=== PATIENT | female | born 2000 | race Caucasian/White ===

== ENCOUNTER 2020-08-14 11:17 | Emergency (ER) | payer SELFPAY ==
--- NOTE | 2020-08-14 14:12 | ER ---
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 Coronavirus screen: Client denies travel out of the [place] in the last 14 days. Ebola Screen: Patient negative for fever greater than or equal to 101.5 degrees Fahrenheit, and additional compatible Ebola Virus Disease symptoms Patient denies exposure to infectious person. Patient denies travel to an Ebola-affected area in the 21 days before illness onset. No symptoms or risks identified at this time. Initial Sepsis Screen: Does the patient meet any 2 criteria? HR > 90 bpm. No. Patient's initial sepsis screen is negative. Does the patient have a suspected source of infection? Yes: Skin breakdown/wound. Risk Assessment: Do you want to hurt yourself or someone else? Patient reports no desire to harm self or others. Onset of symptoms was August 14, 2020. 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 - Social history:: Smoking status: Patient reports the use of cigarette tobacco products, smokes one-half pack cigarettes per day. Screenin:40 Abuse screen: Denies threats or abuse. Nutritional screening: No deficits noted. em Tuberculosis screening: No symptoms or risk factors identified. Fall Risk None identified. Assessment: 11:40 General: Appears in no apparent distress. comfortable, Behavior is calm, cooperative, em appropriate for age, Denies fever. Pain: Denies pain. Neuro: Level of Consciousness is awake, alert, obeys commands, Oriented to person, place, time, situation, Appropriate for age. Cardiovascular: Capillary refill < 3 seconds Patient's skin is warm and dry. Respiratory: Airway is patent Respiratory effort is even, unlabored, Respiratory pattern is regular, symmetrical. Derm: Skin is intact, is healthy with good turgor, Skin is pink, warm \T\ dry. Wound noted right lower back, dorsum of left foot and right arm. Musculoskeletal: 14:04 Reassessment: called pt, no answer at this time. em Vital Signs: 11:38 BP 141 / 94; Pulse 99; Resp 18; Temp 98.4(O); Pulse Ox 100% on R/A; Weight 90.72 kg; em Height 5 ft. 1 in. (154.94 cm); Pain 0/10; 11:38 Body Mass Index 37.79 (90.72 kg, 154.94 cm) em ED Course: 11:22 Patient arrived in ED. ds1 11:40 Triage completed. em 11:40 Patient has correct armband on for positive identification. Placed in gown. Bed in low em position. Call light in reach. Side rails up X2. 11:40 No provider procedures requiring assistance completed. Patient did not have IV access em during this emergency room visit. 11:41 Arm band placed on. em 13:30 Lurdes Cerna FNP-C [facility]. kb 13:30 Ifeanyi Larsen MD is Attending Physician. kb 14:15 Shun Mayberry, RN is Primary Nurse. em Administered Medications: No medications were administered Outcome: 14:10 Discharged to home ambulatory. em 14:10 Condition: good em 14:10 Discharge instructions given to patient, Instructed on discharge instructions, follow up and referral plans. medication usage, wound care, Demonstrated understanding of instructions, follow-up care, medications, wound care, Prescriptions given X 1. 14:12 Discharge ordered by . kb 14:15 Patient left the ED. em Signatures: Lurdes Cerna FNP-C FNP-Shun Zuluaga, RN RN em Mahnaz Faith ds1
--- NOTE | 2020-08-14 14:12 | EDPHYS ---
Physician Documentation [facility] Name: Rita Garcia Age: 20 yrs Sex: Female : 2000 Arrival Date: 08/14/2020 Time: 11:22 Bed Waiting Private MD: ED Physician Ifeanyi Larsen HPI: 08/14 23:50 This 20 yrs old Female presents to ER via Ambulatory with complaints of Rash. kb 23:50 The patient's rash thought to be caused by wounds. The rash is located on the right kb lower back and right arm and right calf and left calf. The rash can be described as draining, open wounds. Onset: The symptoms/episode began/occurred last week. Associated signs and symptoms: Pertinent positives: None. Severity of symptoms: At their worst the symptoms were mild in the emergency department the symptoms are unchanged. The patient has not experienced similar symptoms in the past. The patient has not recently seen a physician. Pt reports what started out as maybe insect bites has become sores. Pt has had MRSA before and is concerned that is what they are now. States some of them have been draining. 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 - Social history:: Smoking status: Patient reports the use of cigarette tobacco products, smokes one-half pack cigarettes per day. ROS: 23:47 Constitutional: Negative for fever, chills, and weight loss, Cardiovascular: Negative kb for chest pain, palpitations, and edema, Respiratory: Negative for shortness of breath, cough, wheezing, and pleuritic chest pain, Abdomen/GI: Negative for abdominal pain, nausea, vomiting, diarrhea, and constipation, MS/Extremity: Negative for injury and deformity, Neuro: Negative for headache, weakness, numbness, tingling, and seizure. 23:47 Skin: Positive for of the right calf and left calf and right lower back and right arm, open wounds. Exam: 23:48 Constitutional: This is a well developed, well nourished patient who is awake, alert, kb and in no acute distress. Head/Face: Normocephalic, atraumatic. Chest/axilla: Normal chest wall appearance and motion. Nontender with no deformity. No lesions are appreciated. Cardiovascular: Regular rate and rhythm with a normal S1 and S2. No gallops, murmurs, or rubs. Normal PMI, no JVD. No pulse deficits. Respiratory: Lungs have equal breath sounds bilaterally, clear to auscultation and percussion. No rales, rhonchi or wheezes noted. No increased work of breathing, no retractions or nasal flaring. Abdomen/GI: Soft, non-tender, with normal bowel sounds. No distension or tympany. No guarding or rebound. No evidence of tenderness throughout. MS/ Extremity: Pulses equal, no cyanosis. Neurovascular intact. Full, normal range of motion. Neuro: Awake and alert, GCS 15, oriented to person, place, time, and situation. Cranial nerves II-XII grossly intact. Motor strength 5/5 in all extremities. Sensory grossly intact. Cerebellar exam normal. Normal gait. 23:48 Skin: abscess, that is small, of the right lower back, with drainage, open wounds to bilateral calves and one to right forearm. Vital Signs: 11:38 BP 141 / 94; Pulse 99; Resp 18; Temp 98.4(O); Pulse Ox 100% on R/A; Weight 90.72 kg; em Height 5 ft. 1 in. (154.94 cm); Pain 0/10; 11:38 Body Mass Index 37.79 (90.72 kg, 154.94 cm) em MDM: 14:12 Patient medically screened. kb 23:47 Data reviewed: vital signs, nurses notes. Data interpreted: Pulse oximetry: on room air kb is 100 %. Interpretation: normal. Counseling: I had a detailed discussion with the patient and/or guardian regarding: the historical points, exam findings, and any diagnostic results supporting the discharge/admit diagnosis, the need for outpatient follow up, a family practitioner, to return to the emergency department if symptoms worsen or persist or if there are any questions or concerns that arise at home. Administered Medications: No medications were administered Disposition: 15:59 Co-signature as Attending Physician, Ifeanyi Larsen MD I agree with the assessment and kdr plan of care. Disposition: 08/14/20 14:12 Discharged to Home. Impression: Local infection of the skin and subcutaneous tissue, unspecified. - Condition is Stable. - Discharge Instructions: Skin Abscess, Pzyw-fa-Noan, Wound Infection, [id number]. - Prescriptions for Bactrim DS 800- 160 mg Oral Tablet - take 1 tablet by ORAL route every 12 hours for 10 days; 20 tablet. - Medication Reconciliation Form, Thank You Letter, Antibiotic Education, Prescription Opioid Use form. - Follow up: Emergency Department; When: As needed; Reason: Worsening of condition. Follow up: Private Physician; When: 2 - 3 days; Reason: Recheck today's complaints, Continuance of care, Re-evaluation by your physician. Signatures: Lurdes Cerna, BRIM STRETCHER-C BRIM STRETCHER-Ckb Ifeanyi Larsen MD MD kdr Munoz, Edgar RN RN em Corrections: (The following items were deleted from the chart) 14:15 14:12 08/14/2020 14:12 Discharged to Home. Impression: Local infection of the skin and em subcutaneous tissue, unspecified. Condition is Stable. Forms are Medication Reconciliation Form, Thank You Letter, Antibiotic Education, Prescription Opioid Use. Follow up: Emergency Department; When: As needed; Reason: Worsening of condition. Follow up: Private Physician; When: 2 - 3 days; Reason: Recheck today's complaints, Continuance of care, Re-evaluation by your physician. kb 23:50 23:48 Skin: abscess, that is small, of the right lower back, with drainage, open wounds kb to bilateral calves and one to left forearm. kb
[2020-08-14 14:23] VITALS: BP 141/94; TEMP 98.4; O2SAT 100
== END 2020-08-14 14:15 | disposition home or self-care (01) ==
LOC: ER 11:17
DX: L08.9 Local infection of the skin and subcutaneous tissue, unspecified (principal); F17.210 Nicotine dependence, cigarettes, uncomplicated; Z91.040 Latex allergy status; Z91.048 Other nonmedicinal substance allergy status
CPT/HCPCS: 99282

== ENCOUNTER 2020-11-01 02:55 | Inpatient (IN) | payer SELFPAY ==
--- OUTSIDE RECORDS SUMMARY | 2020-11-01 02:58 | XMS REPORT | Continuity of Care Document ---
:[address] [facility] t Address [address] [place] [address] Care Team Providers Name Role Phone Sai Jaramillo DO Attending Clinician Pk Aragon Attending Clinician Payers Payer Name Policy Type Policy Number Effective Date Expiration Date S ource Problems This patient has no known problems. Allergies, Adverse Reactions, Alerts Allergy Allergy Status Severity Reaction(s) Onset Inactive Treating Comm ents Source Name Type Date Date Clinician LATAX DA Active U 2019- [facility]30 [place] [facility] [address] [facility] [place] Active [place] [facility] ry 4- [place] [facility] [address] [facility] [address] [facility] - [place] Active [place] 2018-0 [facility] unspecif 4- [place] ied 00:00: [facility] 00 are [facility] Medications This patient has no known medications. Procedures This patient has no known procedures. Encounters Start End Encounter Admission Attending Care Care Encounter Source Date/Time Date/Time Type Type Clinicians Facility Department ID 2020-10-28 2020-10-28 Patient DESTINEE Jaramillo [id number] 00:00:00 00:00:00 Outreach Dixon [facility] [id number] Sai [facility] [id number] [place] [id number] 2020-10-24 2020-10-24 Telephone Sherly KYMAGDALENA [id number] 00:00:00 00:00:00 Suzie Whittington CARE ASSISTANT [id number] [facility] [id number] MATERNAL [id number] & CHILD [address] [place] [address] Results Test Description Test Time Test Comments Results Result Comments Source RAPID PLASMA REAGIN 2019-05-02 09:59:00 Test Item Value Reference Range Interpretation Comme nts RAPID PLASMA REAGIN (test code = RPR) NEGATIVE NEGATIVE CBC W/AUTO [id number] 04:35:00 Test Item Value Reference Range Interpretation Comments WHITE BLOOD CELL (test code = 14.9 x10 3/uL 3.2-11.5 H WBC) RED BLOOD CELL (test code = 3.97 x10(6)/m 3.70-5.10 N RBC) HEMOGLOBIN (test code = HGB) 9.6 g/dL 12.0-15.0 L HEMATOCRIT (test code = HCT) 29.8 % 35.7-44.8 L MEAN CELL VOLUME (test code = 75 fL 80-100 L MCV) MEAN CELL HGB (test code = MCH) 24.1 pg 26.2-33.8 L MEAN CELL HGB CONCENTRATION 32.1 g/dL 30.0-34.0 N (test code = MCHC) RED CELL DISTRIBUTION WIDTH 16.4 % 11.3-14.5 H (test code = RDW) PLATELET COUNT (test code = 325 x10 3/uL 130-408 N PLT) MEAN PLATELET VOLUME (test code 8.8 fl 6.4-10.5 N = MPV) NEUTROPHIL % (test code = NT%) 78.3 % 40.0-70.0 H LYMPHOCYTE % (test code = LY%) 14.2 % 20-40 L MONOCYTE % (test code = MO%) 6.4 % 1-10 N EOSINOPHIL % (test code = EO%) 0.9 % 1.0-5.0 L BASOPHIL % (test code = BA%) 0.2 % 0.0-1.0 N NEUTROPHIL # (test code = NT#) 11.7 x10 3/uL 1.6-7.2 H LYMPHOCYTE # (test code = LY#) 2.10 x10 3/uL 1.1-2.7 N MONOCYTE # (test code = MO#) 1.0 x10 3/uL 0.3-0.8 H EOSINOPHIL # (test code = EO#) 0.1 x10 3/uL 0.0-0.5 N BASOPHIL # (test code = BA#) 0.0 x10 3/uL 0.0-0.1 N AB RUBELLA [id number] 14:36:00 Test Item Value Reference Range Interpretation Comments AB RUBELLA IGG (test code = RUBGAB) EQUIVOCAL NEGATIVE AG HEPATITIS B [id number] 13:50:00 Test Item Value Reference Range Interpretation Comments AG HEPATITIS B SURFACE (test code = NEGATIVE NEGATIVE HBSAG) AB HIV 1 13:50:00 Test Item Value Reference Range Interpretation Comments AB HIV 1 2 (test code = [id number]) NEGATIVE NEGATIVE CBC W/AUTO [id number] 12:38:00 Test Item Value Reference Range Interpretation Comments WHITE BLOOD CELL (test code = 10.3 x10 3/uL 3.2-11.5 N WBC) RED BLOOD CELL (test code = 4.41 x10(6)/m 3.70-5.10 N RBC) HEMOGLOBIN (test code = HGB) 10.6 g/dL 12.0-15.0 L HEMATOCRIT (test code = HCT) 33.4 % 35.7-44.8 L MEAN CELL VOLUME (test code = 76 fL 80-100 L MCV) MEAN CELL HGB (test code = MCH) 24.1 pg 26.2-33.8 L MEAN CELL HGB CONCENTRATION 31.9 g/dL 30.0-34.0 N (test code = MCHC) RED CELL DISTRIBUTION WIDTH 17.1 % 11.3-14.5 H (test code = RDW) PLATELET COUNT (test code = 383 x10 3/uL 130-408 N PLT) MEAN PLATELET VOLUME (test code 8.6 fl 6.4-10.5 N = MPV) NEUTROPHIL % (test code = NT%) 71.9 % 40.0-70.0 H LYMPHOCYTE % (test code = LY%) 18.0 % 20-40 L MONOCYTE % (test code = MO%) 7.9 % 1-10 N EOSINOPHIL % (test code = EO%) 1.6 % 1.0-5.0 N BASOPHIL % (test code = BA%) 0.6 % 0.0-1.0 N NEUTROPHIL # (test code = NT#) 7.4 x10 3/uL 1.6-7.2 H LYMPHOCYTE # (test code = LY#) 1.90 x10 3/uL 1.1-2.7 N MONOCYTE # (test code = MO#) 0.8 x10 3/uL 0.3-0.8 N EOSINOPHIL # (test code = EO#) 0.2 x10 3/uL 0.0-0.5 N BASOPHIL # (test code = BA#) 0.1 x10 3/uL 0.0-0.1 N RAPID PLASMA [id number] 09:46:00 Test Item Value Reference Range Interpretation Comments RAPID PLASMA REAGIN (test code = NEGATIVE NEGATIVE RPR) AG HEPATITIS B [id number] 21:10:00 Test Item Value Reference Range Interpretation Comments AG HEPATITIS B SURFACE (test code = NEGATIVE NEGATIVE HBSAG) AB HIV 1 21:10:00 Test Item Value Reference Range Interpretation Comments AB HIV 1 2 (test code = [id number]) NEGATIVE NEGATIVE CBC W/AUTO [id number] 20:11:00 Test Item Value Reference Range Interpretation Comments WHITE BLOOD CELL (test code = 12.6 x10 3/uL 3.2-11.5 H WBC) RED BLOOD CELL (test code = 4.18 x10(6)/m 3.70-5.10 N RBC) HEMOGLOBIN (test code = HGB) 10.2 g/dL 12.0-15.0 L HEMATOCRIT (test code = HCT) 32.6 % 35.7-44.8 L MEAN CELL VOLUME (test code = 78 fL 80-100 L MCV) MEAN CELL HGB (test code = MCH) 24.4 pg 26.2-33.8 L MEAN CELL HGB CONCENTRATION 31.3 g/dL 30.0-34.0 N (test code = MCHC) RED CELL DISTRIBUTION WIDTH 15.7 % 11.3-14.5 H (test code = RDW) PLATELET COUNT (test code = 364 x10 3/uL 130-408 N PLT) MEAN PLATELET VOLUME (test code 8.7 fl 6.4-10.5 N = MPV) NEUTROPHIL % (test code = NT%) 75.0 % 40.0-70.0 H LYMPHOCYTE % (test code = LY%) 16.4 % 20-40 L MONOCYTE % (test code = MO%) 6.8 % 1-10 N EOSINOPHIL % (test code = EO%) 1.4 % 1.0-5.0 N BASOPHIL % (test code = BA%) 0.4 % 0.0-1.0 N NEUTROPHIL # (test code = NT#) 9.5 x10 3/uL 1.6-7.2 H LYMPHOCYTE # (test code = LY#) 2.10 x10 3/uL 1.1-2.7 N MONOCYTE # (test code = MO#) 0.9 x10 3/uL 0.3-0.8 H EOSINOPHIL # (test code = EO#) 0.2 x10 3/uL 0.0-0.5 N BASOPHIL # (test code = BA#) 0.1 x10 3/uL 0.0-0.1 N
[2020-11-01] MEDS ORDERED: MORPHINE 4 MG/ML SYR ONE (03:44)
[2020-11-01] MEDS ORDERED: NA CHLORIDE 0.9% 1,000 ML ONE (03:45)
[2020-11-01] MEDS ORDERED: ONDANSETRON 4 MG/2 ML VIAL ONE (03:45)
[2020-11-01 03:54] LABS: Absolute Lymphocytes (CBC) 2.6 K/uL (0.7-4.9); Basophils % 0.3 % (0-1.3); Hematocrit 46.5 % (36.0-45.0); Lymphocytes % 19.5 % (15.3-44.8); MPV 9.1 fL (7.6-11.3); RBC Red Blood Cell Count 5.23 M/uL (3.86-4.86)
[2020-11-01 04:15] LABS: ALT/SGPT 35 U/L (12-78); AST/SGOT 11 U/L (15-37); Albumin 3.4 g/dL (3.4-5.0); Alkaline Phosphatase 85 U/L (45-117); BUN Blood Urea Nitrogen 9 mg/dL (7-18); Bicarbonate 25 mmol/L (21-32); Bilirubin Direct < 0.1 mg/dL (0-0.2); Bilirubin Total 0.3 mg/dL (0.2-1.0); Glucose Level 113 mg/dL (74-106); Lipase 97 U/L (73-393); Potassium 3.7 mmol/L (3.5-5.1); Protein, Total 7.1 g/dL (6.4-8.2); Sodium Level 140 mmol/L (136-145)
[2020-11-01 04:59] LABS: Urine Blood TRACE (Negative); Urine Glucose NEGATIVE (Negative); Urine Protein NEGATIVE (NEG); Urine Specific Gravity 1.015 (1.005-1.030); Urine Specific Gravity/Preg 1.015 (1.005-1.030); Urine pH 5.5 (5.0-7.0)
[2020-11-01] MEDS ORDERED: PIPER/TAZO/NS 3.375gm 3.375 GM/100 ML BAG ONE (06:01)
[2020-11-01] MEDS ORDERED: D5 0.45 NS 1,000 ML IV ONE (06:02)
--- NOTE | 2020-11-01 06:15 | EDPHYS ---
Physician Documentation [facility] Name: Rita Garcia Age: 20 yrs Sex: Female : 2000 Arrival Date: 11/01/2020 Time: 02:56 Bed 13 Private MD: ED Physician Nelson Manuel HPI: 11/01 03:17 This 20 yrs old Female presents to ER via Ambulatory with complaints of ma2 Gallbladder Pain. 03:17 Onset: The symptoms/episode began/occurred gradually, 1 day(s) ago. Associated signs ma2 and symptoms: Pertinent negatives: anorexia, blood in stools, diarrhea, fever, vaginal discharge, vomiting blood. Severity of pain: At its worst the pain was moderate in the emergency department the pain is unchanged. The patient has experienced similar episodes in the past. diagnosed with cholelithiasis last week at another er given naproxen and had US. she is here because pain is recurrent. she had pain 2 hrs ago that has improved no fever. n ovomiting pain is moderate. 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 - Social history:: Smoking status: Patient denies any tobacco usage or history of. Patient/guardian denies using alcohol, street drugs, The patient lives with family. - Family history:: not pertinent. ROS: 03:17 Constitutional: Negative for fever, chills, and weight loss. ma2 03:17 All other systems are negative. Exam: 03:17 Constitutional: This is a well developed, well nourished patient who is awake, alert, ma2 and in no acute distress. Head/Face: Normocephalic, atraumatic. Eyes: Pupils equal round and reactive to light, extra-ocular motions intact. Lids and lashes normal. Conjunctiva and sclera are non-icteric and not injected. Cornea within normal limits. Periorbital areas with no swelling, redness, or edema. ENT: Nares patent. No nasal discharge, no septal abnormalities noted. Tympanic membranes are normal and external auditory canals are clear. Oropharynx with no redness, swelling, or masses, exudates, or evidence of obstruction, uvula midline. Mucous membranes moist. Neck: Trachea midline, no thyromegaly or masses palpated, and no cervical lymphadenopathy. Supple, full range of motion without nuchal rigidity, or vertebral point tenderness. No Meningismus. Chest/axilla: Normal chest wall appearance and motion. Nontender with no deformity. No lesions are appreciated. Cardiovascular: Regular rate and rhythm with a normal S1 and S2. No gallops, murmurs, or rubs. Normal PMI, no JVD. No pulse deficits. Respiratory: Lungs have equal breath sounds bilaterally, clear to auscultation and percussion. No rales, rhonchi or wheezes noted. No increased work of breathing, no retractions or nasal flaring. Abdomen/GI: right upper q painr, with normal bowel sounds. No distension or tympany. No guarding or rebound. No evidence of tenderness throughout. Back: No spinal tenderness. No costovertebral tenderness. Full range of motion. Skin: Warm, dry with normal turgor. Normal color with no rashes, no lesions, and no evidence of cellulitis. MS/ Extremity: Pulses equal, no cyanosis. Neurovascular intact. Full, normal range of motion. Neuro: Awake and alert, GCS 15, oriented to person, place, time, and situation. Cranial nerves II-XII grossly intact. Motor strength 5/5 in all extremities. Sensory grossly intact. Cerebellar exam normal. Normal gait. Vital Signs: 03:09 BP 146 / 98; Pulse 99; Resp 16; Temp 98.2; Pulse Ox 100% on R/A; Height 5 ft. 1 in. sg (154.94 cm); Pain 8/10; 04:00 BP 102 / 58; Pulse 51; Resp 16; Pulse Ox 100% ; Pain 0/10; cr4 05:20 BP 102 / 68; Pulse 81; Resp 16; Temp 98.8; Pulse Ox 98% ; Pain 0/10; cr4 06:00 BP 122 / 88; Pulse 89; Resp 18; Temp 98.1; Pulse Ox 100% ; Pain 0/10; cr4 08:15 BP 106 / 81; Pulse 90; Resp 18; Pulse Ox 100% on R/A; bw MDM: 03:07 Patient medically screened. [facility] 03:17 Differential diagnosis: cholecystitis, Cholelithiasis, gastritis. [facility] 05:44 Data reviewed: vital signs, nurses notes. Counseling: I had a detailed discussion with [facility] the patient and/or guardian regarding: the historical points, exam findings, and any diagnostic results supporting the discharge/admit diagnosis, the presence of at least one elevated blood pressure reading (>120/80) during this emergency department visit, the need for outpatient follow up. Response to treatment: the patient's symptoms have markedly improved after treatment. 06:14 ED course: discussed with dr. montaño . [facility] 11/01 03:06 Order name: Basic Metabolic Panel [facility] 11/01 03:06 Order name: CBC with Diff [facility] 11/01 03:06 Order name: Hepatic Function [facility] 11/01 03:06 Order name: Lipase [facility] 11/01 03:06 Order name: Basic Metabolic Panel; Complete Time: 04:17 [facility] 11/01 03:06 Order name: CBC with Automated Diff; Complete Time: 04:17 [facility] 11/01 03:06 Order name: Liver (Hepatic) Function; Complete Time: 04:17 [facility] 11/01 03:06 Order name: Lipase; Complete Time: 04:17 [facility] 11/01 04:52 Order name: Urine Dipstick--Ancillary (enter results) [facility] 11/01 04:52 Order name: Urine --Ancillary (enter results) [facility] 11/01 04:53 Order name: Urine Dipstick-Ancillary; Complete Time: 05:36 [facility] 11/01 04:53 Order name: Urine --Ancillary; Complete Time: 05:36 [facility] 11/01 06:19 Order name: Basic Metabolic Panel [facility] 11/01 06:19 Order name: Basic Metabolic Panel [facility] 11/01 03:06 Order name: IV Saline Lock; Complete Time: 03:49 [facility] 11/01 03:20 Order name: CT Abd/Pelvis - IV Contrast Only [facility] 11/01 06:19 Order name: NPO; Complete Time: 07:11 [facility] 11/01 06:19 Order name: Lipase [facility] 11/01 06:19 Order name: Lipase [facility] 11/01 06:19 Order name: CBC with Automated Diff [facility] 11/01 06:19 Order name: CBC with Automated Diff [facility] 11/01 07:54 Order name: COVID-19 : Document "Date of Symptom Onset" if Symptomatic. eb 11/01 08:12 Order name: CORONAVIRUS [facility] 11/01 08:52 Order name: SARS-COV-2 RT PCR [facility] 11/01 03:06 Order name: Labs collected and sent; Complete Time: 03:50 ma2 11/01 03:06 Order name: Urine Dipstick-Ancillary (obtain specimen); Complete Time: 04:54 ma2 11/01 05:38 Order name: NPO; Complete Time: 05:40 ma2 Administered Medications: 03:40 Drug: morphine 4 mg Route: IVP; Site: left forearm; cr4 06:01 Follow up: Response: No adverse reaction; Pain is decreased sf 03:40 Drug: Zofran (Ondansetron) 4 mg Route: IVP; Site: left forearm; cr4 04:42 Follow up: Response: No adverse reaction; Pain is decreased cr4 03:40 Drug: NS 0.9% 1000 ml Route: IV; Rate: 1 bolus; Site: left femoral; cr4 04:42 Follow up: IV Status: Completed infusion; IV Intake: 1000ml cr4 05:58 Drug: Zosyn 3.375 grams Route: IVPB; Infused Over: 60 mins; Site: left forearm; sf 06:28 Follow up: IV Status: Completed infusion; IV Intake: 100ml sf 05:58 Drug: D5-1/2 NS 1000 ml Route: IV; Rate: 125 ml/hr; Site: left forearm; sf Disposition: 11/01/20 06:14 Hospitalization ordered by Kwasi Thompson for Inpatient Admission. Preliminary diagnosis is Acute cholecystitis. - Bed requested for Telemetry/MedSurg (Inpatient). - Status is Inpatient Admission. eb - Condition is Stable. - Problem is new. - Symptoms are unchanged. Signatures: Dispatcher [employer] Antonio Ortega RN TURNER Nupur Lamb RN RN cr4 Nelson Manuel MD MD [facility] Tennille Carter Steven, RN RN sf Corrections: (The following items were deleted from the chart) 09:25 06:14 Hospitalization Ordered by Kwasi Thompson MD for Inpatient Admission. Preliminary eb diagnosis is Acute cholecystitis. Bed requested for Telemetry/MedSurg (Inpatient). Status is Inpatient Admission. Condition is Stable. Problem is new. Symptoms are unchanged. ma2 10:24 09:25 11/01/2020 06:14 Hospitalization Ordered by Kwasi Thompson MD for Inpatient eb Admission. Preliminary diagnosis is Acute cholecystitis. Bed requested for Telemetry/MedSurg (Inpatient). Status is Inpatient Admission. Condition is Stable. Problem is new. Symptoms are unchanged. eb
--- NOTE | 2020-11-01 06:15 | ER ---
Nurse's Notes [facility] Name: Rita Garcia Age: 20 yrs Sex: Female : 2000 Arrival Date: 11/01/2020 Time: 02:56 Bed 13 Private MD: Diagnosis: Acute cholecystitis Presentation: 11/01 03:09 Chief complaint: Patient states: RUQ pain that started last night after eating taco sg angulo, states having pain like this in the past and having been diagnosed with gall stones, was instructed on a diet and plan to follow up, has done everything instructed... except ate taco angulo. Coronavirus screen: Client denies travel out of the [place] in the last 14 days. At this time, the client does not indicate any symptoms associated with coronavirus-19. Ebola Screen: Patient negative for fever greater than or equal to 101.5 degrees Fahrenheit, and additional compatible Ebola Virus Disease symptoms Patient denies exposure to infectious person. Patient denies travel to an Ebola-affected area in the 21 days before illness onset. No symptoms or risks identified at this time. Initial Sepsis Screen: Does the patient meet any 2 criteria? No. Patient's initial sepsis screen is negative. Does the patient have a suspected source of infection? No. Patient's initial sepsis screen is negative. Risk Assessment: Do you want to hurt yourself or someone else? Patient reports no desire to harm self or others. Onset of symptoms was November 01, 2020. Care prior to arrival: None. Transition of care: patient was not received from another setting of care. 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 - Social history:: Smoking status: Patient denies any tobacco usage or history of. Patient/guardian denies using alcohol, street drugs, The patient lives with family. - Family history:: not pertinent. Screenin:58 Abuse screen: Denies threats or abuse. Nutritional screening: No deficits noted. cr4 Tuberculosis screening: No symptoms or risk factors identified. Fall Risk None identified. Assessment: 03:06 General: Appears uncomfortable, well groomed, Behavior is calm, cooperative, cr4 appropriate for age. Pain: Complains of pain in right abdomen Pain does not radiate. Pain currently is 5 out of 10 on a pain scale. Quality of pain is described as aching, sharp, Pain began 5 hours ago. Neuro: No deficits noted. Cardiovascular: No deficits noted. Respiratory: No deficits noted. GI: Reports lower abdominal pain, upper abdominal pain, nausea, Pain is 5 out of 10 on a pain scale. Patient currently denies vomiting. : Denies burning with urination, urinary frequency. EENT: No deficits noted. Derm: No deficits noted. Musculoskeletal: No deficits noted. 04:00 Reassessment: Patient and/or family updated on plan of care and expected duration. Pain cr4 level reassessed. Patient states feeling better. Patient states symptoms have improved. 04:58 Reassessment: Patient states feeling better. Patient states symptoms have improved. cr4 Pain: Denies pain. 05:51 Reassessment: Patient and/or family updated on plan of care and expected duration. Pain cr4 level reassessed. Patient denies pain at this time. Patient states feeling better. informed of need to admit.. 07:10 Reassessment: Patient appears in no apparent distress at this time. Patient and/or bw family updated on plan of care and expected duration. Pain level reassessed. Patient is alert, oriented x 3, equal unlabored respirations, skin warm/dry/pink. received report from Jossue TOMPKINS. Pt asleep at this time. 08:15 Reassessment: Patient appears in no apparent distress at this time. Patient and/or bw family updated on plan of care and expected duration. Pain level reassessed. Patient is alert, oriented x 3, equal unlabored respirations, skin warm/dry/pink. Warm blanket provided. No needs or concerns voiced at this time. Vital Signs: 03:09 BP 146 / 98; Pulse 99; Resp 16; Temp 98.2; Pulse Ox 100% on R/A; Height 5 ft. 1 in. sg (154.94 cm); Pain 8/10; 04:00 BP 102 / 58; Pulse 51; Resp 16; Pulse Ox 100% ; Pain 0/10; cr4 05:20 BP 102 / 68; Pulse 81; Resp 16; Temp 98.8; Pulse Ox 98% ; Pain 0/10; cr4 06:00 BP 122 / 88; Pulse 89; Resp 18; Temp 98.1; Pulse Ox 100% ; Pain 0/10; cr4 08:15 BP 106 / 81; Pulse 90; Resp 18; Pulse Ox 100% on R/A; bw ED Course: 02:56 Patient arrived in ED. cl3 03:05 Nelson Manuel MD is Attending Physician. ma2 03:09 Arm band placed on. sg 03:12 Triage completed. sg 03:16 Nupur Lamb, RN is Primary Nurse. cr4 03:25 Inserted saline lock: 20 gauge in left forearm, using aseptic technique. cr4 04:[address] cr4 04:58 Patient has correct armband on for positive identification. Bed in low position. Side cr4 rails up X2. 04:58 No provider procedures requiring assistance completed. cr4 05:15 CT Abd/Pelvis - IV Contrast Only In Process Unspecified. EDMS 05:39 Urine --Ancillary (enter results) Sent. sf 05:40 Urine Dipstick--Ancillary (enter results) Sent. sf 05:40 Lipase Sent. sf 05:40 Hepatic Function Sent. sf 05:40 CBC with Diff Sent. sf 05:40 Basic Metabolic Panel Sent. sf 05:45 ED physician to see patient. cr4 05:50 Diet: Patient is NPO. cr4 06:14 Kwasi Thompson MD is Hospitalizing Provider. ma2 06:42 Primary Nurse role handed off by Nupur Lamb, TURNER sf 06:42 Antonio Gaxiola, RN is Primary Nurse. sf 07:04 Report given to TURNER Aguayo. sf 07:08 Primary Nurse role handed off by Antonio Gaxiola, TURNER eb 07:09 Dede Duron, TURNER is Primary Nurse. bw 08:16 Warm blanket given. Pillow given. mt Administered Medications: 03:40 Drug: morphine 4 mg Route: IVP; Site: left forearm; cr4 06:01 Follow up: Response: No adverse reaction; Pain is decreased sf 03:40 Drug: Zofran (Ondansetron) 4 mg Route: IVP; Site: left forearm; cr4 04:42 Follow up: Response: No adverse reaction; Pain is decreased cr4 03:40 Drug: NS 0.9% 1000 ml Route: IV; Rate: 1 bolus; Site: left femoral; cr4 04:42 Follow up: IV Status: Completed infusion; IV Intake: 1000ml cr4 05:58 Drug: Zosyn 3.375 grams Route: IVPB; Infused Over: 60 mins; Site: left forearm; sf 06:28 Follow up: IV Status: Completed infusion; IV Intake: 100ml sf 05:58 Drug: D5-1/2 NS 1000 ml Route: IV; Rate: 125 ml/hr; Site: left forearm; sf Intake: 04:42 IV: 1000ml; Total: 1000ml. cr4 06:28 IV: 100ml; Total: 1100ml. sf Outcome: 06:14 Decision to Hospitalize by Provider. ma2 10:24 Patient left the ED. eb Signatures: Dispatcher [employer] EDAntonio De Jesus, RN Nupur Casey RN RN cr4 Thompson, Moriah mt Alzahri, Mohammad, MD MD ma2 Botello, Elizabeth eb Lewis, Charde 3 Antonio Gaxiola RN RN sf Webb, Bethany, RN RN
[2020-11-01] MEDS ORDERED: ONDANSETRON 4 MG/2 ML VIAL IV PRN (06:16)
[2020-11-01] MEDS ORDERED: MORPHINE 4 MG/ML SYR IV PRN (06:16)
[2020-11-01] MEDS ORDERED: ACETAMINOPHEN 500 MG TAB PO PRN (06:16)
[2020-11-01] MEDS ORDERED: D5 0.45 NS 1,000 ML IV SCH (07:00)
[2020-11-01] MEDS ORDERED: PIPER/TAZO/NS 3.375gm 3.375 GM/100 ML BAG IVPB SCH (09:00)
[2020-11-01 09:03] VITALS: BMI 34.9
[2020-11-01 10:34] VITALS: BP 131/79; TEMP 96.9
--- NOTE | 2020-11-01 12:23 | HP ---
Date of Admission: 11/01/2020 History Of Present Illness: The patient is a 20-year-old female with a past medical history of lupus and asthma, who presents to the hospital with abdominal pain beginning at approximately midnight las t night. She states that she was eating greasy meals and has had similar episodes before in the past . She went to [facility] and was diagnosed with gallstones at that point. Instructed to follow up with a physician for her gallbladder surgery, that was over a year ago. However, she states her symptoms re solved and as such, she did not follow up. She now presents with similar complaints of epigastric wi th right upper quadrant pain. No nausea. No vomiting. No change in bowel or bladder habits. No si ck contacts. No recent travel. No new food exposures. She states that since being admitted to the hospital in the ER about 2 hours after her receiving medication, she had become essentially pain free at this point and has remained so as such, she is now hungry and states that she would like to try d iet at this point. Past Medical History: Significant for lupus, asthma, bipolar, anxiety, depression. Allergies: NO KNOWN DRUG ALLERGIES. Medications: She takes BuSpar, lithium only. Past Surgical History: She has had dental surgery, ear surgery, and knee surgery. No abdominal surg cynthia. Social History: She smokes cigarettes and marijuana. She states she had a history of abusing hydroc odone and pills in the past, but denies using any in the past several years. Review of Systems: Ten-point review of systems other than HPI, denies. Physical Examination: Vital Signs: At the time of my examination her BMI is 35. Her blood pressure was 131/79, pulse 70, respiratory rate 20, temperature 96.9. General: She is awake, alert, oriented. Psychiatric: She is appropriate and conversive. HEENT: She is normocephalic. Sclerae icteric. Mucous members are moist. Oropharynx clear. Neck: Supple without JVD. Chest: Normal expansion and excursion. Cardiovascular: Regular rate and rhythm. Pulmonary: Clear to auscultation bilaterally. Abdomen: Soft, nontender, nondistended. No rebound. No guarding. No focal peritonitis. Negative Marquis sign. No scars. Extremities: No clubbing, cyanosis, or edema. Skin: Warm and dry. Laboratory Data: Reveals a white blood count 13.3, hemoglobin 15.0, hematocrit of 46.5, platelet cou nt is 320. Her neutrophils are normal at 69%. Her sodium 140, potassium 3.7, chloride 109, carbon d ioxide 25, BUN 9, creatinine 0.6, glucose was 113, AST is 11, ALT 35, total bilirubin 0.3, lipase is 97. Her UA had only trace blood, otherwise negative. test is negative. COVID test is neg ative. She had imaging performed, which included a CT of the abdomen and pelvis, which shows possibl e mild gallbladder wall thickening and possible pericholecystic fluid concerning for possible early a cute cholecystitis. The official dictation is pending. Assessment And Plan: This is a 20-year-old female, who came in with an episode of cholecystitis/bili demarco colic. 1.IV fluid hydration. 2.The patient is receiving Zosyn. 3.The patient is pain-free at this point, and as such I have described operative management versus n onoperative management, which includes dietary modification and lifestyle modification versus laparos copic, possible open cholecystectomy. I have explained the risks, benefits, and alternatives of lapa roscopic, possible open cholecystectomy including but not limited to bleeding, infection, damage to t he surrounding tissues, injury to bile ducts, intestines, need for further operation, procedures. Th e patient states she has a trip coming up and would like to have the surgery on elective basis as she is currently hungry and has no pain. She would prefer to start a diet and be discharged home and fo llow up as an outpatient for her cholecystectomy for logistical reasons. As such, I have explained t he risks, benefits, and alternatives of the above stated plan. The patient agrees to as indicated. I will start her on a diet at this point and if she tolerates, she will be discharged home with antibiotic and instructed to follow up to the ER should h er symptoms return. FERDINAND/LEODAN Voice ID: [id number]
--- NOTE | 2020-11-01 20:31 | RAD REPORT ---
EXAM DESCRIPTION: CT - Abdomen Pelvis W Contrast - 11/01/2020 6:30 am CLINICAL HISTORY: The patient is 20 years old and is Female; ruq abd pain;Abd pain TECHNIQUE: Axial computed tomography images of the abdomen and pelvis with intravenous contrast. S agittal and coronal reformatted images were created and reviewed. This CT exam was performed using one or more of the following dose reduction techniques: automated exposure control, adjustment of t he mA and/or kV according to patient size, and/or use of iterative reconstruction technique. COMPARISON: No relevant prior studies available. FINDINGS: LUNG BASES: Subtle peripheral groundglass opacities within the right lower lobe are pres ent. ABDOMEN: LIVER: Unremarkable. No mass. GALLBLADDER AND BILE DUCTS: The gallbladder is not well distended. Suggestion of mild gallbladder wall thickening and pericholecystic inflammation is noted. The gallstones versus sludge are noted within the fundus of the gallbladder. PANCREAS: No ductal dilation. No mass. SPLEEN: Unremarkable. ADRENALS: Unremarkable. No mass. KIDNEYS AND URETERS: Unremarkable. The kidneys enhance symmetrically. No obstructing renal or ure teral calculus is seen. No hydronephrosis or hydroureter. No perinephric fluid or stranding. STOMACH AND BOWEL: The stomach is well distended with food contents. The small bowel is normal in caliber. A moderate amount stool is present throughout colon. There is no mucosal thickening or evid ence of bowel obstruction. PELVIS: APPENDIX: The appendix is normal in caliber without surrounding inflammation. BLADDER: Unremarkable. No mass. REPRODUCTIVE: Unremarkable as visualized. ABDOMEN and PELVIS: INTRAPERITONEAL SPACE: Unremarkable. No free air. No significant fluid collection. BONES/JOINTS: No acute fracture. SOFT TISSUES: The soft tissues are normal. VASCULATURE: Unremarkable. No abdominal aortic aneurysm. LYMPH NODES: Unremarkable. No enlarged lymph nodes. IMPRESSION: Gallstone/sludge within the fundus of the gallbladder with mild gallbladder wall thicken ing and pericholecystic inflammation. Findings may be secondary to acute cholecystitis. Further evalu ation with ultrasound and/or HIDA scan could be performed. Electronically signed by: Ya Harris MD 11/01/2020 5:27 AM CDT Due to temporary technical issues with the PACS/Fluency reporting system, reports are being signed by the in house radiologists without review as a courtesy to insure prompt reporting. The interpreting radiologist is fully responsible for the content of the report.
[2020-11-01 21:50] VITALS: O2SAT 100
== END 2020-11-01 13:30 | disposition home or self-care (01) | DRG 446 ==
LOC: ER 02:55 → ERHOLD 06:22 → 2ND 10:05
PROVIDERS: ADMIT Surgery; ATTEND Surgery
DX: K80.42 Calculus of bile duct with acute cholecystitis without obstruction (principal); F17.210 Nicotine dependence, cigarettes, uncomplicated; Z91.040 Latex allergy status; Z79.899 Other long term (current) drug therapy; Z20.822 Contact with and (suspected) exposure to COVID-19
CPT/HCPCS: 36415; 74177; 80048; 80076; 81003; 81025; 83690; 85025; 96361; 96365; 96375; 99284; J2405; J2543; J7030; J7799; Q9967; U0003

== ENCOUNTER 2020-11-01 23:15 | Emergency (ER) | payer SELFPAY ==
--- OUTSIDE RECORDS SUMMARY | 2020-11-01 23:17 | XMS REPORT | Continuity of Care Document ---
:2000 Author Organization [facility] t Address [address] [place] [address] Care Team Providers Name Role Phone Sai Jaramillo DO Attending Clinician Pk Aragon Attending Clinician Payers Payer Name Policy Type Policy Number Effective Date Expiration Date S ource Problems This patient has no known problems. Allergies, Adverse Reactions, Alerts Allergy Allergy Status Severity Reaction(s) Onset Inactive Treating Comm ents Source Name Type Date Date Clinician LATMALISSA DA Active [facility] [place] [facility] [place] [facility] [place] [facility] - [place] [facility] nut - [place] Active [place] [facility] unspecif - [place] [facility] 00:[facility]: [facility] 00 are [facility] st Medications This patient has no known medications. Procedures This patient has no known procedures. Encounters Start End Encounter Admission Attending Care Care Encounter Source Date/Time Date/Time Type Type Clinicians Facility Department ID 2020-10-28 2020-10-28 Patient DESTINEE Jaramillo [id number] 00:00:00 00:00:00 Outreach [facility] [id number] Sai [facility] [id number] TREY [id number] 2020-10-242020-10-24 Telephone Sherly [facility] [id number] 00:00:00 00:00:00 Suzie Whittington TELEPHONE ANSWERING SERVICE OPERATOR [id number] [facility] [id number] MATERNAL [id number] & CHILD [address] [place] [address] Results Test Description Test Time Test Comments Results Result Comments Source RAPID PLASMA REAGIN 2019-05-02 09:59:00 Test Item Value Reference Range Interpretation Comme nts RAPID PLASMA REAGIN (test code = RPR) NEGATIVE NEGATIVE CBC W/AUTO [id number] 04:35:00 Test Item Value Reference Range Interpretation [...] 0.0 x10 3/uL 0.0-0.1 N AB RUBELLA [id number] 14:36:00 Test Item Value Reference Range Interpretation Comments AB RUBELLA IGG (test code = RUBGAB) EQUIVOCAL NEGATIVE AG HEPATITIS B [id number] 13:50:00 Test Item Value Reference Range Interpretation Comments AG HEPATITIS B SURFACE (test code = NEGATIVE NEGATIVE HBSAG) AB HIV 1 13:50:00 Test Item Value Reference Range Interpretation Comments AB HIV 1 2 (test code = [id number]) NEGATIVE NEGATIVE CBC W/AUTO [id number] 12:38:00 Test Item Value Reference Range Interpretation [...] 0.1 x10 3/uL 0.0-0.1 N RAPID PLASMA [id number] 09:46:00 Test Item Value Reference Range Interpretation Comments RAPID PLASMA REAGIN (test code = NEGATIVE NEGATIVE RPR) AG HEPATITIS B [id number] 21:10:00 Test Item Value Reference Range Interpretation Comments AG HEPATITIS B SURFACE (test code = NEGATIVE NEGATIVE HBSAG) AB HIV 1 21:10:00 Test Item Value Reference Range Interpretation Comments AB HIV 1 2 (test code = [id number]) NEGATIVE NEGATIVE CBC W/AUTO [id number] 20:11:00 Test Item Value Reference Range Interpretation [...]
[2020-11-02] MEDS ORDERED: ONDANSETRON 4 MG/2 ML VIAL ONE (00:29)
[2020-11-02] MEDS ORDERED: DIPHENHYDRAMINE 50 MG/ML VIAL ONE (00:29)
[2020-11-02] MEDS ORDERED: NA CHLORIDE 0.9% 1,000 ML ONE (00:29)
[2020-11-02] MEDS ORDERED: METHYLPREDNISOLONE 125 MG INJ ONE (00:29)
[2020-11-02] MEDS ORDERED: FAMOTIDINE 20 MG/2 ML VIAL IV ONE (00:30)
--- NOTE | 2020-11-02 01:54 | ER ---
Nurse's Notes [facility] Name: Rita Garcia Age: 20 yrs Sex: Female : 2000 Arrival Date: 11/01/2020 Time: 23:16 Bed 5 Private MD: Diagnosis: Pruritis, possible allergic reaction Presentation: 11/01 23:26 Chief complaint: Patient states: she was seen earlier today with an inflammed bb gallbladder and was told she was not ready to have surgery yet but now she feels like her throat is swollen possibly from an allergic reaction to the contrast dye and she is still having "gallbladder" pain. Coronavirus screen: At this time, the client does not indicate any symptoms associated with coronavirus-19. Ebola Screen: No symptoms or risks identified at this time. Onset: The symptoms/episode began/occurred today. Anaphylaxis evaluation, no signs or symptoms of anaphylaxis were noted. Initial Sepsis Screen: Does the patient meet any 2 criteria? No. Patient's initial sepsis screen is negative. Does the patient have a suspected source of infection? No. Patient's initial sepsis screen is negative. Risk Assessment: Do you want to hurt yourself or someone else? Patient reports no desire to harm self or others. Onset of symptoms was November 01, 2020. 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 - Social history:: Smoking status: Patient reports the use of cigarette tobacco products, smokes one-half pack cigarettes per day, Patient uses alcohol, occasionally. street drugs, marijuana. Screenin/28 01:18 Abuse screen: Denies threats or abuse. Denies injuries from another. Nutritional lp1 screening: No deficits noted. Tuberculosis screening: No symptoms or risk factors identified. Fall Risk None identified. Assessment: 00:00 General: Appears in no apparent distress. Behavior is appropriate for age. Pain: lp1 Complains of pain in abdomen. Neuro: Level of Consciousness is awake, alert, obeys commands, Oriented to person, place, time, situation. Cardiovascular: Patient's skin is warm and dry. Respiratory: Airway is patent Trachea midline Respiratory effort is even, unlabored, Respiratory pattern is regular, Breath sounds are clear bilaterally. GI: Reports nausea. : No signs and/or symptoms were reported regarding the genitourinary system. EENT: Reports itching in throat. Derm: Skin is pink, warm \\T\\ dry. Musculoskeletal: No deficits noted. 01:16 Reassessment: Patient declines IV placement, reports she is feeling better, nausea lp1 resolved, throat itching resolved. Vital Signs: 11/01 23:26 BP 116 / 86; Pulse 86; Resp 18 S; Temp 98.9(O); Pulse Ox 99% on R/A; Weight 81.65 kg bb (R); Height 5 ft. 0 in. (152.40 cm) (R); Pain 4/10; 11/02 01:15 BP 109 / 61; Pulse 88; Resp 16; Pulse Ox 99% on R/A; lp1 11/01 23:26 Body Mass Index 35.15 (81.65 kg, 152.40 cm) ED Course: 11/01 23:16 Patient arrived in ED. cl3 23:26 Sudeep Hardin, TURNER is Primary Nurse. rv 23:27 Ben Norton MD is Attending Physician. 7 23:29 Triage completed. bb 23:30 Arm band placed on Patient placed in an exam room, on a stretcher, on pulse oximetry. bb 11/02 00:35 Inserted saline lock: 20 gauge in right antecubital area, using aseptic technique. lp1 00:45 IV discontinued, Infiltration noted to R AC. lp1 01:09 Missed attempt(s): 22 gauge forearm. Bleeding controlled, band aid applied, catheter oe tip intact. 01:18 Patient has correct armband on for positive identification. lp1 01:20 Leila Coleman, TURNER is Primary Nurse. lp1 02:07 No provider procedures requiring assistance completed. lp1 Administered Medications: 00:35 Drug: NS 0.9% 1000 ml Route: IV; Rate: 1000 ml; Site: right antecubital; lp1 01:30 Follow up: IV Status: IV converted to saline lock; IV Intake: 200ml lp1 00:35 Drug: Zofran (Ondansetron) 4 mg Route: IVP; Site: right antecubital; lp1 01:30 Follow up: Response: No adverse reaction; Nausea is decreased lp1 00:35 Drug: Pepcid (famotidine) 20 mg Route: IVP; Site: right antecubital; lp1 01:30 Follow up: Response: No adverse reaction lp1 00:35 Drug: SOLU-Medrol 125 mg Route: IVP; Site: right antecubital; lp1 01:30 Follow up: Response: No adverse reaction lp1 01:17 Not Given (Patient Refused): Benadryl (diphenhydrAMINE) 50 mg IVP once lp1 Intake: 01:30 IV: 200ml; Total: 200ml. 1 Outcome: 01:54 Discharge ordered by . [facility] 02:07 Discharged to home ambulatory, with friend. lp1 02:07 Condition: good 02:07 Discharge instructions given to patient, Instructed on discharge instructions, follow up and referral plans. medication usage, Demonstrated understanding of instructions, follow-up care, medications, Prescriptions given X 5 02:10 Patient left the ED. 1 Signatures: Sabina Grijalva RN RN bb Pena, Laura, RN RN lp1 Clayton Vasquez Ronaldo, RN RN rv Lewis, Charde cl3 Ben Norton MD MD [facility]
--- NOTE | 2020-11-02 01:54 | EDPHYS ---
Physician Documentation [facility] Name: Rita Garcia Age: 20 yrs Sex: Female : 2000 Arrival Date: 11/01/2020 Time: 23:16 Bed 5 Private MD: ED Physician Ben Norton HPI: 11/02 00:18 This 20 yrs old Female presents to ER via Ambulatory with complaints of mh7 Allergic Reaction, Gall Bladder Pain. 00:18 The patient presents with itching. Onset: The symptoms/episode began/occurred mh7 yesterday. Associated signs and symptoms: Pertinent positives: nausea, throat itching, Pertinent negatives: Altered mental status chest pain, dysphagia, fever, headache, hives, Light headed rash, shortness of breath, swelling, Syncope vomiting. Possible causes: thinks may be due to IV contrast. At home the patient or guardian has treated the symptoms with Benadryl, yesterday \T\ 4 pm. Severity of symptoms: At their worst the symptoms were mild yesterday, in the emergency department the symptoms are unchanged. The patient has been recently been admitted at [facility], was discharged yesterday. 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 - Social history:: Smoking status: Patient reports the use of cigarette tobacco products, smokes one-half pack cigarettes per day, Patient uses alcohol, occasionally. street drugs, marijuana. ROS: 11/02 00:18 Constitutional: Negative for fever, chills, and weight loss, Eyes: Negative for injury, mh7 pain, redness, and discharge, Neck: Negative for injury, pain, and swelling, Cardiovascular: Negative for chest pain, palpitations, and edema, Respiratory: Negative for shortness of breath, cough, wheezing, and pleuritic chest pain, Back: Negative for injury and pain, : Negative for injury, bleeding, discharge, and swelling, MS/Extremity: Negative for injury and deformity, Skin: Negative for injury, rash, and discoloration, Neuro: Negative for headache, weakness, numbness, tingling, and seizure, Psych: Negative for depression, anxiety, suicide ideation, homicidal ideation, and hallucinations, Endocrine: Negative for neck swelling, polydipsia, polyuria, polyphagia, and marked weight changes, Hematologic/Lymphatic: Negative for swollen nodes, abnormal bleeding, and unusual bruising. Exam: 01:49 Constitutional: This is a well developed, well nourished patient who is awake, alert, mh7 and in no acute distress. Head/Face: Normocephalic, atraumatic. Eyes: Pupils equal round and reactive to light, extra-ocular motions intact. Lids and lashes normal. Conjunctiva and sclera are non-icteric and not injected. Cornea within normal limits. Periorbital areas with no swelling, redness, or edema. ENT: Nares patent. No nasal discharge, no septal abnormalities noted. Tympanic membranes are normal and external auditory canals are clear. Oropharynx with no redness, swelling, or masses, exudates, or evidence of obstruction, uvula midline. Mucous membranes moist. Neck: Trachea midline, no thyromegaly or masses palpated, and no cervical lymphadenopathy. Supple, full range of motion without nuchal rigidity, or vertebral point tenderness. No Meningismus. Chest/axilla: Normal chest wall appearance and motion. Nontender with no deformity. No lesions are appreciated. Cardiovascular: Regular rate and rhythm with a normal S1 and S2. No gallops, murmurs, or rubs. Normal PMI, no JVD. No pulse deficits. Respiratory: Lungs have equal breath sounds bilaterally, clear to auscultation and percussion. No rales, rhonchi or wheezes noted. No increased work of breathing, no retractions or nasal flaring. Abdomen/GI: Soft, non-tender, with normal bowel sounds. No distension or tympany. No guarding or rebound. No evidence of tenderness throughout. Back: No spinal tenderness. No costovertebral tenderness. Full range of motion. Skin: Warm, dry with normal turgor. Normal color with no rashes, no lesions, and no evidence of cellulitis. MS/ Extremity: Pulses equal, no cyanosis. Neurovascular intact. Full, normal range of motion. Neuro: Awake and alert, GCS 15, oriented to person, place, time, and situation. Cranial nerves II-XII grossly intact. Motor strength 5/5 in all extremities. Sensory grossly intact. Cerebellar exam normal. Normal gait. Psych: Awake, alert, with orientation to person, place and time. Behavior, mood, and affect are within normal limits. Vital Signs: 11/01 23:26 BP 116 / 86; Pulse 86; Resp 18 S; Temp 98.9(O); Pulse Ox 99% on R/A; Weight 81.65 kg bb (R); Height 5 ft. 0 in. (152.40 cm) (R); Pain 4/10; 11/02 01:15 BP 109 / 61; Pulse 88; Resp 16; Pulse Ox 99% on R/A; lp1 11/01 23:26 Body Mass Index 35.15 (81.65 kg, 152.40 cm) bb MDM: 01:49 Differential diagnosis: anaphylaxis, angioedema, bronchospasm, non IgE mediated drug mh7 reaction urticaria. Data reviewed: vital signs, nurses notes. Data interpreted: Pulse oximetry: on room air is 99 %. Interpretation: normal. Counseling: I had a detailed discussion with the patient and/or guardian regarding: the historical points, exam findings, and any diagnostic results supporting the discharge/admit diagnosis, the need for outpatient follow up, to return to the emergency department if symptoms worsen or persist or if there are any questions or concerns that arise at home. Response to treatment: the patient's symptoms have resolved after treatment, the patient's blood pressure is in an acceptable range, mental status has returned to baseline, the patient no longer shows bradycardia, the patient is not short of breath, the patient is not tachycardic, the patient's pain is gone, the patient's temperature has normalized. 01:54 Patient medically screened. [facility] Administered Medications: 00:35 Drug: NS 0.9% 1000 ml Route: IV; Rate: 1000 ml; Site: right antecubital; lp1 01:30 Follow up: IV Status: IV converted to saline lock; IV Intake: 200ml lp1 00:35 Drug: Zofran (Ondansetron) 4 mg Route: IVP; Site: right antecubital; lp1 01:30 Follow up: Response: No adverse reaction; Nausea is decreased lp1 00:35 Drug: Pepcid (famotidine) 20 mg Route: IVP; Site: right antecubital; lp1 01:30 Follow up: Response: No adverse reaction lp1 00:35 Drug: SOLU-Medrol 125 mg Route: IVP; Site: right antecubital; lp1 01:30 Follow up: Response: No adverse reaction lp1 01:17 Not Given (Patient Refused): Benadryl (diphenhydrAMINE) 50 mg IVP once lp1 Disposition: 11/02/20 01:54 Discharged to Home. Impression: Pruritis, possible allergic reaction. - Condition is Stable. - Discharge Instructions: Pruritus, Allergies, [id number]. - Prescriptions for Benadryl 25 mg Oral Capsule - take 1 capsule by ORAL route every 6 hours As needed; 30 tablet. Pepcid 20 mg Oral Tablet - take 1 tablet by ORAL route every 12 hours for 5 days; 10 tablet. Prednisone 20 mg Oral Tablet - take 2 tablet by ORAL route once daily for 5 days; 10 tablet. EpiPen 0.3 mg Injection auto- injector - inject 1 pen by INTRAMUSCULAR route as directed As needed Inject into the outer portion of the thigh, through clothing if necessary. Indicated in the emergency treatment of allergic reactions; 1 Kit. Zofran ODT 4 mg Oral tablet,disintegrating - place 1 tablet by TRANSLINGUAL route every 8 hours As needed; 6 tablet. - Medication Reconciliation Form, Thank You Letter, Antibiotic Education, Prescription Opioid Use form. - Follow up: Private Physician; When: 1 - 2 days; Reason: Worsening of condition, Recheck today's complaints, Continuance of care, Re-evaluation by your physician. - Problem is new. - Symptoms have improved. Signatures: Sabina Grijalva RN RN bb Leila Coleman RN RN lp1 Ben Norton MD MD mh7 Corrections: (The following items were deleted from the chart) 02:10 01:54 11/02/2020 01:54 Discharged to Home. Impression: Pruritis, possible allergic lp1 reaction. Condition is Stable. Forms are Medication Reconciliation Form, Thank You Letter, Antibiotic Education, Prescription Opioid Use. Follow up: Private Physician; When: 1 - 2 days; Reason: Worsening of condition, Recheck today's complaints, Continuance of care, Re-evaluation by your physician. Problem is new. Symptoms have improved. mh7
[2020-11-02 06:25] VITALS: TEMP 98.9; O2SAT 99
[2020-11-02 06:26] VITALS: BP 109/61
== END 2020-11-02 02:10 | disposition home or self-care (01) ==
LOC: ER 23:15
DX: L29.9 Pruritus, unspecified (principal); F31.9 Bipolar disorder, unspecified; F17.210 Nicotine dependence, cigarettes, uncomplicated; Z91.040 Latex allergy status; Z91.041 Radiographic dye allergy status; Z91.048 Other nonmedicinal substance allergy status
CPT/HCPCS: 96361; 96374; 96375; 99284; J1200; J2405; J2930; J7030

== ENCOUNTER 2020-12-24 15:40 | Emergency (ER) | payer OTHER, SELFPAY ==
--- OUTSIDE RECORDS SUMMARY | 2020-12-24 15:43 | XMS REPORT | Continuity of Care Document ---
:2000 Author Organization [facility] t Address [address] [place] [address] Care Team Providers Name Role Phone Sai Jaramillo DO Attending Clinician Pk Aragon Attending Clinician Payers Payer Name Policy Type Policy Number Effective Date Expiration Date S ource Problems This patient has no known problems. Allergies, Adverse Reactions, Alerts Allergy Allergy Status Severity Reaction(s) Onset Inactive Treating Comm ents Source Name Type Date Date Clinician LATMALISSA DA Active [facility] 4[facility]30 [place] [facility] are [facility] [place] [facility] ry - [place] [facility] 00 are [facility] nut - [place] Active [facility] unspecif 11-28 [place] ied 00:00: [facility] 00 are [facility] st Medications This patient has no known medications. Procedures This patient has no known procedures. 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 [id number] [facility] [id number] MATERNAL [id number] & CHILD [address] [place] [address] Results Test Description Test Time Test Comments Results Result Comments Source RAPID PLASMA REAGIN 2019-05-02 09:59:00 Test Item Value Reference Range Interpretation Comme nts RAPID PLASMA REAGIN (test code = RPR) NEGATIVE NEGATIVE CBC W/AUTO [id number] 04:35:00 Test Item Value Reference Range Interpretation [...] 0.0 x10 3/uL 0.0-0.1 N AB RUBELLA [id number] 14:36:00 Test Item Value Reference Range Interpretation Comments AB RUBELLA IGG (test code = RUBGAB) EQUIVOCAL NEGATIVE AG HEPATITIS B [id number] 13:50:00 Test Item Value Reference Range Interpretation Comments AG HEPATITIS B SURFACE (test code = NEGATIVE NEGATIVE HBSAG) AB HIV 1 13:50:00 Test Item Value Reference Range Interpretation Comments AB HIV 1 2 (test code = [id number]) NEGATIVE NEGATIVE CBC W/AUTO [id number] 12:38:00 Test Item Value Reference Range Interpretation [...] 0.1 x10 3/uL 0.0-0.1 N RAPID PLASMA [id number] 09:46:00 Test Item Value Reference Range Interpretation Comments RAPID PLASMA REAGIN (test code = NEGATIVE NEGATIVE RPR) AG HEPATITIS B [id number] 21:10:00 Test Item Value Reference Range Interpretation Comments AG HEPATITIS B SURFACE (test code = NEGATIVE NEGATIVE HBSAG) AB HIV 1 21:10:00 Test Item Value Reference Range Interpretation Comments AB HIV 1 2 (test code = [id number]) NEGATIVE NEGATIVE CBC W/AUTO [id number] 20:11:00 Test Item Value Reference Range Interpretation [...]
[2020-12-24 20:01] LABS: Urine Blood Trace-intact (Negative); Urine Glucose Negative (Negative); Urine Protein Negative (Negative); Urine Specific Gravity <=1.005 (1.005-1.030); Urine pH 5.5 (5.0-7.0)
--- NOTE | 2020-12-24 20:49 | ER ---
Nurse's Notes [facility] Name: Rita Garcia Age: 20 yrs Sex: Female : 2000 Arrival Date: 12/24/2020 Time: 15:45 Bed 23 Private MD: Diagnosis: Urinary tract infection, site not specified Presentation: 12/24 16:44 Chief complaint: Patient states: Found out she was 3 days ago. G6, P2. Pelvic ll1 pain and cramping since last night at 2030. Noticed urinary frequency, but no dysuria. No fever. No vag bleeding noticed. Coronavirus screen: Client denies travel out of the [place] in the last 14 days. At this time, the client does not indicate any symptoms associated with coronavirus-19. Ebola Screen: Patient denies travel to an Ebola-affected area in the 21 days before illness onset. Initial Sepsis Screen: Does the patient meet any 2 criteria? No. Patient's initial sepsis screen is negative. Does the patient have a suspected source of infection? Yes: Acute abdominal pain. Risk Assessment: Do you want to hurt yourself or someone else? Patient reports no desire to harm self or others. Onset of symptoms was December 23, 2020. 16:44 Method Of Arrival: Ambulatory ll1 16:44 Acuity: CLINT 3 ll1 Triage Assessment: 20:10 General: Appears in no apparent distress. Behavior is calm, cooperative. 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 - Social history:: Smoking status: Patient reports the use of cigarette tobacco products, smokes one-half pack cigarettes per day. Screenin:58 Abuse screen: Denies threats or abuse. Denies injuries from another. Nutritional iw screening: No deficits noted. Tuberculosis screening: No symptoms or risk factors identified. Fall Risk None identified. Assessment: 20:10 General: Appears in no apparent distress. Behavior is calm, cooperative. Pain: Denies iw pain. Neuro: Level of Consciousness is awake, alert, obeys commands, Oriented to person, place, time, situation, Moves all extremities. Full function. Cardiovascular: Patient's skin is warm and dry. Respiratory: Respiratory effort is even, unlabored, Respiratory pattern is regular, symmetrical. Derm: Skin is intact, is healthy with good turgor. Musculoskeletal: Range of motion: intact in all extremities. Vital Signs: 16:44 BP 142 / 95; Pulse 80; Resp 17; Temp 98.7; Pulse Ox 100% ; Weight 91.63 kg; Height 5 ll1 ft. 1 in. (154.94 cm); Pain 2/10; 16:44 Body Mass Index 38.17 (91.63 kg, 154.94 cm) ll1 ED Course: 15:45 Patient arrived in ED. as 16:46 Triage completed. ll1 16:47 Arm band placed on. 1 16:50 [facility] 16:50 Francisco Pierce MD is Attending Physician. [facility] 19:36 Attending Physician role handed off by Francisco Pierce MD [facility] 19:36 Luis Alberto Al MD is Attending Physician. [facility] 19:44 Elysia Fink, TURNER is Primary Nurse. iw 20:10 Patient has correct armband on for positive identification. iw 20:58 No provider procedures requiring assistance completed. Patient did not have IV access iw during this emergency room visit. Administered Medications: No medications were administered Outcome: 20:48 Discharge ordered by . [facility] 20:58 Condition: good iw 20:59 Discharge ordered by . [facility] 21:39 Discharged to home ambulatory, with family. iw 21:39 Discharge instructions given to patient, Instructed on discharge instructions, follow up and referral plans. Demonstrated understanding of instructions, follow-up care. 21:40 Patient left the ED. iw Signatures: Luis Alberto Al MD MD cha Mickail, Joel, PA PA jmm Martinez, Amelia as Elysia Fink, RN RN Monique Shukla RN RN 1
--- NOTE | 2020-12-24 20:49 | EDPHYS ---
Physician Documentation [facility] Name: Rita Garcia Age: 20 yrs Sex: Female : 2000 Arrival Date: 12/24/2020 Time: 15:45 Bed 23 Private MD: ED Physician Luis Alberto Al HPI: 12/24 20:45 This 20 yrs old Female presents to ER via Ambulatory with complaints of jmm Pelvic Pain - 4 wks preg. 20:45 The patient presents to the emergency department with pelvic pain. The estimated jmm gestational age is 4 weeks. Onset: The symptoms/episode began/occurred 2 day(s) ago. Associated signs and symptoms: Pertinent positives: vomiting, Pertinent negatives: fever. Modifying factors: The patient symptoms are alleviated by nothing, the patient symptoms are aggravated by nothing. 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 - Social history:: Smoking status: Patient reports the use of cigarette tobacco products, smokes one-half pack cigarettes per day. ROS: 20:45 Constitutional: Negative for fever, chills, and weight loss, Cardiovascular: Negative jmm for chest pain, palpitations, and edema, Respiratory: Negative for shortness of breath, cough, wheezing, and pleuritic chest pain. 20:45 : Positive for urinary symptoms. 20:45 All other systems are negative. Exam: 20:45 Constitutional: This is a well developed, well nourished patient who is awake, alert, jmm and in no acute distress. Head/Face: atraumatic. Eyes: EOMI, no conjunctival erythema appreciated ENT: Moist Mucus Membranes Neck: Trachea midline, Supple Chest/axilla: Normal chest wall appearance and motion. Cardiovascular: Regular rate and rhythm. No edema appreciated Respiratory: Normal respirations, no respiratory distress appreciated Abdomen/GI: Non distended, soft Back: Normal ROM Skin: General appearance color normal MS/ Extremity: Moves all extremities, no obvious deformities appreciated, no edema noted to the lower extremities Neuro: Awake and alert, normal gait Psych: Behavior is normal, Mood is normal, Patient is cooperative and pleasant Vital Signs: 16:44 BP 142 / 95; Pulse 80; Resp 17; Temp 98.7; Pulse Ox 100% ; Weight 91.63 kg; Height 5 ll1 ft. 1 in. (154.94 cm); Pain 2/10; 16:44 Body Mass Index 38.17 (91.63 kg, 154.94 cm) ll1 MDM: 19:38 Patient medically screened. [facility] 20:47 Data reviewed: vital signs, nurses notes. Counseling: I had a detailed discussion with [facility] the patient and/or guardian regarding: the historical points, exam findings, and any diagnostic results supporting the discharge/admit diagnosis, lab results, the need for outpatient follow up, to return to the emergency department if symptoms worsen or persist or if there are any questions or concerns that arise at home. ED course: US reveals no IUP. patient advised to follow up with obgyn for further evaluation. Patient understood and agrees with the plan of care. . 12/24 20:02 Order name: Urine Dipstick-Ancillary; Complete Time: 20:02 [facility] 12/24 20:50 Order name: HCG-Quantitative [facility] 12/24 19:47 Order name: US 1st Trimest Single 1st Fetus [facility] 12/24 19:47 Order name: Urine Dipstick-Ancillary (obtain specimen); Complete Time: 20:00 [facility] 12/24 19:47 Order name: Urine Test (obtain specimen); Complete Time: 20:00 [facility] Administered Medications: No medications were administered Disposition: 12/25 12:21 Co-signature as Attending Physician, Luis Alberto Al MD I agree with the assessment and [facility] plan of care. Disposition: 12/24/20 20:59 Discharged to Home. Impression: Urinary tract infection, site not specified. - Condition is Stable. - Discharge Instructions: Urinary Tract Infection, Adult. - Prescriptions for Cephalexin 500 mg Oral Capsule - take 1 capsule by ORAL route every 12 hours for 10 days; 20 capsule. - Medication Reconciliation Form, Thank You Letter, Antibiotic Education, Prescription Opioid Use form. - Follow up: Private Physician; When: 2 - 3 days; Reason: Recheck today's complaints, Continuance of care, Repeat Beta-HCG (48 Hours), Re-evaluation by your physician. Signatures: Dispatcher [employer] EDMS Luis Alberto Al MD MD cha Mickail, Joel, PA PA jmm Williams, Irene, TURNER RN Monique Younger RN RN ll1 Corrections: (The following items were deleted from the chart) 12/24 20:50 20:48 12/24/2020 20:48 Discharged to Home. Impression: Urinary tract infection, site jmm not specified. Condition is Stable. Forms are Medication Reconciliation Form, Thank You Letter, Antibiotic Education, Prescription Opioid Use. Follow up: Private Physician; When: 2 - 3 days; Reason: Recheck today's complaints, Continuance of care, Re-evaluation by your physician. [facility] 21:40 20:59 12/24/2020 20:59 Discharged to Home. Impression: Urinary tract infection, site iw not specified. Condition is Stable. Prescriptions for Cephalexin 500 mg Oral Capsule - take 1 capsule by ORAL route 3 times per day for 7 days; 21 capsule. and Forms are Medication Reconciliation Form, Thank You Letter, Antibiotic Education, Prescription Opioid Use. Follow up: Private Physician; When: 2 - 3 days; Reason: Recheck today's complaints, Continuance of care, Repeat Beta-HCG (48 Hours), Re-evaluation by your physician. leonardo
--- NOTE | 2020-12-24 21:40 | RAD REPORT ---
EXAM DESCRIPTION: US - Transvaginal OB - 12/24/2020 8:51 pm CLINICAL HISTORY: pelvic pain COMPARISON: No comparisons FINDINGS: The uterus is normal sized. Endometrium is mildly thickened measuring 8 mm without evidence of IUP. The maternal adnexa and ovaries are within normal limits. Normal Doppler blood flow was demonstrated to both ovaries. IMPRESSION: No IUP is identified. In the setting of a positive HCG level, this would indicate pregna ncy of unknown location. Follow-up serial HCG levels and pelvic ultrasound in 10-12 days would be rec ommended.
[2020-12-24 21:45] VITALS: BP 142/95; TEMP 98.7; O2SAT 100
== END 2020-12-24 21:40 | disposition home or self-care (01) ==
LOC: ER 15:40
DX: N39.0 Urinary tract infection, site not specified (principal); F17.210 Nicotine dependence, cigarettes, uncomplicated; Z91.040 Latex allergy status; Z91.041 Radiographic dye allergy status; Z91.048 Other nonmedicinal substance allergy status
CPT/HCPCS: 36415; 76817; 81003; 84702; 99281

== ENCOUNTER 2021-02-11 06:56 | Day surgery (SDC) | payer OTHER ==
[2021-02-06 16:22] LABS: Basophils % 0.4 % (0-1.3); Hematocrit 46.3 % (36.0-45.0); Lymphocytes % 17.7 % (15.3-44.8); MPV 9.1 fL (7.6-11.3); RBC Red Blood Cell Count 5.25 M/uL (3.86-4.86)
[2021-02-06 16:36] LABS: BUN Blood Urea Nitrogen 9 mg/dL (7-18); Bicarbonate 25 mmol/L (21-32); Glucose Level 87 mg/dL (74-106); Potassium 4.4 mmol/L (3.5-5.1); Sodium Level 139 mmol/L (136-145)
[2021-02-11] MEDS ORDERED: CEFOXITIN/SWI 2gm 2 GM/20 ML SYR IVP ONE (07:00)
[2021-02-11 07:15] LABS: Specific Gravity 1.025 (1.005-1.030)
[2021-02-11] MEDS ORDERED: Ringers Lactate 1,000 ML IV ONE ×2 (07:42→10:02)
[2021-02-11] MEDS ORDERED: MIDAZOLAM HCL 2 MG/2 ML INJ ONE (08:34)
[2021-02-11] MEDS ORDERED: propofoL 200 MG/20 ML VIAL IV ONE (08:35)
[2021-02-11] MEDS ORDERED: DIPHENHYDRAMINE 50 MG/ML VIAL IV ONE (08:35)
[2021-02-11] MEDS ORDERED: FENTANYL CITR 100 MCG/2 ML ONE ×2 (08:35→09:54)
[2021-02-11] MEDS ORDERED: LIDOCAINE 1% MPF 30 ML VIAL ONE (08:35)
[2021-02-11] MEDS ORDERED: ROCURONIUM 50 MG/5 ML VIAL IV ONE (08:54)
[2021-02-11] MEDS ORDERED: ONDANSETRON 4 MG/2 ML VIAL ONE (08:54)
[2021-02-11] MEDS ORDERED: BUPIVACAINE 0.25% PF 30 ML VIAL ONE (08:54)
[2021-02-11] MEDS ORDERED: dexAMETHasone 10 MG/ML VIAL ONE (08:54)
[2021-02-11] MEDS ORDERED: KETOROLAC 30 MG/ML INJ ONE (08:54)
[2021-02-11] MEDS ORDERED: DIPHENHYDRAMINE 50 MG/ML VIAL ONE (08:55)
[2021-02-11] MEDS ORDERED: SUCCINYLCHOLINE 20 MG/ML (10 ML) IV ONE (08:56)
[2021-02-11] MEDS ORDERED: NS 0.9% VIAL 10 ML ONE (09:54)
[2021-02-11] MEDS ORDERED: ESMOLOL HCL 10 ML IV ONE (09:54)
[2021-02-11] MEDS ORDERED: VECURONIUM 10 MG/VIAL IV ONE (09:55)
--- NOTE | 2021-02-11 10:38 | P.OP ---
Preoperative diagnosis: Chronic Cholecystitis Postoperative diagnosis: Chronic Cholecystitis Primary procedure: Laparoscopic cholecystectomy Secondary procedure: ICG Intraoperative Cholangiography Anesthesia: GETA + Local Estimated blood loss: <10cc Specimen: Gallbladder Findings: short cystic duct, node of calot overlying cystic duct Complications: None Transferred to: Recovery Room Condition: Good
[2021-02-11] MEDS ORDERED: GLYCOPYRROLATE 0.2 MG/ML SYR ONE (10:39)
[2021-02-11] MEDS ORDERED: NEOSTIGMINE 1 MG/ML -5 ML ONE (10:39)
[2021-02-11] MEDS: MEPERIDINE HCL 25 MG/ML SYR ONE ×2 (11:04→11:10)
[2021-02-11] MEDS: HYDROMORPHONE HCL 1 MG/ML INJ ONE ×3 (11:06→11:20)
[2021-02-11 11:19] VITALS: O2SAT 100
[2021-02-11] MEDS ORDERED: HYDROCODONE/APAP 10/325 TAB ONE (12:38)
[2021-02-11 12:53] VITALS: BP 109/58; TEMP 97.8
--- NOTE | 2021-02-11 14:16 | OP ---
Date of Procedure: 02/11/2021 Surgeon: Kwasi Thompson MD, Preoperative Diagnosis: Chronic cholecystitis. Postoperative Diagnosis: Chronic cholecystitis. Procedure Performed: Laparoscopic cholecystectomy. Secondary Procedure: ICG intraoperative cholangiography. Anesthesia: General endotracheal plus local with 0.25% Marcaine. Estimated Blood Loss: Less than 10 cc. Specimen: Gallbladder. Findings: 1.Short cystic duct. 2.Node of Calot overlying the cystic duct. 3.Significant firm, fixed scar tissue at the cystic duct-common duct junction with adhesions from co mmon duct to the medial aspect of the gallbladder. Complications: None. Disposition: The patient was transferred to recovery room in good condition. Procedure In Detail: After informed consent was obtained, the patient brought to the operating room, prepped and draped in usual sterile fashion. After adequate anesthesia was achieved, supraumbilical area was anesthetized with 0.25% Marcaine and sharply incised. A 5 mm trocar was introduced in the abdomen without evidence of complication. Insufflation was obtained to 15 mmHg. At this time, there was no injury to vital structures upon entering the abdomen. The patient was positioned in head up right-side up position. Three additional trocars were placed, 1 in the epigastrium, 2 in the right u pper quadrant. All of these were similarly anesthetized and sharply incised. A 5 mm trocar was plac ed under direct visualization without evidence of complication. After the patient was positioned hea d up right-side up position, Ratcheted grasper was used to grasp the patient's gallbladder towards th e patient's right shoulder. The gallbladder was found to be elongated with some distention. Dissect ion continued down to dissect the cystic duct and cystic artery and there were several findings at th is point. There was a short cystic duct noted. Intraoperative ICG cholangiography was performed as the patient was given the ICG injection 30 minutes prior to induction of anesthesia. I visualized th e ICG within the cystic duct and common duct junction and found the cystic duct to be quite short and obscured partially by the node of Calot. Dissection continued around circumferentially to expose th e cystic duct. This was encircled and the cystic artery was found to be in a normal anatomic positio n. This was encircled as well. The critical view of safety was obtained. At this point, ICG confir med position, the tract, running course of the common duct, which was found to be firmly fixed to the medial wall of the gallbladder as well. After the cystic duct and cystic artery were both doubly cl ipped on the proximal side and singly on the distal side with titanium clips, the Endo estephanie were br ought in and used to ligate these 2 structures. A careful combination of both blunt dissection predo minantly was performed until the gallbladder was removed off the course of the common duct. Then, el ectrocautery was used to dissect the gallbladder off the hepatic bed. There was minimal bleeding at this point. Electrocautery easily fulgurated the bed of the gallbladder for any bleeding sources. T he gallbladder was placed in EndoCatch bag and removed through the umbilical trocar, sent off for pat hologic examination. ICG test was performed once again and showed no evidence of leakage and the com mon duct had a good normal running course at this point. The clips were found in good anatomic posit ion. The area was copiously irrigated multiple times and suctioned out until completely clear. Ther e were no additional hemostatic maneuvers required and the clips were found to be in good anatomic po sition at the end of the procedure. The patient was positioned back in a neutral position. Remainin g effluent was suctioned out. The umbilical trocar was removed. The umbilical trocar site was close d using a Gilbert-Khadar suture passer with 0 Vicryl interrupted fashion. Good approximation of tis sues remained. Trocars were removed under direct visualization without evidence of complication. Al l skin incisions were copiously irrigated and closed with 4-0 Monocryl in a running fashion. Dermabo nd was placed over top. The patient tolerated the procedure well without evidence of complication and transferred to PACU in good condition. All counts were correct at the end of the ca se. TK/MODL Voice ID: [id number] Report ID: [id number]
== END 2021-02-11 13:35 | disposition home or self-care (01) ==
LOC: OR 06:56
PROVIDERS: ATTEND Surgery
PROC: BF03YZZ Plain Radiography of Gallbladder and Bile Ducts using Other Contrast (ICD-10-PCS; 2021-02-11)
PROC: 0FT44ZZ Resection of Gallbladder, Percutaneous Endoscopic Approach (ICD-10-PCS; principal; 2021-02-11 08:45)
DX: K80.10 Calculus of gallbladder with chronic cholecystitis without obstruction (principal); Z20.822 Contact with and (suspected) exposure to COVID-19
CPT/HCPCS: 47563; 85025; 80048; 36415; 81025; 88304; U0003; J2704; J0330; J1200 ×2; J2250; J3010 ×2; J1100; J2175; J1170; J2710; J0694; J7120 ×2; J2405

== ENCOUNTER 2021-05-05 20:21 | Emergency (ER) | payer OTHER ==
--- NOTE | 2021-05-05 21:39 | RAD REPORT ---
EXAM DESCRIPTION: RAD - Foot Left 3 View - 05/05/2021 9:28 pm CLINICAL HISTORY: Left Foot pain FINDINGS: No fracture or dislocation is seen. Hallux valgus deformity. Small plantar calcaneal spur
--- NOTE | 2021-05-05 21:49 | EDPHYS ---
Physician Documentation [facility] Name: Rita Garcia Age: 20 yrs Sex: Female : 2000 Arrival Date: 05/05/2021 Time: 20:23 Bed 11 Private MD: ED Physician Ben Norton HPI: 05/05 21:15 This 20 yrs old Female presents to ER via Wheelchair with complaints of Foot jr8 Swelling, -purple/joshi. 21:15 This is a 20-year-old male patient that was evaluated by [facility] this past for jr8 foot pain of unknown origin. Patient stated that she was told that she had a bone bruise and was put on a boot and crutches. Patient stated that she continues to have pain and swelling and noticed the discoloration of the foot which prompted her to come to the emergency room for reevaluation. Patient again denies trauma and does not recall why her foot would hurt.. 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 - Social history:: Smoking status: Patient reports the use of cigarette tobacco products, smokes one pack cigarettes per day. ROS: 21:15 Eyes: Negative for injury, pain, redness, and discharge, ENT: Negative for injury, jr8 pain, and discharge, Neck: Negative for injury, pain, and swelling, Cardiovascular: Negative for chest pain, palpitations, and edema, Respiratory: Negative for shortness of breath, cough, wheezing, and pleuritic chest pain, Abdomen/GI: Negative for abdominal pain, nausea, vomiting, diarrhea, and constipation, Back: Negative for injury and pain, Skin: Negative for injury, rash, and discoloration, Neuro: Negative for headache, weakness, numbness, tingling, and seizure. 21:15 MS/extremity: Positive for pain, swelling, tenderness, of the left foot. Exam: 21:15 Constitutional: This is a well developed, well nourished patient who is awake, alert, jr8 and in no acute distress. Cardiovascular: Regular rate and rhythm with a normal S1 and S2. No gallops, murmurs, or rubs. Normal PMI, no JVD. No pulse deficits. Respiratory: Lungs have equal breath sounds bilaterally, clear to auscultation and percussion. No rales, rhonchi or wheezes noted. No increased work of breathing, no retractions or nasal flaring. Skin: Warm, dry with normal turgor. Normal color with no rashes, no lesions, and no evidence of cellulitis. MS/ Extremity: Patient has moderate tenderness over the MTP region of her left foot extending to the left proximal foot near ankle region. No noticeable external swelling noted. No discoloration. 3+ pedal pulses noted. Normal sensation noted. Patient with full range of motion but painful with both active and passive range of motion. Remainder of extremities unremarkable. Neuro: Awake and alert, GCS 15, oriented to person, place, time, and situation. Cranial nerves II-XII grossly intact. Motor strength 5/5 in all extremities. Sensory grossly intact. Cerebellar exam normal. Normal gait. Vital Signs: 20:44 BP 125 / 88; Pulse 100; Resp 18; Temp 98.7; Pulse Ox 100% on R/A; Weight 77.11 kg; wg Height 5 ft. 1 in. (154.94 cm); Pain 2/10; 20:44 Body Mass Index 32.12 (77.11 kg, 154.94 cm) wg MDM: 21:04 Patient medically screened. jr8 21:49 Data reviewed: vital signs, nurses notes, radiologic studies, plain films. Data jr8 interpreted: Pulse oximetry: on room air is 100 %. Interpretation: normal. 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 05/05 21:04 Order name: XRAY Foot LEFT 3 View; Complete Time: 21:40 jr8 Administered Medications: No medications were administered Disposition: 05/06 05:33 Co-signature as Attending Physician, Ben Norton MD. [email or web address] Disposition Summary: 05/05/21 21:49 Discharge Ordered Location: Home jr8 Problem: new jr8 Symptoms: are unchanged jr8 Condition: Stable jr8 Diagnosis - Contusion of foot jr8 Followup: jr8 - With: Constantino Mirza DPM - When: 2 - 3 days - Reason: Recheck today's complaints, Continuance of care, Re-evaluation by your physician Discharge Instructions: - Discharge Summary Sheet jr8 - Foot Contusion jr8 Forms: - Medication Reconciliation Form jr8 - Thank You Letter jr8 - Antibiotic Education jr8 - Prescription Opioid Use jr8 Prescriptions: - Tylenol-Codeine #3 300 mg-30 mg Oral - take 2 tablet by ORAL route every 6 hours As needed; 16 tablet; Refills: 0, jr8 Product Selection Permitted Signatures: Dispatcher [employer] EDEvan Stein PA PA jr8 Ben Norton MD MD 7 Rashaad Deng RN wg
--- NOTE | 2021-05-05 21:49 | ER ---
Nurse's Notes [facility] Name: Rita Garcia Age: 20 yrs Sex: Female : 2000 Arrival Date: 05/05/2021 Time: 20:23 Bed 11 Private MD: Diagnosis: Contusion of foot Presentation: 05/05 20:44 Chief complaint: Patient states: Pt states she was seen last Tuesday at [facility] for left wg foot/ankle pain. Pt denies any injury or trauma. States she was put in a boot, given crutches and told it was a contusion. Pt states the pain hasn't improved, notes a discoloration in left foot. Pt has +CMSx4. Pt denies any other injury or complaint. Coronavirus screen: Vaccine status: Patient reports being unvaccinated. Client denies travel out of the [place] in the last 14 days. At this time, the client does not indicate any symptoms associated with coronavirus-19. Ebola Screen: Patient negative for fever greater than or equal to 101.5 degrees Fahrenheit, and additional compatible Ebola Virus Disease symptoms Patient denies exposure to infectious person. Patient denies travel to an Ebola-affected area in the 21 days before illness onset. Initial Sepsis Screen: Does the patient meet any 2 criteria? No. Patient's initial sepsis screen is negative. Does the patient have a suspected source of infection? No. Patient's initial sepsis screen is negative. Risk Assessment: Do you want to hurt yourself or someone else? Patient reports no desire to harm self or others. Onset of symptoms was April 29, 2021. 20:44 Method Of Arrival: Wheelchair 20:44 Acuity: CLINT 4 Triage Assessment: 20:47 General: Appears uncomfortable, Behavior is cooperative, appropriate for age, anxious. wg Pain: Complains of pain in Left foot and ankle Pain currently is 2 out of 10 on a pain scale. Musculoskeletal: Circulation, motion, and sensation intact. Capillary refill Range of motion: intact in all extremities, Swelling present in left ankle/foot. 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 - Social history:: Smoking status: Patient reports the use of cigarette tobacco products, smokes one pack cigarettes per day. Screenin:04 Abuse screen: Denies threats or abuse. Denies injuries from another. Nutritional ms4 screening: No deficits noted. Tuberculosis screening: No symptoms or risk factors identified. Fall Risk None identified. Assessment: 22:04 Reassessment: Patient appears in no apparent distress at this time. No changes from ms4 previously documented assessment. Patient and/or family updated on plan of care and expected duration. Pain level reassessed. Patient is alert, oriented x 3, equal unlabored respirations, skin warm/dry/pink. General: Appears in no apparent distress. Behavior is calm, cooperative. Pain: Complains of pain in left foot. Vital Signs: 20:44 BP 125 / 88; Pulse 100; Resp 18; Temp 98.7; Pulse Ox 100% on R/A; Weight 77.11 kg; wg Height 5 ft. 1 in. (154.94 cm); Pain 2/10; 20:44 Body Mass Index 32.12 (77.11 kg, 154.94 cm) ED Course: 20:23 Patient arrived in ED. bp1 20:47 Triage completed. 20:49 Arm band placed on right wrist. 21:03 Evan Marin PA is PHCP. jr8 21:03 Ben Norton MD is Attending Physician. jr8 21:28 XRAY Foot LEFT 3 View In Process Unspecified. EDMS 21:49 Constantino Mirza DPM is Referral Physician. jr8 22:05 Patient has correct armband on for positive identification. ms4 22:05 No provider procedures requiring assistance completed. Patient did not have IV access ms4 during this emergency room visit. Administered Medications: No medications were administered Outcome: 21:49 Discharge ordered by . jr8 22:10 Discharged to home ambulatory. ms4 22:10 Condition: stable 22:10 Discharge instructions given to patient, Instructed on discharge instructions, follow up and referral plans. Demonstrated understanding of instructions, follow-up care, medications, Prescriptions given X 1. 22:11 Patient left the ED. ms4 Signatures: Dispatcher [employer] EDMS Sara Marinsh, PA PA jr8 Patricia Christian Mikaela, RN RN ms4 Rashaad Deng RN wg
[2021-05-05 22:15] VITALS: BP 125/88; TEMP 98.7; O2SAT 100
== END 2021-05-05 22:11 | disposition home or self-care (01) ==
LOC: ER 20:21
DX: S90.32XA Contusion of left foot, initial encounter (principal); F17.210 Nicotine dependence, cigarettes, uncomplicated; Z91.040 Latex allergy status; Z91.041 Radiographic dye allergy status; Z91.048 Other nonmedicinal substance allergy status
CPT/HCPCS: 99283

== ENCOUNTER 2021-10-18 03:26 | Emergency (ER) | payer OTHER ==
--- OUTSIDE RECORDS SUMMARY | 2021-10-18 03:38 | XMS REPORT | Continuity of Care Document ---
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 nivers 40 mg 9-30 by mouth 2 ity of capsule 06:59: (two) [place] 52 times Medical daily. Branch lurasidone 2020-0 Yes 40mg Take 40 mg U nivers (LATUDA) 40 9-30 by mouth. ity of mg tablet 06:59: [place] [address] Medical Branch trazodone 2020-0 Yes Take by Univ ers HCl 9-30 mouth. ity of (TRAZODONE 06:59: [place] ORAL) Medical Branch FLUoxetine 2020-0 Yes 20mg Take 20 mg U nivers 40 mg 9-30 by mouth 2 ity of capsule 06:59: (two) [place] 52 times Medical daily. Branch lurasidone 2020-0 Yes 40mg Take 40 mg U nivers (LATUDA) 40 9-30 by mouth. ity of mg tablet 06:59: [place] [address] Medical Branch trazodone 2020-0 Yes Take by Univ ers HCl 9-30 mouth. ity of (TRAZODONE 06:59: [place] ORAL) Medical Branch FLUoxetine 2020-0 Yes 20mg Take 20 mg U nivers 40 mg 9-30 by mouth 2 ity of capsule 06:59: (two) [place] 52 times Medical daily. Branch lurasidone 2020-0 Yes 40mg Take 40 mg U nivers (LATUDA) 40 9-30 by mouth. ity of mg tablet 06:59: [place] 52 [facility] trazodone 0 Yes Take by [facility] ers HCl 9-30 mouth. ity of (TRAZODONE 06:59: [place] ORAL) 52 [facility] NUVARING 2019-0 Yes [id number] 1{each} Insert 1 Univers (NUVARING) 8-10 Each into ity of 0.12-0.015 00:00: vagina [place] mg/24 hr 00 once every Medic al vaginal month. Branch insert Insert vaginally and leave in place for 3 consecutiv e weeks, then remove for 1 week. NUVARING Yes [id number] 1{each} Insert 1 Univers (NUVARING) 8-10 Each into ity of 0.12-0.015 00:00: vagina [place] mg/24 hr 00 once every Medic al vaginal month. Branch insert Insert vaginally and leave in place for 3 consecutiv e weeks, then remove for 1 week. NUVARING Yes [id number] 1{each} Insert 1 Univers (NUVARING) 8-10 Each into ity of 0.12-0.015 00:00: vagina [place] mg/24 hr 00 once every Medic al vaginal month. Branch insert Insert vaginally and leave in place for 3 consecutiv e weeks, then remove for 1 week. NUVARING Yes [id number] 1{each} Insert 1 Univers (NUVARING) 8-10 Each into ity of 0.12-0.015 00:00: vagina [place] mg/24 hr 00 once every Medic al vaginal month. Branch insert Insert vaginally and leave in place for 3 consecutiv e weeks, then remove for 1 week. NUVARING 2020- No [id number] 1{each} Insert 1 Univers (NUVARING) 8-10 10-05 Each into ity of 0.12-0.015 00:00: 00:[place] mg/24 hr 00 :00 once every Medic al vaginal month. Branch insert Insert vaginally and leave in place for 3 consecutiv e weeks, then remove for 1 week. cephALEXin 2020- No [id number] 500mg Take 1 Univers 500 mg 02-18 capsule by ity of capsule 00:00: 04:59 mouth 3 [place] 00 :00 (three) Medical times [place] daily for 7 days. cephALEXin 2020-0 2020- No [id number] 500mg Take 1 Univers 500 mg 02-18 capsule by ity of capsule 00:00: 04:59 mouth 3 [place] 00 :00 (three) Medical times [place] daily for 7 days. FLUoxetine 2020-0 Yes 20mg Take 20 mg U nivers 40 mg 6-29 by mouth 2 ity of capsule 20:17: (two) [place] 25 times Medical daily. Branch buspirone 2020-0 Yes Take 10 mg Un [facility] HCl (BUSPAR 6-29 base by ity o f ORAL) 20:17: mouth. [address] FLUoxetine 2020-0 Yes 20mg Take 20 mg U nivers 40 mg 6-29 by mouth 2 ity of capsule 20:17: (two) [place] 25 times Medical daily. Branch buspirone 2020-0 Yes Take 10 mg Un [facility] HCl (BUSPAR 6-29 base by ity o f ORAL) 20:17: mouth. [address] FLUoxetine 2020-0 Yes 20mg Take 20 mg U nivers 40 mg 6-29 by mouth 2 ity of capsule 20:17: (two) [place] 25 times Medical daily. Branch buspirone 2020-0 Yes Take 10 mg Un [facility] HCl (BUSPAR 6-29 base by ity o f ORAL) 20:17: mouth. [address] FLUoxetine 2020-0 Yes 20mg Take 20 mg U nivers 40 mg 6-29 by mouth 2 ity of capsule 20:17: (two) [place] 25 times Medical daily. Branch buspirone 2020-0 Yes Take 10 mg Un [facility] HCl (BUSPAR 6-29 base by ity o f ORAL) 20:17: mouth. [address] FLUoxetine 2020-0 Yes 20mg Take 20 mg U nivers 40 mg 6-29 by mouth 2 ity of capsule 20:17: (two) [place] 25 times Medical daily. Branch buspirone 2020-0 Yes Take 10 mg Un [facility] HCl (BUSPAR 6-29 base by ity o f ORAL) 20:17: mouth. [address] FLUoxetine 2020-0 Yes 20mg Take 20 mg U nivers 40 mg 6-29 by mouth 2 ity of capsule 20:17: (two) [place] 25 times Medical daily. Branch buspirone 2020-0 Yes Take 10 mg Un davis HCl (BUSPAR 6-29 base by ity o f ORAL) 20:17: mouth. [place] [address] Medical Branch FLUoxetine 2020-0 Yes 20mg Take 20 mg U nivers 40 mg 6-29 by mouth 2 ity of capsule 20:17: (two) [place] 25 times Medical daily. Branch buspirone 2020-0 Yes Take 10 mg Un dav[facility] HCl (BUSPAR 6-29 base by ity o f ORAL) 20:17: mouth. [place] [address] Medical Branch FLUoxetine 2020-0 Yes 20mg Take 20 mg U nivers 40 mg 6-29 by mouth 2 ity of capsule 20:17: (two) [place] 25 times Medical daily. Branch buspirone 2020-0 Yes Take 10 mg Un [facility] HCl (BUSPAR 6-29 base by ity o f ORAL) 20:17: mouth. [place] [address] Medical Branch FLUoxetine 2020-0 Yes 20mg Take 20 mg U nivers 40 mg 6-29 by mouth 2 ity of capsule 20:17: (two) [place] 25 times Medical daily. Branch buspirone 2020-0 Yes Take 10 mg Un [facility] HCl (BUSPAR 6-29 base by ity o f ORAL) 20:17: mouth. [place] [address] Medical Branch FLUoxetine 2020-0 Yes 20mg Take 20 mg U nivers 40 mg 6-29 by mouth 2 ity of capsule 20:17: (two) [place] 25 times Medical daily. Branch buspirone 2020-0 Yes Take 10 mg Un [facility] HCl (BUSPAR 6-29 base by ity o f ORAL) 20:17: mouth. [place] [address] Medical Branch FLUoxetine 2020-0 Yes 20mg Take 20 mg U nivers 40 mg 6-29 by mouth 2 ity of capsule 20:17: (two) [place] 25 times Medical daily. Branch buspirone 2020-0 Yes Take 10 mg Un [facility] HCl (BUSPAR 6-29 base by ity o f ORAL) 20:17: mouth. [place] [address] Medical Branch FLUoxetine 2020-0 Yes 20mg Take 20 mg U nivers 40 mg 6-29 by mouth 2 ity of capsule 20:17: (two) [place] 25 times Medical daily. Branch buspirone 2020-0 Yes Take 10 mg Un dav[facility] HCl (BUSPAR 6-29 base by ity o f ORAL) 20:17: mouth. [place] 25 Medical Branch LITHIUM 2019-0 Yes Take by Univer s ASPARTATE 6-29 mouth. ity of ORAL 20:17: [address] Branch trazodone 2020-0 Yes Take by Univ ers HCl 6-29 mouth. ity of (TRAZODONE 20:17: [place] ORAL) 24 Medical Branch LITHIUM 2019-0 Yes Take by Univer s ASPARTATE 6-29 mouth. ity of ORAL 20:17: [address] Branch trazodone 2019-0 Yes Take by Univ ers HCl 6-29 mouth. ity of (TRAZODONE 20:17: [place] ORAL) Medical Branch LITHIUM 0 Yes Take by Univer s ASPARTATE 6-29 mouth. ity of ORAL 20:17: [address] Branch trazodone 0 Yes Take by Univ ers HCl 6-29 mouth. ity of (TRAZODONE 20:17: [place] ORAL) Medical Branch LITHIUM 2019-0 Yes Take by Univer s ASPARTATE 6-29 mouth. ity of ORAL 20:17: [address] Branch trazodone 0 Yes Take by Univ ers HCl 6-29 mouth. ity of (TRAZODONE 20:17: [place] ORAL) Medical Branch LITHIUM 0 Yes Take by Univer s ASPARTATE 6-29 mouth. ity of ORAL 20:17: [address] trazodone 0 Yes Take by Univ ers HCl 6-29 mouth. ity of (TRAZODONE 20:17: [place] ORAL) Medical Branch LITHIUM 2019-0 Yes Take by Univer s ASPARTATE 6-29 mouth. ity of ORAL 20:17: [address] Branch trazodone 2019-0 Yes Take by Univ ers HCl 6-29 mouth. ity of (TRAZODONE 20:17: [place] ORAL) Medical Branch LITHIUM 2019-0 Yes Take by Univer s ASPARTATE 6-29 mouth. ity of ORAL 20:17: [address] Branch trazodone 2019-0 Yes Take by Univ ers HCl 6-29 mouth. ity of (TRAZODONE 20:17: [place] ORAL) Medical Branch LITHIUM 2020-0 Yes Take by Univer s ASPARTATE 6-29 mouth. ity of ORAL 20:17: [address] trazodone 2020-0 Yes Take by Univ ers HCl 6-29 mouth. ity of (TRAZODONE 20:17: [place] ORAL) 24 [facility] LITHIUM 0 Yes Take by Univer s ASPARTATE 6-29 mouth. ity of ORAL 20:17: [address] trazodone 0 Yes Take by Univ ers HCl 6-29 mouth. ity of (TRAZODONE 20:17: [place] ORAL) 24 [facility] LITHIUM 0 Yes Take by Univer s ASPARTATE 6-29 mouth. ity of ORAL 20:17: [address] trazodone Yes Take by Univ ers HCl 6-29 mouth. ity of (TRAZODONE 20:17: [place] ORAL) [address] [place] [address] LITHIUM Yes Take by Univer s ASPARTATE 6-29 mouth. ity of ORAL 20:17: [address] trazodone Yes Take by Univ ers HCl 6-29 mouth. ity of (TRAZODONE 20:17: [place] ORAL) [address] [place] [address] LITHIUM Yes Take by Univer s ASPARTATE 6-29 mouth. ity of ORAL 20:17: [address] trazodone Yes Take by Univ ers HCl 6-29 mouth. ity of (TRAZODONE 20:17: [place] ORAL) 24 [facility] etonogestre 2020- No 68mg Unive rs l 09-12- ity of (NEXPLANON) 17:30: 17:53 [place] implant 68 00 :00 Medical mg Branch etonogestre 2020- No 68mg 68 mg, Uni vers l 09-12- Subdermal, ity of (NEXPLANON) 17:30: 17:53 ONCE NOW, [place] implant 68 00 :00 1 dose, Medica l mg 09/12/19 Branch at 1130, Routine
Use approved by: STRUCTURAL ANALYST etonogestre 2020- No 68mg Unive rs l 09-12- ity of (NEXPLANON) 17:30: 17:53 [place] implant 68 00 :00 Medical mg Branch etonogestre 2020- No 68mg 68 mg, Uni vers l 09-12- Subdermal, ity of (NEXPLANON) 17:30: 17:53 ONCE NOW, [place] implant 68 00 :00 1 dose, Medica l mg 09/12/19 Branch at 1130, Routine
Use approved by: STRUCTURAL ANALYST FLUoxetine 2020-0 Yes 20mg Take 20 mg U nivers 40 mg 1-06 by mouth 2 ity of capsule 23:52: (two) [place] 35 times Medical daily. Branch lurasidone 2020-0 Yes 40mg Take 40 mg U nivers (LATUDA) 40 1-06 by mouth. ity of mg tablet 23:52: [address] FLUoxetine 2020-0 Yes 20mg Take 20 mg U nivers 40 mg 1-06 by mouth 2 ity of capsule 23:52: (two) [place] 35 times Medical daily. Branch lurasidone 2020-0 Yes 40mg Take 40 mg U nivers (LATUDA) 40 1-06 by mouth. ity of mg tablet 23:52: [address] FLUoxetine 2020-0 Yes 20mg Take 20 mg U nivers 40 mg 1-06 by mouth 2 ity of capsule 23:52: (two) [place] 35 times Medical daily. Branch lurasidone 2020-0 Yes 40mg Take 40 mg U nivers (LATUDA) 40 1-06 by mouth. ity of mg tablet 23:52: [address] FLUoxetine 2020-0 Yes 20mg Take 20 mg U nivers 40 mg 1-06 by mouth 2 ity of capsule 23:52: (two) [place] 35 times Medical daily. Branch lurasidone 2020-0 Yes 40mg Take 40 mg U nivers (LATUDA) 40 1-06 by mouth. ity of mg tablet 23:52: [address] FLUoxetine 2020-0 Yes 20mg Take 20 mg U nivers 40 mg 1-06 by mouth 2 ity of capsule 23:52: (two) [place] 35 times Medical daily. Branch lurasidone 2020-0 Yes 40mg Take 40 mg U nivers (LATUDA) 40 1-06 by mouth. ity of mg tablet 23:52: [address] FLUoxetine 2020-0 Yes 20mg Take 20 mg U nivers 40 mg 1-06 by mouth 2 ity of capsule 23:52: (two) [place] 35 times Medical daily. Branch lurasidone 2020-0 Yes 40mg Take 40 mg U nivers (LATUDA) 40 1-06 by mouth. ity of mg tablet 23:52: [place] 35 Medical Branch FLUoxetine 2020-0 Yes 20mg Take 20 mg U nivers 40 mg 1-06 by mouth 2 ity of capsule 23:52: (two) [place] 35 times Medical daily. Branch lurasidone 2020-0 Yes 40mg Take 40 mg U nivers (LATUDA) 40 1-06 by mouth. ity of mg tablet 23:52: [address] FLUoxetine 2020-0 Yes 20mg Take 20 mg U nivers 40 mg 1-06 by mouth 2 ity of capsule 23:52: (two) [place] 35 times Medical daily. Branch lurasidone 2020-0 Yes 40mg Take 40 mg U nivers (LATUDA) 40 1-06 by mouth. ity of mg tablet 23:52: [address] FLUoxetine 2020-0 Yes 20mg Take 20 mg U nivers 40 mg 1-06 by mouth 2 ity of capsule 23:52: (two) [place] 35 times Medical daily. Branch lurasidone 2020-0 Yes 40mg Take 40 mg U nivers (LATUDA) 40 1-06 by mouth. ity of mg tablet 23:52: [address] FLUoxetine 2020-0 Yes 20mg Take 20 mg U nivers 40 mg 1-06 by mouth 2 ity of capsule 23:52: (two) [place] 35 times Medical daily. Branch lurasidone 2020-0 Yes 40mg Take 40 mg U nivers (LATUDA) 40 1-06 by mouth. ity of mg tablet 23:52: [address] FLUoxetine 2020-0 Yes 20mg Take 20 mg U nivers 40 mg 1-06 by mouth 2 ity of capsule 23:52: (two) [place] 35 times Medical daily. Branch lurasidone 2020-0 Yes 40mg Take 40 mg U nivers (LATUDA) 40 1-06 by mouth. ity of mg tablet 23:52: [address] FLUoxetine 2020-0 Yes 20mg Take 20 mg U nivers 40 mg 1-06 by mouth 2 ity of capsule 23:52: (two) [place] 35 times Medical daily. Branch lurasidone 2020-0 Yes 40mg Take 40 mg U nivers (LATUDA) 40 1-06 by mouth. ity of mg tablet 23:52: [address] FLUoxetine 2020-0 Yes 20mg Take 20 mg U nivers 40 mg 1-06 by mouth 2 ity of capsule 23:52: (two) [place] 35 times Medical daily. Branch lurasidone 2020-0 Yes 40mg Take 40 mg U nivers (LATUDA) 40 1-06 by mouth. ity of mg tablet 23:52: [address] FLUoxetine 2020-0 Yes 20mg Take 20 mg U nivers 40 mg 1-06 by mouth 2 ity of capsule 23:52: (two) [place] [address] times Medical daily. Branch lurasidone 2020-0 Yes 40mg Take 40 mg U nivers (LATUDA) 40 1-06 by mouth. ity of mg tablet 23:52: [address] lurasidone 2020-0 Yes 40mg Take 40 mg U nivers (LATUDA) 40 1-06 by mouth. ity of mg tablet 23:52: [address] lurasidone 2020-0 Yes 40mg Take 40 mg U nivers (LATUDA) 40 1-06 by mouth. ity of mg tablet 23:52: [address] lurasidone 2020-0 Yes 40mg Take 40 mg U nivers (LATUDA) 40 1-06 by mouth. ity of mg tablet 23:52: [address] lurasidone 2020-0 Yes 40mg Take 40 mg U nivers (LATUDA) 40 1-06 by mouth. ity of mg tablet 23:52: [address] lurasidone 2020-0 Yes 40mg Take 40 mg U nivers (LATUDA) 40 1-06 by mouth. ity of mg tablet 23:52: [address] lurasidone 2020-0 Yes 40mg Take 40 mg U nivers (LATUDA) 40 1-06 by mouth. ity of mg tablet 23:52: [address] lurasidone 2020-0 Yes 40mg Take 40 mg U nivers (LATUDA) 40 1-06 by mouth. ity of mg tablet 23:52: [address] lurasidone 2020-0 Yes 40mg Take 40 mg U nivers (LATUDA) 40 1-06 by mouth. ity of mg tablet 23:52: [address] lurasidone 2020-0 Yes 40mg Take 40 mg U nivers (LATUDA) 40 1-06 by mouth. ity of mg tablet 23:52: [address] lurasidone 2020-0 Yes 40mg Take 40 mg U nivers (LATUDA) 40 1-06 by mouth. ity of mg tablet 23:52: [address] lurasidone 2020-0 Yes 40mg Take 40 mg U nivers (LATUDA) 40 1-06 by mouth. ity of mg tablet 23:52: [address] lurasidone 2020-0 Yes 40mg Take 40 mg U nivers (LATUDA) 40 1-06 by mouth. ity of mg tablet 23:52: [address] levoFLOXaci 2018-08 Yes [id number] 500mg Take 1 Univers n 2-14 tablet by ity of (LEVAQUIN) 00:00: mouth [place] 500 mg 00 every 24 Medical tablet ([facility] ur) hours. codeine-gua 2018-08 Yes [id number] 5mL Take 5 mL Univers ifenesin 2-14 by mouth ity of (CHERATUSSI 00:00: every 6 [place] as N AC) 00 (six) Medical 10-100 mg/5 hours as Bran ch mL solution needed for Cough. levoFLOXaci 2018-08 Yes [id number] 500mg Take 1 Univers n 2-14 tablet by ity of (LEVAQUIN) 00:00: mouth [place] 500 mg 00 every 24 Medical tablet ([facility] ur) hours. codeine-gua 2018-08 Yes [id number] 5mL Take 5 mL Univers ifenesin 2-14 by mouth ity of (CHERATUSSI 00:00: every 6 [place] as N AC) 00 (six) Medical 10-100 mg/5 hours as Bran ch mL solution needed for Cough. levoFLOXaci 2018-08 Yes [id number] 500mg Take 1 Univers n 2-14 tablet by ity of (LEVAQUIN) 00:00: mouth [place] 500 mg 00 every 24 Medical tablet ([facility] ur) hours. codeine-gua 2018-08 Yes [id number] 5mL Take 5 mL Univers ifenesin 2-14 by mouth ity of (CHERATUSSI 00:00: every 6 [place] as N AC) 00 (six) Medical 10-100 mg/5 hours as Bran ch mL solution needed for Cough. levoFLOXaci 2018-08 Yes [id number] 500mg Take 1 Univers n 2-14 tablet by ity of (LEVAQUIN) 00:00: mouth [place] 500 mg 00 every 24 Medical tablet ([facility] ur) hours. codeine-gua 2018-08 Yes [id number] 5mL Take 5 mL Univers ifenesin 2-14 by mouth ity of (CHERATUSSI 00:00: every 6 [place] as N AC) 00 (six) Medical 10-100 mg/5 hours as Bran ch mL solution needed for Cough. levoFLOXaci 2018-08 Yes [id number] 500mg Take 1 Univers n 2-14 tablet by ity of (LEVAQUIN) 00:00: mouth [place] 500 mg 00 every 24 Medical tablet ([facility] ur) hours. codeine-gua 2018-08 Yes [id number] 5mL Take 5 mL Univers ifenesin 2-14 by mouth ity of (CHERATUSSI 00:00: every 6 [place] as N AC) 00 (six) Medical 10-100 mg/5 hours as Bran ch mL solution needed for Cough. levoFLOXaci 2018-08 Yes [id number] 500mg Take 1 Univers n 2-14 tablet by ity of (LEVAQUIN) 00:00: mouth [place] 500 mg 00 every 24 Medical tablet ([facility] ur) hours. codeine-gua 2018-08 Yes [id number] 5mL Take 5 mL Univers ifenesin 2-14 by mouth ity of (CHERATUSSI 00:00: every 6 [place] as N AC) 00 (six) Medical 10-100 mg/5 hours as Bran ch mL solution needed for Cough. levoFLOXaci 2018-08 Yes [id number] 500mg Take 1 Univers n 2-14 tablet by ity of (LEVAQUIN) 00:00: mouth [place] 500 mg 00 every 24 Medical tablet ([facility] ur) hours. codeine-gua 2018-08 Yes [id number] 5mL Take 5 mL Univers ifenesin 2-14 by mouth ity of (CHERATUSSI 00:00: every 6 [place] as N AC) 00 (six) Medical 10-100 mg/5 hours as Bran ch mL solution needed for Cough. levoFLOXaci 2018-08 Yes [id number] 500mg Take 1 Univers n 2-14 tablet by ity of (LEVAQUIN) 00:00: mouth [place] 500 mg 00 every 24 Medical tablet ([facility] ur) hours. codeine-gua 2018-08 Yes [id number] 5mL Take 5 mL Univers ifenesin 2-14 by mouth ity of (CHERATUSSI 00:00: every 6 [place] as N AC) 00 (six) Medical 10-100 mg/5 hours as Bran ch mL solution needed for Cough. levoFLOXaci 2018-08 Yes [id number] 500mg Take 1 Univers n 2-14 tablet by ity of (LEVAQUIN) 00:00: mouth [place] 500 mg 00 every 24 Medical tablet ([facility] ur) hours. codeine-gua 2018-08 Yes [id number] 5mL Take 5 mL Univers ifenesin 2-14 by mouth ity of (CHERATUSSI 00:00: every 6 [place] as N AC) 00 (six) Medical 10-100 mg/5 hours as Bran ch mL solution needed for Cough. levoFLOXaci 2018-08 Yes [id number] 500mg Take 1 Univers n 2-14 tablet by ity of (LEVAQUIN) 00:00: mouth [place] 500 mg 00 every 24 Medical tablet ([facility] ur) hours. codeine-gua 2018-08 Yes [id number] 5mL Take 5 mL Univers ifenesin 2-14 by mouth ity of (CHERATUSSI 00:00: every 6 [place] as N AC) 00 (six) Medical 10-100 mg/5 hours as Bran ch mL solution needed for Cough. levoFLOXaci 2018-08 Yes [id number] 500mg Take 1 Univers n 2-14 tablet by ity of (LEVAQUIN) 00:00: mouth [place] 500 mg 00 every 24 Medical tablet ([facility] ur) hours. codeine-gua 2018-08 Yes [id number] 5mL Take 5 mL Univers ifenesin 2-14 by mouth ity of (CHERATUSSI 00:00: every 6 [place] as N AC) 00 (six) Medical 10-100 mg/5 hours as Bran ch mL solution needed for Cough. levoFLOXaci 2018-08 Yes [id number] 500mg Take 1 Univers n 2-14 tablet by ity of (LEVAQUIN) 00:00: mouth [place] 500 mg 00 every 24 Medical tablet ([facility] Branch ur) hours. codeine-gua 2018-08 Yes [id number] 5mL Take 5 mL Univers ifenesin 2-14 by mouth ity of (CHERATUSSI 00:00: every 6 [place] as N AC) 00 (six) Medical 10-100 mg/5 hours as Bran ch mL solution needed for Cough. levoFLOXaci 2018-08 Yes [id number] 500mg Take 1 Univers n 2-14 tablet by ity of (LEVAQUIN) 00:00: mouth [place] 500 mg 00 every 24 Medical tablet ([facility] ur) hours. codeine-gua 2018-08 Yes [id number] 5mL Take 5 mL Univers ifenesin 2-14 by mouth ity of (CHERATUSSI 00:00: every 6 [place] as N AC) 00 (six) Medical 10-100 mg/5 hours as Bran ch mL solution needed for Cough. levoFLOXaci 2018-08 Yes [id number] 500mg Take 1 Univers n 2-14 tablet by ity of (LEVAQUIN) 00:00: mouth [place] 500 mg 00 every 24 Medical tablet ([facility] ur) hours. codeine-gua 2018-08 Yes [id number] 5mL Take 5 mL Univers ifenesin 2-14 by mouth ity of (CHERATUSSI 00:00: every 6 [place] as N AC) 00 (six) Medical 10-100 mg/5 hours as Bran ch mL solution needed for Cough. levoFLOXaci 2018-08 Yes [id number] 500mg Take 1 Univers n 2-14 tablet by ity of (LEVAQUIN) 00:00: mouth [place] 500 mg 00 every 24 Medical tablet ([facility] ur) hours. codeine-gua 2018-08 Yes [id number] 5mL Take 5 mL Univers ifenesin 2-14 by mouth ity of (CHERATUSSI 00:00: every 6 [place] as N AC) 00 (six) Medical 10-100 mg/5 hours as Bran ch mL solution needed for Cough. levoFLOXaci 2018-08 Yes [id number] 500mg Take 1 Univers n 2-14 tablet by ity of (LEVAQUIN) 00:00: mouth [place] 500 mg 00 every 24 Medical tablet ([facility] ur) hours. codeine-gua 2018-08 Yes [id number] 5mL Take 5 mL Univers ifenesin 2-14 by mouth ity of (CHERATUSSI 00:00: every 6 [place] as N AC) 00 (six) Medical 10-100 mg/5 hours as Bran ch mL solution needed for Cough. levoFLOXaci 2018-08 Yes [id number] 500mg Take 1 Univers n 2-14 tablet by ity of (LEVAQUIN) 00:00: mouth [place] 500 mg 00 every 24 Medical tablet ([facility] ur) hours. codeine-gua 2018-08 Yes [id number] 5mL Take 5 mL Univers ifenesin 2-14 by mouth ity of (CHERATUSSI 00:00: every 6 [place] as N AC) 00 (six) Medical 10-100 mg/5 hours as Bran ch mL solution needed for Cough. levoFLOXaci 2018-08 Yes [id number] 500mg Take 1 Univers n 2-14 tablet by ity of (LEVAQUIN) 00:00: mouth [place] 500 mg 00 every 24 Medical tablet ([facility] ur) hours. codeine-gua 2018-08 Yes [id number] 5mL Take 5 mL Univers ifenesin 2-14 by mouth ity of (CHERATUSSI 00:00: every 6 [place] as N AC) 00 (six) Medical 10-100 mg/5 hours as Bran ch mL solution needed for Cough. levoFLOXaci 2018-08 Yes [id number] 500mg Take 1 Univers n 2-14 tablet by ity of (LEVAQUIN) 00:00: mouth [place] 500 mg 00 every 24 Medical tablet ([facility] ur) hours. codeine-gua 2018-08 Yes [id number] 5mL Take 5 mL Univers ifenesin 2-14 by mouth ity of (CHERATUSSI 00:00: every 6 [place] as N AC) 00 (six) Medical 10-100 mg/5 hours as Bran ch mL solution needed for Cough. levoFLOXaci 2018-08 Yes [id number] 500mg Take 1 Univers n 2-14 tablet by ity of (LEVAQUIN) 00:00: mouth [place] 500 mg 00 every 24 Medical tablet ([facility] ur) hours. codeine-gua 2018-08 Yes [id number] 5mL Take 5 mL Univers ifenesin 2-14 by mouth ity of (CHERATUSSI 00:00: every 6 [place] as N AC) 00 (six) Medical 10-100 mg/5 hours as Bran ch mL solution needed for Cough. levoFLOXaci 2018-08 Yes [id number] 500mg Take 1 Univers n 2-14 tablet by ity of (LEVAQUIN) 00:00: mouth [place] 500 mg 00 every 24 Medical tablet ([facility] ur) hours. codeine-gua 2018-08 Yes [id number] 5mL Take 5 mL Univers ifenesin 2-14 by mouth ity of (CHERATUSSI 00:00: every 6 [place] as N AC) 00 (six) Medical 10-100 mg/5 hours as Bran ch mL solution needed for Cough. levoFLOXaci 2018-08 Yes [id number] 500mg Take 1 Univers n 2-14 tablet by ity of (LEVAQUIN) 00:00: mouth [place] 500 mg 00 every 24 Medical tablet ( [place] ur) hours. codeine-gua 2018-08 Yes [id number] 5mL Take 5 mL Univers ifenesin 2-14 by mouth ity of (CHERATUSSI 00:00: every 6 [place] N AC) 00 (six) Medical 10-100 mg/5 hours as Bran ch mL solution needed for Cough. levoFLOXaci 2018-08 Yes [id number] 500mg Take 1 [facility] n 2-14 tablet by ity of (LEVAQUIN) 00:00: mouth [place] 500 mg 00 every 24 Medical tablet ( [place] ur) hours. codeine-gua 2018-08 Yes [id number] 5mL Take 5 mL Univers ifenesin 2-14 by mouth ity of (CHERATUSSI 00:00: every 6 [place] N AC) 00 (six) Medical 10-100 mg/5 hours as Bran ch mL solution needed for Cough. levoFLOXaci 2018-08 Yes [id number] 500mg Take 1 Univers n 2-14 tablet by ity of (LEVAQUIN) 00:00: mouth [place] 500 mg 00 every 24 Medical tablet ( [place] ur) hours. codeine-gua 2018-08 Yes [id number] 5mL Take 5 mL Univers ifenesin 2-14 by mouth ity of (CHERATUSSI 00:00: every 6 [place] N AC) 00 (six) Medical 10-100 mg/5 hours as Bran ch mL solution needed for Cough. levoFLOXaci 2018-08 Yes [id number] 500mg Take 1 Univers n 2-14 tablet by ity of (LEVAQUIN) 00:00: mouth [place] 500 mg 00 every 24 Medical tablet ( Branch ur) hours. codeine-gua 2018-08 Yes [id number] 5mL Take 5 mL Univers ifenesin 2-14 by mouth ity of (CHERATUSSI 00:00: every 6 [place] N AC) 00 (six) Medical 10-100 mg/5 hours as Bran ch mL solution needed for Cough. levoFLOXaci 2018-08 Yes [id number] 500mg Take 1 [facility] n 2-14 tablet by ity of (LEVAQUIN) 00:00: mouth [place] 500 mg 00 every 24 Medical tablet ([facility]) hours. codeine-gua 2018-08 Yes [id number] 5mL Take 5 mL Univers ifenesin 2-14 by mouth ity of (CHERATUSSI 00:00: every 6 [place] N AC) 00 (six) Medical 10-100 mg/5 hours as Bran ch mL solution needed for Cough. levoFLOXaci 2018-08 Yes [id number] 500mg Take 1 [facility] n 2-14 tablet by ity of (LEVAQUIN) 00:00: mouth [place] 500 mg 00 every 24 Medical tablet ([facility]) hours. codeine-gua 2018-08 Yes [id number] 5mL Take 5 mL [facility] ifenesin 2-14 by mouth ity of (CHERATUSSI 00:00: every 6 [place] N AC) 00 (six) Medical 10-100 mg/5 hours as Bran ch mL solution needed for Cough. levoFLOXaci 2018-08 Yes [id number] 500mg Take 1 [facility] n 2-14 tablet by ity of (LEVAQUIN) 00:00: mouth [place] 500 mg 00 every 24 Medical tablet ([facility] ur) hours. codeine-gua 2018-08 Yes [id number] 5mL Take 5 mL Univers ifenesin 2-14 by mouth ity of (CHERATUSSI 00:00: every 6 [place] N AC) 00 (six) Medical 10-100 mg/5 hours as Bran ch mL solution needed for Cough. levoFLOXaci 2018-08 Yes [id number] 500mg Take 1 [facility] n 2-14 tablet by ity of (LEVAQUIN) 00:00: mouth [place] 500 mg 00 every 24 Medical tablet ([facility] ur) hours. codeine-gua 2018-08 Yes [id number] 5mL Take 5 mL [facility] ifenesin 2-14 by mouth ity of (CHERATUSSI 00:00: every 6 [place] N AC) 00 (six) Medical 10-100 mg/5 hours as Bran ch mL solution needed for Cough. levoFLOXaci 2018-08 Yes [id number] 500mg Take 1 [facility] n 2-14 tablet by ity of (LEVAQUIN) 00:00: mouth [place] 500 mg 00 every 24 Medical tablet ([facility] ur) hours. codeine-gua 2018-08 Yes [id number] 5mL Take 5 mL Univers ifenesin 2-14 by mouth ity of (CHERATUSSI 00:00: every 6 [place] N AC) 00 (six) Medical 10-100 mg/5 hours as Bran ch mL solution needed for Cough. levoFLOXaci 2018-08 Yes [id number] 500mg Take 1 [facility] n 2-14 tablet by ity of (LEVAQUIN) 00:00: mouth [place] 500 mg 00 every 24 Medical tablet ([facility]) hours. codeine-gua 2018-08 Yes [id number] 5mL Take 5 mL Univers ifenesin 2-14 by mouth ity of (CHERATUSSI 00:00: every 6 [place] N AC) 00 (six) Medical 10-100 mg/5 hours as Bran ch mL solution needed for Cough. levoFLOXaci 2018-08 Yes [id number] 500mg Take 1 Univers n 2-14 tablet by ity of (LEVAQUIN) 00:00: mouth [place] 500 mg 00 every 24 Medical tablet ([facility] ur) hours. codeine-gua 2018-08 Yes [id number] 5mL Take 5 mL Univers ifenesin 2-14 by mouth ity of (CHERATUSSI 00:00: every 6 [place] N AC) 00 (six) Medical 10-100 mg/5 hours as Bran ch mL solution needed for Cough. levoFLOXaci 2018-08 Yes [id number] 500mg Take 1 [facility] n 2-14 tablet by ity of (LEVAQUIN) 00:00: mouth [place] 500 mg 00 every 24 Medical tablet ([facility] ur) hours. codeine-gua 2018-08 Yes [id number] 5mL Take 5 mL Univers ifenesin 2-14 by mouth ity of (CHERATUSSI 00:00: every 6 [place] N AC) 00 (six) Medical 10-100 mg/5 hours as Bran ch mL solution needed for Cough. levoFLOXaci 2018-08 Yes [id number] 500mg Take 1 [facility] n 2-14 tablet by ity of (LEVAQUIN) 00:00: mouth [place] 500 mg 00 every 24 Medical tablet ([facility] ur) hours. codeine-gua 2018-08 Yes [id number] 5mL Take 5 mL Univers ifenesin 2-14 by mouth ity of (CHERATUSSI 00:00: every 6 [place] N AC) 00 (six) Medical 10-100 mg/5 hours as Bran ch mL solution needed for Cough. levoFLOXaci 2018-08 Yes [id number] 500mg Take 1 Univers n 2-14 tablet by ity of (LEVAQUIN) 00:00: mouth [place] 500 mg 00 every 24 Medical tablet (-fo Branch ur) hours. codeine-gua 2018-08 Yes [id number] 5mL Take 5 mL Univers ifenesin 2-14 by mouth ity of (CHERATUSSI 00:00: every 6 [place] as N AC) 00 (six) Medical 10-100 mg/5 hours as Bran ch mL solution needed for Cough. levoFLOXaci 2018-08 Yes [id number] 500mg Take 1 [facility] n 2-14 tablet by ity of (LEVAQUIN) 00:00: mouth [place] 500 mg 00 every 24 Medical tablet (fo Branch ur) hours. codeine-gua 2018-08 Yes [id number] 5mL Take 5 mL [facility] ifenesin 2-14 by mouth ity of (CHERATUSSI 00:00: every 6 [place] N AC) 00 (six) Medical 10-100 mg/5 hours as Bran ch mL solution needed for Cough. levoFLOXaci 2018-08 Yes [id number] 500mg Take 1 [facility] n 2-14 tablet by ity of (LEVAQUIN) 00:00: mouth [place] 500 mg 00 every 24 Medical tablet (-fo Branch ur) hours. codeine-gua 2018-08 Yes [id number] 5mL Take 5 mL Univers ifenesin 2-14 by mouth ity of (CHERATUSSI 00:00: every 6 [place] N AC) 00 (six) Medical 10-100 mg/5 hours as Bran ch mL solution needed for Cough. levoFLOXaci 2018-08 Yes [id number] 500mg Take 1 [facility] n 2-14 tablet by ity of (LEVAQUIN) 00:00: mouth [place] 500 mg 00 every 24 Medical tablet ([facility] Branch ur) hours. codeine-gua 2018-08 Yes [id number] 5mL Take 5 mL [facility] ifenesin 2-14 by mouth ity of (CHERATUSSI 00:00: every 6 [place] as N AC) 00 (six) Medical 10-100 mg/5 hours as Bran ch mL solution needed for Cough. levoFLOXaci 2018-08 Yes [id number] 500mg Take 1 Univers n 2-14 tablet by ity of (LEVAQUIN) 00:00: mouth [place] 500 mg 00 every 24 Medical tablet ([facility] ur) hours. codeine-gua 2018-08 Yes [id number] 5mL Take 5 mL Univers ifenesin 2-14 by mouth ity of (CHERATUSSI 00:00: every 6 [place] as N AC) 00 (six) Medical 10-100 mg/5 hours as Bran ch mL solution needed for Cough. levoFLOXaci 2018-08- No [id number] 500mg Take 1 Univers n 2-14 05-24 tablet by ity of (LEVAQUIN) 00:00: 00:00 mouth [place] 500 mg 00 :00 every 24 Medical tablet ([facility] ur) hours. codeine-gua 2018-08- No [id number] 5mL Take 5 mL Univers ifenesin 2-14 05-24 by mouth ity of (CHERATUSSI 00:00: 00:00 every 6 [place] N AC) 00 :00 (six) Medical 10-100 mg/5 hours as Bran ch mL solution needed for Cough. buPROPion 2018-08 Yes [id number] 150mg Take 1 U nivers SR 0-16 tablet by ity of (WELLBUTRIN 00:00: mouth [place] SR) 150 mg 00 daily. Medical SR tablet Branch buPROPion 2018-08 Yes [id number] 150mg Take 1 U nivers SR 0-16 tablet by ity of (WELLBUTRIN 00:00: mouth [place] SR) 150 mg 00 daily. Medical SR tablet Branch buPROPion 2018-08 Yes [id number] 150mg Take 1 U nivers SR 0-16 tablet by ity of (WELLBUTRIN 00:00: mouth [place] SR) 150 mg 00 daily. Medical SR tablet Branch buPROPion 2018-08 Yes [id number] 150mg Take 1 U nivers SR 0-16 tablet by ity of (WELLBUTRIN 00:00: mouth [place] SR) 150 mg 00 daily. Medical SR tablet Branch buPROPion 2018-08 Yes [id number] 150mg Take 1 U nivers SR 0-16 tablet by ity of (WELLBUTRIN 00:00: mouth [place] SR) 150 mg 00 daily. Medical SR tablet Branch buPROPion 2018-08 Yes [id number] 150mg Take 1 U nivers SR 0-16 tablet by ity of (WELLBUTRIN 00:00: mouth [place] SR) 150 mg 00 daily. Medical SR tablet Branch buPROPion 2018-08 Yes [id number] 150mg Take 1 U nivers SR 0-16 tablet by ity of (WELLBUTRIN 00:00: mouth [place] SR) 150 mg 00 daily. Medical SR tablet Branch buPROPion 2018-08 Yes [id number] 150mg Take 1 U nivers SR 0-16 tablet by ity of (WELLBUTRIN 00:00: mouth [place] SR) 150 mg 00 daily. Medical SR tablet Branch buPROPion 2018-08 Yes [id number] 150mg Take 1 U nivers SR 0-16 tablet by ity of (WELLBUTRIN 00:00: mouth [place] SR) 150 mg 00 daily. Medical SR tablet Branch buPROPion 2018-08 Yes [id number] 150mg Take 1 U nivers SR 0-16 tablet by ity of (WELLBUTRIN 00:00: mouth [place] SR) 150 mg 00 daily. Medical SR tablet Branch buPROPion 2018-08 Yes [id number] 150mg Take 1 U nivers SR 0-16 tablet by ity of (WELLBUTRIN 00:00: mouth [place] SR) 150 mg 00 daily. Medical SR tablet Branch buPROPion 2018-08 Yes [id number] 150mg Take 1 U nivers SR 0-16 tablet by ity of (WELLBUTRIN 00:00: mouth [place] SR) 150 mg 00 daily. Medical SR tablet Branch buPROPion 2018-08 Yes [id number] 150mg Take 1 U nivers SR 0-16 tablet by ity of (WELLBUTRIN 00:00: mouth [place] SR) 150 mg 00 daily. Medical SR tablet Branch buPROPion 2018-08 Yes [id number] 150mg Take 1 U nivers SR 0-16 tablet by ity of (WELLBUTRIN 00:00: mouth [place] SR) 150 mg 00 daily. Medical SR tablet Branch buPROPion 2018-08 Yes [id number] 150mg Take 1 U nivers SR 0-16 tablet by ity of (WELLBUTRIN 00:00: mouth [place] SR) 150 mg 00 daily. Medical SR tablet Branch buPROPion 2018-08 Yes [id number] 150mg Take 1 U nivers SR 0-16 tablet by ity of (WELLBUTRIN 00:00: mouth [place] SR) 150 mg 00 daily. Medical SR tablet Branch buPROPion 2018-08 Yes [id number] 150mg Take 1 U nivers SR 0-16 tablet by ity of (WELLBUTRIN 00:00: mouth [place] SR) 150 mg 00 daily. Medical SR tablet Branch buPROPion 2018-08 Yes [id number] 150mg Take 1 U nivers SR 0-16 tablet by ity of (WELLBUTRIN 00:00: mouth [place] SR) 150 mg 00 daily. Medical SR tablet Branch buPROPion 2018-08 Yes [id number] 150mg Take 1 U nivers SR 0-16 tablet by ity of (WELLBUTRIN 00:00: mouth [place] SR) 150 mg 00 daily. Medical SR tablet Branch buPROPion 2018-08 Yes [id number] 150mg Take 1 U nivers SR 0-16 tablet by ity of (WELLBUTRIN 00:00: mouth [place] SR) 150 mg 00 daily. Medical SR tablet Branch buPROPion 2018-08 Yes [id number] 150mg Take 1 U nivers SR 0-16 tablet by ity of (WELLBUTRIN 00:00: mouth [place] SR) 150 mg 00 daily. Medical SR tablet Branch buPROPion 2018-08 Yes [id number] 150mg Take 1 U nivers SR 0-16 tablet by ity of (WELLBUTRIN 00:00: mouth [place] SR) 150 mg 00 daily. Medical SR tablet Branch buPROPion 2018-08 Yes [id number] 150mg Take 1 U nivers SR 0-16 tablet by ity of (WELLBUTRIN 00:00: mouth [place] SR) 150 mg 00 daily. Medical SR tablet Branch buPROPion 2018-08 Yes [id number] 150mg Take 1 U nivers SR 0-16 tablet by ity of (WELLBUTRIN 00:00: mouth [place] SR) 150 mg 00 daily. Medical SR tablet Branch buPROPion 2018-08 Yes [id number] 150mg Take 1 U nivers SR 0-16 tablet by ity of (WELLBUTRIN 00:00: mouth [place] SR) 150 mg 00 daily. Medical SR tablet Branch buPROPion 2018-08 Yes [id number] 150mg Take 1 U nivers SR 0-16 tablet by ity of (WELLBUTRIN 00:00: mouth [place] SR) 150 mg 00 daily. Medical SR tablet Branch buPROPion 2018-08 Yes [id number] 150mg Take 1 U nivers SR 0-16 tablet by ity of (WELLBUTRIN 00:00: mouth [place] SR) 150 mg 00 daily. Medical SR tablet Branch buPROPion 2018-08 Yes [id number] 150mg Take 1 U nivers SR 0-16 tablet by ity of (WELLBUTRIN 00:00: mouth [place] SR) 150 mg 00 daily. Medical SR tablet Branch buPROPion 2018-08 Yes [id number] 150mg Take 1 U nivers SR 0-16 tablet by ity of (WELLBUTRIN 00:00: mouth [place] SR) 150 mg 00 daily. Medical SR tablet Branch buPROPion 2018-08 Yes [id number] 150mg Take 1 U nivers SR 0-16 tablet by ity of (WELLBUTRIN 00:00: mouth [place] SR) 150 mg 00 daily. Medical SR tablet Branch buPROPion 2018-08 Yes [id number] 150mg Take 1 U nivers SR 0-16 tablet by ity of (WELLBUTRIN 00:00: mouth [place] SR) 150 mg 00 daily. Medical SR tablet Branch buPROPion 2018-08 Yes [id number] 150mg Take 1 U nivers SR 0-16 tablet by ity of (WELLBUTRIN 00:00: mouth [place] SR) 150 mg 00 daily. Medical SR tablet Branch buPROPion 2018-08 Yes [id number] 150mg Take 1 U nivers SR 0-16 tablet by ity of (WELLBUTRIN 00:00: mouth [place] SR) 150 mg 00 daily. Medical SR tablet Branch buPROPion 2018-08 Yes [id number] 150mg Take 1 U nivers SR 0-16 tablet by ity of (WELLBUTRIN 00:00: mouth [place] SR) 150 mg 00 daily. Medical SR tablet Branch buPROPion 2018-08 Yes [id number] 150mg Take 1 U nivers SR 0-16 tablet by ity of (WELLBUTRIN 00:00: mouth [place] SR) 150 mg 00 daily. Medical SR tablet Branch buPROPion 2018-08 Yes [id number] 150mg Take 1 U nivers SR 0-16 tablet by ity of (WELLBUTRIN 00:00: mouth [place] SR) 150 mg 00 daily. Medical SR tablet Branch buPROPion 2018-08 Yes [id number] 150mg Take 1 U nivers SR 0-16 tablet by ity of (WELLBUTRIN 00:00: mouth [place] SR) 150 mg 00 daily. Medical SR tablet Branch buPROPion 2018-08 Yes [id number] 150mg Take 1 U nivers SR 0-16 tablet by ity of (WELLBUTRIN 00:00: mouth [place] SR) 150 mg 00 daily. Medical SR tablet Branch buPROPion 2018-08 Yes [id number] 150mg Take 1 U nivers SR 0-16 tablet by ity of (WELLBUTRIN 00:00: mouth [place] SR) 150 mg 00 daily. Medical SR tablet Branch buPROPion 2018-08- No [id number] 150mg Take 1 Univers SR 0-16 05-24 tablet by ity of (WELLBUTRIN 00:00: 00:00 [place] SR[place] 150 mg 00 :00 daily. Medical SR tablet Branch loratadine 2018-08 Yes [id number] 10mg Take 1 Univers (CLARITIN) 0-11 tablet by ity of 10 mg 00:00: mouth [place] tablet 00 daily. Medical Branch loratadine 2018-08 Yes [id number] 10mg Take 1 Univers (CLARITIN) 0-11 tablet by ity of 10 mg 00:00: mouth [place] tablet 00 daily. Medical Branch loratadine 2018-08 Yes [id number] 10mg Take 1 Univers (CLARITIN) 0-11 tablet by ity of 10 mg 00:00: mouth [place] tablet 00 daily. Medical Branch loratadine 2018-08 Yes [id number] 10mg Take 1 Univers (CLARITIN) 0-11 tablet by ity of 10 mg 00:00: mouth [place] tablet 00 daily. Medical Branch loratadine 2018-08 Yes [id number] 10mg Take 1 Univers (CLARITIN) 0-11 tablet by ity of 10 mg 00:00: mouth [place] tablet 00 daily. Medical Branch loratadine 2018-08 Yes [id number] 10mg Take 1 Univers (CLARITIN) 0-11 tablet by ity of 10 mg 00:00: mouth [place] tablet 00 daily. Medical Branch loratadine 2018-08 Yes [id number] 10mg Take 1 Univers (CLARITIN) 0-11 tablet by ity of 10 mg 00:00: mouth [place] tablet 00 daily. Medical Branch loratadine 2018-08 Yes [id number] 10mg Take 1 Univers (CLARITIN) 0-11 tablet by ity of 10 mg 00:00: mouth [place] tablet 00 daily. Medical Branch loratadine 2018-08 Yes [id number] 10mg Take 1 Univers (CLARITIN) 0-11 tablet by ity of 10 mg 00:00: mouth [place] tablet 00 daily. Medical Branch loratadine 2018-08 Yes [id number] 10mg Take 1 Univers (CLARITIN) 0-11 tablet by ity of 10 mg 00:00: mouth [place] tablet 00 daily. Medical Branch loratadine 2018-08 Yes [id number] 10mg Take 1 Univers (CLARITIN) 0-11 tablet by ity of 10 mg 00:00: mouth [place] tablet 00 daily. Medical Branch loratadine 2018-08 Yes [id number] 10mg Take 1 Univers (CLARITIN) 0-11 tablet by ity of 10 mg 00:00: mouth [place] tablet 00 daily. Medical Branch loratadine 2018-08 Yes [id number] 10mg Take 1 Univers (CLARITIN) 0-11 tablet by ity of 10 mg 00:00: mouth [place] tablet 00 daily. Medical Branch loratadine 2018-08 Yes [id number] 10mg Take 1 Univers (CLARITIN) 0-11 tablet by ity of 10 mg 00:00: mouth [place] tablet 00 daily. Medical Branch loratadine 2018-08 Yes [id number] 10mg Take 1 Univers (CLARITIN) 0-11 tablet by ity of 10 mg 00:00: mouth [place] tablet 00 daily. Medical Branch loratadine 2018-08 Yes [id number] 10mg Take 1 Univers (CLARITIN) 0-11 tablet by ity of 10 mg 00:00: mouth [place] tablet 00 daily. Medical Branch loratadine 2018-08 Yes [id number] 10mg Take 1 Univers (CLARITIN) 0-11 tablet by ity of 10 mg 00:00: mouth [place] tablet 00 daily. Medical Branch loratadine 2018-08 Yes [id number] 10mg Take 1 Univers (CLARITIN) 0-11 tablet by ity of 10 mg 00:00: mouth [place] tablet 00 daily. Medical Branch loratadine 2018-08 Yes [id number] 10mg Take 1 Univers (CLARITIN) 0-11 tablet by ity of 10 mg 00:00: mouth [place] tablet 00 daily. Medical Branch loratadine 2018-08 Yes [id number] 10mg Take 1 Univers (CLARITIN) 0-11 tablet by ity of 10 mg 00:00: mouth [place] tablet 00 daily. Medical Branch loratadine 2018-08 Yes [id number] 10mg Take 1 Univers (CLARITIN) 0-11 tablet by ity of 10 mg 00:00: mouth [place] tablet 00 daily. Medical Branch loratadine 2018-08 Yes [id number] 10mg Take 1 Univers (CLARITIN) 0-11 tablet by ity of 10 mg 00:00: mouth [place] tablet 00 daily. Medical Branch loratadine 2018-08 Yes [id number] 10mg Take 1 Univers (CLARITIN) 0-11 tablet by ity of 10 mg 00:00: mouth [place] tablet 00 daily. Medical Branch loratadine 2018-08 Yes [id number] 10mg Take 1 Univers (CLARITIN) 0-11 tablet by ity of 10 mg 00:00: mouth [place] tablet 00 daily. Medical Branch loratadine 2018-08 Yes [id number] 10mg Take 1 Univers (CLARITIN) 0-11 tablet by ity of 10 mg 00:00: mouth [place] tablet 00 daily. Medical Branch loratadine 2018-08 Yes [id number] 10mg Take 1 Univers (CLARITIN) 0-11 tablet by ity of 10 mg 00:00: mouth [place] tablet 00 daily. Medical Branch loratadine 2018-08 Yes [id number] 10mg Take 1 Univers (CLARITIN) 0-11 tablet by ity of 10 mg 00:00: mouth [place] tablet 00 daily. Medical Branch loratadine 2018-08 Yes [id number] 10mg Take 1 Univers (CLARITIN) 0-11 tablet by ity of 10 mg 00:00: mouth [place] tablet 00 daily. Medical Branch loratadine 2018-08 Yes [id number] 10mg Take 1 Univers (CLARITIN) 0-11 tablet by ity of 10 mg 00:00: mouth [place] tablet 00 daily. Medical Branch loratadine 2018-08 Yes [id number] 10mg Take 1 Univers (CLARITIN) 0-11 tablet by ity of 10 mg 00:00: mouth [place] tablet 00 daily. Medical Branch loratadine 2018-08 Yes [id number] 10mg Take 1 Univers (CLARITIN) 0-11 tablet by ity of 10 mg 00:00: mouth [place] tablet 00 daily. Medical Branch loratadine 2018-08 Yes [id number] 10mg Take 1 Univers (CLARITIN) 0-11 tablet by ity of 10 mg 00:00: mouth [place] tablet 00 daily. Medical Branch loratadine 2018-08 Yes [id number] 10mg Take 1 Univers (CLARITIN) 0-11 tablet by ity of 10 mg 00:00: mouth [place] tablet 00 daily. Medical Branch loratadine 2018-08 Yes [id number] 10mg Take 1 Univers (CLARITIN) 0-11 tablet by ity of 10 mg 00:00: mouth [place] tablet 00 daily. Medical Branch loratadine 2018-08 Yes [id number] 10mg Take 1 Univers (CLARITIN) 0-11 tablet by ity of 10 mg 00:00: mouth [place] tablet 00 daily. Medical Branch loratadine 2018-08 Yes [id number] 10mg Take 1 Univers (CLARITIN) 0-11 tablet by ity of 10 mg 00:00: mouth [place] tablet 00 daily. Medical Branch loratadine 2018-08 Yes [id number] 10mg Take 1 Univers (CLARITIN) 0-11 tablet by ity of 10 mg 00:00: mouth [place] tablet 00 daily. Medical Branch loratadine 2018-08 Yes [id number] 10mg Take 1 Univers (CLARITIN) 0-11 tablet by ity of 10 mg 00:00: mouth [place] tablet 00 daily. Medical Branch loratadine 2018-08 Yes [id number] 10mg Take 1 Univers (CLARITIN) 0-11 tablet by ity of 10 mg 00:00: mouth [place] tablet 00 daily. Medical Branch loratadine 2018-08- No [id number] 10mg Take 1 Univers (CLARITIN) 0-11 05-24 tablet by ity of 10 mg 00:00: 00:00 mouth [place] tablet 00 :00 daily. [facility] Branch Immunizations Ordered Filled Immunization Date Status Comments [facility] e Immunization Name Name TD 2018-04-07 Completed University of 00:00:00 [facility] TDAP 2018-04-07 Completed University of 00:00:00 [facility] TDAP 2018-04-07 Completed University of 00:00:00 [place] [facility] TDAP 2018-04-07 Completed University of 00:00:00 [place] [facility] TDAP 2018-04-07 Completed University of 00:00:00 [place] [facility] TDAP 2018-04-07 Completed University of 00:00:00 [place] [facility] TDAP 2018-04-07 Completed University of 00:00:00 [place] [facility] TDAP 2018-04-07 Completed University of 00:00:00 [place] [facility] Tdap 2018-04-07 Completed University of 00:00:00 [place] [facility] Tdap 2018-04-07 Completed University of 00:00:00 [place] [facility] Tdap 2018-04-07 Completed University of 00:00:00 [place] [facility] Tdap 2018-04-07 Completed University of 00:00:00 [place] [facility] Tdap 2018-04-07 Completed University of 00:00:00 [place] [facility] Tdap 2018-04-07 Completed University of 00:00:00 [place] [facility] Tdap 2018-04-07 Completed University of 00:00:00 [place] [facility] Tdap 2018-04-07 Completed University of 00:00:00 [place] [facility] Tdap 2018-04-07 Completed University of 00:00:00 [place] [facility] Tdap 2018-04-07 Completed University of 00:00:00 [place] [facility] Tdap 2018-04-07 Completed University of 00:00:00 [place] [facility] Tdap 2018-04-07 Completed University of 00:00:00 [facility] TDAP 2018-04-07 Completed University of 00:00:00 [place] [facility] TDAP 2018-04-07 Completed University of 00:00:00 [place] [facility] TDAP 2018-04-07 Completed University of 00:00:00 [place] [facility] TDAP 2018-04-07 Completed University of 00:00:00 [place] [facility] TDAP 2018-04-07 Completed University of 00:00:00 [place] [facility] TDAP 2018-04-07 Completed University of 00:00:00 [place] [facility] TDAP 2018-04-07 Completed University of 00:00:00 [place] [facility] TDAP 2018-04-07 Completed University of 00:00:00 [place] [facility] TDAP 2018-04-07 Completed University of 00:00:00 [place] [facility] TDAP 2018-04-07 Completed University of 00:00:00 [facility] TDAP 2018-04-07 Completed University of 00:00:00 [place] [facility] TDAP 2018-04-07 Completed University of 00:00:00 [place] [facility] TDAP 2018-04-07 Completed University of 00:00:00 [place] [facility] TDAP 2018-04-07 Completed University of 00:00:00 [facility] TDAP 2018-04-07 Completed University of 00:00:00 [facility] TDAP 2018-04-07 Completed University of 00:00:00 [place] [facility] TDAP 2018-04-07 Completed University of 00:00:00 [place] [facility] TDAP 2018-04-07 Completed University of 00:00:00 [facility] TDAP 2018-04-07 Completed University of 00:00:00 [place] [facility] TDAP 2018-04-07 Completed University of 00:00:00 [facility] TDAP 2018-04-07 Completed University of 00:00:00 [facility] TDAP 2018-04-07 Completed University of 00:00:00 [facility] TDAP 2018-04-07 Completed University of 00:00:00 [facility] TDAP 2018-04-07 Completed University of 00:00:00 [facility] TDAP 2018-04-07 Completed University of 00:00:00 [facility] TDAP 2018-04-07 Completed University of 00:00:00 [facility] TDAP 2018-04-07 Completed University of 00:00:00 [facility] TDAP 2018-04-07 Completed University of 00:00:00 [facility] TDAP 2018-04-07 Completed University of 00:00:00 [facility] TDAP 2018-04-07 Completed University of 00:00:00 [facility] TDAP 2018-04-07 Completed University of 00:00:00 [facility] Branch TDAP (ADACEL) 2012-02-09 Completed University of VACCINE 00:00:00 [facility] Branch TDAP (ADACEL) 2012-02-09 Completed University of VACCINE 00:00:00 [facility] Branch TDAP (ADACEL) 2012-02-09 Completed University of VACCINE 00:00:00 [facility] Branch TDAP (ADACEL) 2012-02-09 Completed University of VACCINE 00:00:00 [facility] Branch TDAP (ADACEL) 2012-02-09 Completed University of VACCINE 00:00:00 [place] [facility] TDAP (ADACEL) 2012-02-09 Completed University of VACCINE 00:00:00 [place] [facility] TDAP (ADACEL) 2012-02-09 Completed University of VACCINE 00:00:00 [place] [facility] TDAP (ADACEL) 2012-02-09 Completed University of VACCINE 00:00:00 [place] [facility] Branch TDAP (ADACEL) 2012-02-09 Completed [facility] VACCINE 00:00:00 [facility] TDAP (ADACEL) 2012-02-09 Completed [facility] VACCINE 00:00:00 [facility] TDAP (ADACEL) 2012-02-09 Completed [facility] VACCINE 00:00:00 [facility] TDAP (ADACEL) 2012-02-09 Completed [facility] of VACCINE 00:00:00 [facility] TDAP (ADACEL) 2012-02-09 Completed [facility] of VACCINE 00:00:00 [facility] TDAP (ADACEL) 2012-02-09 Completed [facility] VACCINE 00:00:00 [facility] TDAP (ADACEL) 2012-02-09 Completed [facility] VACCINE 00:00:00 [facility] TDAP (ADACEL) 2012-02-09 Completed [facility] VACCINE 00:00:00 [facility] TDAP (ADACEL) 2012-02-09 Completed [facility] VACCINE 00:00:00 [facility] TDAP (ADACEL) 2012-02-09 Completed [facility] VACCINE 00:00:00 [facility] TDAP (ADACEL) 2012-02-09 Completed [facility] VACCINE 00:00:00 [facility] TDAP (ADACEL) 2012-02-09 Completed [facility] VACCINE 00:00:00 [facility] TDAP (ADACEL) 2012-02-09 Completed [facility] VACCINE 00:00:00 [facility] TDAP (ADACEL) 2012-02-09 Completed [facility] VACCINE 00:00:00 [facility] TDAP (ADACEL) 2012-02-09 Completed [facility] VACCINE 00:00:00 [facility] TDAP (ADACEL) 2012-02-09 Completed [facility] VACCINE 00:00:00 [facility] TDAP (ADACEL) 2012-02-09 Completed [facility] of VACCINE 00:00:00 [facility] TDAP (ADACEL) 2012-02-09 Completed [facility] VACCINE 00:00:00 [facility] TDAP (ADACEL) 2012-02-09 Completed [facility] VACCINE 00:00:00 [facility] TDAP (ADACEL) 2012-02-09 Completed [facility] VACCINE 00:00:00 [facility] TDAP (ADACEL) 2012-02-09 Completed [facility] VACCINE 00:00:00 [facility] TDAP (ADACEL) 2012-02-09 Completed [facility] VACCINE 00:00:00 [facility] TDAP (ADACEL) 2012-02-09 Completed [facility] VACCINE 00:00:00 [facility] TDAP (ADACEL) 2012-02-09 Completed [facility] VACCINE 00:00:00 [facility] TDAP (ADACEL) 2012-02-09 Completed [facility] VACCINE 00:00:00 [facility] TDAP (ADACEL) 2012-02-09 Completed [facility] VACCINE 00:00:00 [facility] TDAP (ADACEL) 2012-02-09 Completed [facility] VACCINE 00:00:00 [facility] TDAP (ADACEL) 2012-02-09 Completed [facility] VACCINE 00:00:00 [facility] TDAP (ADACEL) 2012-02-09 Completed [facility] VACCINE 00:00:00 [facility] TDAP (ADACEL) 2012-02-09 Completed [facility] VACCINE 00:00:00 [facility] TDAP (ADACEL) 2012-02-09 Completed [facility] VACCINE 00:00:00 [facility] TDAP (ADACEL) 2012-02-09 Completed [facility] VACCINE 00:00:00 [facility] TDAP (ADACEL) 2012-02-09 Completed [facility] VACCINE 00:00:00 [facility] TDAP (ADACEL) 2012-02-09 Completed [facility] VACCINE 00:00:00 [facility] TDAP (ADACEL) 2012-02-09 Completed [facility] VACCINE 00:00:00 [facility] TDAP (ADACEL) 2012-02-09 Completed [facility] VACCINE 00:00:00 [facility] TDAP (ADACEL) 2012-02-09 Completed [facility] VACCINE 00:00:00 [facility] TDAP (ADACEL) 2012-02-09 Completed [facility] VACCINE 00:00:00 [facility] TDAP (ADACEL) 2012-02-09 Completed [facility] of VACCINE 00:00:00 [facility] TDAP (ADACEL) 2012-02-09 Completed [facility] VACCINE 00:00:00 [facility] TDAP (ADACEL) 2012-02-09 Completed [facility] of VACCINE 00:00:00 [facility] TDAP (ADACEL) 2012-02-09 Completed [facility] of VACCINE 00:00:00 [facility] TDAP (ADACEL) 2012-02-09 Completed [facility] of VACCINE 00:00:00 [facility] Vital Signs Vital Name Observation Time Observation Value Comments Source Systolic blood 2021-04-30 20:05:00 136 mm[Hg] Univer sity of pressure [facility] Diastolic blood 2021-04-30 20:05:00 88 mm[Hg] Unive rsity of pressure [facility] Heart rate 2021-04-30 20:05:00 102 /min Universi ty of [facility] Body temperature 2021-04-30 20:05:00 37.67 Vielka Univ ersity of [facility] Respiratory rate 2021-04-30 20:05:00 16 /min Univ ersity of [facility] Body height 2021-04-30 20:05:00 152.4 cm [facility] Body weight 2021-04-30 20:05:00 79.379 kg [facility] BMI 2021-04-30 20:05:00 34.18 kg/m2 [facility] Oxygen saturation in 2021-04-30 20:05:00 97 /min [facility] of Arterial blood by [place] [employer] [facility] Systolic blood 2021-01-07 02:00:00 140 mm[Hg] Univer sity of pressure [facility] Diastolic blood 2021-01-07 02:00:00 96 mm[Hg] Unive rsity of pressure [facility] Heart rate 2021-01-07 02:00:00 63 /min [facility]i [facility] Respiratory rate 2021-01-07 02:00:00 17 /min Univ ersity of [facility] Oxygen saturation in 2021-01-07 02:00:00 98 /min [facility] Arterial blood by [place] [employer] [facility] Body temperature 2021-01-06 23:55:00 37.22 Vielka [facility] Body weight 2021-01-06 23:55:00 92.08 kg [facility]i [facility] BMI 2021-01-06 23:55:00 38.36 kg/m2 Universi ty of [facility] Systolic blood 2021-01-06 15:01:00 139 mm[Hg] Univer sity of pressure [facility] Diastolic blood 2021-01-06 15:01:00 90 mm[Hg] Unive rsity of pressure [facility] Heart rate 2021-01-06 15:01:00 90 /min [facility] Body temperature 2021-01-06 15:01:00 36.78 Vielka Univ ersity of [facility] Respiratory rate 2021-01-06 15:01:00 16 /min Univ ersity of [facility] Body height 2021-01-06 15:01:00 154.9 cm [facility]i [facility] Body weight 2021-01-06 15:01:00 92.352 kg [facility] BMI 2021-01-06 15:01:00 38.47 kg/m2 [facility] Systolic blood 2021-01-02 03:15:50 129 mm[Hg] Univer sity of pressure [facility] Diastolic blood 2021-01-02 03:15:50 83 mm[Hg] Unive rsity of pressure [facility] Heart rate 2021-01-02 03:15:50 68 /min [facility]i [facility] Respiratory rate 2021-01-02 03:15:50 18 /min Univ ersity of [facility] Oxygen saturation in 2021-01-02 03:15:50 100 /min [facility] of Arterial blood by [facility] Pulse oximetry Branch Body temperature 2021-01-02 01:14:00 37.06 Vielka Univ ersity of [facility] Body height 2021-01-02 01:14:00 154.9 cm [facility] Body weight 2021-01-02 01:14:00 92.987 kg [facility] BMI 2021-01-02 01:14:00 38.73 kg/m2 [facility] Systolic blood 2020-12-29 18:23:00 127 mm[Hg] Univer sity of pressure [facility] Diastolic blood 2020-12-29 18:23:00 88 mm[Hg] Unive rsity of pressure [facility] Heart rate 2020-12-29 18:23:00 87 /min [facility]i [facility] Body temperature 2020-12-29 18:23:00 36.83 Vielka Univ ers[facility] of [facility] Respiratory rate 2020-12-29 18:23:00 16 /min Univ [facility] Body height 2020-12-29 18:23:00 154.9 cm [facility] Body weight 2020-12-29 18:23:00 93.243 kg [facility] BMI 2020-12-29 18:23:00 38.84 kg/m2 [facility] Systolic blood 2020-10-13 19:32:00 135 mm[Hg] Univer sity of pressure [facility] Diastolic blood 2020-10-13 19:32:00 90 mm[Hg] Unive rsity of pressure [facility] Heart rate 2020-10-13 19:26:00 101 /min [facility]i [facility] Body temperature 2020-10-13 19:26:00 36.67 Vielka Univ ers[facility] Respiratory rate 2020-10-13 19:26:00 16 /min Univ ersity [facility] Body height 2020-10-13 19:26:00 154.9 cm [facility] Body weight 2020-10-13 19:26:00 93.639 kg [facility] BMI 2020-10-13 19:26:00 39.01 kg/m2 [facility] Systolic blood 2020-10-01 19:51:00 127 mm[Hg] Univer sity of pressure [facility] Diastolic blood 2020-10-01 19:51:00 92 mm[Hg] Unive rsity of pressure [facility] Heart rate 2020-10-01 19:49:00 106 /min [facility] Body temperature 2020-10-01 19:49:00 36.94 Vielka [facility] Respiratory rate 2020-10-01 19:49:00 16 /min [facility] Body height 2020-10-01 19:49:00 154.9 cm [facility] Body weight 2020-10-01 19:49:00 94.575 kg [facility] BMI 2020-10-01 19:49:00 39.40 kg/m2 [facility] Systolic blood 2020-09-27 12:30:00 140 mm[Hg] Univer sity of pressure [facility] Diastolic blood 2020-09-27 12:30:00 102 mm[Hg] Unive rsity of pressure [facility] Heart rate 2020-09-27 12:30:00 84 /min [facility]i [facility] Respiratory rate 2020-09-27 12:30:00 16 /min Univ ersity of [facility] Oxygen saturation in 2020-09-27 12:30:00 100 /min [facility] of Arterial blood by [place] [employer] rosa elena Pulse oxim[facility] Branch Body temperature 2020-09-27 10:52:00 36.5 Vielka Univ ersity of [facility] Body height 2020-09-27 10:52:00 154.9 cm [facility]i [facility] Body weight 2020-09-27 10:52:00 83.915 kg [facility] BMI 2020-09-27 10:52:00 34.96 kg/m2 [facility] Systolic blood 2020-07-28 22:10:00 132 mm[Hg] Univer sity of pressure [facility] Diastolic blood 2020-07-28 22:10:00 92 mm[Hg] Unive rsity of pressure [facility] Heart rate 2020-07-28 22:10:00 96 /min [facility] Body temperature 2020-07-28 22:10:00 37.17 Vielka Univ ersity of [facility] Respiratory rate 2020-07-28 22:10:00 18 /min Univ ersity of [facility] Body height 2020-07-28 22:10:00 154.9 cm [facility] Body weight 2020-07-28 22:10:00 92.534 kg [facility] BMI 2020-07-28 22:10:00 38.55 kg/m2 [facility] Oxygen saturation in 2020-07-28 22:10:00 99 /min University of Arterial blood by [employer] rosa elena [facility] Branch Systolic blood 2020-06-09 18:36:00 140 mm[Hg] Univer sity of pressure [facility] Diastolic blood 2020-06-09 18:36:00 99 mm[Hg] Unive rsity of pressure [facility] Heart rate 2020-06-09 18:34:00 86 /min [facility] Body temperature 2020-06-09 18:34:00 37.17 Vielka Univ ersity of [facility] Respiratory rate 2020-06-09 18:34:00 18 /min Univ ersity of [facility] Body height 2020-06-09 18:34:00 154.9 cm [facility] Body weight 2020-06-09 18:34:00 92.534 kg [facility] BMI 2020-06-09 18:34:00 38.55 kg/m2 [facility] Oxygen saturation in 2020-06-09 18:34:00 98 /min [facility] of Arterial blood by [facility] Pulse oximetry Branch Systolic blood 2020-03-17 13:46:00 118 mm[Hg] Univer sity of pressure [facility] Diastolic blood 2020-03-17 13:46:00 78 mm[Hg] Unive rsity of pressure [facility] Heart rate 2020-03-17 13:46:00 104 /min [facility]i [facility] Body temperature 2020-03-17 13:46:00 37.33 Vielka Univ ersity of [facility] Respiratory rate 2020-03-17 13:46:00 16 /min Univ ersity of [facility] Body height 2020-03-17 13:46:00 154.9 cm [facility] Body weight 2020-03-17 13:46:00 92.987 kg [facility] BMI 2020-03-17 13:46:00 38.73 kg/m2 [facility] Systolic blood 2020-02-19 23:40:00 130 mm[Hg] Univer sity of pressure [facility] Diastolic blood 2020-02-19 23:40:00 88 mm[Hg] Unive rsity of pressure [facility] Heart rate 2020-02-19 23:40:00 74 /min [facility]i ty [facility] Respiratory rate 2020-02-19 23:40:00 19 /min Univ ersity of [facility] Oxygen saturation in 2020-02-19 23:40:00 99 /min [facility] of Arterial blood by [facility] Pulse oximetry Branch Body weight 2020-02-19 22:32:00 90.719 kg [facility]i [facility] BMI 2020-02-19 22:32:00 37.79 kg/m2 [facility] Body temperature 2020-02-19 22:31:00 37.44 Vielka Univ ersity of [facility] Systolic blood 2020-02-14 13:19:00 127 mm[Hg] Univer sity of pressure [facility] Diastolic blood 2020-02-14 13:19:00 85 mm[Hg] Unive rsity of pressure [facility] Heart rate 2020-02-14 13:19:00 109 /min Universi ty of [facility] Body temperature 2020-02-14 13:19:00 36.5 Vielka Univ ersity of [facility] Respiratory rate 2020-02-14 13:19:00 16 /min Univ ersity of [facility] Body height 2020-02-14 13:19:00 154.9 cm Universi ty of [facility] Body weight 2020-02-14 13:19:00 89.415 kg [facility]i ty of [facility] BMI 2020-02-14 13:19:00 37.25 kg/m2 [facility] Systolic blood 2020-02-04 20:17:00 118 mm[Hg] Univer sity of pressure [facility] Diastolic blood 2020-02-04 20:17:00 80 mm[Hg] Unive rsity of pressure [facility] Heart rate 2020-02-04 20:17:00 99 /min [facility]i ty [facility] Body temperature 2020-02-04 20:17:00 36.89 Vielka Univ ersity of [facility] Respiratory rate 2020-02-04 20:17:00 18 /min Univ ersity of [facility] Body height 2020-02-04 20:17:00 154.9 cm [facility]i ty [facility] Body weight 2020-02-04 20:17:00 89.903 kg [facility] BMI 2020-02-04 20:17:00 37.45 kg/m2 Universi ty of [facility] Oxygen saturation in 2020-02-04 20:17:00 99 /min [facility] Arterial blood by [facility] Pulse oximetry Branch Systolic blood 2020-01-28 21:51:00 128 mm[Hg] Univer sity of pressure [facility] Diastolic blood 2020-01-28 21:51:00 84 mm[Hg] Unive rsity of pressure [facility] Heart rate 2020-01-28 21:51:00 90 /min [facility]i ty [facility] Body temperature 2020-01-28 21:51:00 36.61 Vielka Univ [facility] Respiratory rate 2020-01-28 21:51:00 16 /min Univ ersity of [facility] Body height 2020-01-28 21:51:00 154.9 cm [facility] Body weight 2020-01-28 21:51:00 90.719 kg [facility] BMI 2020-01-28 21:51:00 37.79 kg/m2 [facility] Oxygen saturation in 2020-01-28 21:51:00 100 /min University of Arterial blood by [facility] Pulse oximetry Branch Systolic blood 2019-11-17 05:00:00 123 mm[Hg] Univer sity of pressure [facility] Diastolic blood 2019-11-17 05:00:00 95 mm[Hg] Unive rsity of pressure [facility] Heart rate 2019-11-17 05:00:00 77 /min [facility]i ty [facility] Respiratory rate 2019-11-17 05:00:00 16 /min Univ ersity of [facility] Oxygen saturation in 2019-11-17 05:00:00 99 /min [facility] of Arterial blood by [facility] Pulse oximetry Branch Body temperature 2019-11-17 03:38:00 36.44 Vielka Univ [facility] Body height 2019-11-17 03:38:00 154.9 cm [facility] Body weight 2019-11-17 03:38:00 81.647 kg [facility] BMI 2019-11-17 03:38:00 34.01 kg/m2 [facility] Systolic blood 2019-10-29 22:32:00 136 mm[Hg] Univer sity of pressure [facility] Diastolic blood 2019-10-29 22:32:00 84 mm[Hg] Unive rsity of pressure [facility] Heart rate 2019-10-29 22:32:00 92 /min [facility] Body temperature 2019-10-29 22:32:00 37.33 Vielka [facility] Respiratory rate 2019-10-29 22:32:00 18 /min Univ ersity of [facility] Body height 2019-10-29 22:32:00 154.9 cm [facility]i ty [facility] Body weight 2019-10-29 22:32:00 81.647 kg [facility] ty [facility] BMI 2019-10-29 22:32:00 34.01 kg/m2 Universi ty of [facility] Oxygen saturation in 2019-10-29 22:32:00 99 /min University of Arterial blood by [facility] Pulse oximetry Branch Systolic blood 2019-10-11 19:19:00 116 mm[Hg] Univer sity of pressure [facility] Diastolic blood 2019-10-11 19:19:00 80 mm[Hg] Unive rsity of pressure [facility] Heart rate 2019-10-11 19:19:00 79 /min Universi ty of [facility] Body temperature 2019-10-11 19:19:00 36.89 Vielka Univ ersity of [facility] Respiratory rate 2019-10-11 19:19:00 16 /min Univ ersity of [facility] Body height 2019-10-11 19:19:00 154.9 cm [facility]i ty [facility] Body weight 2019-10-11 19:19:00 83.462 kg Universi ty of [facility] BMI 2019-10-11 19:19:00 34.77 kg/m2 [facility] ty [facility] Systolic blood 2019-09-12 15:58:00 124 mm[Hg] Univer sity of pressure [facility] Diastolic blood 2019-09-12 15:58:00 82 mm[Hg] Unive rsity of pressure [facility] Heart rate 2019-09-12 15:58:00 75 /min Universi ty of [facility] Body temperature 2019-09-12 15:58:00 36.17 Vielka Univ ersity of [facility] Respiratory rate 2019-09-12 15:58:00 16 /min Univ ersity of [facility] Body height 2019-09-12 15:58:00 154.9 cm Universi ty of [facility] Body weight 2019-09-12 15:58:00 83.944 kg Universi ty of [facility] BMI 2019-09-12 15:58:00 34.97 kg/m2 Universi ty of [facility] Systolic blood 2019-08-28 19:13:00 134 mm[Hg] Univer sity of pressure [facility] Diastolic blood 2019-08-28 19:13:00 82 mm[Hg] Unive rsity of pressure [facility] Heart rate 2019-08-28 19:13:00 86 /min [facility] Body temperature 2019-08-28 19:13:00 36.28 Vielka [facility] Respiratory rate 2019-08-28 19:13:00 16 /min [facility] Body weight 2019-08-28 19:13:00 81.874 kg [facility] Procedures Procedure Date / Time Performing Clinician Source Performed XR ANKLE 3+ VW LEFT 2021-04-30 20:34:56 Zeynep Leonard [facility] XR FOOT 3+ VW LEFT 2021-04-30 20:22:52 Zeynep Leonard [facility] NOTICE OF PRIVACY 2021-04-30 19:49:46 Doctor Unassigned, No [facility] PRACTICES Name [facility] CONSENT/REFUSAL FOR 2021-04-30 19:49:35 Doctor Unassigned, No [facility] [place] DIAGNOSIS AND TREATMENT Name [facility] BASIC METABOLIC PANEL 2021-01-07 02:02:00 Maribel Fink [facility] (NA, K, CL, CO2, Medical [facility] GLUCOSE, BUN, CREATININE, CA) TOTAL BETA HCG ASSAY 2021-01-07 02:02:00 Marilee Balderas [facility] US PELVIS COMPLETE WITH 2021-01-07 01:47:45 Marilee Balderas [facility] TRANSVAGINAL [facility] CBC WITH DIFF 2021-01-07 00:30:[address] [facility] CONSENT/REFUSAL FOR 2021-01-06 23:48:32 [facility] POCT URINALYSIS 2021-01-06 15:05:[address] [facility] POCT TEST 2021-01-02 01:43:00 Virginia Lee [facility] BASIC METABOLIC PANEL 2021-01-02 01:39:00 Virginia Lee [facility] (NA, K, CL, CO2, Medical [facility] GLUCOSE, BUN, CREATININE, CA) TOTAL BETA HCG ASSAY 2021-01-02 01:39:00 Virginia Lee [facility] CBC WITH DIFF 2021-01-02 01:39:00 Jesus [facility] o f [facility] URINALYSIS 2021-01-02 01:39:00 Jesus [facility] ASSIGNMENT OF BENEFITS 2021-01-02 00:58:52 Doctor Unassigned, No [facility] CONSENT/REFUSAL FOR 2021-01-02 00:58:20 Doctor Unassigned, No [facility] DIAGNOSIS AND TREATMENT [facility] EXTERNAL PROVIDER 2020-12-31 05:01:00 Doctor Unassigned, No [facility] RECORDS [facility] POCT TEST 2020-12-29 18:17:00 Dewey Boyer [facility] POCT URINALYSIS W/O 2020-12-29 18:17:00 Dewey Boyer [facility] SPECIFIC GRAVITY [facility] ASSIGNMENT OF BENEFITS 2020-12-29 17:59:17 Doctor Unassigned, No [facility] PAP SMEAR-LIQUID 2020-10-13 20:28:00 Suzie Dubois [facility] BASED-[facility] POCT TEST 2020-10-13 20:24:00 Suzie Dubois [facility] POCT TEST 2020-10-01 20:24:00 Suzie Dubois Uni [facility] GC & CHLAMYDIA AMPLIFIED 2020-10-01 20:18:[address] [facility] ASSAY [facility] CT ABDOMEN PELVIS WO 2020-09-27 11:31:02 Mairbel Fink [facility] POCT TEST 2020-09-27 11:00:00 Maribel Fink [facility] BASIC METABOLIC PANEL 2020-09-27 10:59:00 Maribel Fink [facility] (NA, K, CL, CO2, [facility] GLUCOSE, BUN, CREATININE, CA) CBC WITH DIFF 2020-09-27 10:59:[address] [facility] URINALYSIS 2020-09-27 10:59:[address] [facility] CONSENT/REFUSAL FOR 2020-07-28 21:51:28 Doctor Unassigned, No [facility] [place] DI[facility] TREATMENT Name [facility] POCT TEST 2020-06-09 19:36:00 [facility]FF 2020-06-09 19:16:[address] [facility] BASIC METABOLIC PANEL 2020-06-09 19:04:00 Maribel Fink [facility] [place] (NA, K, CL, CO2, [facility] GLUCOSE, BUN, CREATININE, CA) NOTICE OF PRIVACY 2020-06-09 18:26:59 Doctor Unassigned, No Univ ersity [facility] PRACTICES [facility] Branch CONSENT/REFUSAL FOR 2020-06-09 18:24:01 Doctor Unassigned, No [facility] [place] DIAGNOSIS AND TREATMENT Name [facility] DISCLOSURE AND CONSENT, 2020-03-17 05:01:00 Doctor Unassigned, N o [facility] MEDICAL AND SURGICAL Name Medical Bra nc PROCEDURES US OVARY TORSION 2020-02-20 01:09:07 Angélica Pratt [facility] URINALYSIS 2020-02-19 23:35:00 Angélica Pratt [facility] POCT TEST 2020-02-19 23:33:00 Angélica Pratt [facility] NOTICE OF PRIVACY 2020-02-19 22:13:44 Doctor Unassigned, No [facility] [place] PRACTICES Name [facility] CONSENT/REFUSAL FOR 2020-02-19 22:13:34 Doctor Unassigned, No [facility] [place] DIAGNOSIS [facility] TREATMENT Name Medical Branch CONSENT/REFUSAL FOR 2020-01-28 21:24:41 Doctor Unassigned, No [facility] [place] DIAGNOSIS [facility] TREATMENT Name Medical Branch BASIC METABOLIC PANEL 2019-11-17 04:26:00 Micheal Frazier [facility] [place] (NA, K, CL, CO2, Medical Branch GLUCOSE, BUN, CREATININE, CA) TOTAL BETA HCG ASSAY 2019-11-17 04:26:00 [facility] WITH DIFFERENTIAL 2019-11-17 04:26:00 [facility] URINALYSIS 2019-11-17 04:26:[address] [facility] POCT TEST 2019-11-17 04:25:00 Micheal Frazier [facility] ASSIGNMENT OF BENEFITS 2019-11-17 03:27:42 Doctor Unassigned, No [facility] CONSENT/REFUSAL FOR 2019-11-17 03:27:27 Doctor Unassigned, No [facility] [place] [facility] TREATMENT [facility] RAPID STREP SCREEN FOR 2019-10-29 23:02:00 Marilee Balderas [facility] CONSENT/REFUSAL FOR 2019-10-29 22:17:24 Doctor Unassigned, No [facility] [place] DIAG[facility] TREATMENT [facility] NOTICE OF PRIVACY 2019-10-29 22:17:13 Doctor Unassigned, No [facility] POCT TEST 2019-09-12 15:59:00 Suzie Dubois [facility] CONSENT FOR 2019-09-12 06:01:00 Doctor Unassigned, No [facility] CONTRACEPT[facility] POCT TEST 2019-08-28 19:16:00 Suzie Dubois [facility] Encounters Start End Encounter Admission Attending Care Care Encounter Source Date/Time Date/Time Type Type Clinicians Facility Department ID 2021-06-09 Emergency [facility] [id number] Univers 00:57:31 ity of [facility] 2021-06-07 Emergency [facility] [id number] Univers 22:32:16 ity of [facility] 2021-06-07 Emergency [facility] [id number] Univers 21:51:33 ity of [facility] 2021-06-07 Emergency [facility] [id number] Univers 00:13:35 ity of [facility] 2021-06-06 Emergency [facility] [id number] Univers 12:33:58 ity of [facility] 2021-06-06 Emergency [facility] [id number] Univers 02:28:06 ity of [facility] 2021-06-05 Emergency [facility] [id number] Univers 06:45:59 ity of [facility] 2021-06-05 Emergency [facility] [id number] Univers 02:15:47 ity of [facility] 2021-06-04 Emergency [facility] [id number] Univers 17:43:49 ity of [facility] 2021-06-04 Emergency [facility] [id number] Univers 15:37:47 ity of [facility] 2021-04-30 2021-04-30 Emergency Zeynep Leonard [facility] 1.2.840.114 [id number] Univers 15:06:00 16:44:00 Gretel Stickney 350.1.13.10 i ty [facility] 4.2.7.2.686 [place] [facility] [phone] [facility] 084 [place] 2021-04-30 2021-04-30 Orders Doctor SHANELLE 1.2.840.114 [id number] Univers 00:00:00 00:00:00 Only Unassigned, ANTONIO 350.1.13.10 ity of [place] [facility] 4.2.7.2.686 Arnulfo as [id number] [facility] 009 [place] 2021-03-02 2021-03-02 Outpatient CHAVA [facility] [id number] Univers 10:40:00 10:40:00 DIXON [id number] ity [facility] 2021-03-02 2021-03-02 Outpatient R CHAVA [facility] [id number] Univers 10:40:00 10:40:00 DIXON ity [facility] 2021-02-17 2021-02-17 Telephone Merlin [facility] [id number] Univers 00:00:00 00:00:00 Dewey Arnold STRUCTURAL ANALYST 350.1.13.10 ity of [facility] 4.2.7.2.686 [place] as MATERNAL [id number] Med ical & CHILD [address] [place] [address] 2021-02-09 2021-02-09 Outpatient R MERLIN [facility] [id number] Univers 17:30:00 17:30:00 JUSNDJude [id number] ity o [facility] 2021-02-09 2021-02-09 Outpatient Clayton BOYER [facility] [id number] Univers 17:30:00 17:30:00 TODDJude alex o [facility] 2021-01-26 2021-01-26 Outpatient R MERLIN [facility] [id number] Univers 13:45:00 13:45:00 DEWEY [id number] ity o [facility] 2021-01-26 2021-01-26 Outpatient Clayton BOYER [facility] [id number] Univers 13:45:00 13:45:00 TODDA itomega o [facility] 2021-01-22 2021-01-22 Outpatient Clayton BOYER [facility] [id number] Univers 09:45:00 09:45:00 DEWEY [id number] ity o [facility] 2021-01-22 2021-01-22 Outpatient R MERLIN [facility] [id number] Univers 09:45:00 09:45:00 DEWEY omega o [facility] 2021-01-13 2021-01-13 Outpatient R [facility] [id number] Univers 15:00:00 15:00:00 [id number] [facility] 2021-01-13 2021-01-13 Outpatient R [facility] [id number] Univers 15:00:00 15:00:00 [facility] 2021-01-08 2021-01-08 Outpatient [facility] [id number] Univers 13:30:00 13:30:00 [id number] [facility] 2021-01-08 2021-01-08 Outpatient R [facility] [id number] Univers 13:30:00 13:30:00 [facility] 2021-01-06 2021-01-06 Emergency [facility] [id number] Univers 18:57:00 21:58:00 Marilee Montes 350.1.13.10 i ty of [place] 4.2.7.2.686 [facility] [phone] [place] 413994 [place] 2021-01-06 2021-01-06 Office Sherly [facility] [id number] Univers 09:46:53 10:01:53 Visit Suzie Whittington STRUCTURAL ANALYST 350.1.13.10 ity of [facility] 4.2.7.2.686 [place] as MATERNAL [id number] [facility] & CHILD [address] [place] [address] 2021-01-06 2021-01-06 Outpatient R SHERLY [facility] [id number] Univers 09:45:00 09:45:00 SUZIE [id number] alex higginbotham [facility] 2021-01-06 2021-01-06 Outpatient R SHERLY [facility] [id number] Univers 09:45:00 09:45:00 SUZIE alberto [facility] 2021-01-01 2021-01-01 Emergency Virginia Lee [facility] 1.2.840. 114 [id number] Univers 20:11:00 22:16:00 [facility] 350.1.13.10 ity of [facility] 4.2.7.2.686 [facility] [phone] [address] ([facility]) 2021-01-01 2021-01-01 Telephone DESTINEE Boyer 1.2.108.314 [id number] Univers 00:00:00 00:00:00 Dewey Arnold STRUCTURAL ANALYST 350.1.13.10 ity of [facility] 4.2.7.2.686 [place] as MATERNAL [id number] [facility] & CHILD [address] [place] [address] 2020-12-31 2020-12-31 Orders Doctor TIMMONS 1.2.840.114 [id number] Univers 00:00:00 00:00:00 Only Unassigned, ANTONIO 350.1.13.10 ity of [place] [facility] 4.2.7.2.686 [place] as [id number] [address] 2020-12-31 2020-12-31 Abstract Merlin [facility] 1.2.840.114 [id number] Univers 00:00:00 00:00:00 Roshunda R STRUCTURAL ANALYST 350.1.13.10 ity of REGIONAL 4.2.7.2.686 [place] as MATERNAL [phone] [facility] & [address] 2020-12-29 2020-12-29 Initial Merlin [facility] 1.2.840.114 [id number] Univers 13:13:26 14:21:50 Roshunda R STRUCTURAL ANALYST 350.1.13.10 ity of Visit [facility] 4.2.7.2.686 [place] as MATERNAL [phone] [facility] & [address] 2020-12-29 2020-12-29 Outpatient R [facility] [id number] Univers 13:15:00 13:15:00 [id number] ity [facility] 2020-12-29 2020-12-29 Outpatient R [facility] [id number] Univers 13:15:00 13:15:00 ity of [facility] 2020-12-29 2020-12-29 Orders Doctor SHANELLE 1.2.840.114 [id number] Univers 00:00:00 00:00:00 Only Unassigned, ANTONIO 350.1.13.10 ity of [place] [facility] 4.2.7.2.686 [place] as [phone] [address] 2020-12-24 2020-12-24 Outpatient R [facility] [id number] Univers 12:45:00 12:45:00 [id number] ity [facility] 2020-10-28 2020-10-28 Patient Chava [facility] 1.2.840.114 [id number] 00:00:00 00:00:00 Outreach Dixon PRIMARY 350.1.13.10 Sai CARE 4.2.7.2.686 PAVILLION [id number] 2020-10-28 2020-10-28 Patient Chava [facility] 1.2.840.114 [id number] Univers 00:00:00 00:00:00 Outreach Dixon PRIMARY 350.1.13.10 i ty of Sai CARE 4.2.7.2.686 Veronica YANG [id number] [address] 2020-10-24 2020-10-24 [facility]phone [facility] 1.2.840.114 [id number] 00:00:00 00:00:00 Suzie C STRUCTURAL ANALYST 350.1.13.10 REGIONAL 4.2.7.2.686 MATERNAL [phone] & [address] 2020-10-24 2020-10-24 Telephone [facility] 1.2.840.114 [id number] Univers 00:00:00 00:00:00 Suzie C STRUCTURAL ANALYST 350.1.13.10 ity [facility] 4.2.7.2.686 [place] as MATERNAL [phone] [address] 2020-10-22 2020-10-22 Outpatient R [facility] [id number] Univers 13:30:00 13:30:00 [id number] ity [facility] 2020-10-22 2020-10-22 Outpatient R [facility] [id number] Univers 13:30:00 13:30:00 ity [facility] 2020-10-13 2020-10-13 [facility] [id number] Univers 14:15:00 14:15:00 USZIE [id number] ity o [facility] 2020-10-13 2020-10-13 Out[facility] [id number] Univers 14:15:00 14:15:00 SUZIE ity o [facility] 2020-10-13 2020-10-13 Office [facility] [id number] Univers 13:15:53 14:08:32 Visit Suzie Whittington STRUCTURAL ANALYST 350.1.13.10 [facility] 4.2.7.2.686 [place] as MATERNAL [phone] [facility] & CHILD [address] [place] [address] 2020-10-13 2020-10-13 Letter MYRANDA Shukla [id number] Univers 00:00:00 00:00:00 (Out) [facility] 350.1.13.10 i ty [facility] 4.2.7.2.686 [place] [phone] [facility] [address] 2020-10-10 2020-10-10 Outpatient R [facility] [id number] Univers 15:00:00 15:00:00 [id number] ity [facility] 2020-10-10 2020-10-10 Outpatient R [facility] [id number] Univers 15:00:00 15:00:00 [facility] 2020-10-01 2020-10-01 Office [facility] [id number] Univers 13:17:23 14:22:51 Visit Suzie Whittington STRUCTURAL ANALYST 350.1.13.10 ity [facility] 4.2.7.2.686 [place] as MATERNAL [phone] [facility] ical & CHILD [address] [place] [address] 2020-10-01 2020-10-01 Outpatient [facility] [id number] Univers 13:30:00 13:30:00 SUZIE [id number] [facility] 2020-10-01 2020-10-01 Outpatient [facility] [id number] Univers 13:30:00 13:30:00 SUZIE menardy o [facility] 2020-09-27 2020-09-27 Emergency [facility] 1.2.840.114 [id number] Univers 04:41:00 06:40:00 Maribel Montes 350.1.13.10 ity [facility] 4.2.7.2.686 [place] [id number] [facility] 084 [address] 2020-08-18 2020-08-18 Outpatient R SHERLY, [facility] [id number] Univers 09:00:00 09:00:00 SUZIE [id number] ity o [facility] 2020-08-18 2020-08-18 Outpatient R AKINJOAN, [facility] [id number] Univers 09:00:00 09:00:00 SUZIE ity o [facility] 2020-08-182020-08-18 Outpatient R SHERLY, [facility] [id number] Univers 09:00:00 09:00:00 SUZIE alberto f [facility] 2020-07-28 2020-07-28 [facility] 1.2.143.999 [id number] Univers 16:18:00 17:19:00 Ilya Montes 350.1.13.10 i ty of [place] 4.2.7.2.686 [facility] [id number] [address] 2020-06-09 2020-06-09 Emergency [facility] 1.2.840.114 [id number] Univers 12:37:00 14:13:00 Maribel Montes 350.1.13.10 ity of [place] 4.2.7.2.686 [facility] [id number] [address] 2020-05-10 2020-05-10 Refill [facility] [id number] Univers 00:00:00 00:00:00 Suzie Whittington STRUCTURAL ANALYST 350.1.13.10 ity of [facility] 4.2.7.2.686 [place] as MATERNAL [id number] [facility] & CHILD [address] [place] [address] 2020-03-17 2020-03-17 Office [facility] 1.2.265.202 [id number] Univers 08:15:18 08:45:18 Visit Suzie Whittington STRUCTURAL ANALYST 350.1.13.10 ity [facility] 4.2.7.2.686 [place] as MATERNAL [phone] [facility] & [address] 2020-03-17 2020-03-17 Outpatient R AAYUSHSIPE, [facility] [id number] Univers 08:00:00 08:00:00 SUZIE [id number] alberto f [facility] 2020-03-17 2020-03-17 Outpatient R AKINSIPE, [facility] [id number] Univers 08:00:00 08:00:00 SUZIE alberto f [facility] 2020-03-17 2020-03-17 Telephone [facility] 1.2.840.114 [id number] Univers 00:00:00 00:00:00 Suzie C STRUCTURAL ANALYST 350.1.13.10 ity of REGIONAL 4.2.7.2.686 [place] as MATERNAL [id number] [facility] ical & CHILD [address] [place] [address] 2020-03-17 2020-03-17 Orders Doctor SHANELLE 1.2.840.114 [id number] Univers 00:00:00 00:00:00 Only Unassigned, ANTONIO 350.1.13.10 ity of [place] [facility] 4.2.7.2.686 [place] as [id number] [address] 2020-03-14 2020-03-14 Telephone [facility], [facility] 1.2.840.114 [id number] Univers 00:00:00 00:00:00 Suzie C STRUCTURAL ANALYST 350.1.13.10 ity of REGIONAL 4.2.7.2.686 [place] as MATERNAL [phone] [facility] & CHILD [address] [place] [address] 2020-02-21 2020-02-21 Telephone [facility], [facility] 1.2.840.[id number] [facility] 00:00:00 00:00:00 Suzie C STRUCTURAL ANALYST 350.1.13.10 ity of [facility] 4.2.7.2.686 [place] as MATERNAL [id number] [facility] & [address] 2020-02-19 2020-02-19 Emergency [facility] [id number] [facility] 17:34:18 21:02:00 Angélica Montes 350.1.13.10 ity of [place] 4.2.7.2.686 [id number] [address] 2020-02-19 2020-02-19 Orders Doctor SHANELLE 1.2.840.114 [id number] Univers 00:00:00 00:00:00 Only Unassigned, ANTONIO 350.1.13.10 ity of [place] [facility] 4.2.7.2.686 [place] as [id number] [address] 2020-02-14 2020-02-14 Office [facility], [facility] 1.2.112.118 [id number] Univers 07:57:47 08:46:34 Visit Suzie Whittington STRUCTURAL ANALYST 350.1.13.10 ity of [facility] 4.2.7.2.686 [place] as MATERNAL [phone] [facility] & [address] 2020-02-14 2020-02-14 Outpatient R AKINSIPE, [facility] [id number] Univers 08:00:00 08:00:00 SUZIE ity o [facility] 2020-02-14 2020-02-14 Outpatient R AKINSIPE, [facility] [id number] Univers 08:00:00 08:00:00 SUZIE ity o [facility] 2020-02-12 2020-02-12 Telephone [facility] 1.2.840.114 [id number] Univers 00:00:00 00:00:00 Suzie Whittington STRUCTURAL ANALYST 350.1.13.10 ity of [facility] 4.2.7.2.686 [place] as MATERNAL [id number] [facility] & [address] 2020-02-05 2020-02-05 Outpatient R AKINSIPE, [facility] [id number] Univers 13:15:00 13:15:00 SUZIE [id number] ity o [facility] 2020-02-05 2020-02-05 Outpatient R AKINSIPE, [facility] [id number] Univers 13:15:00 13:15:00 SUZIE ity o [facility] 2020-02-04 2020-02-04 Urgent Pob1, Acute Care Clinic [facility] 1. 2.840.114 [id number] Univers 15:02:47 15:22:47 [facility] 350.1.13.10 [facility] 4.2.7.2.686 [place] as Professio [phone] [address] Office Building [address] 2020-02-04 2020-02-04 Outpatient R [facility] [id number] Univers 15:00:00 15:00:00 [id number] ity [facility] 2020-02-04 2020-02-04 Outpatient R [facility] [id number] Univers 15:00:00 15:00:00 ity [facility] 2020-01-28 2020-01-28 Emergency [place], [facility] [id number] [id number] Univers 17:20:40 18:23:00 [place] Jyoti 350.1.13.10 i ty of [place] 4.2.7.2.686 [place] [id number] [address] 2020-01-24 2020-01-24 Telephone [facility] 1.2.840.114 [id number] Univers 00:00:00 00:00:00 Suzie C STRUCTURAL ANALYST 350.1.13.10 ity of [facility] 4.2.7.2.686 [place] MATERNAL [id number] [facility] ical & CHILD [address] [place] [address] 2020-01-01 2020-01-01 Telephone [facility] 1.2.840.114 [id number] Univers 00:00:00 00:00:00 Suzie C STRUCTURAL ANALYST 350.1.13.10 ity of [facility] 4.2.7.2.686 [place] as MATERNAL [id number] [facility] ical & CHILD [address] [place] [address] 2019-11-16 2019-11-17 Emergency [facility], [facility] 1.2.840.114 [id number] Univers 22:30:02 00:50:00 Micheal Montes 350.1.13.10 ity of [place] 4.2.7.2.686 [facility] s [place] [id number] [address] 2019-10-29 2019-10-29 Emergency [facility] [id number] [id number] Univers 17:33:55 18:57:00 Marilee Montes 350.1.13.10 i ty of [place] 4.2.7.2.686 [facility] [id number] [address] 2019-10-11 2019-10-11 Office [facility] [id number] [id number] Univers 13:10:45 15:47:42 Visit Suzie C STRUCTURAL ANALYST 350.1.13.10 ity of [facility] 4.2.7.2.686 Arnlufo as MATERNAL [id number] [facility] ical & CHILD [address] [place] [address] 2019-10-11 2019-10-11 Outpatient R KEYSHAWNCHITO [facility] [id number] Univers 13:15:00 13:15:00 SUZIE [id number] ity o f [facility] 2019-10-11 2019-10-11 Outpatient R SHERLY, [facility] [id number] Univers 13:15:00 13:15:00 SUZIE ity o f [facility] 2019-09-18 2019-09-18 Telephone [facility] 1.2.840.114 [id number] Univers 00:00:00 00:00:00 Suzie C STRUCTURAL ANALYST 350.1.13.10 ity of [facility] 4.2.7.2.686 [place] as MATERNAL [phone] Med ical & CHILD [address] [place] [address] 2019-09-12 2019-09-12 Office [facility] 1.2.198.073 [id number] Univers 09:48:40 10:40:56 Visit Suzie C STRUCTURAL ANALYST 350.1.13.10 ity of [facility] 4.2.7.2.686 [place] as MATERNAL [id number] Med ical & CHILD [address] [place] [address] 2019-09-12 2019-09-12 Orders Doctor SHANELLE 1.2.840.114 [id number] Univers 00:00:00 00:00:00 Only Unassigned, ANTONIO 350.1.13.10 ity of [place] [facility] 4.2.7.2.686 [place] as [id number] [address] 2019-08-28 2019-08-28 Office [facility] 1.2.004.075 [id number] Univers 12:52:04 13:33:28 Visit [facility] C STRUCTURAL ANALYST 350.1.13.10 ity of [facility] 4.2.7.2.686 [place] as MATERNAL [id number] [facility] ical & CHILD [address] [place] [address] 2019-07-21 2019-07-21 Emergency X MIAN SDMAGDALENA ERT [id number] Univers 11:57:10 14:58:00 PATRICK [facility] Results Test Description Test Time Test Comments Results Result Comments Source [facility] (QUANTITATIVE) 2021-01-07 02:46:53 Test Item Value Reference Range Interpretation Comme nts BETA HCG (test code = <2.39 See_Comment [Auto mated message] The [id number]) system which ge nerated this result transmit jorge reference range : Non- fe male and male patients: <5 mIU/mL. The reference r deneen was not used to interpr et this result as axel l/abnormal. EFE (test code = EFE) Gestational Age ?Range (mIU/mL) 1-10 ?Weeks ?77-08194371-21 Weeks ?06618-86394130-38 Weeks ?7972-02791567-14 Weeks ?4630-177752 Biotin has been reported to cause a negative bias, interpret results relative to patient's use of biotin. [facility] Metabolic Panel (NA, K, CL, CO2, GLUCOSE, BUN, CREATININE, CA)2021-01-07 02:26:05 Test Item Value Reference Range Interpretation Comments NA (test code = 138 mmol/L 135-145 4100368081) K (test code = 4.1 mmol/L 3.5-5.0 7860463580) CL (test code = 106 mmol/L 98-108 3211306560) CO2 TOTAL (test code = 26 mmol/L 23-31 4574243457) AGAP (test code = 2-16 0271203001) BUN (test code = 6 mg/dL 7-23 L 8351223268) GLUCOSE (test code = 88 mg/dL 70-110 8203114762) CREATININE (test code = 0.74 mg/dL 0.50-1.04 5471411829) CALCIUM (test code = 9.3 mg/dL 8.6-10.6 3011207122) eGFR (test code = mL/min/1.73m2 1844397184) EFE (test code = EFE) Association of Glomerular Filtration Rate (GFR) and Staging of Kidney Disease* + --+ --+ ------+| GFR (mL/min/1.73 m2) ?| With Kidney Damage ?| ?Without Kidney Damage+ --------+ --------+ +| ?>90 ?| ?Stage one ?| ? Normal ?+ ---+ ---+ -------+| ?60-89 ?| ?Stage two ?| ? Decreased GFR ? + --+ --+ ------+| ?30-59 ?| ?Stage three ?| ? Stage three ? + --+ --+ ------+| ?15-29 ?| ?Stage four ? | ? Stage four ?+ ---+ ---+ -------+| ?<15 (or dialysis) ? ?| ?Stage five ? | ? Stage five ?+ ---+ ---+ -------+ *Each stage assumes the associated GFR level has been in effect for at least three months. ?Stages 1 to 5, with or without kidney disease, indicate chronic kidney disease. Notes: Determination of stages one and two (with eGFR >59mL/min/1.73 m2) requires estimation of kidney damage for at least three months as defined by structural or functional abnormalities of the kidney, manifested by either:Pathological abnormalities or Markers of kidney damage (including abnormalities in the composition of the blood or urine or abnormalities in imaging tests). Lab Interpretation Abnormal (test code = 87351-4) [facility] with Hgulemxmzuzp5152-90-69 00:43:53 Test Item Value Reference Range Interpretation Comments WBC (test code = See_Comment [Automated 7046-2) message] The sy stem which generated this result transmitted reference range : 4.30 - 11.10 10*3/?L. The reference range was not used to interpret this result as normal/abnormal . RBC (test code = See_Comment H [Automated 335-8) message] The sy stem which generated this result transmitted reference range : 3.93 - 5.25 10*6/?L. The reference range was not used to interpret this result as normal/abnormal . HGB (test code = 15.6 g/dL 11.6-15.0 H 718-7) HCT (test code = 47.9 % 35.7-45.2 H 4544-3) MCV (test code = 89.4 fL 80.6-95.5 787-2) MCH (test code = 29.1 pg 25.9-32.8 785-6) MCHC (test code = 32.6 g/dL 31.6-35.1 786-4) RDW-SD (test code = 42.2 fL 39.0-49.9 33760-5) RDW-CV (test code = 13.0 % 12.0-15.5 788-0) PLT (test code = See_Comment [Automated 777-3) message] The sy stem which generated this result transmitted reference range : 166 - 358 10*3/ ?L. The reference r deneen was not used to interpret this result as normal/abnormal . MPV (test code = 10.5 fL 9.5-12.9 58747-2) NRBC/100 WBC (test See_Comment [Automat ed code = 8027451085) message] The system which generated this result transmitted reference range : 0.0 - 10.0 /100 WBCs. The refer ence range was not u sed to interpret th is result as normal/abnormal . NRBC x10^3 (test code <0.01 See_Comment [Auto mated = 5094552763) message] The s ystem which generated this result transmitted reference range : 10*3/?L. The reference range was not used to interpret this result as normal/abnormal . GRAN MAT (NEUT) % 55.8 % (test code = 770-8) IMM GRAN % (test code 0.40 % = 4644277282) LYMPH % (test code = 29.9 % 736-9) MONO % (test code = 8.6 % 5905-5) EOS % (test code = 4.6 % 713-8) BASO % (test code = 0.7 % 706-2) GRAN MAT x10^3(ANC) 4.48 10*3/uL 1.88-7.09 (test code = 9782683207) IMM GRAN x10^3 (test 0.03 10*3/uL 0.00-0.06 code = 8678986818) LYMPH x10^3 (test code 2.40 10*3/uL 1.32-3.29 = 731-0) MONO x10^3 (test code 0.69 10*3/uL 0.33-0.92 = 742-7) EOS x10^3 (test code = 0.37 10*3/uL 0.03-0.39 711-2) BASO x10^3 (test code 0.06 10*3/uL 0.01-0.07 = 704-7) Lab Interpretation Abnormal (test code = 81668-1) [facility] URINALYSIS W SPECIFIC [id number] 15:05:00 Test Item Value Reference Range Interpretation Comments POCT U SP GRAV (test code = * 1.005-1.025 3255) POCT PH U (test code = 3254) * 5-8 POCT U LEUK EST (test code = * Negative - Negative 3263) POCT U NIT (test code = 3262) * Negative - Negative POCT U PROT (test code = 3259) Negative Negative - Negative POCT U GLU (test code = 3256) Negative Negative - Negative POCT U KETONE (test code = 3258) * Negative - Negative POCT U UROBILI (test code = * 0.2-1 3260) POCT U BILI (test code = 3261) * Negative - Negative POCT U BLD (test code = 3257) * Negative - Negative POCT U COLOR (test code = 3266) POCT U APPEAR (test code = 3267) [facility] URINALYSIS W SPECIFIC [id number] 15:05:00 Test Item Value Reference Range Interpretation Comments POCT U SP GRAV (test code = * 1.005-1.025 3255) POCT PH U (test code = 3254) * 5-8 POCT U LEUK EST (test code = * Negative - Negative 3263) POCT U NIT (test code = 3262) * Negative - Negative POCT U PROT (test code = 3259) Negative Negative - Negative POCT U GLU (test code = 3256) Negative Negative - Negative POCT U KETONE (test code = 3258) * Negative - Negative POCT U UROBILI (test code = * 0.2-1 3260) POCT U BILI (test code = 3261) * Negative - Negative POCT U BLD (test code = 3257) * Negative - Negative POCT U COLOR (test code = 3266) POCT U APPEAR (test code = 3267) [facility] BHCG (QUANTITATIVE)2021-01-02 02:14:37 Test Item Value Reference Range Interpretation Comments BETA HCG (test See_Comment [Automated m essage] code = The system TELiBrahma h [id number]) generated this result transmit jorge reference range : Non- fe male and male patien ts: <5 mIU/mL. The reference range was not used to interpret this result as normal/abnormal . EFE (test code Gestational Age ? ? = EFE) ?Range (mIU/mL) 1-10 ?Weeks ?58-70781709-06 Weeks ?71739-64182812-09 Weeks ?1700-93570775-34 Weeks ?0971-563286 Biotin has been reported to cause a negative bias, interpret results relative to patient's use of biotin. [facility] (NA, K, CL, CO2, GLUCOSE, BUN, CREATININE, [place])2021-01-02 01:56:37 Test Item Value Reference Range Interpretation Comments NA (test code = 137 mmol/L 135-145 2918894546) K (test code = 4.3 mmol/L 3.5-5.0 4051901170) CL (test code = 106 mmol/L 98-108 2793868964) CO2 TOTAL (test code 23 mmol/L 23-31 = 3905420964) AGAP (test code = 2-16 8704594834) BUN (test code = 7 mg/dL 7-23 6492154404) GLUCOSE (test code = 94 mg/dL 70-110 7859544292) CREATININE (test code 0.61 mg/dL 0.50-1.04 = 3430009747) CALCIUM (test code = 8.8 mg/dL 8.6-10.6 1400020459) eGFR (test code = mL/min/1.73m2 3914167703) EFE (test code = EFE) Association of Glomerular Filtration Rate (GFR) and Staging of Kidney Disease* + + +- +| GFR (mL/min/1.73 m2) ?| With Kidney Damage ?| ?Without Kidney Damage+ ------+ ----+ ------+| ?>90 ?| ?Stage one ?| ? Normal ?+ -+ + -+| ?60-89 ?| ?Stage two ?| ? Decreased GFR ? + + +- +| ?30-59 ?| ?Stage three ?| ? Stage three ? + + +- +| ?15-29 ?| ?Stage four ? | ? Stage four ?+ -+ + -+| ?<15 (or dialysis) ? ?| ?Stage five ? | ? Stage five ?+ -+ + -+ *Each stage assumes the associated GFR level has been in effect for at least three months. ?Stages 1 to 5, with or without kidney disease, indicate chronic kidney disease. Notes: Determination of stages one and two (with eGFR >59mL/min/1.73 m2) requires estimation of kidney damage for at least three months as defined by structural or functional abnormalities of the kidney, manifested by either:Pathological abnormalities or Markers of kidney damage (including abnormalities in the composition of the blood or urine or abnormalities in imaging tests). [facility]:52:48 Test Item Value Reference Range Interpretation Comments APPEARANCE (test code = Hazy Clear A 7693640896) COLOR (test code = Yellow Yellow 9069799509) PH (test code = 4.8-8.0 5372567695) SP GRAVITY (test code = 1.003-1.030 4151484452) GLU U QUAL (test code = Normal Normal 3218055029) BLOOD (test code = 3+ Negative A 4850789702) KETONES (test code = Negative Negative 9595306931) PROTEIN (test code = Negative Negative 2887-8) UROBILIN (test code = Normal Normal 4320908529) BILIRUBIN (test code = Negative Negative 3065560702) NITRITE (test code = Negative Negative 8880877005) LEUK MADELYN (test code = 25/uL Negative A 5129743209) RBC/HPF (test code = >182 See_Comment H [Autom ated message] 3128659469) The system Mue[employer] generated this result transmitted ref erence range: 0 - 3 HP F. The reference range was not used to int erpret this result as normal/abnormal . WBC/HPF (test code = See_Comment H [Autom ated message] 0740047435) The system [employer] generated this result transmitted ref erence range: 0 - 5 HP F. The reference range was not used to int erpret this result as normal/abnormal . BACTERIA (test code = Negative Negative 8352195816) MUCOUS (test code = Slight Negative LPF A 4685040142) SQ EPITH (test code = See_Comment [Auto mated message] 0039180990) The system [employer] generated this result transmitted ref erence range: <=2 HPF. The reference range was not used to int erpret this result as normal/abnormal . Lab Interpretation (test Abnormal code = 17651-5) [facility] with [id number] 01:47:58 Test Item Value Reference Range Interpretation Comments WBC (test code = See_Comment [Automated message] 6690-2) The system [employer] generated this result transmitted ref erence range: 4.30 - 1 1.10 10*3/?L. The re ference range was not u sed to interpret this result as normal/abnor mal. RBC (test code = See_Comment [Automated message] 789-8) The system [employer] generated this result transmitted ref erence range: 3.93 - 5 .25 10*6/?L. The re ference range was not u sed to interpret this result as normal/abnor mal. HGB (test code = 15.0 g/dL 11.6-15.0 718-7) HCT (test code = 44.9 % 35.7-45.2 4544-3) MCV (test code = 89.8 fL 80.6-95.5 787-2) MCH (test code = 30.0 pg 25.9-32.8 785-6) MCHC (test code = 33.4 g/dL 31.6-35.1 786-4) RDW-SD (test code 42.8 fL 39.0-49.9 = 69632-5) RDW-CV (test code 13.1 % 12.0-15.5 = 788-0) PLT (test code = See_Comment [Automated message] 457-3) The system [employer] generated this result transmitted ref erence range: 166 - 35 8 10*3/?L. The re ference range was not u sed to interpret this result as normal/abnor mal. MPV (test code = 10.2 fL 9.5-12.9 45788-9) NRBC/100 WBC (test See_Comment [Automat ed message] code = 3273189679) The syste m which generated this result transmitted ref erence range: 0.0 - 10 .0 /100 WBCs. The refer ence range was not u sed to interpret this result as normal/abnor mal. NRBC x10^3 (test <0.01 See_Comment [Automated message] code = 2021012851) The syste m which generated this result transmitted ref erence range: 10*3/?L. The reference range was not used to interpr et this result as normal/abnormal . GRAN MAT (NEUT) % 69.1 % (test code = 770-8) IMM GRAN % (test 0.50 % code = 9901621121) LYMPH % (test code 18.6 % = 736-9) MONO % (test code 8.3 % = 5905-5) EOS % (test code = 3.1 % 713-8) BASO % (test code 0.4 % = 706-2) GRAN MAT 6.78 10*3/uL 1.88-7.09 x10^3(ANC) (test code = 0765856732) IMM GRAN x10^3 0.05 10*3/uL 0.00-0.06 (test code = 5248488097) LYMPH x10^3 (test 1.82 10*3/uL 1.32-3.29 code = 731-0) MONO x10^3 (test 0.81 10*3/uL 0.33-0.92 code = 742-7) EOS x10^3 (test 0.30 10*3/uL 0.03-0.39 code = 711-2) BASO x10^3 (test 0.04 10*3/uL 0.01-0.07 code = 704-7) [facility] [id number] 01:43:00 Test Item Value Reference Range Interpretation Comments POCT PREG (test code = 1605) negative On board controls acceptable with C present Line (test code = 3574) Lab Interpretation (test code = Normal 41798-9) [facility] [id number] 18:17:00 Test Item Value Reference Range Interpretation Comments POCT PREG (test code = 1605) Positive On board controls acceptable with C Yes Line (test code = 3574) POCT PREG LOT # (test code = 3575) POCT PREG TEST DATE (test code = 3576) [facility] SPECIFIC [id number] 18:17:00 Test Item Value Reference Range Interpretation Comments POCT PH U (test code = 3254) 5 mg/dl 5-8 POCT U LEUK EST (test code = 2+ Negative - Negative 3263) POCT U NIT (test code = 3262) Neg Negative - Negative POCT U PROT (test code = 3259) Trace Negative - Negative POCT U GLU (test code = 3256) Neg Negative - Negative POCT U KETONE (test code = 3258) None Negative - Negative POCT U BLD (test code = 3257) Trace Negative - Negative [facility] [id number] 20:24:00 Test Item Value Reference Range Interpretation Comments POCT PREG (test code = 1605) Negative On board controls acceptable with C Yes Line (test code = 3574) POCT PREG LOT # (test code = 3575) POCT PREG TEST DATE (test code = 3576) [facility] [id number] 20:24:00 Test Item Value Reference Range Interpretation Comments POCT PREG (test code = 1605) Negative On board controls acceptable with C Yes Line (test code = 3574) POCT PREG LOT # (test code = 3575) POCT PREG TEST DATE (test code = 3576) [facility] CHLAMYDIA AMPLIFIED [id number] 18:19:00 Test Item Value Reference Range Interpretation Comments C. trachomatis Nucleic Negative Negative Acid (test code = 06760-9) N. gonorrhoeae Nucleic Negative Negative Acid (test code = 74099-3) EFE (test code = EFE) Reliable results are dependent on adequate specimen collection. ? A positive result obtained from a patient after therapeutic treatment cannot be interpreted as indicating the presence of viable organisms. ?For patients on whom a false positive result may have adverse psychosocial impact, retesting is advised. Indeterminate: Unable to generate a valid test result on this specimen. ?Please submit a new specimen for repeat testing if clinically indicated. Chlamydia trachomatis/Neisseria gonorrhoeae nucleic acid amplification testing (NAAT) has not been validated for medico-legal specimens (sexual abuse in david-pubertal and pre-pubertal children, sexual assault, and legal cases). ?Culture for Chlamydia trachomatis and/or Neisseria gonorrhoeae from clinically appropriate sites is the method of choice in these cases. ? Results from this testing should be interpreted in conjunction with other laboratory and clinical data available to the clinician.For females in general, a urine specimen is a second-line option because it is considered less sensitive than a cervical swab for Chlamydia trachomatis and/or Neisseria gonorrhoeae NAAT. Lab Interpretation Normal (test code = 80975-2) [facility] CHLAMYDIA AMPLIFIED [id number] 18:19:00 Test Item Value Reference Range Interpretation Comments C. trachomatis Nucleic Negative Negative Acid (test code = 73188-1) N. gonorrhoeae Nucleic Negative Negative Acid (test code = 69516-0) EEF (test code = EFE) Reliable results are dependent on adequate specimen collection. ? A positive result obtained from a patient after therapeutic treatment cannot be interpreted as indicating the presence of viable organisms. ?For patients on whom a false positive result may have adverse psychosocial impact, retesting is advised. Indeterminate: Unable to generate a valid test result on this specimen. ?Please submit a new specimen for repeat testing if clinically indicated. Chlamydia trachomatis/Neisseria gonorrhoeae nucleic acid amplification testing (NAAT) has not been validated for medico-legal specimens (sexual abuse in david-pubertal and pre-pubertal children, sexual assault, and legal cases). ?Culture for Chlamydia trachomatis and/or Neisseria gonorrhoeae from clinically appropriate sites is the method of choice in these cases. ? Results from this testing should be interpreted in conjunction with other laboratory and clinical data available to the clinician.For females in general, a urine specimen is a second-line option because it is considered less sensitive than a cervical swab for Chlamydia trachomatis and/or Neisseria gonorrhoeae NAAT. Lab Interpretation Normal (test code = 70767-0) [facility] [id number] 20:24:00 Test Item Value Reference Range Interpretation Comments POCT PREG (test code = 1605) Negative On board controls acceptable with C Yes Line (test code = 3574) POCT PREG LOT # (test code = 3575) POCT PREG TEST DATE (test code = 3576) [facility] [id number] 20:24:00 Test Item Value Reference Range Interpretation Comments POCT PREG (test code = 1605) Negative On board controls acceptable with C Yes Line (test code = 3574) POCT PREG LOT # (test code = 3575) POCT PREG TEST DATE (test code = 3576) [facility] Metabolic Panel (NA, K, CL, CO2, GLUCOSE, BUN, CREATININE, CA)2020-09-27 11:59:00 Test Item Value Reference Range Interpretation Comments NA (test code = 139 mmol/L 135-145 4304867437) K (test code = 4.5 mmol/L 3.5-5 2814041110) CL (test code = 107 mmol/L 98-108 8368207228) CO2 TOTAL (test code = 26 mmol/L 23-31 8520829049) AGAP (test code = 2-16 8990009550) BUN (test code = 10 mg/dL 7-23 7552143284) GLUCOSE (test code = 131 mg/dL 70-110 H 6637510368) CREATININE (test code = 0.68 mg/dL 0.5-1.04 8999831813) CALCIUM (test code = 9.0 mg/dL 8.6-10.6 3380678319) eGFR Calculation mL/min/1.73m2 (Non-) (test code = 5355109847) eGFR Calculation mL/min/1.73m2 () (test code = 2148853893) EFE (test code = EFE) Association of Glomerular Filtration Rate (GFR) and Staging of Kidney Disease* + --+ --+ ------+| GFR (mL/min/1.73 m2) ?| With Kidney Damage ?| ?Without Kidney Damage+ --------+ --------+ +| ?>90 ?| ?Stage one ?| ? Normal ?+ ---+ ---+ -------+| ?60-89 ?| ?Stage two ?| ? Decreased GFR ? + --+ --+ ------+| ?30-59 ?| ?Stage three ?| ? Stage three ? + --+ --+ ------+| ?15-29 ?| ?Stage four ? | ? Stage four ?+ ---+ ---+ -------+| ?<15 (or dialysis) ? ?| ?Stage five ? | ? Stage five ?+ ---+ ---+ -------+ *Each stage assumes the associated GFR level has been in effect for at least three months. ?Stages 1 to 5, with or without kidney disease, indicate chronic kidney disease. Notes: Determination of stages one and two (with eGFR >59mL/min/1.73 m2) requires estimation of kidney damage for at least three months as defined by structural or functional abnormalities of the kidney, manifested by either:Pathological abnormalities or Markers of kidney damage (including abnormalities in the composition of the blood or urine or abnormalities in imaging tests). Lab Interpretation Abnormal (test code = 57007-3) [facility] with [id number] 11:35:00 Test Item Value Reference Range Interpretation Comments WBC (test code = See_Comment [Automated 9063-2) message] The sy stem which generated this result transmitted reference range : 4.30 - 11.10 10*3/?L. The reference range was not used to interpret this result as normal/abnormal . RBC (test code = See_Comment [Automated 823-8) message] The sy stem which generated this result transmitted reference range : 3.93 - 5.25 10*6/?L. The reference range was not used to interpret this result as normal/abnormal . HGB (test code = 15.1 g/dL 11.6-15 H 718-7) HCT (test code = 46.7 % 35.7-45.2 H 4544-3) MCV (test code = 90.3 fL 80.6-95.5 787-2) MCH (test code = 29.2 pg 25.9-32.8 785-6) MCHC (test code = 32.3 g/dL 31.6-35.1 786-4) RDW-SD (test code = 42.0 fL 39-49.9 23546-6) RDW-CV (test code = 12.6 % 12-15.5 788-0) PLT (test code = See_Comment H [Automated 777-3) message] The sy stem which generated this result transmitted reference range : 166 - 358 10*3/ ?L. The reference r deneen was not used to interpret this result as normal/abnormal . MPV (test code = 10.3 fL 9.5-12.9 23380-4) NRBC/100 WBC (test See_Comment [Automat ed code = 3751986754) message] The system which generated this result transmitted reference range : 0.0 - 10.0 /100 WBCs. The refer ence range was not u sed to interpret th is result as normal/abnormal . NRBC x10^3 (test code <0.01 See_Comment [Auto mated = 9459173964) message] The s ystem which generated this result transmitted reference range : 10*3/?L. The reference range was not used to interpret this result as normal/abnormal . GRAN MAT (NEUT) % 45.9 % (test code = 770-8) IMM GRAN % (test code 1.00 % = 4706891928) LYMPH % (test code = 37.6 % 736-9) MONO % (test code = 8.1 % 5905-5) EOS % (test code = 6.8 % 713-8) BASO % (test code = 0.6 % 706-2) GRAN MAT x10^3(ANC) 3.85 10*3/uL 1.88-7.09 (test code = 5048708494) IMM GRAN x10^3 (test 0.08 10*3/uL 0-0.06 H code = 9734456725) LYMPH x10^3 (test code 3.15 10*3/uL 1.32-3.29 = 731-0) MONO x10^3 (test code 0.68 10*3/uL 0.33-0.92 = 742-7) EOS x10^3 (test code = 0.57 10*3/uL 0.03-0.39 H 711-2) BASO x10^3 (test code 0.05 10*3/uL 0.01-0.07 = 704-7) Lab Interpretation Abnormal (test code = 44459-6) [facility]:24[facility]00 Test Item Value Reference Range Interpretation Comments APPEARANCE (test code = Hazy Clear A 4973158151) COLOR (test code = Yellow Yellow 1599868423) PH (test code = 4.8-8.0 6469492968) SP GRAVITY (test code = 1.003-1.030 8712061862) GLU U QUAL (test code = Normal Normal 7263131217) BLOOD (test code = Negative Negative 1203042599) KETONES (test code = Negative Negative 9876162240) PROTEIN (test code = Negative Negative 2887-8) UROBILIN (test code = 2.0 mg/dL Normal A 4000675654) BILIRUBIN (test code = Negative Negative 3278494990) NITRITE (test code = Negative Negative 8359885608) LEUK MADELYN (test code = Negative Negative 0587982549) RBC/HPF (test code = See_Comment [Autom ated message] 7969483181) The system [employer] generated this result transmit jorge reference range : 0 - 3 HPF. The refe rence range was not u sed to interpret th is result as normal/abnormal . WBC/HPF (test code = See_Comment [Autom ated message] 4571141310) The system [employer] generated this result transmit jorge reference range : 0 - 5 HPF. The refe rence range was not u sed to interpret th is result as normal/abnormal . BACTERIA (test code = Few Negative A 0355146444) MUCOUS (test code = Slight Negative LPF A 8059042720) SQ EPITH (test code = HPF 9953706129) Lab Interpretation (test Abnormal code = 57126-1) [facility] [id number] 11:00:00 Test Item Value Reference Range Interpretation Comments POCT PREG (test code = 1605) negative On board controls acceptable with positive C Line (test code = 3574) POCT PREG LOT # (test code = 3575) [id number] POCT PREG TEST DATE (test 05/07/2022 code = 3576) Lab Interpretation (test code = Normal 33283-6) [facility] Metabolic Panel (NA, K, CL, CO2, GLUCOSE, BUN, CREATININE, CA)2020-06-09 19:47:00 Test Item Value Reference Range Interpretation Comments NA (test code = 137 mmol/L 135-145 5806967217) K (test code = 3.7 mmol/L 3.5-5 2334531775) CL (test code = 108 mmol/L 98-108 1626856858) CO2 TOTAL (test code = 23 mmol/L 23-31 1172966213) AGAP (test code = 2-16 8284009400) BUN (test code = 8 mg/dL 7-23 1620596711) GLUCOSE (test code = 110 mg/dL 70-110 2752339696) CREATININE (test code 0.67 mg/dL 0.5-1.04 = 1227147429) CALCIUM (test code = 9.5 mg/dL 8.6-10.6 6516866423) eGFR Calculation mL/min/1.73m2 (Non-) (test code = 0683846951) eGFR Calculation mL/min/1.73m2 () (test code = 9248304422) EFE (test code = EFE) Association of Glomerular Filtration Rate (GFR) and Staging of Kidney Disease* + -+ + ---+| GFR (mL/min/1.73 m2) ?| With Kidney Damage ?| ?Without Kidney Damage+ -------+ ------+ ---------+| ?>90 ?| ?Stage one ?| ? Normal ?+ --+ -+ ----+| ?60-89 ?| ?Stage two ?| ? Decreased GFR ? + -+ + ---+| ?30-59 ?| ?Stage three ?| ? Stage three ? + -+ + ---+| ?15-29 ?| ?Stage four ? | ? Stage four ?+ --+ -+ ----+| ?<15 (or dialysis) ? ?| ?Stage five ? | ? Stage five ?+ --+ -+ ----+ *Each stage assumes the associated GFR level has been in effect for at least three months. ?Stages 1 to 5, with or without kidney disease, indicate chronic kidney disease. Notes: Determination of stages one and two (with eGFR >59mL/min/1.73 m2) requires estimation of kidney damage for at least three months as defined by structural or functional abnormalities of the kidney, manifested by either:Pathological abnormalities or Markers of kidney damage (including abnormalities in the composition of the blood or urine or abnormalities in imaging tests). [facility] [id number] 19:36:00 Test Item Value Reference Range Interpretation Comments POCT PREG (test code = 1605) negative On board controls acceptable with C present Line (test code = 3574) Lab Interpretation (test code = Normal 93865-0) [facility] with [id number] 19:28:00 Test Item Value Reference Range Interpretation Comments WBC (test code = See_Comment [Automated 6690-2) message] The sy stem which generated this result transmitted reference range : 4.30 - 11.10 10*3/?L. The reference range was not used to interpret this result as normal/abnormal . RBC (test code = See_Comment [Automated 789-8) message] The sy stem which generated this result transmitted reference range : 3.93 - 5.25 10*6/?L. The reference range was not used to interpret this result as normal/abnormal . HGB (test code = 15.4 g/dL 11.6-15 H 718-7) HCT (test code = 45.8 % 35.7-45.2 H 4544-3) MCV (test code = 88.9 fL 80.6-95.5 787-2) MCH (test code = 29.9 pg 25.9-32.8 785-6) MCHC (test code = 33.6 g/dL 31.6-35.1 786-4) RDW-SD (test code = 41.3 fL 39-49.9 17676-9) RDW-CV (test code = 12.6 % 12-15.5 788-0) PLT (test code = See_Comment [Automated 777-3) message] The sy stem which generated this result transmitted reference range : 166 - 358 10*3/ ?L. The reference r deneen was not used to interpret this result as normal/abnormal . MPV (test code = 10.4 fL 9.5-12.9 47832-7) NRBC/100 WBC (test See_Comment [Automat ed code = 6679563323) message] The system which generated this result transmitted reference range : 0.0 - 10.0 /100 WBCs. The refer ence range was not u sed to interpret th is result as normal/abnormal . NRBC x10^3 (test code <0.01 See_Comment [Auto mated = 1105965848) message] The s ystem which generated this result transmitted reference range : 10*3/?L. The reference range was not used to interpret this result as normal/abnormal . GRAN MAT (NEUT) % 51.6 % (test code = 770-8) IMM GRAN % (test code 0.50 % = 8029653701) LYMPH % (test code = 34.0 % 736-9) MONO % (test code = 6.3 % 5905-5) EOS % (test code = 6.8 % 713-8) BASO % (test code = 0.8 % 706-2) GRAN MAT x10^3(ANC) 3.12 10*3/uL 1.88-7.09 (test code = 9354025936) IMM GRAN x10^3 (test 0.03 10*3/uL 0-0.06 code = 5490131304) LYMPH x10^3 (test code 2.06 10*3/uL 1.32-3.29 = 731-0) MONO x10^3 (test code 0.38 10*3/uL 0.33-0.92 = 742-7) EOS x10^3 (test code = 0.41 10*3/uL 0.03-0.39 H 711-2) BASO x10^3 (test code 0.05 10*3/uL 0.01-0.07 = 704-7) Lab Interpretation Abnormal (test code = 18220-3) [facility] Test Item Value Reference Range Interpretation Comments APPEARANCE (test code = Clear Clear 0064449921) COLOR (test code = Straw Yellow A 3959964924) PH (test code = 4.8-8.0 5348626535) SP GRAVITY (test code = 1.003-1.030 6843031362) GLU U QUAL (test code = Normal Normal 1094338749) BLOOD (test code = 1+ Negative A 7778283910) KETONES (test code = Negative Negative 6389268439) PROTEIN (test code = Negative Negative 2887-8) UROBILIN (test code = Normal Normal 7121386013) BILIRUBIN (test code = Negative Negative 4787901326) NITRITE (test code = Negative Negative 2991955344) LEUK MADELYN (test code = 75/uL Negative A 7510250467) RBC/HPF (test code = See_Comment [Autom ated message] 0838014010) The system [employer] generated this result transmitted ref erence range: 0 - 3 HP F. The reference range was not used to int erpret this result as normal/abnormal . WBC/HPF (test code = See_Comment [Autom ated message] 0325050273) The system [employer] generated this result transmitted ref erence range: 0 - 5 HP F. The reference range was not used to int erpret this result as normal/abnormal . BACTERIA (test code = Few Negative A 6743167699) SQ EPITH (test code = HPF 8698497200) Lab Interpretation (test Abnormal code = 40132-0) [facility] [id number] 23:33:00 Test Item Value Reference Range Interpretation Comments POCT PREG (test code = 1605) negative On board controls acceptable with positive C Line (test code = 3574) POCT PREG LOT # (test code = 3575) [id number] POCT PREG TEST DATE (test 03-07-2021 code = 3576) Lab Interpretation (test code = Normal 31594-5) [facility] (QUANTITATIVE)2019-11-17 05:21:00 Test Item Value Reference Range Interpretation Comments BETA HCG (test <2.39 See_Comment [Automated m essage] code = The system [employer] 1548896199) generated this result transmit jorge reference range : Non- fe male and male patien ts: <5 mIU/mL. The reference range was not used to interpret this result as normal/abnormal . EFE (test code Gestational Age ? ? = EFE) ?Range (mIU/mL) 1-10 ?Weeks ?09-06090430-27 Weeks ?84596-15553167-68 Weeks ?1481-55806985-86 Weeks ?2131-295146 Biotin has been reported to cause a negative bias, interpret results relative to patient's use of biotin. [facility] 04[facility]:00 Test Item Value Reference Range Interpretation Comments APPEARANCE (test code = Clear Clear 7342173274) COLOR (test code = Yellow Yellow 1590951755) PH (test code = 4.8-8.0 2683850657) SP GRAVITY (test code = 1.003-1.030 2967719905) GLU U QUAL (test code = Normal Normal 8967242325) BLOOD (test code = 2+ Negative A 5810231895) KETONES (test code = Negative Negative 3395992661) PROTEIN (test code = Negative Negative 2887-8) UROBILIN (test code = Normal Normal 9714813843) BILIRUBIN (test code = Negative Negative 1053249425) NITRITE (test code = Negative Negative 5900335664) LEUK MADELYN (test code = Negative Negative 3709861851) RBC/HPF (test code = See_Comment [Autom ated message] 6842405106) The system [employer] generated this result transmitted ref erence range: 0 - 3 HP F. The reference range was not used to int erpret this result as normal/abnormal . WBC/HPF (test code = See_Comment [Autom ated message] 6167948934) The system [employer] generated this result transmitted ref erence range: 0 - 5 HP F. The reference range was not used to int erpret this result as normal/abnormal . BACTERIA (test code = Negative Negative 3192852515) SQ EPITH (test code = HPF 3596047511) Lab Interpretation (test Abnormal code = 22957-8) [facility] (NA, K, CL, CO2, GLUCOSE, BUN, CREATININE, CA)2019-11-17 04:53:00 Test Item Value Reference Range Interpretation Comments NA (test code = 137 mmol/L 135-145 1637990268) K (test code = 3.9 mmol/L 3.5-5 2202956414) CL (test code = 104 mmol/L 98-108 6710089851) CO2 TOTAL (test code = 23 mmol/L 23-31 1193012608) AGAP (test code = 2-16 3888068855) BUN (test code = 13 mg/dL 7-23 6725011156) GLUCOSE (test code = 92 mg/dL 70-110 2511473484) CREATININE (test code 0.66 mg/dL 0.5-1.04 = 1616919343) CALCIUM (test code = 9.1 mg/dL 8.6-10.6 9860877102) eGFR Calculation mL/min/1.73m2 (Non-) (test code = 2688785235) eGFR Calculation mL/min/1.73m2 () (test code = 5919410230) EFE (test code = EFE) Association of Glomerular Filtration Rate (GFR) and Staging of Kidney Disease* + -+ + ---+| GFR (mL/min/1.73 m2) ?| With Kidney Damage ?| ?Without Kidney Damage+ -------+ ------+ ---------+| ?>90 ?| ?Stage one ?| ? Normal ?+ --+ -+ ----+| ?60-89 ?| ?Stage two ?| ? Decreased GFR ? + -+ + ---+| ?30-59 ?| ?Stage three ?| ? Stage three ? + -+ + ---+| ?15-29 ?| ?Stage four ? | ? Stage four ?+ --+ -+ ----+| ?<15 (or dialysis) ? ?| ?Stage five ? | ? Stage five ?+ --+ -+ ----+ *Each stage assumes the associated GFR level has been in effect for at least three months. ?Stages 1 to 5, with or without kidney disease, indicate chronic kidney disease. Notes: Determination of stages one and two (with eGFR >59mL/min/1.73 m2) requires estimation of kidney damage for at least three months as defined by structural or functional abnormalities of the kidney, manifested by either:Pathological abnormalities or Markers of kidney damage (including abnormalities in the composition of the blood or urine or abnormalities in imaging tests). [facility] WITH [id number] 04:36:00 Test Item Value Reference Range Interpretation Comments WBC (test code = See_Comment [Automated 6690-2) message] The sy stem which generated this result transmitted reference range : 4.30 - 11.10 10*3/?L. The reference range was not used to interpret this result as normal/abnormal . RBC (test code = See_Comment [Automated 789-8) message] The sy stem which generated this result transmitted reference range : 3.93 - 5.25 10*6/?L. The reference range was not used to interpret this result as normal/abnormal . HGB (test code = 13.6 g/dL 11.6-15 718-7) HCT (test code = 42.9 % 35.7-45.2 4544-3) MCV (test code = 86.0 fL 80.6-95.5 787-2) MCH (test code = 27.3 pg 25.9-32.8 785-6) MCHC (test code = 31.7 g/dL 31.6-35.1 786-4) RDW-SD (test code = 43.9 fL 39-49.9 19176-2) RDW-CV (test code = 13.9 % 12-15.5 788-0) PLT (test code = See_Comment H [Automated 777-3) message] The sy stem which generated this result transmitted reference range : 166 - 358 10*3/ ?L. The reference r deneen was not used to interpret this result as normal/abnormal . MPV (test code = 10.1 fL 9.5-12.9 28149-0) NRBC/100 WBC (test See_Comment [Automat ed code = 3505569637) message] The system which generated this result transmitted reference range : 0.0 - 10.0 /100 WBCs. The refer ence range was not u sed to interpret th is result as normal/abnormal . NRBC x10^3 (test code <0.01 See_Comment [Auto mated = 6332636815) message] The s ystem which generated this result transmitted reference range : 10*3/?L. The reference range was not used to interpret this result as normal/abnormal . GRAN MAT (NEUT) % 50.2 % (test code = 770-8) IMM GRAN % (test code 0.70 % = 1408363367) LYMPH % (test code = 37.0 % 736-9) MONO % (test code = 7.9 % 5905-5) EOS % (test code = 3.7 % 713-8) BASO % (test code = 0.5 % 706-2) GRAN MAT x10^3(ANC) 5.37 10*3/uL 1.88-7.09 (test code = 9151975489) IMM GRAN x10^3 (test 0.08 10*3/uL 0-0.06 H code = 8725377541) LYMPH x10^3 (test code 3.95 10*3/uL 1.32-3.29 H = 731-0) MONO x10^3 (test code 0.84 10*3/uL 0.33-0.92 = 742-7) EOS x10^3 (test code = 0.40 10*3/uL 0.03-0.39 H 711-2) BASO x10^3 (test code 0.05 10*3/uL 0.01-0.07 = 704-7) Lab Interpretation Abnormal (test code = 91164-0) [facility] [id number] 04:25:00 Test Item Value Reference Range Interpretation Comments POCT PREG (test code = 1605) Negative On board controls acceptable with Present C Line (test code = 3574) POCT PREG LOT # (test code = 3575) [id number] POCT PREG TEST DATE (test 02/04/2021 code = 3576) Lab Interpretation (test code = Normal 63244-9) [facility] STREP SCREEN FOR GROUP [id number] 23:35:00 Test Item Value Reference Range Interpretation Comments Streptococcus pyogenes (group A) Negative Negative antigen (test code = 52140-5) Lab Interpretation (test code = Normal 33181-6) [facility] [id number] 15:59:00 Test Item Value Reference Range Interpretation Comments POCT PREG (test code = 1605) Negative On board controls acceptable with C Yes Line (test code = 3574) POCT PREG LOT # (test code = 3575) POCT PREG TEST DATE (test code = 3576) [facility] [id number] 15:59:00 Test Item Value Reference Range Interpretation Comments POCT PREG (test code = 1605) Negative On board controls acceptable with C Yes Line (test code = 3574) POCT PREG LOT # (test code = 3575) POCT PREG TEST DATE (test code = 3576) [facility] [id number] 19:16:00 Test Item Value Reference Range Interpretation Comments POCT PREG (test code = 1605) Negative On board controls acceptable with C Yes Line (test code = 3574) POCT PREG LOT # (test code = 3575) POCT PREG TEST DATE (test code = 3576) [facility] [id number] 19:16:00 Test Item Value Reference Range Interpretation Comments POCT PREG (test code = 1605) Negative On board controls acceptable with C Yes Line (test code = 3574) POCT PREG LOT # (test code = 3575) POCT PREG TEST DATE (test code = 3576) [facility] [id number] 09:59:00 Test Item Value Reference Range Interpretation Comments RAPID PLASMA REAGIN (test code = NEGATIVE NEGATIVE RPR) CBC W/AUTO [id number] 04:35:00 Test Item Value Reference Range Interpretation [...] 0.0 x10 3/uL 0.0-0.1 N AB RUBELLA [id number] 14:36:00 Test Item Value Reference Range Interpretation Comments AB RUBELLA IGG (test code = RUBGAB) EQUIVOCAL NEGATIVE AG HEPATITIS B [id number] 13:50:00 Test Item Value Reference Range Interpretation Comments AG HEPATITIS B SURFACE (test code = NEGATIVE NEGATIVE HBSAG) AB HIV 1 13:50:00 Test Item Value Reference Range Interpretation Comments AB HIV 1 2 (test code = JDD84DU) NEGATIVE NEGATIVE CBC W/AUTO [id number] 12:38:00 Test Item Value Reference Range Interpretation [...] 0.1 x10 3/uL 0.0-0.1 N RAPID PLASMA [id number] 09:46:00 Test Item Value Reference Range Interpretation Comments RAPID PLASMA REAGIN (test code = NEGATIVE NEGATIVE RPR) AG HEPATITIS B [id number] 21:10:00 Test Item Value Reference Range Interpretation Comments AG HEPATITIS B SURFACE (test code = NEGATIVE NEGATIVE HBSAG) AB HIV 1 21:10:00 Test Item Value Reference Range Interpretation Comments AB HIV 1 2 (test code = HBD22PH) NEGATIVE NEGATIVE CBC W/AUTO [id number] 20:11:00 Test Item Value Reference Range Interpretation [...] code = BA#) 0.1 x10 3/uL 0.0-0.1 N"
[2021-10-18] MEDS ORDERED: SMZ./TMP. 800/160 MG TABLET ONE (03:40)
--- NOTE | 2021-10-18 03:40 | EDPHYS ---
Physician Documentation [facility] Name: Rita Garcia Age: 21 yrs Sex: Female : 2000 Arrival Date: 10/18/2021 Time: 03:30 Bed 15 Private MD: ED Physician Francisco Pierce HPI: 10/18 03:34 This 21 yrs old Female presents to ER via EMS with complaints of Insect Bite. rn 03:34 This 21 yrs old Female presents to ER via EMS with complaints of possible insect bite. rn 03:34 The patient presents with cellulitis of the right hand. Description: erythematous, rn streaking, warm. Onset: The symptoms/episode began/occurred today. Possible cause(s): unknown. Associated signs and symptoms: Pertinent negatives: fever, swelling. Modifying factors: the symptoms are alleviated by nothing, the symptoms are aggravated by nothing. Severity of symptoms: At their worst the symptoms were mild, in the emergency department the symptoms are unchanged. The patient has not experienced similar symptoms in the past. The patient has not recently seen a physician. Patient reports redness and warmth to back of right hand along 5th digit. She states saw a "baby spider" earlier in day but did not feel bite. Denies trauma. REports blanching erythema to back of right 5th digit and spreads to back of right hand. no fever.. 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 - Social history:: Smoking status: Patient denies any tobacco usage or history of. - Family history:: not pertinent. - Hospitalizations: : No recent hospitalization is reported. ROS: 03:34 Constitutional: Negative for fever, chills, and weight loss, MS/Extremity: Negative for rn injury and deformity, Skin: + redness and warmth to back of right hand Exam: 03:34 Constitutional: This is a well developed, well nourished patient who is awake, alert, rn and in no acute distress. Head/Face: Normocephalic, atraumatic. Skin: Warm, mild erythema to dorsum of right 5th digit and hand, no evidence of bite or fluctuance MS/ Extremity: Pulses equal, no cyanosis. Neurovascular intact. Full, normal range of motion. Equal circumference. Vital Signs: 03:30 BP 134 / 92; Pulse 80; Resp 16; Temp 98.3; Pulse Ox 97% on R/A; Pain 0/10; daniel 03:44 BP 98 / 68; Pulse 78; Resp 16; Temp 98.3; Pulse Ox 100% on R/A; Pain 0/10; daniel MDM: 03:32 Patient medically screened. rn 03:34 Differential diagnosis: cellulitis, insect bite. Data reviewed: vital signs, nurses rn notes, and as a result, I will discharge patient. Counseling: I had a detailed discussion with the patient and/or guardian regarding: the historical points, exam findings, and any diagnostic results supporting the discharge/admit diagnosis, the need for outpatient follow up, to return to the emergency department if symptoms worsen or persist or if there are any questions or concerns that arise at home. Special discussion: I discussed with the patient/guardian in detail that at this point there is no indication for admission to the hospital. It is understood, however, that if the symptoms persist or worsen the patient needs to return immediately for re-evaluation. Administered Medications: 03:41 Drug: Bactrim (trimethoprim-sulfamethoxazole) (160 mg-800 mg (DS) 1 tablet Route: PO; daniel 03:45 Follow up: Response: No adverse reaction daniel Disposition Summary: 10/18/21 03:40 Discharge Ordered Location: Home rn Problem: new rn Symptoms: are unchanged rn Condition: Stable rn Diagnosis - Cellulitis of finger rn Followup: rn - With: Private Physician - When: As needed - Reason: Recheck today's complaints, Re-evaluation by your physician Discharge Instructions: - Discharge Summary Sheet rn - Cellulitis, Adult rn Forms: - Medication Reconciliation Form rn - Thank You Letter rn - Antibiotic director learning services - Prescription Opioid Use rn Prescriptions: - Bactrim DS 800-160 mg Oral Tablet - take 1 tablet by ORAL route every 12 hours for 10 days; 20 tablet; Refills: 0, rn Product Selection Permitted Signatures: Francisco Pierce MD MD rn O'Farrell, Brenda, RN RN bo
--- NOTE | 2021-10-18 03:40 | ER ---
Nurse's Notes [facility] Name: Rita Garcia Age: 21 yrs Sex: Female : 2000 Arrival Date: 10/18/2021 Time: 03:30 Bed 15 Private MD: Diagnosis: Cellulitis of finger Presentation: 10/18 03:32 Chief complaint: Patient states: "Maybe a spider bite". Coronavirus screen: Vaccine daniel status: Patient reports being unvaccinated. Ebola Screen: Patient negative for fever greater than or equal to 101.5 degrees Fahrenheit, and additional compatible Ebola Virus Disease symptoms Patient denies exposure to infectious person. Patient denies travel to an Ebola-affected area in the 21 days before illness onset. Initial Sepsis Screen: Does the patient meet any 2 criteria? No. Patient's initial sepsis screen is negative. Does the patient have a suspected source of infection? No. Patient's initial sepsis screen is negative. Risk Assessment: Do you want to hurt yourself or someone else? Patient reports no desire to harm self or others. Onset of symptoms was October 18, 2021 at 01:30. 03:32 Method Of Arrival: EMS daniel 03:32 Acuity: CLINT 5 daniel Triage Assessment: 03:34 General: Appears in no apparent distress. Behavior is calm, cooperative. 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 - Social history:: Smoking status: Patient denies any tobacco usage or history of. - Family history:: not pertinent. - Hospitalizations: : No recent hospitalization is reported. Screenin:30 Abuse screen: Denies threats or abuse. Denies injuries from another. Nutritional daniel screening: No deficits noted. Tuberculosis screening: No symptoms or risk factors identified. Fall Risk None identified. Assessment: 03:30 General: Appears in no apparent distress. comfortable, unkempt. Pain: Denies pain. daniel Vital Signs: 03:30 BP 134 / 92; Pulse 80; Resp 16; Temp 98.3; Pulse Ox 97% on R/A; Pain 0/10; daniel 03:44 BP 98 / 68; Pulse 78; Resp 16; Temp 98.3; Pulse Ox 100% on R/A; Pain 0/10; daniel ED Course: 03:30 Patient arrived in ED. wm 03:30 Sabina Ceballos, RN is Primary Nurse. daniel 03:30 Patient has correct armband on for positive identification. Bed in low position. Call daniel light in reach. 03:30 No provider procedures requiring assistance completed. daniel 03:32 Francisco Pierce MD is Attending Physician. rn 03:34 Triage completed. daniel 03:35 Arm band placed on. daniel 03:47 Patient did not have IV access during this emergency room visit. daniel Administered Medications: 03:41 Drug: Bactrim (trimethoprim-sulfamethoxazole) (160 mg-800 mg (DS) 1 tablet Route: PO; daniel 03:45 Follow up: Response: No adverse reaction daniel Outcome: 03:34 Condition: good daniel 03:40 Discharge ordered by . rn 03:45 Discharged to home ambulatory. daniel 03:45 Discharge instructions given to patient, Instructed on discharge instructions, follow up and referral plans. medication usage, Demonstrated understanding of instructions, follow-up care, medications, Prescriptions given X 1. 03:48 Patient left the ED. daniel Signatures: Francisco Pierce MD MD rn Marsh, Wendy Sabina Ceballos, TURNER TOMPKINS daniel
[2021-10-18 04:34] VITALS: TEMP 98.3
[2021-10-18 04:36] VITALS: BP 98/68; O2SAT 100
== END 2021-10-18 03:48 | disposition home or self-care (01) ==
LOC: ER 03:26
DX: L03.011 Cellulitis of right finger (principal); F31.9 Bipolar disorder, unspecified; Z91.040 Latex allergy status; Z91.041 Radiographic dye allergy status; Z91.048 Other nonmedicinal substance allergy status
CPT/HCPCS: 99283

== ENCOUNTER 2021-10-23 13:21 | Emergency (ER) | payer OTHER ==
--- OUTSIDE RECORDS SUMMARY | 2021-10-23 13:30 | XMS REPORT | Continuity of Care Document ---
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 00:00: 00:[place] mg/24 [place] 00 :00 once every Medic al vaginal month. Branch insert Insert vaginally and leave in place for 3 consecutiv e weeks, then remove for 1 week. cephALEXin 2020- No [id number] 500mg Take 1 [facility] 500 mg 02-18 capsule by ity of capsule 00:00: 04:59 mouth 3 [place] 00 :00 (three) Medical times [place] daily for 7 days. cephALEXin 2020-0 2020- No [id number] 500mg Take 1 [facility] 500 mg 02-18 capsule by ity of capsule 00:00: 04:59 mouth 3 [place] 00 :00 (three) Medical times [place] daily for 7 days. FLUoxetine 2020-0 Yes 20mg Take 20 mg U nivers 40 mg 6-29 by mouth 2 ity of capsule 20:17: (two) [place] 25 times Medical daily. Branch buspirone 2020-0 Yes Take 10 mg [facility] (BUSPAR 6-29 base by ity o f ORAL) 20:17: mouth. [address] FLUoxetine 2020-0 Yes 20mg Take 20 mg U nivers 40 mg 6-29 by mouth 2 ity of capsule 20:17: (two) [place] 25 times Medical daily. Branch buspirone 2020-0 Yes Take 10 mg [facility] HCl (BUSPAR 6-29 base by ity o f ORAL) 20:17: mouth. [address] FLUoxetine 2020-0 Yes 20mg Take 20 mg U nivers 40 mg 6-29 by mouth 2 ity of capsule 20:17: (two) [place] 25 times Medical daily. Branch buspirone 2020-0 Yes Take 10 mg [facility] HCl (BUSPAR 6-29 base by ity o f ORAL) 20:17: mouth. [address] FLUoxetine 2020-0 Yes 20mg Take 20 mg U nivers 40 mg 6-29 by mouth 2 ity of capsule 20:17: (two) [place] 25 times Medical daily. Branch buspirone 2020-0 Yes Take 10 mg [facility] HCl (BUSPAR 6-29 base by ity o f ORAL) 20:17: mouth. [address] FLUoxetine 2020-0 Yes 20mg Take 20 mg U nivers 40 mg 6-29 by mouth 2 ity of capsule 20:17: (two) [place] 25 times Medical daily. Branch buspirone 2020-0 Yes Take 10 mg [facility] HCl (BUSPAR 6-29 base by ity o f ORAL) 20:17: mouth. [address] FLUoxetine 2020-0 Yes 20mg Take 20 mg U nivers 40 mg 6-29 by mouth 2 ity of capsule 20:17: (two) [place] 25 times Medical daily. Branch buspirone 2020-0 Yes Take 10 mg [facility] HCl (BUSPAR 6-29 base by ity o f ORAL) 20:17: mouth. [place] [address] Medical Branch FLUoxetine 2020-0 Yes 20mg Take 20 mg U nivers 40 mg 6-29 by mouth 2 ity of capsule 20:17: (two) [place] 25 times Medical daily. Branch buspirone 2020-0 Yes Take 10 mg [facility] HCl (BUSPAR 6-29 base by ity o f ORAL) 20:17: mouth. [place] [address] Medical Branch FLUoxetine 2020-0 Yes 20mg Take 20 mg U nivers 40 mg 6-29 by mouth 2 ity of capsule 20:17: (two) [place] 25 times Medical daily. Branch buspirone 2020-0 Yes Take 10 mg [facility] HCl (BUSPAR 6-29 base by ity o f ORAL) 20:17: mouth. [place] [address] Medical Branch FLUoxetine 2020-0 Yes 20mg Take 20 mg U nivers 40 mg 6-29 by mouth 2 ity of capsule 20:17: (two) [place] 25 times Medical daily. Branch buspirone 2020-0 Yes Take 10 mg [facility] HCl (BUSPAR 6-29 base by ity o f ORAL) 20:17: mouth. [place] [address] Medical Branch FLUoxetine 2020-0 Yes 20mg Take 20 mg U nivers 40 mg 6-29 by mouth 2 ity of capsule 20:17: (two) [place] 25 times Medical daily. Branch buspirone 2020-0 Yes Take 10 mg [facility] HCl (BUSPAR 6-29 base by ity o f ORAL) 20:17: mouth. [place] [address] Medical Branch FLUoxetine 2020-0 Yes 20mg Take 20 mg U nivers 40 mg 6-29 by mouth 2 ity of capsule 20:17: (two) [place] 25 times Medical daily. Branch buspirone 2020-0 Yes Take 10 mg [facility] HCl (BUSPAR 6-29 base by ity o f ORAL) 20:17: mouth. [place] [address] Medical Branch FLUoxetine 2020-0 Yes 20mg Take 20 mg U nivers 40 mg 6-29 by mouth 2 ity of capsule 20:17: (two) [place] 25 times Medical daily. Branch buspirone 2020-0 Yes Take 10 mg [facility] HCl (BUSPAR 6-29 base by ity o f ORAL) 20:17: mouth. [place] 25 Medical Branch LITHIUM 2020-0 Yes Take by Univer s ASPARTATE 6-29 mouth. ity of ORAL 20:17: [address] Branch trazodone 2020-0 Yes Take by Univ ers HCl 6-29 mouth. ity of (TRAZODONE 20:17: [place] ORAL) 24 Medical Branch LITHIUM 0 Yes Take by Univer s ASPARTATE 6-29 mouth. ity of ORAL 20:17: [address] Branch trazodone 2019-0 Yes Take by Univ ers HCl 6-29 mouth. ity of (TRAZODONE 20:17: [place] ORAL) Medical Branch LITHIUM 0 Yes Take by Univer s ASPARTATE 6-29 mouth. ity of ORAL 20:17: [address] Branch trazodone 0 Yes Take by Univ ers HCl 6-29 mouth. ity of (TRAZODONE 20:17: [place] ORAL) 24 Medical Branch LITHIUM 0 Yes Take by Univer s ASPARTATE 6-29 mouth. ity of ORAL 20:17: [address] trazodone 0 Yes Take by Univ ers HCl 6-29 mouth. ity of (TRAZODONE 20:17: [place] ORAL) Medical Branch LITHIUM 0 Yes Take by Univer s ASPARTATE 6-29 mouth. ity of ORAL 20:17: [address] trazodone 0 Yes Take by Univ ers HCl 6-29 mouth. ity of (TRAZODONE 20:17: [place] ORAL) Medical Branch LITHIUM 0 Yes Take by Univer s ASPARTATE 6-29 mouth. ity of ORAL 20:17: [address] Branch trazodone 2019-0 Yes Take by Univ ers HCl 6-29 mouth. ity of (TRAZODONE 20:17: [place] ORAL) Medical Branch LITHIUM 2019-0 Yes Take by Univer s ASPARTATE 6-29 mouth. ity of ORAL 20:17: [address] Branch trazodone 2020-0 Yes Take by Univ ers HCl 6-29 mouth. ity of (TRAZODONE 20:17: [place] ORAL) Medical Branch LITHIUM 2020-0 Yes Take by Univer s ASPARTATE 6-29 mouth. ity of ORAL 20:17: [address] Branch trazodone 2020-0 Yes Take by Univ ers HCl 6-29 mouth. ity of (TRAZODONE 20:17: [place] ORAL) 24 [facility] LITHIUM 0 Yes Take by Univer s ASPARTATE 6-29 mouth. ity of ORAL 20:17: [address] trazodone 0 Yes Take by Univ ers HCl 6-29 mouth. ity of (TRAZODONE 20:17: [place] ORAL) 24 [facility] LITHIUM 0 Yes Take by Univer s ASPARTATE 6-29 mouth. ity of ORAL 20:17: [address] trazodone 0 Yes Take by Univ ers HCl 6-29 mouth. ity of (TRAZODONE 20:17: [place] ORAL) [address] [place] [address] LITHIUM Yes Take by Univer s ASPARTATE 6-29 mouth. ity of ORAL 20:17: [address] trazodone Yes Take by Univ ers HCl 6-29 mouth. ity of (TRAZODONE 20:17: [place] ORAL) [address] [place] [address] LITHIUM Yes Take by Univer s ASPARTATE 6-29 mouth. ity of ORAL 20:17: [address] trazodone Yes Take by Univ ers HCl 6-29 mouth. ity of (TRAZODONE 20:17: [place] ORAL) 24 [facility] etonogestre 2020- No 68mg Unive rs l 09-12- ity of (NEXPLANON) 17:30: 17:53 [place] implant 68 00 :00 Medical mg Branch etonogestre 2019- No 68mg 68 mg, Uni vers l 09-12- Subdermal, ity of (NEXPLANON) 17:30: 17:53 ONCE NOW, [place] implant 68 00 :00 1 dose, Medica l mg 09/12/19 Branch at 1130, Routine
Use approved by: [employer] etonogestre 2020- No 68mg Unive rs l 09-12- ity of (NEXPLANON) 17:30: 17:53 [place] implant 68 00 :00 Medical mg Branch etonogestre 2020- No 68mg 68 mg, Uni vers l 09-12- Subdermal, ity of (NEXPLANON) 17:30: 17:53 ONCE NOW, [place] implant 68 00 :00 1 dose, Medica l mg 09/12/19 Branch at 1130, Routine
Use approved by: [employer] FLUoxetine 2020-0 Yes 20mg Take 20 mg U nivers 40 mg 1-06 by mouth 2 ity of capsule 23:52: (two) [place] 35 times Medical daily. Branch lurasidone 2020-0 Yes 40mg Take 40 mg U nivers (LATUDA) 40 1-06 by mouth. ity of mg tablet 23:52: [address] FLUoxetine 2020-0 Yes 20mg Take 20 mg U nivers 40 mg 1-06 by mouth 2 ity of capsule 23:52: (two) [place] 35 times Medical daily. Branch lurasidone 2020-0 Yes 40mg Take 40 mg U nivers (LATUDA) 40 1-06 by mouth. ity of mg tablet 23:52: [address] FLUoxetine 2020-0 Yes 20mg Take 20 mg U nivers 40 mg 1-06 by mouth 2 ity of capsule 23:52: (two) [place] 35 times Medical daily. Branch lurasidone 2020-0 Yes 40mg Take 40 mg U nivers (LATUDA) 40 1-06 by mouth. ity of mg tablet 23:52: [address] FLUoxetine 2020-0 Yes 20mg Take 20 mg U nivers 40 mg 1-06 by mouth 2 ity of capsule 23:52: (two) [place] 35 times Medical daily. Branch lurasidone 2020-0 Yes 40mg Take 40 mg U nivers (LATUDA) 40 1-06 by mouth. ity of mg tablet 23:52: [address] FLUoxetine 2020-0 Yes 20mg Take 20 mg U nivers 40 mg 1-06 by mouth 2 ity of capsule 23:52: (two) [place] 35 times Medical daily. Branch lurasidone 2020-0 Yes 40mg Take 40 mg U nivers (LATUDA) 40 1-06 by mouth. ity of mg tablet 23:52: [address] FLUoxetine 2020-0 Yes 20mg Take 20 [...] by mouth. ity of mg tablet 23:52: [address] FLUoxetine 2020-0 Yes 20mg Take 20 mg U nivers 40 mg 1-06 by mouth 2 ity of capsule 23:52: (two) [place] 35 times Medical daily. Branch lurasidone 2020-0 Yes 40mg Take 40 mg U nivers (LATUDA) 40 1-06 by mouth. ity of mg tablet 23:52: [address] FLUoxetine 2020-0 Yes 20mg Take 20 mg U nivers 40 mg 1-06 by mouth 2 ity of capsule 23:52: (two) [place] 35 times Medical daily. Branch lurasidone 2020-0 Yes 40mg Take 40 mg U nivers (LATUDA) 40 1-06 by mouth. ity of mg tablet 23:52: [address] FLUoxetine 2020-0 Yes 20mg Take 20 mg U nivers 40 mg 1-06 by mouth 2 ity of capsule 23:52: (two) [place] 35 times Medical daily. Branch lurasidone 2020-0 Yes 40mg Take 40 mg U nivers (LATUDA) 40 1-06 by mouth. ity of mg tablet 23:52: [address] FLUoxetine 2020-0 Yes 20mg Take 20 mg U nivers 40 mg 1-06 by mouth 2 ity of capsule 23:52: (two) [place] 35 times Medical daily. Branch lurasidone 2020-0 Yes 40mg Take 40 mg U nivers (LATUDA) 40 1-06 by mouth. ity of mg tablet 23:52: [address] FLUoxetine 2020-0 Yes 20mg Take 20 mg U nivers 40 mg 1-06 by mouth 2 ity of capsule 23:52: (two) [place] 35 times Medical daily. Branch lurasidone 2020-0 Yes 40mg Take 40 mg U nivers (LATUDA) 40 1-06 by mouth. ity of mg tablet 23:52: [address] FLUoxetine 2020-0 Yes 20mg Take 20 mg U nivers 40 mg 1-06 by mouth 2 ity of capsule 23:52: (two) [place] 35 times Medical daily. Branch lurasidone 2020-0 Yes 40mg Take 40 mg U nivers (LATUDA) 40 1-06 by mouth. ity of mg tablet 23:52: [address] FLUoxetine 2020-0 Yes 20mg Take 20 mg U nivers 40 mg 1-06 by mouth 2 ity of capsule 23:52: (two) [place] [address] times Medical daily. Branch lurasidone 2020-0 Yes 40mg Take 40 mg U nivers (LATUDA) 40 1-06 by mouth. ity of mg tablet 23:52: [address] lurasidone 2020-0 Yes 40mg Take 40 mg U nivers (LATUDA) 40 1-06 by mouth. ity of mg tablet 23:52: [address] lurasidone 2020-0 Yes 40mg Take 40 mg U nivers (LATUDA) 40 1-06 by mouth. ity of mg tablet 23:52: [address] lurasidone 2020-0 Yes 40mg Take 40 mg U nivers (LATUDA) 40 1-06 by mouth. ity of mg tablet 23:52: [address] lurasidone 2020-0 Yes 40mg Take 40 mg U nivers (LATUDA) 40 1-06 by mouth. ity of mg tablet 23:52: [address] lurasidone 2020-0 Yes 40mg Take 40 mg U nivers (LATUDA) 40 1-06 by mouth. ity of mg tablet 23:52: [address] lurasidone 2020-0 Yes 40mg Take 40 mg U nivers (LATUDA) 40 1-06 by mouth. ity of mg tablet 23:52: [address] lurasidone 2020-0 Yes 40mg Take 40 mg U nivers (LATUDA) 40 1-06 by mouth. ity of mg tablet 23:52: [address] lurasidone 2020-0 Yes 40mg Take 40 mg U nivers (LATUDA) 40 1-06 by mouth. ity of mg tablet 23:52: [address] lurasidone 2020-0 Yes 40mg Take 40 mg U nivers (LATUDA) 40 1-06 by mouth. ity of mg tablet 23:52: [address] lurasidone 2020-0 Yes 40mg Take 40 mg U nivers (LATUDA) 40 1-06 by mouth. ity of mg tablet 23:52: [address] lurasidone 2020-0 Yes 40mg Take 40 mg U nivers (LATUDA) 40 1-06 by mouth. ity of mg tablet 23:52: [address] lurasidone 2020-0 Yes 40mg Take 40 mg U nivers (LATUDA) 40 1-06 by mouth. ity of mg tablet 23:52: [address] levoFLOXaci 2018-08 Yes [id number] 500mg Take 1 Univers n 2-14 tablet by ity of (LEVAQUIN) 00:00: mouth [place] 500 mg 00 every 24 Medical tablet ([facility] ur) hours. codeine-gua 2018-08 Yes [id number] 5mL Take 5 mL Univers ifenesin 2-14 by mouth ity of (CHERATUSSI 00:00: every 6 [place] as N AC) 00 (six) Medical 10-100 mg/5 hours as Bran ch mL solution needed for Cough. levoFLOXaci 2018-08 Yes [id number] 500mg Take 1 [facility] n 2-14 tablet by ity of (LEVAQUIN) 00:00: mouth [place] 500 mg 00 every 24 Medical tablet ([facility] ur) hours. codeine-gua 2018-08 Yes [id number] 5mL Take 5 mL [facility] ifenesin 2-14 by mouth ity of (CHERATUSSI 00:00: every 6 [place] as N AC) 00 (six) Medical 10-100 mg/5 hours as Bran ch mL solution needed for Cough. levoFLOXaci 2018-08 Yes [id number] 500mg Take 1 [facility] n 2-14 tablet by ity of (LEVAQUIN) 00:00: mouth [place] 500 mg 00 every 24 Medical tablet ([facility] ur) hours. codeine-gua 2018-08 Yes [id number] 5mL Take 5 mL [facility] ifenesin 2-14 by mouth ity of (CHERATUSSI 00:00: every 6 [place] as N AC) 00 (six) Medical 10-100 mg/5 hours as Bran ch mL solution needed for Cough. levoFLOXaci 2018-08 Yes [id number] 500mg Take 1 [facility] n 2-14 tablet by ity of (LEVAQUIN) 00:00: mouth [place] 500 mg 00 every 24 Medical tablet ([facility] ur) hours. codeine-gua 2018-08 Yes [id number] 5mL Take 5 mL [facility] ifenesin 2-14 by mouth ity of (CHERATUSSI 00:00: every 6 [place] as N AC) 00 (six) Medical 10-100 mg/5 hours as Bran ch mL solution needed for Cough. levoFLOXaci 2018-08 Yes [id number] 500mg Take 1 [facility] n 2-14 tablet by ity of (LEVAQUIN) 00:00: mouth [place] 500 mg 00 every 24 Medical tablet ([facility] ur) hours. codeine-gua 2018-08 Yes [id number] 5mL Take 5 mL [facility] ifenesin 2-14 by mouth ity of (CHERATUSSI 00:00: every 6 [place] as N AC) 00 (six) Medical 10-100 mg/5 hours as Bran ch mL solution needed for Cough. levoFLOXaci 2018-08 Yes [id number] 500mg Take 1 Univers n 2-14 tablet by ity of (LEVAQUIN) 00:00: mouth [place] 500 mg 00 every 24 Medical tablet ([facility] ur) hours. codeine-gua 2018-08 Yes [id number] 5mL Take 5 mL [facility] ifenesin 2-14 by mouth ity of (CHERATUSSI 00:00: every 6 [place] as N AC) 00 (six) Medical 10-100 mg/5 hours as Bran ch mL solution needed for Cough. levoFLOXaci 2018-08 Yes [id number] 500mg Take 1 Univers n 2-14 tablet by ity of (LEVAQUIN) 00:00: mouth [place] 500 mg 00 every 24 Medical tablet ([facility] ur) hours. codeine-gua 2018-08 Yes [id number] 5mL Take 5 mL [facility] ifenesin 2-14 by mouth ity of (CHERATUSSI 00:00: every 6 [place] as N AC) 00 (six) Medical 10-100 mg/5 hours as Bran ch mL solution needed for Cough. levoFLOXaci 2018-08 Yes [id number] 500mg Take 1 [facility] n 2-14 tablet by ity of (LEVAQUIN) 00:00: mouth [place] 500 mg 00 every 24 Medical tablet ([facility] ur) hours. codeine-gua 2018-08 Yes [id number] 5mL Take 5 mL [facility] ifenesin 2-14 by mouth ity of (CHERATUSSI 00:00: every 6 [place] as N AC) 00 (six) Medical 10-100 mg/5 hours as Bran ch mL solution needed for Cough. levoFLOXaci 2018-08 Yes [id number] 500mg Take 1 Univers n 2-14 tablet by ity of (LEVAQUIN) 00:00: mouth [place] 500 mg 00 every 24 Medical tablet ([facility] Branch ur) hours. codeine-gua 2018-08 Yes [id number] 5mL Take 5 mL [facility] ifenesin 2-14 by mouth ity of (CHERATUSSI 00:00: every 6 [place] as N AC) 00 (six) Medical 10-100 mg/5 hours as Bran ch mL solution needed for Cough. levoFLOXaci 2018-08 Yes [id number] 500mg Take 1 Univers n 2-14 tablet by ity of (LEVAQUIN) 00:00: mouth [place] 500 mg 00 every 24 Medical tablet ([facility] Branch ur) hours. codeine-gua 2018-08 Yes [id number] 5mL Take 5 mL [facility] ifenesin 2-14 by mouth ity of (CHERATUSSI 00:00: every 6 [place] as N AC) 00 (six) Medical 10-100 mg/5 hours as Bran ch mL solution needed for Cough. levoFLOXaci 2018-08 Yes [id number] 500mg Take 1 Univers n 2-14 tablet by ity of (LEVAQUIN) 00:00: mouth [place] 500 mg 00 every 24 Medical tablet ([facility] Branch ur) hours. codeine-gua 2018-08 Yes [id number] 5mL Take 5 mL [facility] ifenesin 2-14 by mouth ity of (CHERATUSSI 00:00: every 6 [place] as N AC) 00 (six) Medical 10-100 mg/5 hours as Bran ch mL solution needed for Cough. levoFLOXaci 2018-08 Yes [id number] 500mg Take 1 Univers n 2-14 tablet by ity of (LEVAQUIN) 00:00: mouth [place] 500 mg 00 every 24 Medical tablet (twenty- Branch ur) hours. codeine-gua 2018-08 Yes [id number] 5mL Take 5 mL [facility] ifenesin 2-14 by mouth ity of (CHERATUSSI 00:00: every 6 [place] as N AC) 00 (six) Medical 10-100 mg/5 hours as Bran ch mL solution needed for Cough. levoFLOXaci 2018-08 Yes [id number] 500mg Take 1 [facility] n 2-14 tablet by ity of (LEVAQUIN) 00:00: mouth [place] 500 mg 00 every 24 Medical tablet ([facility] ur) hours. codeine-gua 2018-08 Yes [id number] 5mL Take 5 mL [facility] ifenesin 2-14 by mouth ity of (CHERATUSSI 00:00: every 6 [place] as N AC) 00 (six) Medical 10-100 mg/5 hours as Bran ch mL solution needed for Cough. levoFLOXaci 2018-08 Yes [id number] 500mg Take 1 Univers n 2-14 tablet by ity of (LEVAQUIN) 00:00: mouth [place] 500 mg 00 every 24 Medical tablet ([facility] ur) hours. codeine-gua 2018-08 Yes [id number] 5mL Take 5 mL [facility] ifenesin 2-14 by mouth ity of (CHERATUSSI 00:00: every 6 [place] as N AC) 00 (six) Medical 10-100 mg/5 hours as Bran ch mL solution needed for Cough. levoFLOXaci 2018-08 Yes [id number] 500mg Take 1 [facility] n 2-14 tablet by ity of (LEVAQUIN) 00:00: mouth [place] 500 mg 00 every 24 Medical tablet ([facility] ur) hours. codeine-gua 2018-08 Yes [id number] 5mL Take 5 mL [facility] ifenesin 2-14 by mouth ity of (CHERATUSSI 00:00: every 6 [place] as N AC) 00 (six) Medical 10-100 mg/5 hours as Bran ch mL solution needed for Cough. levoFLOXaci 2018-08 Yes [id number] 500mg Take 1 Univers n 2-14 tablet by ity of (LEVAQUIN) 00:00: mouth [place] 500 mg 00 every 24 Medical tablet ([facility] ur) hours. codeine-gua 2018-08 Yes [id number] 5mL Take 5 mL [facility] ifenesin 2-14 by mouth ity of (CHERATUSSI 00:00: every 6 [place] as N AC) 00 (six) Medical 10-100 mg/5 hours as Bran ch mL solution needed for Cough. levoFLOXaci 2018-08 Yes [id number] 500mg Take 1 [facility] n 2-14 tablet by ity of (LEVAQUIN) 00:00: mouth [place] 500 mg 00 every 24 Medical tablet (twenty- Branch ur) hours. codeine-gua 2018-08 Yes [id number] 5mL Take 5 mL [facility] ifenesin 2-14 by mouth ity of (CHERATUSSI 00:00: every 6 [place] as N AC) 00 (six) Medical 10-100 mg/5 hours as Bran ch mL solution needed for Cough. levoFLOXaci 2018-08 Yes [id number] 500mg Take 1 Univers n 2-14 tablet by ity of (LEVAQUIN) 00:00: mouth [place] 500 mg 00 every 24 Medical tablet (- Branch ur) hours. codeine-gua 2018-08 Yes [id number] 5mL Take 5 mL [facility] ifenesin 2-14 by mouth ity of (CHERATUSSI 00:00: every 6 [place] as N AC) 00 (six) Medical 10-100 mg/5 hours as Bran ch mL solution needed for Cough. levoFLOXaci 2018-08 Yes [id number] 500mg Take 1 Univers n 2-14 tablet by ity of (LEVAQUIN) 00:00: mouth [place] 500 mg 00 every 24 Medical tablet ([facility] Branch ur) hours. codeine-gua 2018-08 Yes [id number] 5mL Take 5 mL Univers ifenesin 2-14 by mouth ity of (CHERATUSSI 00:00: every 6 [place] as N AC) 00 (six) Medical 10-100 mg/5 hours as Bran ch mL solution needed for Cough. levoFLOXaci 2018-08 Yes [id number] 500mg Take 1 Univers n 2-14 tablet by ity of (LEVAQUIN) 00:00: mouth [place] 500 mg 00 every 24 Medical tablet (twenty- Branch ur) hours. codeine-gua 2018-08 Yes [id number] 5mL Take 5 mL [facility] ifenesin 2-14 by mouth ity of (CHERATUSSI 00:00: every 6 [place] as N AC) 00 (six) Medical 10-100 mg/5 hours as Bran ch mL solution needed for Cough. levoFLOXaci 2018-08 Yes [id number] 500mg Take 1 Univers n 2-14 tablet by ity of (LEVAQUIN) 00:00: mouth [place] 500 mg 00 every 24 Medical tablet (twenty-fo Branch ur) hours. codeine-gua 2018-08 Yes [id number] 5mL Take 5 mL Univers ifenesin 2-14 by mouth ity of (CHERATUSSI 00:00: every 6 [place] as N AC) 00 (six) Medical 10-100 mg/5 hours as Bran ch mL solution needed for Cough. levoFLOXaci 2018-08 Yes [id number] 500mg Take 1 Univers n 2-14 tablet by ity of (LEVAQUIN) 00:00: mouth [place] 500 mg 00 every 24 Medical tablet ([facility]) hours. codeine-gua 2018-08 Yes [id number] 5mL Take 5 mL [facility] ifenesin 2-14 by mouth ity of (CHERATUSSI 00:00: every 6 [place] as N AC) 00 (six) Medical 10-100 mg/5 hours as Bran ch mL solution needed for Cough. levoFLOXaci 2018-08 Yes [id number] 500mg Take 1 Univers n 2-14 tablet by ity of (LEVAQUIN) 00:00: mouth [place] 500 mg 00 every 24 Medical tablet ([facility]) hours. codeine-gua 2018-08 Yes [id number] 5mL Take 5 mL Univers ifenesin 2-14 by mouth ity of (CHERATUSSI 00:00: every 6 [place] as N AC) 00 (six) Medical 10-100 mg/5 hours as Bran ch mL solution needed for Cough. levoFLOXaci 2018-08 Yes [id number] 500mg Take 1 Univers n 2-14 tablet by ity of (LEVAQUIN) 00:00: mouth [place] 500 mg 00 every 24 Medical tablet ([facility]) hours. codeine-gua 2018-08 Yes [id number] 5mL Take 5 mL Univers ifenesin 2-14 by mouth ity of (CHERATUSSI 00:00: every 6 [place] as N AC) 00 (six) Medical 10-100 mg/5 hours as Bran ch mL solution needed for Cough. levoFLOXaci 2018-08 Yes [id number] 500mg Take 1 Univers n 2-14 tablet by ity of (LEVAQUIN) 00:00: mouth [place] 500 mg 00 every 24 Medical tablet ([facility] ur) hours. codeine-gua 2018-08 Yes [id number] 5mL Take 5 mL Univers ifenesin 2-14 by mouth ity of (CHERATUSSI 00:00: every 6 [place] as N AC) 00 (six) Medical 10-100 mg/5 hours as Bran ch mL solution needed for Cough. levoFLOXaci 2018-08 Yes [id number] 500mg Take 1 Univers n 2-14 tablet by ity of (LEVAQUIN) 00:00: mouth [place] 500 mg 00 every 24 Medical tablet (twenty-fo Branch ur) hours. codeine-gua 2018-08 Yes [id number] 5mL Take 5 mL Univers ifenesin 2-14 by mouth ity of (CHERATUSSI 00:00: every 6 [place] as N AC) 00 (six) Medical 10-100 mg/5 hours as Bran ch mL solution needed for Cough. levoFLOXaci 2018-08 Yes [id number] 500mg Take 1 Univers n 2-14 tablet by ity of (LEVAQUIN) 00:00: mouth [place] 500 mg 00 every 24 Medical tablet ( Branch ur) hours. codeine-gua 2018-08 Yes [id number] 5mL Take 5 mL Univers ifenesin 2-14 by mouth ity of (CHERATUSSI 00:00: every 6 [place] as N AC) 00 (six) Medical 10-100 mg/5 hours as Bran ch mL solution needed for Cough. levoFLOXaci 2018-08 Yes [id number] 500mg Take 1 Univers n 2-14 tablet by ity of (LEVAQUIN) 00:00: mouth [place] 500 mg 00 every 24 Medical tablet (fo Branch ur) hours. codeine-gua 2018-08 Yes [id number] 5mL Take 5 mL Univers ifenesin 2-14 by mouth ity of (CHERATUSSI 00:00: every 6 [place] as N AC) 00 (six) Medical 10-100 mg/5 hours as Bran ch mL solution needed for Cough. levoFLOXaci 2018-08 Yes [id number] 500mg Take 1 Univers n 2-14 tablet by ity of (LEVAQUIN) 00:00: mouth [place] 500 mg 00 every 24 Medical tablet (twenty-fo Branch ur) hours. codeine-gua 2018-08 Yes [id number] 5mL Take 5 mL Univers ifenesin 2-14 by mouth ity of (CHERATUSSI 00:00: every 6 [place] as N AC) 00 (six) Medical 10-100 mg/5 hours as Bran ch mL solution needed for Cough. levoFLOXaci 2018-08 Yes [id number] 500mg Take 1 Univers n 2-14 tablet by ity of (LEVAQUIN) 00:00: mouth [place] 500 mg 00 every 24 Medical tablet ([facility] ur) hours. codeine-gua 2018-08 Yes [id number] 5mL Take 5 mL [facility] ifenesin 2-14 by mouth ity of (CHERATUSSI 00:00: every 6 [place] as N AC) 00 (six) Medical 10-100 mg/5 hours as Bran ch mL solution needed for Cough. levoFLOXaci 2018-08 Yes [id number] 500mg Take 1 Univers n 2-14 tablet by ity of (LEVAQUIN) 00:00: mouth [place] 500 mg 00 every 24 Medical tablet ([facility]) hours. codeine-gua 2018-08 Yes [id number] 5mL Take 5 mL [facility] ifenesin 2-14 by mouth ity of (CHERATUSSI 00:00: every 6 [place] N AC) 00 (six) Medical 10-100 mg/5 hours as Bran ch mL solution needed for Cough. levoFLOXaci 2018-08 Yes [id number] 500mg Take 1 Univers n 2-14 tablet by ity of (LEVAQUIN) 00:00: mouth [place] 500 mg 00 every 24 Medical tablet ([facility]) hours. codeine-gua 2018-08 Yes [id number] 5mL Take 5 mL Univers ifenesin 2-14 by mouth ity of (CHERATUSSI 00:00: every 6 [place] N AC) 00 (six) Medical 10-100 mg/5 hours as Bran ch mL solution needed for Cough. levoFLOXaci 2018-08 Yes [id number] 500mg Take 1 Univers n 2-14 tablet by ity of (LEVAQUIN) 00:00: mouth [place] 500 mg 00 every 24 Medical tablet ([facility]) hours. codeine-gua 2018-08 Yes [id number] 5mL Take 5 mL Univers ifenesin 2-14 by mouth ity of (CHERATUSSI 00:00: every 6 [place] N AC) 00 (six) Medical 10-100 mg/5 hours as Bran ch mL solution needed for Cough. levoFLOXaci 2018-08 Yes [id number] 500mg Take 1 Univers n 2-14 tablet by ity of (LEVAQUIN) 00:00: mouth [place] 500 mg 00 every 24 Medical tablet ([facility] ur) hours. codeine-gua 2018-08 Yes [id number] 5mL Take 5 mL Univers ifenesin 2-14 by mouth ity of (CHERATUSSI 00:00: every 6 [place] N AC) 00 (six) Medical 10-100 mg/5 hours as Bran ch mL solution needed for Cough. levoFLOXaci 2018-08 Yes [id number] 500mg Take 1 Univers n 2-14 tablet by ity of (LEVAQUIN) 00:00: mouth [place] 500 mg 00 every 24 Medical tablet ([facility] ur) hours. codeine-gua 2018-08 Yes [id number] 5mL Take 5 mL Univers ifenesin 2-14 by mouth ity of (CHERATUSSI 00:00: every 6 [place] N AC) 00 (six) Medical 10-100 mg/5 hours as Bran ch mL solution needed for Cough. levoFLOXaci 2018-08 Yes [id number] 500mg Take 1 Univers n 2-14 tablet by ity of (LEVAQUIN) 00:00: mouth [place] 500 mg 00 every 24 Medical tablet ([facility] ur) hours. codeine-gua 2018-08 Yes [id number] 5mL Take 5 mL Univers ifenesin 2-14 by mouth ity of (CHERATUSSI 00:00: every 6 [place] N AC) 00 (six) Medical 10-100 mg/5 hours as Bran ch mL solution needed for Cough. levoFLOXaci 2018-08 Yes [id number] 500mg Take 1 Univers n 2-14 tablet by ity of (LEVAQUIN) 00:00: mouth [place] 500 mg 00 every 24 Medical tablet ([facility] ur) hours. codeine-gua 2018-08 Yes [id number] 5mL Take 5 mL Univers ifenesin 2-14 by mouth ity of (CHERATUSSI 00:00: every 6 [place] N AC) 00 (six) Medical 10-100 mg/5 hours as Bran ch mL solution needed for Cough. levoFLOXaci 2018-08 Yes [id number] 500mg Take 1 Univers n 2-14 tablet by ity of (LEVAQUIN) 00:00: mouth [place] 500 mg 00 every 24 Medical tablet ([facility] ur) hours. codeine-gua 2018-08 Yes [id number] 5mL Take 5 mL Univers ifenesin 2-14 by mouth ity of (CHERATUSSI 00:00: every 6 [place] as N AC) 00 (six) Medical 10-100 mg/5 hours as Bran ch mL solution needed for Cough. levoFLOXaci 2018-08 Yes [id number] 500mg Take 1 Univers n 2-14 tablet by ity of (LEVAQUIN) 00:00: mouth [place] 500 mg 00 every 24 Medical tablet ([facility]) hours. codeine-gua 2018-08 Yes [id number] 5mL Take 5 mL Univers ifenesin 2-14 by mouth ity of (CHERATUSSI 00:00: every 6 [place] as N AC) 00 (six) Medical 10-100 mg/5 hours as Bran ch mL solution needed for Cough. levoFLOXaci 2018-08- No [id number] 500mg Take 1 Univers n 2-14 05-24 tablet by ity of (LEVAQUIN) 00:00: 00:00 mouth [place] 500 mg 00 :00 every 24 Medical tablet ([facility]) hours. codeine-gua 2018-08- No [id number] 5mL Take 5 mL Univers ifenesin 2-14 05-24 by mouth ity of (CHERATUSSI 00:00: 00:00 every 6 [place] N AC) 00 :00 (six) Medical 10-100 mg/5 hours as Bran ch mL solution needed for Cough. buPROPion 2018-08 Yes [id number] 150mg Take 1 U nivers SR 0-16 tablet by ity of (WELLBUTRIN 00:00: mouth [place] SR) 150 mg 00 daily. Medical SR tablet Branch buPROPion 2018-08 Yes [id number] 150mg Take 1 U nivers SR 0-16 tablet by ity of (WELLBUTRIN 00:00: mouth [place] SR) 150 mg 00 daily. Medical SR tablet Branch buPROPion 2018-08 Yes [id number] 150mg Take 1 U nivers SR 0-16 tablet by ity of (WELLBUTRIN 00:00: mouth [place] SR) 150 mg 00 daily. Medical SR tablet Branch buPROPion 2018-08 Yes [id number] 150mg Take 1 U nivers SR 0-16 tablet by ity of (WELLBUTRIN 00:00: mouth [place] SR) 150 mg 00 daily. Medical SR tablet Branch buPROPion 2018-08 Yes [id number] 150mg Take 1 U nivers SR 0-16 tablet by ity of (WELLBUTRIN 00:00: mouth [place] SR) 150 mg 00 daily. Medical SR tablet Branch buPROPion 2018-08 Yes [id number] 150mg Take 1 U nivers SR 0-16 tablet by ity of (WELLBUTRIN 00:00: mouth [place] SR) 150 mg 00 daily. Medical SR tablet Branch buPROPion 2018-08 Yes [id number] 150mg Take 1 U nivers SR 0-16 tablet by ity of (WELLBUTRIN 00:00: mouth [place] SR) 150 mg 00 daily. Medical SR tablet Branch buPROPion 2018-08 Yes [id number] 150mg Take 1 U nivers SR 0-16 tablet by ity of (WELLBUTRIN 00:00: mouth [place] SR) 150 mg 00 daily. Medical SR tablet Branch buPROPion 2018-08 Yes [id number] 150mg Take 1 U nivers SR 0-16 tablet by ity of (WELLBUTRIN 00:00: mouth [place] SR) 150 mg 00 daily. Medical SR tablet Branch buPROPion 2018-08 Yes [id number] 150mg Take 1 U nivers SR 0-16 tablet by ity of (WELLBUTRIN 00:00: mouth [place] SR) 150 mg 00 daily. Medical SR tablet Branch buPROPion 2018-08 Yes [id number] 150mg Take 1 U nivers SR 0-16 tablet by ity of (WELLBUTRIN 00:00: mouth [place] SR) 150 mg 00 daily. Medical SR tablet Branch buPROPion 2018-08 Yes [id number] 150mg Take 1 U nivers SR 0-16 tablet by ity of (WELLBUTRIN 00:00: mouth [place] SR) 150 mg 00 daily. Medical SR tablet Branch buPROPion 2018-08 Yes [id number] 150mg Take 1 U nivers SR 0-16 tablet by ity of (WELLBUTRIN 00:00: mouth [place] SR) 150 mg 00 daily. Medical SR tablet Branch buPROPion 2018-08 Yes [id number] 150mg Take 1 U nivers SR 0-16 tablet by ity of (WELLBUTRIN 00:00: mouth [place] SR) 150 mg 00 daily. Medical SR tablet Branch buPROPion 2018-08 Yes [id number] 150mg Take 1 U nivers SR 0-16 tablet by ity of (WELLBUTRIN 00:00: mouth [place] SR) 150 mg 00 daily. Medical SR tablet Branch buPROPion 2018-08 Yes [id number] 150mg Take 1 U nivers SR 0-16 tablet by ity of (WELLBUTRIN 00:00: mouth [place] SR) 150 mg 00 daily. Medical SR tablet Branch buPROPion 2018-08 Yes [id number] 150mg Take 1 U nivers SR 0-16 tablet by ity of (WELLBUTRIN 00:00: mouth [place] SR) 150 mg 00 daily. Medical SR tablet Branch buPROPion 2018-08 Yes [id number] 150mg Take 1 U nivers SR 0-16 tablet by ity of (WELLBUTRIN 00:00: mouth [place] SR) 150 mg 00 daily. Medical SR tablet Branch buPROPion 2018-08 Yes [id number] 150mg Take 1 U nivers SR 0-16 tablet by ity of (WELLBUTRIN 00:00: mouth [place] SR) 150 mg 00 daily. Medical SR tablet Branch buPROPion 2018-08 Yes [id number] 150mg Take 1 U nivers SR 0-16 tablet by ity of (WELLBUTRIN 00:00: mouth [place] SR) 150 mg 00 daily. Medical SR tablet Branch buPROPion 2018-08 Yes [id number] 150mg Take 1 U nivers SR 0-16 tablet by ity of (WELLBUTRIN 00:00: mouth [place] SR) 150 mg 00 daily. Medical SR tablet Branch buPROPion 2018-08 Yes [id number] 150mg Take 1 U nivers SR 0-16 tablet by ity of (WELLBUTRIN 00:00: mouth [place] SR) 150 mg 00 daily. Medical SR tablet Branch buPROPion 2018-08 Yes [id number] 150mg Take 1 U nivers SR 0-16 tablet by ity of (WELLBUTRIN 00:00: mouth [place] SR) 150 mg 00 daily. Medical SR tablet Branch buPROPion 2018-08 Yes [id number] 150mg Take 1 U nivers SR 0-16 tablet by ity of (WELLBUTRIN 00:00: mouth [place] SR) 150 mg 00 daily. Medical SR tablet Branch buPROPion 2018-08 Yes [id number] 150mg Take 1 U nivers SR 0-16 tablet by ity of (WELLBUTRIN 00:00: mouth [place] SR) 150 mg 00 daily. Medical SR tablet Branch buPROPion 2018-08 Yes [id number] 150mg Take 1 U nivers SR 0-16 tablet by ity of (WELLBUTRIN 00:00: mouth [place] SR) 150 mg 00 daily. Medical SR tablet Branch buPROPion 2018-08 Yes [id number] 150mg Take 1 U nivers SR 0-16 tablet by ity of (WELLBUTRIN 00:00: mouth [place] SR) 150 mg 00 daily. Medical SR tablet Branch buPROPion 2018-08 Yes [id number] 150mg Take 1 U nivers SR 0-16 tablet by ity of (WELLBUTRIN 00:00: mouth [place] SR) 150 mg 00 daily. Medical SR tablet Branch buPROPion 2018-08 Yes [id number] 150mg Take 1 U nivers SR 0-16 tablet by ity of (WELLBUTRIN 00:00: mouth [place] SR) 150 mg 00 daily. Medical SR tablet Branch buPROPion 2018-08 Yes [id number] 150mg Take 1 U nivers SR 0-16 tablet by ity of (WELLBUTRIN 00:00: mouth [place] SR) 150 mg 00 daily. Medical SR tablet Branch buPROPion 2018-08 Yes [id number] 150mg Take 1 U nivers SR 0-16 tablet by ity of (WELLBUTRIN 00:00: mouth [place] SR) 150 mg 00 daily. Medical SR tablet Branch buPROPion 2018-08 Yes [id number] 150mg Take 1 U nivers SR 0-16 tablet by ity of (WELLBUTRIN 00:00: mouth [place] SR) 150 mg 00 daily. Medical SR tablet Branch buPROPion 2018-08 Yes [id number] 150mg Take 1 U nivers SR 0-16 tablet by ity of (WELLBUTRIN 00:00: mouth [place] SR) 150 mg 00 daily. Medical SR tablet Branch buPROPion 2018-08 Yes [id number] 150mg Take 1 U nivers SR 0-16 tablet by ity of (WELLBUTRIN 00:00: mouth [place] SR) 150 mg 00 daily. Medical SR tablet Branch buPROPion 2018-08 Yes [id number] 150mg Take 1 U nivers SR 0-16 tablet by ity of (WELLBUTRIN 00:00: mouth [place] SR) 150 mg 00 daily. Medical SR tablet Branch buPROPion 2018-08 Yes [id number] 150mg Take 1 U nivers SR 0-16 tablet by ity of (WELLBUTRIN 00:00: mouth [place] SR) 150 mg 00 daily. Medical SR tablet Branch buPROPion 2018-08 Yes [id number] 150mg Take 1 U nivers SR 0-16 tablet by ity of (WELLBUTRIN 00:00: mouth [place] SR) 150 mg 00 daily. Medical SR tablet Branch buPROPion 2018-08 Yes [id number] 150mg Take 1 U nivers SR 0-16 tablet by ity of (WELLBUTRIN 00:00: mouth [place] SR) 150 mg 00 daily. Medical SR tablet Branch buPROPion 2018-08 Yes [id number] 150mg Take 1 U nivers SR 0-16 tablet by ity of (WELLBUTRIN 00:00: mouth [place] SR) 150 mg 00 daily. Medical SR tablet Branch buPROPion 2018-08- No [id number] 150mg Take 1 Univers SR 0-16 05-24 tablet by ity of (WELLBUTRIN 00:00: 00:[place] SR[place] 150 mg 00 :00 daily. Medical SR tablet Branch loratadine 2018-08 Yes [id number] 10mg Take 1 Univers (CLARITIN) 0-11 tablet by ity of 10 mg 00:00: mouth [place] tablet 00 daily. Medical Branch loratadine 2018-08 Yes [id number] 10mg Take 1 Univers (CLARITIN) 0-11 tablet by ity of 10 mg 00:00: mouth [place] tablet 00 daily. Medical Branch loratadine 2018-08 Yes [id number] 10mg Take 1 Univers (CLARITIN) 0-11 tablet by ity of 10 mg 00:00: mouth [place] tablet 00 daily. Medical Branch loratadine 2018-08 Yes [id number] 10mg Take 1 Univers (CLARITIN) 0-11 tablet by ity of 10 mg 00:00: mouth [place] tablet 00 daily. Medical Branch loratadine 2018-08 Yes [id number] 10mg Take 1 Univers (CLARITIN) 0-11 tablet by ity of 10 mg 00:00: mouth [place] tablet 00 daily. Medical Branch loratadine 2018-08 Yes [id number] 10mg Take 1 Univers (CLARITIN) 0-11 tablet by ity of 10 mg 00:00: mouth [place] tablet 00 daily. Medical Branch loratadine 2018-08 Yes [id number] 10mg Take 1 Univers (CLARITIN) 0-11 tablet by ity of 10 mg 00:00: mouth [place] tablet 00 daily. Medical Branch loratadine 2018-08 Yes [id number] 10mg Take 1 Univers (CLARITIN) 0-11 tablet by ity of 10 mg 00:00: mouth [place] tablet 00 daily. Medical Branch loratadine 2018-08 Yes [id number] 10mg Take 1 Univers (CLARITIN) 0-11 tablet by ity of 10 mg 00:00: mouth [place] tablet 00 daily. Medical Branch loratadine 2018-08 Yes [id number] 10mg Take 1 Univers (CLARITIN) 0-11 tablet by ity of 10 mg 00:00: mouth [place] tablet 00 daily. Medical Branch loratadine 2018-08 Yes [id number] 10mg Take 1 Univers (CLARITIN) 0-11 tablet by ity of 10 mg 00:00: mouth [place] tablet 00 daily. Medical Branch loratadine 2018-08 Yes [id number] 10mg Take 1 Univers (CLARITIN) 0-11 tablet by ity of 10 mg 00:00: mouth [place] tablet 00 daily. Medical Branch loratadine 2018-08 Yes [id number] 10mg Take 1 Univers (CLARITIN) 0-11 tablet by ity of 10 mg 00:00: mouth [place] tablet 00 daily. Medical Branch loratadine 2018-08 Yes [id number] 10mg Take 1 Univers (CLARITIN) 0-11 tablet by ity of 10 mg 00:00: mouth [place] tablet 00 daily. Medical Branch loratadine 2018-08 Yes [id number] 10mg Take 1 Univers (CLARITIN) 0-11 tablet by ity of 10 mg 00:00: mouth [place] tablet 00 daily. Medical Branch loratadine 2018-08 Yes [id number] 10mg Take 1 Univers (CLARITIN) 0-11 tablet by ity of 10 mg 00:00: mouth [place] tablet 00 daily. Medical Branch loratadine 2018-08 Yes [id number] 10mg Take 1 Univers (CLARITIN) 0-11 tablet by ity of 10 mg 00:00: mouth [place] tablet 00 daily. Medical Branch loratadine 2018-08 Yes [id number] 10mg Take 1 Univers (CLARITIN) 0-11 tablet by ity of 10 mg 00:00: mouth [place] tablet 00 daily. Medical Branch loratadine 2018-08 Yes [id number] 10mg Take 1 Univers (CLARITIN) 0-11 tablet by ity of 10 mg 00:00: mouth [place] tablet 00 daily. Medical Branch loratadine 2018-08 Yes [id number] 10mg Take 1 Univers (CLARITIN) 0-11 tablet by ity of 10 mg 00:00: mouth [place] tablet 00 daily. Medical Branch loratadine 2018-08 Yes [id number] 10mg Take 1 Univers (CLARITIN) 0-11 tablet by ity of 10 mg 00:00: mouth [place] tablet 00 daily. Medical Branch loratadine 2018-08 Yes [id number] 10mg Take 1 Univers (CLARITIN) 0-11 tablet by ity of 10 mg 00:00: mouth [place] tablet 00 daily. Medical Branch loratadine 2018-08 Yes [id number] 10mg Take 1 Univers (CLARITIN) 0-11 tablet by ity of 10 mg 00:00: mouth [place] tablet 00 daily. Medical Branch loratadine 2018-08 Yes [id number] 10mg Take 1 Univers (CLARITIN) 0-11 tablet by ity of 10 mg 00:00: mouth [place] tablet 00 daily. Medical Branch loratadine 2018-08 Yes [id number] 10mg Take 1 Univers (CLARITIN) 0-11 tablet by ity of 10 mg 00:00: mouth [place] tablet 00 daily. Medical Branch loratadine 2018-08 Yes [id number] 10mg Take 1 Univers (CLARITIN) 0-11 tablet by ity of 10 mg 00:00: mouth [place] tablet 00 daily. Medical Branch loratadine 2018-08 Yes [id number] 10mg Take 1 Univers (CLARITIN) 0-11 tablet by ity of 10 mg 00:00: mouth [place] tablet 00 daily. Medical Branch loratadine 2018-08 Yes [id number] 10mg Take 1 Univers (CLARITIN) 0-11 tablet by ity of 10 mg 00:00: mouth [place] tablet 00 daily. Medical Branch loratadine 2018-08 Yes [id number] 10mg Take 1 Univers (CLARITIN) 0-11 tablet by ity of 10 mg 00:00: mouth [place] tablet 00 daily. Medical Branch loratadine 2018-08 Yes [id number] 10mg Take 1 Univers (CLARITIN) 0-11 tablet by ity of 10 mg 00:00: mouth [place] tablet 00 daily. Medical Branch loratadine 2018-08 Yes [id number] 10mg Take 1 Univers (CLARITIN) 0-11 tablet by ity of 10 mg 00:00: mouth [place] tablet 00 daily. Medical Branch loratadine 2018-08 Yes [id number] 10mg Take 1 Univers (CLARITIN) 0-11 tablet by ity of 10 mg 00:00: mouth [place] tablet 00 daily. Medical Branch loratadine 2018-08 Yes [id number] 10mg Take 1 Univers (CLARITIN) 0-11 tablet by ity of 10 mg 00:00: mouth [place] tablet 00 daily. Medical Branch loratadine 2018-08 Yes [id number] 10mg Take 1 Univers (CLARITIN) 0-11 tablet by ity of 10 mg 00:00: mouth [place] tablet 00 daily. Medical Branch loratadine 2018-08 Yes [id number] 10mg Take 1 Univers (CLARITIN) 0-11 tablet by ity of 10 mg 00:00: mouth [place] tablet 00 daily. Medical Branch loratadine 2018-08 Yes [id number] 10mg Take 1 Univers (CLARITIN) 0-11 tablet by ity of 10 mg 00:00: mouth [place] tablet 00 daily. Medical Branch loratadine 2018-08 Yes [id number] 10mg Take 1 Univers (CLARITIN) 0-11 tablet by ity of 10 mg 00:00: mouth [place] tablet 00 daily. Medical Branch loratadine 2018-08 Yes [id number] 10mg Take 1 Univers (CLARITIN) 0-11 tablet by ity of 10 mg 00:00: mouth [place] tablet 00 daily. Medical Branch loratadine 2018-08 Yes [id number] 10mg Take 1 Univers (CLARITIN) 0-11 tablet by ity of 10 mg 00:00: mouth [place] tablet 00 daily. Medical Branch loratadine 2018-08- No [id number] 10mg Take 1 Univers (CLARITIN) 0-11 05-24 tablet by ity of 10 mg 00:00: 00:00 mouth [place] tablet 00 :00 daily. [facility] Branch Immunizations Ordered Filled Immunization Date Status Comments [facility] e Immunization Name Name TD 2018-04-07 Completed University of 00:00:00 [facility] TDAP 2018-04-07 Completed University of 00:00:00 [facility] TDAP 2018-04-07 Completed University of 00:00:00 [place] [...] Branch TDAP 2018-04-07 Completed University of 00:00:00 [facility] TDAP 2018-04-07 Completed University of 00:00:00 [facility] TDAP 2018-04-07 Completed University of 00:00:00 [place] [facility] TDAP 2018-04-07 Completed University of 00:00:00 [place] [facility] TDAP 2018-04-07 Completed University of 00:00:00 [facility] TDAP 2018-04-07 Completed University of 00:00:00 [facility] Branch TDAP 2018-04-07 Completed University of 00:00:00 [place] [facility] TDAP 2018-04-07 Completed University of 00:00:00 [facility] Branch TDAP 2018-04-07 Completed University of 00:00:00 [facility] Branch TDAP 2018-04-07 Completed University of 00:00:00 [place] [facility] TDAP 2018-04-07 Completed University of 00:00:00 [facility] Branch TDAP 2018-04-07 Completed University of 00:00:00 [facility] Branch TDAP 2018-04-07 Completed University of 00:00:00 [facility] Branch TDAP 2018-04-07 Completed University of 00:00:00 [facility] Branch TDAP 2018-04-07 Completed University of 00:00:00 [facility] Branch TDAP 2018-04-07 Completed University of 00:00:00 [facility] Branch TDAP 2018-04-07 Completed University of 00:00:00 [facility] Branch TDAP 2018-04-07 Completed University of 00:00:00 [facility] Branch TDAP 2018-04-07 Completed University of 00:00:00 [facility] Branch TDAP 2018-04-07 Completed University of 00:00:00 [facility] Branch TDAP 2018-04-07 Completed University of 00:00:00 [facility] Branch TDAP 2018-04-07 Completed University of 00:00:00 [facility] Branch TDAP (ADACEL) 2012-02-09 Completed University of VACCINE 00:00:00 [facility] Branch TDAP (ADACEL) 2012-02-09 Completed University of VACCINE 00:00:00 [facility] Branch TDAP (ADACEL) 2012-02-09 Completed University of VACCINE 00:00:00 [facility] Branch TDAP (ADACEL) 2012-02-09 Completed University of VACCINE 00:00:00 [facility] Branch TDAP (ADACEL) 2012-02-09 Completed University of [...] Completed University of VACCINE 00:00:00 [facility] Branch TDAP (ADACEL) 2012-02-09 Completed University of VACCINE 00:00:00 [facility] Branch TDAP (ADACEL) 2012-02-09 Completed University of VACCINE 00:00:00 [facility] Branch TDAP (ADACEL) 2012-02-09 Completed University of VACCINE 00:00:00 [facility] Branch TDAP (ADACEL) 2012-02-09 Completed University of VACCINE 00:00:00 [facility] Branch TDAP (ADACEL) 2012-02-09 Completed University of VACCINE 00:00:00 [facility] Branch TDAP (ADACEL) 2012-02-09 Completed University of VACCINE 00:00:00 [facility] Branch TDAP (ADACEL) 2012-02-09 Completed University of VACCINE 00:00:00 [facility] Branch TDAP (ADACEL) 2012-02-09 Completed University of VACCINE 00:00:00 [facility] Branch TDAP (ADACEL) 2012-02-09 Completed University of VACCINE 00:00:00 [facility] Branch TDAP (ADACEL) 2012-02-09 Completed University of VACCINE 00:00:00 [facility] Branch TDAP (ADACEL) 2012-02-09 Completed University of VACCINE 00:00:00 [facility] Branch TDAP (ADACEL) 2012-02-09 Completed University of VACCINE 00:00:00 [facility] Branch TDAP (ADACEL) 2012-02-09 Completed University of VACCINE 00:00:00 [facility] Branch TDAP (ADACEL) 2012-02-09 Completed University of VACCINE 00:00:00 [facility] Branch TDAP (ADACEL) 2012-02-09 Completed University of VACCINE 00:00:00 [facility] Branch TDAP (ADACEL) 2012-02-09 Completed University of VACCINE 00:00:00 [place] [facility] TDAP (ADACEL) 2012-02-09 Completed University of VACCINE 00:00:00 [place] [facility] TDAP (ADACEL) 2012-02-09 Completed University of VACCINE 00:00:00 [place] [facility] TDAP (ADACEL) 2012-02-09 Completed University of VACCINE 00:00:00 [facility] Branch TDAP (ADACEL) 2012-02-09 Completed University of VACCINE 00:00:00 [facility] Branch TDAP (ADACEL) 2012-02-09 Completed University of VACCINE 00:00:00 [place] [facility] TDAP (ADACEL) 2012-02-09 Completed University of VACCINE 00:00:00 [facility] Branch TDAP (ADACEL) 2012-02-09 Completed University of VACCINE 00:00:00 [facility] Branch TDAP (ADACEL) 2012-02-09 Completed University of VACCINE 00:00:00 [facility] Branch TDAP (ADACEL) 2012-02-09 Completed University of VACCINE 00:00:00 [facility] Branch TDAP (ADACEL) 2012-02-09 Completed University of VACCINE 00:00:00 [facility] Branch TDAP (ADACEL) 2012-02-09 Completed University of VACCINE 00:00:00 [facility] Branch TDAP (ADACEL) 2012-02-09 Completed University of VACCINE 00:00:00 [facility] Branch TDAP (ADACEL) 2012-02-09 Completed University of VACCINE 00:00:00 [facility] Branch TDAP (ADACEL) 2012-02-09 Completed University of VACCINE 00:00:00 [facility] Branch TDAP (ADACEL) 2012-02-09 Completed University of VACCINE 00:00:00 [facility] Branch TDAP (ADACEL) 2012-02-09 Completed University of VACCINE 00:00:00 [facility] Branch TDAP (ADACEL) 2012-02-09 Completed University of VACCINE 00:00:00 [facility] Branch TDAP (ADACEL) 2012-02-09 Completed University of VACCINE 00:00:00 [facility] Branch TDAP (ADACEL) 2012-02-09 Completed University of VACCINE 00:00:00 [facility] Branch TDAP (ADACEL) 2012-02-09 Completed University of VACCINE 00:00:00 [facility] Branch TDAP (ADACEL) 2012-02-09 Completed University of VACCINE 00:00:00 [facility] Branch TDAP (ADACEL) 2012-02-09 Completed University of VACCINE 00:00:00 [facility] TDAP (ADACEL) 2012-02-09 Completed University of VACCINE 00:00:00 [facility] Branch TDAP (ADACEL) 2012-02-09 Completed University of VACCINE 00:00:00 [facility] Vital Signs Vital Name Observation Time Observation Value Comments Source Systolic blood 2021-04-30 20:05:00 136 mm[Hg] Univer sity of pressure [facility] Diastolic blood 2021-04-30 20:05:00 88 mm[Hg] Unive rsity of pressure [facility] Heart rate 2021-04-30 20:05:00 102 /min Universi ty of [facility] Body temperature 2021-04-30 20:05:00 37.67 [place] [facility] [facility] Respiratory rate 2021-04-30 20:05:00 16 /min [facility] [place] [facility] Body height 2021-04-30 20:05:00 152.4 cm [facility] [place] [facility] [place] Body weight 2021-04-30 20:05:00 79.379 kg [facility] [place] [facility] BMI 2021-04-30 20:05:00 34.18 kg/m2 [facility] [place] [facility] Oxygen saturation in 2021-04-30 20:05:00 97 /min [facility] of Arterial blood by [place] [facility] Pulse oximetry Branch Systolic blood 2021-01-07 02:00:00 140 mm[Hg] [facility] [place] [facility] Diastolic blood 2021-01-07 02:00:00 96 mm[Hg] Unive rsity [facility] [place] [facility] [place] Heart rate 2021-01-07 02:00:00 63 /min [facility] [place] [facility] Respiratory rate 2021-01-07 02:00:00 17 /min [facility] [place] [facility] Oxygen saturation in 2021-01-07 02:00:00 98 /min University of Arterial blood by [facility] Pulse oximetry Branch Body temperature 2021-01-06 23:55:00 37.22 Vielka [facility] [place] [facility] Body weight 2021-01-06 23:55:00 92.08 kg [facility] [place] [facility] BMI 2021-01-06 23:55:00 38.36 kg/m2 [facility] [place] [facility] Systolic blood 2021-01-06 15:01:00 139 mm[Hg] [facility] [place] [facility] Diastolic blood 2021-01-06 15:01:00 90 mm[Hg] Unive rsity [facility] [place] [facility] Heart rate 2021-01-06 15:01:00 90 /min [facility] [place] [facility] Body temperature 2021-01-06 15:01:00 36.78 Vielka Univ [facility]ity of [facility] Respiratory rate 2021-01-06 15:01:00 16 /min [...] 2021-01-02 03:15:50 68 /min Universi ty of [facility] Respiratory rate 2021-01-02 03:15:50 18 /min Univ ersity of [facility] Oxygen saturation in 2021-01-02 03:15:50 100 /min University of Arterial blood by [facility] Pulse oximetry Branch Body temperature 2021-01-02 01:14:00 37.06 Vielka Univ ersity of [facility] Body height 2021-01-02 01:14:00 154.9 cm [facility] [place] [facility] Body weight 2021-01-02 01:14:00 92.987 kg [facility] [place] [facility] BMI 2021-01-02 01:14:00 38.73 kg/m2 Universi [facility] of [facility] Systolic blood 2020-12-29 18:23:00 127 mm[Hg] [facility]iver [facility] [place] [facility] Diastolic blood 2020-12-29 18:23:00 88 mm[Hg] Unive rsity [facility] [place] [facility] Heart rate 2020-12-29 18:23:00 87 /min [facility] [place] [facility] Body temperature 2020-12-29 18:23:00 36.83 Vielka [facility] [place] [facility] Respiratory rate 2020-12-29 18:23:00 16 /min [facility] [place] [facility] Body height 2020-12-29 18:23:00 154.9 cm [facility] [place] [facility] Body weight 2020-12-29 18:23:00 93.243 kg [facility] [place] [facility] BMI 2020-12-29 18:23:00 38.84 kg/m2 [facility] [place] [facility] Systolic blood 2020-10-13 19:32:00 135 mm[Hg] [facility] [place] [facility] Diastolic blood 2020-10-13 19:32:00 90 [...] 19:51:00 127 mm[Hg] [facility] [place] [facility] Diastolic blood 2020-10-01 19:51:00 92 [...] 100 /min [facility] blood by [place] Yuntaa rosa elena Pulse oximetry Branch Body temperature [...] 99 /min University of Arterial blood by Grid20/20 rosa elena Pulse oximetry Branch Systolic blood 2020-06-09 18:36:00 140 mm[Hg] [facility] [place] [facility] Diastolic blood 2020-06-09 18:36:00 99 mm[Hg] Unive rsity [facility] [place] [facility] Heart rate 2020-06-09 18:34:00 86 /min [facility] [place] [facility] Body temperature 2020-06-09 18:34:00 37.17 [...] 98 /min University of Arterial blood by [facility] Pulse oximetry Branch Systolic blood 2020-03-17 13:46:00 [...] 99 /min [facility] Arterial blood by [facility] Pulse oximetry Branch Body weight 2020-02-19 22:32:00 90.719 kg [facility] [place] [facility] BMI 2020-02-19 22:32:00 37.79 kg/m2 [facility] [place] [facility] Body temperature 2020-02-19 22:31:00 37.44 Vielka [facility] [place] [facility] Systolic blood 2020-02-14 13:19:00 127 mm[Hg] Univer sity of pressure [facility] Diastolic blood 2020-02-14 13:19:00 85 mm[Hg] Unive rsity of pressure [facility] Heart rate 2020-02-14 13:19:00 109 /min [facility] [place] [facility] Body temperature 2020-02-14 13:19:00 36.5 Vielka Univ [facility]ity of [facility] Respiratory rate 2020-02-14 13:19:00 16 /min Univ ersity of [facility] Body height 2020-02-14 13:19:00 154.9 cm Universi ty of [facility] Body weight 2020-02-14 13:19:00 89.415 kg [facility] [place] [facility] BMI 2020-02-14 13:19:00 37.25 kg/m2 [facility] [place] [facility] Systolic blood 2020-02-04 20:17:00 118 mm[Hg] Univer sity of pressure [facility] Diastolic blood 2020-02-04 20:17:00 80 mm[Hg] Unive rsity of pressure [facility] Heart rate 2020-02-04 20:17:00 99 /min [facility] [place] [facility] Body temperature 2020-02-04 20:17:00 36.89 Vielka Univ [facility] Respiratory rate 2020-02-04 20:17:00 18 /min Univ ersity of [facility] Body height 2020-02-04 20:17:00 154.9 cm [facility] [place] [facility] Body weight 2020-02-04 20:17:00 89.903 kg [facility] [place] [facility] BMI 2020-02-04 20:17:00 37.45 kg/m2 Universi [facility] of [facility] Oxygen saturation in 2020-02-04 20:17:00 99 /min [facility] Arterial blood by [facility] Pulse oximetry Branch Systolic blood 2020-01-28 21:51:00 128 mm[Hg] Univer sity of pressure [facility] Diastolic blood 2020-01-28 21:51:00 84 mm[Hg] Unive [...] 100 /min University of Arterial blood by [facility] Pulse oximetry Branch Systolic blood 2019-11-17 05:00:00 [...] 99 /min [facility] of Arterial blood by [facility] Pulse oximetry Branch Body temperature 2019-11-17 03:38:00 [...] 2019-10-29 22:32:00 18 /min Univ ersity of [facility] Body height 2019-10-29 22:32:00 154.9 cm [facility] [place] [facility] [place] Body weight 2019-10-29 22:32:00 81.647 kg [facility] [place] [facility] BMI 2019-10-29 22:32:00 34.01 kg/m2 Univers[facility] of [facility] Oxygen saturation in 2019-10-29 22:32:00 99 /min [facility] of Arterial blood by [facility] Pulse oximetry Branch Systolic blood 2019-10-11 19:19:00 116 mm[Hg] Univer sity of pressure [facility] Diastolic blood 2019-10-11 19:19:00 80 mm[Hg] Unive rsity of pressure [facility] Heart rate 2019-10-11 19:19:00 79 /min Universi ty of [facility] Body temperature 2019-10-11 19:19:00 36.89 Vielka [facility] Respiratory rate 2019-10-11 19:19:00 16 /min Univ ersity of [facility] Body height 2019-10-11 19:19:00 154.9 cm Universi ty of [facility] Body weight 2019-10-11 19:19:00 83.462 kg [facility] BMI 2019-10-11 19:19:00 34.77 kg/m2 [facility] Systolic blood 2019-09-12 15:58:00 124 mm[Hg] Univer sity of pressure [facility] Diastolic blood 2019-09-12 15:58:00 82 mm[Hg] Unive rsity of pressure [facility] Heart rate 2019-09-12 15:58:00 75 /min Universi ty of [facility] Body temperature 2019-09-12 15:58:00 36.17 Vielka [facility] Respiratory rate 2019-09-12 15:58:00 16 /min Univ [facility] of [facility] Body height 2019-09-12 15:58:00 154.9 cm [facility]i [facility] of [facility] Body weight 2019-09-12 15:58:00 83.944 kg [facility] [place] [facility] [place] BMI 2019-09-12 15:58:00 34.97 kg/m2 [facility] of [facility] Systolic blood 2019-08-28 19:13:00 134 mm[Hg] Univer sity of pressure [facility] Diastolic blood 2019-08-28 19:13:00 82 mm[Hg] Unive rsity of pressure [facility] Heart rate 2019-08-28 19:13:00 86 /min [facility] Body temperature 2019-08-28 19:13:00 36.28 Vielka [facility] Respiratory rate 2019-08-28 19:13:00 16 /min [facility] Body weight 2019-08-28 19:13:00 81.874 kg [facility] Procedures Procedure Date / Time Performing Clinician Source Performed XR ANKLE 3+ VW LEFT 2021-04-30 20:34:56 Zeynep Leonard [facility] XR FOOT 3+ VW LEFT 2021-04-30 20:22:52 Zeynep Leonard [facility] NOTICE OF PRIVACY 2021-04-30 19:49:46 Doctor Unassigned, No [facility] PRACTICES Name [facility] CONSENT/REFUSAL FOR 2021-04-30 19:49:35 Doctor Unassigned, No [facility] [place] [facility]AT[facility] Name [facility] BASIC METABOLIC PANEL 2021-01-07 02:02:00 Maribel Fink [facility] (NA, K, CL, CO2, Medical Branch GLUCOSE, BUN, CREATININE, CA) TOTAL BETA HCG ASSAY 2021-01-07 02:02:00 Marilee Balderas [facility] US PELVIS COMPLETE WITH 2021-01-07 01:47:45 Marilee Balderas [facility] TRANSVAGINAL [facility] CBC WITH DIFF 2021-01-07 00:30:00 Maribel Fink [facility] CONSENT/REFUSAL FOR 2021-01-06 23:48:32 Doctor Unassigned, No [facility] Name [facility] POCT URINALYSIS 2021-01-06 15:05:00 Dewey Boyer [facility] POCT TEST 2021-01-02 01:43:00 Virginia Lee [facility] BASIC METABOLIC PANEL 2021-01-02 01:39:00 Virginia Lee [facility] (NA, K, CL, CO2, Medical Branch GLUCOSE, BUN, CREATININE, CA) TOTAL BETA HCG ASSAY 2021-01-02 01:39:00 Virginia Lee [facility] CBC WITH DIFF 2021-01-02 01:39:00 Jesus [facility] o [facility] URINALYSIS 2021-01-02 01:39:00 [facility] ASSIGNMENT OF BENEFITS 2021-01-02 00:58:52 Doctor Unassigned, No [facility] CONSENT/REFUSAL FOR 2021-01-02 00:58:20 Doctor Unassigned, No [facility] DIAGNOSIS AND TREATMENT [facility] EXTERNAL PROVIDER 2020-12-31 05:01:00 Doctor Unassigned, No [facility] RECORDS [facility] POCT TEST 2020-12-29 18:17:00 [facility] POCT URINALYSIS W/O 2020-12-29 18:17:00 [facility] SPECIFIC GRAVITY [facility] ASSIGNMENT OF BENEFITS 2020-12-29 17:59:17 Doctor Unassigned, No [facility] PAP SMEAR-LIQUID 2020-10-13 20:28:00 Suzie Dubois [facility] BASED-[facility] POCT TEST 2020-10-13 20:24:00 Suzie Dubois Uni [facility] POCT TEST 2020-10-01 20:24:00 Suzie Dubois Uni [facility] GC & CHLAMYDIA AMPLIFIED 2020-10-01 20:18:00 Suzie Dubois [facility] ASSAY [facility] CT ABDOMEN PELVIS WO 2020-09-27 11:31:02 Maribel Fink [facility] POCT TEST 2020-09-27 11:00:00 [facility] BASIC METABOLIC PANEL 2020-09-27 10:59:00 Maribel Fink [facility] (NA, K, CL, CO2, Medical [facility] GLUCOSE, BUN, CREATININE, CA) CBC WITH DIFF 2020-09-27 10:59:00 Maribel Fink [facility] URINALYSIS 2020-09-27 10:59:00 Maribel Fink [facility] CONSENT/REFUSAL FOR 2020-07-28 21:51:28 Doctor Unassigned, No [facility] [place] [facility]REATMENT Name [facility] POCT TEST 2020-06-09 19:36:00 [facility]FF 2020-06-09 19:16:00 Maribel Fink [facility] BASIC METABOLIC PANEL 2020-06-09 19:04:00 [facility] (NA, K, CL, CO2, [facility] GLUCOSE, BUN, CREATININE, CA) NOTICE OF PRIVACY 2020-06-09 18:26:59 Doctor Unassigned, No Univ ersity [facility] PRACTICES Name Medical Branch CONSENT/REFUSAL FOR 2020-06-09 18:24:01 Doctor Unassigned, No [facility] [place] [facility]REAT[facility] Name [facility] DISCLOSURE AND CONSENT, 2020-03-17 05:01:00 Doctor Unassigned, N o [facility] MEDICAL AND SURGICAL Name Medical Bra nch PROCEDURES US OVARY TORSION 2020-02-20 01:09:07 Angélica Pratt [facility] URINALYSIS 2020-02-19 23:35:00 Angélica Pratt [facility] POCT TEST 2020-02-19 23:33:00 Angélica Pratt [facility] NOTICE OF PRIVACY 2020-02-19 22:13:44 Doctor Unassigned, No Univ ersity [facility] PRACTICES Name Medical Branch CONSENT/REFUSAL FOR 2020-02-19 [...] HCG ASSAY 2019-11-17 04:26:00 [facility] WITH DIFFERENTIAL 2019-11-17 04:26:00 Micheal Fraz[facility] 2019-11-17 04:26:00 [facility] POCT TEST 2019-11-17 04:25:00 Micheal Frazier [facility] ASSIGNMENT OF BENEFITS 2019-11-17 03:27:42 Doctor Unassigned, No [facility] CONSENT/REFUSAL FOR 2019-11-17 03:27:27 Doctor Unassigned, No [facility] [place] [facility]REATMENT [facility] RAPID STREP SCREEN FOR 2019-10-29 23:02:00 Marilee Balderas [facility] A [facility] CONSENT/REFUSAL FOR 2019-10-29 22:17:24 Doctor Unassigned, No [facility]REATMENT [facility] NOTICE OF PRIVACY 2019-10-29 22:17:13 Doctor Unassigned, No [facility] PRACTICES [facility] POCT TEST 2019-09-12 15:59:00 Suzie Dubois [facility] CONSENT FOR 2019-09-12 06:01:00 Doctor Unassigned, No [facility] CONTRACEPTION [facility] POCT TEST 2019-08-28 19:16:00 Suzie Dubois [facility] Encounters Start End Encounter Admission Attending Care Care Encounter Source Date/Time Date/Time Type Type Clinicians Facility Department ID 2021-06-09 Emergency [facility] [id number] Univers 00:57:31 ity of [facility] 2021-06-07 Emergency [facility] [id number] Univers 22:32:16 ity of [facility] 2021-06-07 Emergency [facility] [id number] Univers 21:51:33 ity of [facility] 2021-06-07 Emergency [facility] [id number] Univers 00:13:35 ity of [facility] 2021-06-06 Emergency [facility] [id number] Univers 12:33:58 ity of [facility] 2021-06-06 Emergency [facility] [id number] Univers 02:28:06 ity of [facility] 2021-06-05 Emergency [facility] [id number] Univers 06:45:59 ity of [facility] 2021-06-05 Emergency [facility] [id number] Univers 02:15:47 ity of [facility] 2021-06-04 Emergency [facility] [id number] Univers 17:43:49 ity of [facility] 2021-06-04 Emergency [facility] [id number] Univers 15:37:47 ity of [facility] 2021-04-30 2021-04-30 Emergency Zeynep Leonard [facility] [id number] Univers 15:06:00 16:44:00 Gretel Holton [id number] i ty [facility] [id number] [place] [facility] [id number] [facility] [address] [place] 2021-04-30 2021-04-30 Orders Doctor SHANELLE [id number] Univers 00:00:00 00:00:00 Only Unassigned, ANTONIO [id number] ity of [place] [facility] [id number] Arnulfo as [id number] [facility] [address] [place] 2021-03-02 2021-03-02 Outpatient CHAVA [facility] [id number] Univers 10:40:00 10:40:00 DIXON [id number] ity [facility] 2021-03-02 2021-03-02 Outpatient R CHAVA [facility] [id number] Univers 10:40:00 10:40:00 DIXON ity [facility] 2021-02-17 2021-02-17 Telephone Merlin [facility] [id number] Univers 00:00:00 00:00:00 Dewey Arnold [employer] [id number] ity of [facility] [id number] [place]ulfo as MATERNAL [phone] Med ical & CHILD [address] [place] [address] 2021-02-09 2021-02-09 Outpatient Clayton BOYER [facility] [id number] Univers 17:30:00 17:30:00 JUSNDJude [id number] ity o f [facility] 2021-02-09 2021-02-09 Outpatient Clayton BOYER [facility] [id number] Univers 17:30:00 17:30:00 EDINVIRIDIANA alex o [facility] 2021-01-26 2021-01-26 Outpatient R MERLIN [facility] [id number] Univers 13:45:00 13:45:00 DEWEY [id number] ity o [facility] 2021-01-26 2021-01-26 Outpatient Clayton BOYER [facility] [id number] Univers 13:45:00 13:45:00 DEWEY itomega o [facility] 2021-01-22 2021-01-22 Outpatient Clayton BOYER [facility] [id number] Univers 09:45:00 09:45:00 DEWEY [id number] ity o [facility] 2021-01-22 2021-01-22 Outpatient R MERLIN [facility] [id number] Univers 09:45:00 09:45:00 JUSREINAJude y o [facility] 2021-01-13 2021-01-13 Outpatient R [facility] [id number] Univers 15:00:00 15:00:00 [id number] [facility] 2021-01-13 2021-01-13 Outpatient R [facility] [id number] Univers 15:00:00 15:00:00 [facility] 2021-01-08 2021-01-08 Outpatient [facility] [id number] Univers 13:30:00 13:30:00 [id number] [facility] 2021-01-08 2021-01-08 Outpatient R [facility] [id number] Univers 13:30:00 13:30:00 [facility] 2021-01-06 2021-01-06 Emergency [facility] [id number] Univers 18:57:00 21:58:00 Marilee Montes [id number] i ty of [place] [id number] [facility] [id number] [place] [id number] [place] 2021-01-06 2021-01-06 Office Sherly [facility] [id number] Univers 09:46:53 10:01:53 Visit Suzie Whittington [employer] [id number] ity of [facility] [id number] [place] as MATERNAL [id number] [facility] & CHILD [address] [place] [address] 2021-01-06 2021-01-06 Outpatient R SHERLY [facility] [id number] Univers 09:45:00 09:45:00 SUZIE [id number] alex [facility]gin[facility] 2021-01-06 2021-01-06 Outpatient R SHERLY [facility] [id number] Univers 09:45:00 09:45:00 SUZIE alberto [facility] 2021-01-01 2021-01-01 Emergency Virginia Lee [facility] 1.2.840. [id number] Univers 20:11:00 22:16:00 [facility] [id number] ity of [facility] [id number] [facility] [phone] [address] ([facility]) 2021-01-01 2021-01-01 Telephone Merlin NDMAGDALENA [id number] Univers 00:00:00 00:00:00 Dewey Arnold [employer] [id number] ity of [facility] [id number] [place] as MATERNAL [id number] [facility] & CHILD [address] [place] [address] 2020-12-31 2020-12-31 Orders Doctor TIMMONS [id number] Univers 00:00:00 00:00:00 Only Unassigned, ANTONIO [id number] ity of [place] [facility] [id number] [place]fo as [id number] [facility] [address] 2020-12-31 2020-12-31 Abstract Merlin [facility] [id number] Univers 00:00:00 00:00:00 Roshunda R [employer] [id number] ity of REGIONAL [id number] [place] as MATERNAL [id number] [facility] & [address] 2020-12-29 2020-12-29 Initial Merlin [facility] [id number] Univers 13:13:26 14:21:50 Roshunda R [employer] [id number] ity of Visit REGIONAL [id number] [place] as MATERNAL [id number] [facility] & [address] 2020-12-29 2020-12-29 Outpatient R [facility] [id number] Univers 13:15:00 13:15:00 [id number] ity of [facility] 2020-12-29 2020-12-29 Outpatient R [facility] [id number] Univers 13:15:00 13:15:00 ity of [facility] 2020-12-29 2020-12-29 Orders Doctor SHANELLE [id number] Univers 00:00:00 00:00:00 Only Unassigned, ANTONIO [id number] ity of [place] [facility] [id number] [place] as [id number] [address] 2020-12-24 2020-12-24 Outpatient R [facility] [id number] Univers 12:45:00 12:45:00 [id number] ity of [facility] 2020-10-28 2020-10-28 Patient Chava [facility] [id number] 00:00:00 00:00:00 Outreach Dixon PRIMARY [id number] Sai CARE [id number] PAVILLION [id number] 388 2020-10-28 2020-10-28 Patient Chava [facility] [id number] Univers 00:00:00 00:00:00 Outreach Dixon PRIMARY [id number] i ty of Sai CARE [id number] Veronica YANG [id number] [address] 2020-10-24 2020-10-24 [facility] 1.2.840.114 [id number] 00:00:00 00:00:00 Suzie C [employer] [id number] REGIONAL [id number] MATERNAL [id number] & [address] 2020-10-24 2020-10-24 Telephone [facility] [id number] Univers 00:00:00 00:00:00 Suzie C [employer] [id number] ity [facility] [id number] [place] as MATERNAL [id number] [address] 2020-10-22 2020-10-22 Outpatient R [facility] [id number] Univers 13:30:00 13:30:00 [id number] ity [facility] 2020-10-22 2020-10-22 Outpatient R [facility] [id number] Univers 13:30:00 13:30:00 ity [facility] 2020-10-13 2020-10-13 Outpatient [facility] [id number] Univers 14:15:00 14:15:00 SUZIE [id number] ity o [facility] 2020-10-13 2020-10-13 [facility] [id number] Univers 14:15:00 14:15:00 SUZIE ity o [facility] 2020-10-13 2020-10-13 Office [facility] [id number] Univers 13:15:53 14:08:32 Visit Suzie Whittington [employer] [id number] ity [facility] [id number] [place] as MATERNAL [id number] [facility] & CHILD [address] [place] [address] 2020-10-13 2020-10-13 MYRANDA Grigsby [id number] Univers 00:00:00 00:00:00 (Out) [facility] [id number] i ty [facility] [facility] [place]2.7.2.[place] [phone] [facility] [address] 2020-10-10 2020-10-10 Outpatient R [facility] [id number] Univers 15:00:00 15:00:00 [id number] ity [facility] 2020-10-10 2020-10-10 Outpatient R [facility] [id number] Univers 15:00:00 [facility] 2020-10-01 2020-10-01 Office [facility] [id number] Univers 13:17:23 14:22:51 Visit Suzie Whittington [employer] [id number] ity [facility] 4.2.7.2.686 [place] MATERNAL [phone] Med ical & CHILD [address] [place] [address] 2020-10-01 2020-10-01 [facility] [id number] 9Q-20 Univers 13:30:00 13:30:00 [facility] [id number] [facility] 2020-10-01 2020-10-01 [facility] [id number] Univers 13:30:00 13:30:00 [facility] 2020-09-27 2020-09-27 Emergency [facility] 1.2.840.114 [id number] Univers 04:41:00 06:40:00 Maribel Montes [id number] ity [facility] [place]2.7.2.686 [place] [phone] [facility] [address] 2020-08-18 2020-08-18 Outpatient R SHERLY, [facility] [id number] 9Q-20 Univers 09:00:00 09:00:00 SUZIE [id number] ity o [facility] 2020-08-18 2020-08-18 Outpatient R SHERLY, [facility] [id number] Univers 09:00:00 09:00:00 SUZIE ity o [facility] 2020-08-18 2020-08-18 Outpatient R SHERLY, [facility] [id number] Univers 09:00:00 09:00:00 SUZIE alberto f [facility] 2020-07-28 2020-07-28 [facility] 1.2.035.282 [id number] Univers 16:18:00 17:19:00 Ilya Montes 350.1.13.10 i ty of [place] 4.2.7.2.686 [facility] [phone] [address] 2020-06-09 2020-06-09 [facility] 1.2.840.114 [id number] Univers 12:37:00 14:13:00 Maribel Montes [id number] ity of [place] 4.2.7.2.686 [facility] [id number] [address] 2020-05-10 2020-05-10 [facility] 1.2.585.591 [id number] Univers 00:00:00 00:00:00 Suzie Whittington [employer] [id number] ity of [facility] 4.2.7.2.686 [place] MATERNAL [id number] Med ical & CHILD [address] [place] [address] 2020-03-17 2020-03-17 Office [facility] 1.2.139.284 [id number] Univers 08:15:18 08:45:18 Visit Suzie Whittington [employer] [id number] ity [facility] 4.2.7.2.686 [place] MATERNAL [id number] [facility] & CHILD [address] [place] [address] 2020-03-17 2020-03-17 Outpatient R SHERLY, [facility] [id number] 9Q-20 Univers 08:00:00 08:00:00 SUZIE [id number] alberto f [facility] 2020-03-17 2020-03-17 Outpatient R AAYUSHSIPE, [facility] [id number] Univers 08:00:00 08:00:00 SUZIE alberto f [facility] 2020-03-17 2020-03-17 [facility] 1.2.840.114 [id number] Univers 00:00:00 00:00:00 Suzie C [employer] [id number] ity of [facility] 4.2.7.2.686 [place] MATERNAL [id number] [facility] ical & CHILD [address] [place] [address] 2020-03-17 2020-03-17 Orders Doctor SHANELLE 1.2.840.114 [id number] Univers 00:00:00 00:00:00 Only Unassigned, ANTONIO [id number] ity of [facility] 4.2.7.2.686 [place] [phone] [address] 2020-03-14 2020-03-14 Telephone [facility], [facility] 1.2.840.114 [id number] Univers 00:00:00 00:00:00 Suzie C [employer] [id number] ity of [facility]ION[facility] 4.2.7.2.686 [place] MATERNAL [id number] [facility] & CHILD [address] [place] [address] 2020-02-21 2020-02-21 Telephone [facility], [facility] 1.2.840.114 [id number] Univers 00:00:00 00:00:00 Suzie C [employer] 350.1.13.10 ity of [facility] 4.2.7.2.686 [place] as MATERNAL [phone] [facility] & [address] 2020-02-19 2020-02-19 Emergency [facility] [id number] Univers 17:34:18 21:02:00 Angélica Montes 350.1.13.10 ity of [place] 4.2.7.2.686 [facility] [phone] [address] 2020-02-19 2020-02-19 Orders Doctor SHANELLE 1.2.840.114 [id number] Univers 00:00:00 00:00:00 Only Unassigned, ANTONIO 350.1.13.10 ity of [facility] 4.2.7.2.686 [place] [id number] [address] 2020-02-14 2020-02-14 Office [facility], [facility] 1.2.583.382 [id number] Univers 07:57:47 08:46:34 Visit Suzie Whittington [employer] 350.1.13.10 ity of [facility] 4.2.7.2.686 [place] as MATERNAL [id number] [facility] & [address] 2020-02-14 2020-02-14 Outpatient R AKINSIPE, [facility] [id number] 9Q-20 Univers 08:00:00 08:00:00 SUZIE ity o [facility] 2020-02-14 2020-02-14 Outpatient R AKINSIPE, [facility] [id number] Univers 08:00:00 08:00:00 SUZIE ity o [facility] 2020-02-12 2020-02-12 Telephone [facility] 1.2.840.114 [id number] Univers 00:00:00 00:00:00 Suzie Whittington [employer] 350.1.13.10 ity of [facility] 4.2.7.2.686 [place] as MATERNAL [phone] [facility] & [address] 2020-02-05 2020-02-05 Outpatient R AKINSIPE, [facility] [id number] 9Q-20 Univers 13:15:00 13:15:00 SUZIE ity o [facility] 2020-02-05 2020-02-05 Outpatient R AKINPE, [facility] [id number] Univers 13:15:00 13:15:00 SUZIE ity o [facility] 2020-02-04 2020-02-04 Urgent Pob1, Acute Care Clinic [facility] 1. 2.840.114 [id number] Univers 15:02:47 15:22:47 [facility] 350.1.13.10 [facility] 4.2.7.2.686 [place] Professio [phone] [address] Office [facility] 2020-02-04 2020-02-04 Outpatient R [facility] [id number] -[id number] Univers 15:00:00 15:00:00 [id number] ity [facility] 2020-02-04 2020-02-04 Outpatient R [facility] [id number] Univers 15:00:00 15:00:00 ity [facility] 2020-01-28 2020-01-28 Emergency [place], [facility] 1.2.435.557 [id number] Univers 17:20:40 18:23:00 [place] Jyoti 350.1.13.10 i ty of [place] 4.2.7.2.686 [facility] [phone] [address] 2020-01-24 2020-01-24 Telephone [facility] 1.2.840.114 [id number] Univers 00:00:00 00:00:00 Suzie C [employer] 350.1.13.10 ity of [facility] 4.2.7.2.686 [place] MATERNAL [id number] [facility] ical & CHILD [address] [place] [address] 2020-01-01 2020-01-01 Telephone [facility] 1.2.840.114 [id number] Univers 00:00:00 00:00:00 Suzie C [employer] 350.1.13.10 ity of [facility] 4.2.7.2.686 [place] MATERNAL [id number] [facility] ical & CHILD [address] [place] [address] 2019-11-16 2019-11-17 Emergency [facility] 1.2.840.114 [id number] Univers 22:30:02 00:50:00 Micheal Montes 350.1.13.10 ity of [place] 4.2.7.2.686 [facility] [id number] [address] 2019-10-29 2019-10-29 Emergency [facility] 1.2.852.020 [id number] Univers 17:33:55 18:57:00 Marilee Montes 350.1.13.10 i ty of [place] 4.2.7.2.686 [facility] [phone] [address] 2019-10-11 2019-10-11 Office [facility] 1.2.493.264 [id number] Univers 13:10:45 15:47:42 Visit Suzie C [employer] 350.1.13.10 ity of [facility] 4.2.7.2.686 [place] MATERNAL [id number] [facility] ical & CHILD [address] [place] [address] 2019-10-11 2019-10-11 Outpatient R SHERLY [facility] [id number] 9Q-20 Univers 13:15:00 13:15:00 SUZIE [id number] ity o f [facility] 2019-10-11 2019-10-11 Outpatient R AAYUSHRAJESHCHITO, [facility] [id number] Univers 13:15:00 13:15:00 SUZIE ity o f [facility] 2019-09-18 2019-09-18 Telephone [facility] 1.2.840.114 [id number] Univers 00:00:00 00:00:00 Suzie C [employer] 350.1.13.10 ity of [facility] 4.2.7.2.686 [place] MATERNAL [id number] [facility] & CHILD [address] [place] [address] 2019-09-12 2019-09-12 Office [facility] 1.2.036.208 [id number] Univers 09:48:40 10:40:56 Visit [facility] C [employer] 350.1.13.10 ity of [facility] 4.2.7.2.686 [place] MATERNAL [phone] Med ical & CHILD [address] [place] [address] 2019-09-12 2019-09-12 Orders Doctor SHANELLE 1.2.840.114 [id number] Univers 00:00:00 00:00:00 Only Unassigned, ANTONIO 350.1.13.10 ity of [place] [facility] 4.2.7.2.686 [place] [phone] [address] 2019-08-28 2019-08-28 Office [facility] 1.2.178.436 [id number] Univers 12:52:04 13:33:28 Visit [facility] C [employer] 350.1.13.10 ity of [facility] 4.2.7.2.686 [place] as MATERNAL [id number] [facility] & CHILD [address] [place] [address] 2019-07-21 2019-07-21 Emergency X MIAN NDMAGDALENA ERT [id number] Univers 11:57:10 14:58:00 PATRICK [facility] Results Test Description Test Time Test Comments Results Result Comments Source TOTAL [facility] (QUANTITATIVE) 2021-01-07 02:46:53 Test Item Value Reference Range Interpretation Comme nts BETA HCG (test code = <2.39 See_Comment [Auto mated message] The [id number]) system which ge nerated this result transmit jorge reference range : Non- fe male and male patients: <5 mIU/mL. The reference r deneen was not used to interpr et this result as axel l/abnormal. EFE (test code = EFE) Gestational Age ?Range (mIU/mL) 1-10 ?Weeks ?69-33068542-19 Weeks ?93163-08133815-00 Weeks ?4316-87286665-27 Weeks ?0240-951522 Biotin has been reported to cause a negative bias, interpret results relative to patient's use of biotin. [facility] (NA, K, CL, CO2, GLUCOSE, BUN, CREATININE, CA)2021-01-07 02:26:05 Test Item Value Reference Range Interpretation Comments NA (test code = 138 mmol/L 135-145 2671153197) K (test code = 4.1 mmol/L 3.5-5.0 2925498542) CL (test code = 106 mmol/L 98-108 0522139387) CO2 TOTAL (test code = 26 mmol/L 23-31 4081362136) AGAP (test code = 2-16 8658982104) BUN (test code = 6 mg/dL 7-23 L 0795376218) GLUCOSE (test code = 88 mg/dL 70-110 2205667078) CREATININE (test code = 0.74 mg/dL 0.50-1.04 7879226576) CALCIUM (test code = 9.3 mg/dL 8.6-10.6 8455911330) eGFR (test code = mL/min/1.73m2 6816254788) EFE (test code = EFE) Association of [...] tests). Lab Interpretation Abnormal (test code = 75845-3) [facility] with [id number] 00:43:53 Test Item Value Reference Range Interpretation Comments WBC (test code = See_Comment [Automated 8218-2) message] The sy stem which generated this result transmitted reference range : 4.30 - 11.10 10*3/?L. The reference range was not used to interpret this result as normal/abnormal . RBC (test code = See_Comment H [Automated 611-8) message] The sy stem which generated this [...] RDW-SD (test code = 42.2 fL 39.0-49.9 51164-1) RDW-CV (test code = 13.0 % 12.0-15.5 788-0) PLT (test code = See_Comment [Automated 777-3) message] The sy stem which generated this result transmitted reference range : 166 - 358 10*3/ ?L. The reference r deneen was not used to interpret this result as normal/abnormal . MPV (test code = 10.5 fL 9.5-12.9 20151-8) NRBC/100 WBC (test See_Comment [Automat ed code = 1049165737) message] The system which generated this result transmitted reference range : 0.0 - 10.0 /100 WBCs. The refer ence range was not u sed to interpret th is result as normal/abnormal . NRBC x10^3 (test code <0.01 See_Comment [Auto mated = 1752101995) message] The s ystem which generated this result transmitted reference range : 10*3/?L. The reference range was not used to interpret this result as normal/abnormal . GRAN MAT (NEUT) % 55.8 % (test code = 770-8) IMM GRAN % (test code 0.40 % = 2901488973) LYMPH % (test code = 29.9 % 736-9) MONO % (test code = 8.6 % 5905-5) EOS % (test code = 4.6 % 713-8) BASO % (test code = 0.7 % 706-2) GRAN MAT x10^3(ANC) 4.48 10*3/uL 1.88-7.09 (test code = 3018257769) IMM GRAN x10^3 (test 0.03 10*3/uL 0.00-0.06 code = 1537354882) LYMPH x10^3 (test code 2.40 10*3/uL 1.32-3.29 = 731-0) MONO x10^3 (test code 0.69 10*3/uL 0.33-0.92 = 742-7) EOS x10^3 (test code = 0.37 10*3/uL 0.03-0.39 711-2) BASO x10^3 (test code 0.06 10*3/uL 0.01-0.07 = 704-7) Lab Interpretation Abnormal (test code = 33005-3) [facility] URINALYSIS W SPECIFIC [id number] 15:05:00 Test Item Value Reference Range Interpretation [...] POCT U APPEAR (test code = 3267) [facility] URINALYSIS W SPECIFIC [id number] 15:05:00 Test Item Value Reference Range Interpretation [...] POCT U APPEAR (test code = 3267) [facility] (QUANTITATIVE)2021-01-02 02:14:37 Test Item Value Reference Range Interpretation Comments BETA HCG (test See_Comment [Automated m essage] code = The system Group 47 h 5409063820) generated this result transmit jorge reference range : Non- fe male and male patien ts: <5 mIU/mL. The reference range was not used to interpret this result as normal/abnormal . EFE (test code Gestational Age ? ? = EFE) ?Range (mIU/mL) 1-10 ?Weeks ?79-78218282-71 Weeks ?88535-83798033-37 Weeks ?6692-53174402-14 Weeks ?7601-202739 Biotin has been reported to cause a negative bias, interpret results relative to patient's use of biotin. [facility] (NA, K, CL, CO2, GLUCOSE, BUN, CREATININE, CA)2021-01-02 01:56:37 Test Item Value Reference Range Interpretation Comments NA (test code = 137 mmol/L 135-145 1844244653) K (test code = 4.3 mmol/L 3.5-5.0 9174820489) CL (test code = 106 mmol/L 98-108 3619907599) CO2 TOTAL (test code 23 mmol/L 23-31 = 7668259907) AGAP (test code = 2-16 8312805952) BUN (test code = 7 mg/dL 7-23 4049450784) GLUCOSE (test code = 94 mg/dL 70-110 3237735777) CREATININE (test code 0.61 mg/dL 0.50-1.04 = 4828965133) CALCIUM (test code = 8.8 mg/dL 8.6-10.6 4328824866) eGFR (test code = mL/min/1.73m2 2117364409) EFE (test code = EFE) Association of [...] or urine or abnormalities in imaging tests). [facility] Center[facility]21-[facility] 01:52:48 Test Item Value Reference Range Interpretation Comments APPEARANCE (test code = Hazy Clear A 2327010245) COLOR (test code = Yellow Yellow 0277431535) PH (test code = 4.8-8.0 4767822516) SP GRAVITY (test code = 1.003-1.030 4145119544) GLU U QUAL (test code = Normal Normal 1228203842) BLOOD (test code = 3+ Negative A 7641542678) KETONES (test code = Negative Negative 7935983298) PROTEIN (test code = Negative Negative 2887-8) UROBILIN (test code = Normal Normal 6025147451) BILIRUBIN (test code = Negative Negative 1263648520) NITRITE (test code = Negative Negative 8409971869) LEUK MADELYN (test code = 25/uL Negative A 5868913883) RBC/HPF (test code = >182 See_Comment H [Autom ated message] 6715851584) The system Health: [place] generated this result transmitted ref erence range: 0 - 3 HP F. The reference range was not used to int erpret this result as normal/abnormal . WBC/HPF (test code = See_Comment H [Autom ated message] 3772516675) The system Health: [place] generated this result transmitted ref erence range: 0 - 5 HP F. The reference range was not used to int erpret this result as normal/abnormal . BACTERIA (test code = Negative Negative 0081330942) MUCOUS (test code = Slight Negative LPF A 9840934478) SQ EPITH (test code = See_Comment [Auto mated message] 5466216601) The system Health: [place] generated this result transmitted ref erence range: <=2 HPF. The reference range was not used to int erpret this result as normal/abnormal . Lab Interpretation (test Abnormal code = 22558-0) [facility] with Kfhxyucnomne2087-97-17 01:47:58 Test Item Value Reference Range Interpretation Comments WBC (test code = See_Comment [Automated message] 6690-2) The system Health: [place]t generated this result transmitted ref erence range: 4.30 - 1 1.10 10*3/?L. The re ference range was not u sed to interpret this result as normal/abnor mal. RBC (test code = See_Comment [Automated message] 789-8) The system Health: [place]t generated this result transmitted ref erence range: [...] RDW-SD (test code 42.8 fL 39.0-49.9 = 14782-3) RDW-CV (test code 13.1 % 12.0-15.5 = 788-0) PLT (test code = See_Comment [Automated message] 037-3) The system Health: Elt generated this result transmitted ref erence range: 166 - 35 8 10*3/?L. The re ference range was not u sed to interpret this result as normal/abnor mal. MPV (test code = 10.2 fL 9.5-12.9 54968-8) NRBC/100 WBC (test See_Comment [Automat ed message] code = 9873763942) The syste m which generated this result transmitted ref erence range: 0.0 - 10 .0 /100 WBCs. The refer ence range was not u sed to interpret this result as normal/abnor mal. NRBC x10^3 (test <0.01 See_Comment [Automated message] code = 1934890805) The syste m which generated this result transmitted ref erence range: 10*3/?L. The reference range was not used to interpr et this result as normal/abnormal . GRAN MAT (NEUT) % 69.1 % (test code = 770-8) IMM GRAN % (test 0.50 % code = 8677718514) LYMPH % (test code 18.6 % = 736-9) MONO % (test code 8.3 % = 5905-5) EOS % (test code = 3.1 % 713-8) BASO % (test code 0.4 % = 706-2) GRAN MAT 6.78 10*3/uL 1.88-7.09 x10^3(ANC) (test code = 2497254944) IMM GRAN x10^3 0.05 10*3/uL 0.00-0.06 (test code = 8577566290) LYMPH x10^3 (test 1.82 10*3/uL 1.32-3.29 code = 731-0) MONO x10^3 (test 0.81 10*3/uL 0.33-0.92 code = 742-7) EOS x10^3 (test 0.30 10*3/uL 0.03-0.39 code = 711-2) BASO x10^3 (test 0.04 10*3/uL 0.01-0.07 code = 704-7) [facility] [id number] 01:43:00 Test Item Value Reference Range Interpretation Comments POCT PREG (test code = 1605) negative On board controls acceptable with C present Line (test code = 3574) Lab Interpretation (test code = Normal 25894-7) [facility] [id number] 18:17:00 Test Item Value Reference Range Interpretation Comments POCT PREG (test code = 1605) Positive On board controls acceptable with C Yes Line (test code = 3574) POCT PREG LOT # (test code = 3575) POCT PREG TEST DATE (test code = 3576) [facility] W/O SPECIFIC [id number] 18:17:00 Test Item Value Reference Range Interpretation [...] code = 3257) Trace Negative - Negative [facility] [id number] 20:24:00 Test Item Value Reference Range Interpretation Comments POCT PREG (test code = 1605) Negative On board controls acceptable with C Yes Line (test code = 3574) POCT PREG LOT # (test code = 3575) POCT PREG TEST DATE (test code = 3576) [facility] [id number] 20:24:00 Test Item Value Reference Range Interpretation Comments POCT PREG (test code = 1605) Negative On board controls acceptable with C Yes Line (test code = 3574) POCT PREG LOT # (test code = 3575) POCT PREG TEST DATE (test code = 3576) [facility] & CHLAMYDIA AMPLIFIED [id number] 18:19:00 Test Item Value Reference Range Interpretation Comments C. trachomatis Nucleic Negative Negative Acid (test code = 75885-1) N. gonorrhoeae Nucleic Negative Negative Acid (test code = 33826-9) EFE (test code = EFE) Reliable results [...] NAAT. Lab Interpretation Normal (test code = 03656-5) [facility] & CHLAMYDIA AMPLIFIED [id number] 18:19:00 Test Item Value Reference Range Interpretation Comments C. trachomatis Nucleic Negative Negative Acid (test code = 53453-0) N. gonorrhoeae Nucleic Negative Negative Acid (test code = 66503-2) EFE (test code = EFE) Reliable results [...] NAAT. Lab Interpretation Normal (test code = 29292-7) [facility] [id number] 20:24:00 Test Item Value Reference Range Interpretation Comments POCT PREG (test code = 1605) Negative On board controls acceptable with C Yes Line (test code = 3574) POCT PREG LOT # (test code = 3575) POCT PREG TEST DATE (test code = 3576) [facility] [id number] 20:24:00 Test Item Value Reference Range Interpretation Comments POCT PREG (test code = 1605) Negative On board controls acceptable with C Yes Line (test code = 3574) POCT PREG LOT # (test code = 3575) POCT PREG TEST DATE (test code = 3576) [facility] Metabolic Panel (NA, K, CL, CO2, GLUCOSE, BUN, CREATININE, CA)2020-09-27 11:59:00 Test Item Value Reference Range Interpretation Comments NA (test code = 139 mmol/L 135-145 8160090770) K (test code = 4.5 mmol/L 3.5-5 2235299311) CL (test code = 107 mmol/L 98-108 0003881959) CO2 TOTAL (test code = 26 mmol/L 23-31 4265020275) AGAP (test code = 2-16 5286986268) BUN (test code = 10 mg/dL 7-23 3260810010) GLUCOSE (test code = 131 mg/dL 70-110 H 8740855229) CREATININE (test code = 0.68 mg/dL 0.5-1.04 5503274278) CALCIUM (test code = 9.0 mg/dL 8.6-10.6 1809069704) eGFR Calculation mL/min/1.73m2 (Non-) (test code = 4421707442) eGFR Calculation mL/min/1.73m2 () (test code = 1486833472) EFE (test code = EFE) Association of [...] tests). Lab Interpretation Abnormal (test code = 64668-0) [facility] with [id number] 11:35:00 Test Item Value Reference Range Interpretation Comments WBC (test code = See_Comment [Automated 6288-2) message] The sy stem which generated this result transmitted reference range : 4.30 - 11.10 10*3/?L. The reference range was not used to interpret this result as normal/abnormal . RBC (test code = See_Comment [Automated 472-8) message] The sy stem which generated this [...] RDW-SD (test code = 42.0 fL 39-49.9 52041-3) RDW-CV (test code = 12.6 % 12-15.5 788-0) PLT (test code = See_Comment H [Automated 777-3) message] The sy stem which generated this result transmitted reference range : 166 - 358 10*3/ ?L. The reference r deneen was not used to interpret this result as normal/abnormal . MPV (test code = 10.3 fL 9.5-12.9 35063-1) NRBC/100 WBC (test See_Comment [Automat ed code = 4359638370) message] The system which generated this result transmitted reference range : 0.0 - 10.0 /100 WBCs. The refer ence range was not u sed to interpret th is result as normal/abnormal . NRBC x10^3 (test code <0.01 See_Comment [Auto mated = 2407536468) message] The s ystem which generated this result transmitted reference range : 10*3/?L. The reference range was not used to interpret this result as normal/abnormal . GRAN MAT (NEUT) % 45.9 % (test code = 770-8) IMM GRAN % (test code 1.00 % = 1423122843) LYMPH % (test code = 37.6 % 736-9) MONO % (test code = 8.1 % 5905-5) EOS % (test code = 6.8 % 713-8) BASO % (test code = 0.6 % 706-2) GRAN MAT x10^3(ANC) 3.85 10*3/uL 1.88-7.09 (test code = 0231365141) IMM GRAN x10^3 (test 0.08 10*3/uL 0-0.06 H code = 7596090252) LYMPH x10^3 (test code 3.15 10*3/uL 1.32-3.29 = 731-0) MONO x10^3 (test code 0.68 10*3/uL 0.33-0.92 = 742-7) EOS x10^3 (test code = 0.57 10*3/uL 0.03-0.39 H 711-2) BASO x10^3 (test code 0.05 10*3/uL 0.01-0.07 = 704-7) Lab Interpretation Abnormal (test code = 58185-4) [facility]00 Test Item Value Reference Range Interpretation Comments APPEARANCE (test code = Hazy Clear A [id number]) COLOR (test code = Yellow Yellow 1532009465) PH (test code = 4.8-8.0 4978660490) SP GRAVITY (test code = 1.003-1.030 9770984921) GLU U QUAL (test code = Normal Normal 1387201992) BLOOD (test code = Negative Negative 3513300431) KETONES (test code = Negative Negative 4281788814) PROTEIN (test code = Negative Negative 2887-8) UROBILIN (test code = 2.0 mg/dL Normal A 5382467864) BILIRUBIN (test code = Negative Negative 6365927334) NITRITE (test code = Negative Negative 8646640517) LEUK MADELYN (test code = Negative Negative 9932442715) RBC/HPF (test code = See_Comment [Autom ated message] 4500114260) The system Health: Elt generated this result transmit jorge reference range : 0 - 3 HPF. The refe rence range was not u sed to interpret th is result as normal/abnormal . WBC/HPF (test code = See_Comment [Autom ated message] 3160390531) The system Health: Elt generated this result transmit jorge reference range : 0 - 5 HPF. The refe rence range was not u sed to interpret th is result as normal/abnormal . BACTERIA (test code = Few Negative A 6382767552) MUCOUS (test code = Slight Negative LPF A 0034806680) SQ EPITH (test code = HPF 8693741108) Lab Interpretation (test Abnormal code = 66724-0) [id number]00 Test Item Value Reference Range Interpretation Comments POCT PREG (test code = 1605) negative On board controls acceptable with positive C Line (test code = 3574) POCT PREG LOT # (test code = 3575) [id number] POCT PREG TEST DATE (test 05/07/2022 code = 3576) Lab Interpretation (test code = Normal 37220-4) [facility] Metabolic Panel (NA, K, CL, CO2, GLUCOSE, BUN, CREATININE, CA)2020-06-09 19:47:00 Test Item Value Reference Range Interpretation Comments NA (test code = 137 mmol/L 135-145 5219180855) K (test code = 3.7 mmol/L 3.5-5 5993921437) CL (test code = 108 mmol/L 98-108 5577537748) CO2 TOTAL (test code = 23 mmol/L 23-31 0319567132) AGAP (test code = 2-16 7578632698) BUN (test code = 8 mg/dL 7-23 4629848675) GLUCOSE (test code = 110 mg/dL 70-110 1413371677) CREATININE (test code 0.67 mg/dL 0.5-1.04 = 1380664015) CALCIUM (test code = 9.5 mg/dL 8.6-10.6 0922607194) eGFR Calculation mL/min/1.73m2 (Non-) (test code = 4425484992) eGFR Calculation mL/min/1.73m2 () (test code = 4549914663) EFE (test code = EFE) Association of [...] or urine or abnormalities in imaging tests). [facility] [id number] 19:36:00 Test Item Value Reference Range Interpretation Comments POCT PREG (test code = 1605) negative On board controls acceptable with C present Line (test code = 3574) Lab Interpretation (test code = Normal 44433-1) [facility] with [id number] 19:28:00 Test Item Value Reference Range Interpretation Comments WBC (test code = See_Comment [Automated 2990-2) message] The sy stem which generated this [...] RDW-SD (test code = 41.3 fL 39-49.9 76592-5) RDW-CV (test code = 12.6 % 12-15.5 788-0) PLT (test code = See_Comment [Automated 777-3) message] The sy stem which generated this result transmitted reference range : 166 - 358 10*3/ ?L. The reference r deneen was not used to interpret this result as normal/abnormal . MPV (test code = 10.4 fL 9.5-12.9 80452-2) NRBC/100 WBC (test See_Comment [Automat ed code = 8865169804) message] The system which generated this result transmitted reference range : 0.0 - 10.0 /100 WBCs. The refer ence range was not u sed to interpret th is result as normal/abnormal . NRBC x10^3 (test code <0.01 See_Comment [Auto mated = 8237263013) message] The s ystem which generated this result transmitted reference range : 10*3/?L. The reference range was not used to interpret this result as normal/abnormal . GRAN MAT (NEUT) % 51.6 % (test code = 770-8) IMM GRAN % (test code 0.50 % = 1759488491) LYMPH % (test code = 34.0 % 736-9) MONO % (test code = 6.3 % 5905-5) EOS % (test code = 6.8 % 713-8) BASO % (test code = 0.8 % 706-2) GRAN MAT x10^3(ANC) 3.12 10*3/uL 1.88-7.09 (test code = 4749812349) IMM GRAN x10^3 (test 0.03 10*3/uL 0-0.06 code = 2041815871) LYMPH x10^3 (test code 2.06 10*3/uL 1.32-3.29 = 731-0) MONO x10^3 (test code 0.38 10*3/uL 0.33-0.92 = 742-7) EOS x10^3 (test code = 0.41 10*3/uL 0.03-0.39 H 711-2) BASO x10^3 (test code 0.05 10*3/uL 0.01-0.07 = 704-7) Lab Interpretation Abnormal (test code = 79930-0) [facility] Test Item Value Reference Range Interpretation Comments APPEARANCE (test code = Clear Clear 6688480789) COLOR (test code = Straw Yellow A 2721111839) PH (test code = 4.8-8.0 3915095437) SP GRAVITY (test code = 1.003-1.030 4735734364) GLU U QUAL (test code = Normal Normal 6016045984) BLOOD (test code = 1+ Negative A 5365776004) KETONES (test code = Negative Negative 5999333222) PROTEIN (test code = Negative Negative 2887-8) UROBILIN (test code = Normal Normal 5344733502) BILIRUBIN (test code = Negative Negative 3840181284) NITRITE (test code = Negative Negative 2222220063) LEUK MADELYN (test code = 75/uL Negative A 3185862113) RBC/HPF (test code = See_Comment [Autom ated message] 0062075567) The system Health: Elt generated this result transmitted ref erence range: 0 - 3 HP F. The reference range was not used to int erpret this result as normal/abnormal . WBC/HPF (test code = See_Comment [Autom ated message] 9380239189) The system Health: Elt generated this result transmitted ref erence range: 0 - 5 HP F. The reference range was not used to int erpret this result as normal/abnormal . BACTERIA (test code = Few Negative A 5427531775) SQ EPITH (test code = HPF 4151185806) Lab Interpretation (test Abnormal code = 90018-5) [facility] [id number] 23:33:00 Test Item Value Reference Range Interpretation Comments POCT PREG (test code = 1605) negative On board controls acceptable with positive C Line (test code = 3574) POCT PREG LOT # (test code = 3575) [id number] POCT PREG TEST DATE (test 03-07-2021 code = 3576) Lab Interpretation (test code = Normal 53722-1) [facility] BHCG (QUANTITATIVE)2019-11-17 05:21:00 Test Item Value Reference Range Interpretation Comments BETA HCG (test <2.39 See_Comment [Automated m essage] code = The system Health: Elt 8072781697) generated this result transmit jorge reference range : Non- fe male and male patien ts: <5 mIU/mL. The reference range was not used to interpret this result as normal/abnormal . EFE (test code Gestational Age ? ? = EFE) ?Range (mIU/mL) 1-10 ?Weeks ?84-27395477-71 Weeks ?03682-87890338-43 Weeks ?0385-54450255-25 Weeks ?6344-790505 Biotin has been reported to cause a negative bias, interpret results relative to patient's use of biotin. [facility] 04:54:00 Test Item Value Reference Range Interpretation Comments APPEARANCE (test code = Clear Clear 8504234530) COLOR (test code = Yellow Yellow 9284735041) PH (test code = 4.8-8.0 3423900397) SP GRAVITY (test code = 1.003-1.030 6758885788) GLU U QUAL (test code = Normal Normal 3951445161) BLOOD (test code = 2+ Negative A 1851002020) KETONES (test code = Negative Negative 6318803473) PROTEIN (test code = Negative Negative 2887-8) UROBILIN (test code = Normal Normal 0394410285) BILIRUBIN (test code = Negative Negative 3222335101) NITRITE (test code = Negative Negative 4236501424) LEUK MADELYN (test code = Negative Negative 1654139265) RBC/HPF (test code = See_Comment [Autom ated message] 6384800059) The system Health: Elt generated this result transmitted ref erence range: 0 - 3 HP F. The reference range was not used to int erpret this result as normal/abnormal . WBC/HPF (test code = See_Comment [Autom ated message] 1147442650) The system Health: Elt generated this result transmitted ref erence range: 0 - 5 HP F. The reference range was not used to int erpret this result as normal/abnormal . BACTERIA (test code = Negative Negative 9998746435) SQ EPITH (test code = HPF 9596406575) Lab Interpretation (test Abnormal code = 27576-9) [facility] (NA, K, CL, CO2, GLUCOSE, BUN, CREATININE, CA)2019-11-17 04:53:00 Test Item Value Reference Range Interpretation Comments NA (test code = 137 mmol/L 135-145 4663952580) K (test code = 3.9 mmol/L 3.5-5 4655678652) CL (test code = 104 mmol/L 98-108 6924039134) CO2 TOTAL (test code = 23 mmol/L 23-31 3879053560) AGAP (test code = 2-16 7807613480) BUN (test code = 13 mg/dL 7-23 6970538014) GLUCOSE (test code = 92 mg/dL 70-110 6178282962) CREATININE (test code 0.66 mg/dL 0.5-1.04 = 5581441176) CALCIUM (test code = 9.1 mg/dL 8.6-10.6 0148611772) eGFR Calculation mL/min/1.73m2 (Non-) (test code = 8695091824) eGFR Calculation mL/min/1.73m2 () (test code = 3445497473) EFE (test code = EFE) Association of [...] or urine or abnormalities in imaging tests). [facility] WITH [id number] 04:36:00 Test Item Value Reference Range Interpretation [...] RDW-SD (test code = 43.9 fL 39-49.9 05269-2) RDW-CV (test code = 13.9 % 12-15.5 788-0) PLT (test code = See_Comment H [Automated 777-3) message] The sy stem which generated this result transmitted reference range : 166 - 358 10*3/ ?L. The reference r deneen was not used to interpret this result as normal/abnormal . MPV (test code = 10.1 fL 9.5-12.9 79083-9) NRBC/100 WBC (test See_Comment [Automat ed code = 7695692140) message] The system which generated this result transmitted reference range : 0.0 - 10.0 /100 WBCs. The refer ence range was not u sed to interpret th is result as normal/abnormal . NRBC x10^3 (test code <0.01 See_Comment [Auto mated = 2189994441) message] The s ystem which generated this result transmitted reference range : 10*3/?L. The reference range was not used to interpret this result as normal/abnormal . GRAN MAT (NEUT) % 50.2 % (test code = 770-8) IMM GRAN % (test code 0.70 % = 5391718333) LYMPH % (test code = 37.0 % 736-9) MONO % (test code = 7.9 % 5905-5) EOS % (test code = 3.7 % 713-8) BASO % (test code = 0.5 % 706-2) GRAN MAT x10^3(ANC) 5.37 10*3/uL 1.88-7.09 (test code = 4180632842) IMM GRAN x10^3 (test 0.08 10*3/uL 0-0.06 H code = 1282116095) LYMPH x10^3 (test code 3.95 10*3/uL 1.32-3.29 H = 731-0) MONO x10^3 (test code 0.84 10*3/uL 0.33-0.92 = 742-7) EOS x10^3 (test code = 0.40 10*3/uL 0.03-0.39 H 711-2) BASO x10^3 (test code 0.05 10*3/uL 0.01-0.07 = 704-7) Lab Interpretation Abnormal (test code = 85246-2) [facility] [id number] 04:25:00 Test Item Value Reference Range Interpretation Comments POCT PREG (test code = 1605) Negative On board controls acceptable with Present C Line (test code = 3574) POCT PREG LOT # (test code = 3575) [id number] POCT PREG TEST DATE (test 02/04/2021 code = 3576) Lab Interpretation (test code = Normal 73622-9) [facility] STREP SCREEN FOR GROUP [id number] 23:35:00 Test Item Value Reference Range Interpretation Comments Streptococcus pyogenes (group A) Negative Negative antigen (test code = 60753-5) Lab Interpretation (test code = Normal 30096-4) [facility] [id number] 15:59:00 Test Item Value Reference Range Interpretation Comments POCT PREG (test code = 1605) Negative On board controls acceptable with C Yes Line (test code = 3574) POCT PREG LOT # (test code = 3575) POCT PREG TEST DATE (test code = 3576) [facility] [id number] 15:59:00 Test Item Value Reference Range Interpretation Comments POCT PREG (test code = 1605) Negative On board controls acceptable with C Yes Line (test code = 3574) POCT PREG LOT # (test code = 3575) POCT PREG TEST DATE (test code = 3576) [facility] [id number] 19:16:00 Test Item Value Reference Range Interpretation Comments POCT PREG (test code = 1605) Negative On board controls acceptable with C Yes Line (test code = 3574) POCT PREG LOT # (test code = 3575) POCT PREG TEST DATE (test code = 3576) [facility] [id number] 19:16:00 Test Item Value Reference Range Interpretation Comments POCT PREG (test code = 1605) Negative On board controls acceptable with C Yes Line (test code = 3574) POCT PREG LOT # (test code = 3575) POCT PREG TEST DATE (test code = 3576) [facility] [id number] 09:59:00 Test Item Value Reference Range Interpretation Comments RAPID PLASMA REAGIN (test code = NEGATIVE NEGATIVE RPR) CBC W/AUTO [id number] 04:35:00 Test Item Value Reference Range Interpretation [...] 0.0 x10 3/uL 0.0-0.1 N AB RUBELLA [id number] 14:36:00 Test Item Value Reference Range Interpretation Comments AB RUBELLA IGG (test code = RUBGAB) EQUIVOCAL NEGATIVE AG HEPATITIS B [id number] 13:50:00 Test Item Value Reference Range Interpretation Comments AG HEPATITIS B SURFACE (test code = NEGATIVE NEGATIVE HBSAG) AB HIV 1 13:50:00 Test Item Value Reference Range Interpretation Comments AB HIV 1 2 (test code = PSC28AS) NEGATIVE NEGATIVE CBC W/AUTO [id number] 12:38:00 Test Item Value Reference Range Interpretation [...] 0.1 x10 3/uL 0.0-0.1 N RAPID PLASMA [id number] 09:46:00 Test Item Value Reference Range Interpretation Comments RAPID PLASMA REAGIN (test code = NEGATIVE NEGATIVE RPR) AG HEPATITIS B [id number] 21:10:00 Test Item Value Reference Range Interpretation Comments AG HEPATITIS B SURFACE (test code = NEGATIVE NEGATIVE HBSAG) AB HIV 1 21:10:00 Test Item Value Reference Range Interpretation Comments AB HIV 1 2 (test code = XGV72JH) NEGATIVE NEGATIVE CBC W/AUTO [id number] 20:11:00 Test Item Value Reference Range Interpretation [...]
[2021-10-23 17:47] LABS: Urine Blood Trace-intact (Negative); Urine Glucose Negative (Negative); Urine Protein Negative (Negative); Urine Specific Gravity >=1.030 (1.005-1.030); Urine pH 5.5 (5.0-7.0)
--- NOTE | 2021-10-23 18:07 | ER ---
Nurse's Notes [facility] Name: Rita Garcia Age: 21 yrs Sex: Female : 2000 Arrival Date: 10/23/2021 Time: 13:40 Bed 12 Private MD: Diagnosis: Other specified anxiety disorders Presentation: 10/23 13:47 Chief complaint: Patient states: CP and HTN since last night. SOB and dizziness started ll1 today. Coronavirus screen: Vaccine status: Patient reports being unvaccinated. Client denies travel out of the [place] in the last 14 days. difficulty breathing, fatigue, nausea, Client presents with at least one sign or symptom that may indicate coronavirus-19. Standard/surgical mask placed on the client. Ebola Screen: Patient denies travel to an Ebola-affected area in the 21 days before illness onset. Initial Sepsis Screen: Does the patient meet any 2 criteria? No. Patient's initial sepsis screen is negative. Does the patient have a suspected source of infection? No. Patient's initial sepsis screen is negative. Risk Assessment: Do you want to hurt yourself or someone else? Patient reports no desire to harm self or others. Onset of symptoms was October 22, 2021. 13:47 Method Of Arrival: Ambulatory ll1 13:47 Acuity: CLINT 3 ll1 Triage Assessment: 13:51 General: Appears uncomfortable, Behavior is calm, cooperative, appropriate for age. ll1 Pain: Complains of pain in chest Quality of pain is described as aching, Pain began 1 day ago. Neuro: Reports dizziness, a syncopal episode weakness. Cardiovascular: Reports chest pain, lightheadedness, nausea, shortness of breath, syncope. Respiratory: Reports shortness of breath. GI: Reports nausea. 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 Flu vaccine status is unknown. - Social history:: Smoking status: Patient reports the use of cigarette tobacco products, smokes one-half pack cigarettes per day. - Family history:: not pertinent. Screenin:30 Abuse screen: Denies threats or abuse. Nutritional screening: No deficits noted. aa5 Tuberculosis screening: No symptoms or risk factors identified. Fall Risk None identified. Assessment: 17:30 General: Appears comfortable, Behavior is calm, cooperative. Pain: Complains of pain in aa5 anterior aspect of left upper chest and mid-sternal area Pain does not radiate. Pain currently is 5 out of 10 on a pain scale. Quality of pain is described as aching, Pain began 1 day ago. Neuro: Level of Consciousness is awake, alert, obeys commands, Oriented to person, place, time, situation, [employer] are equal bilaterally Moves all extremities. Gait is steady, Speech is normal, Facial symmetry appears normal, Reports mild dizziness . Cardiovascular: Heart tones S1 S2 present Rhythm is sinus rhythm. Respiratory: Reports shortness of breath Airway is patent Respiratory effort is even, unlabored, Respiratory pattern is regular, symmetrical, Breath sounds are clear bilaterally. GI: Abdomen is round non-distended. : No signs and/or symptoms were reported regarding the genitourinary system. EENT: No signs and/or symptoms were reported regarding the EENT system. Derm: Skin is pink, warm \T\ dry. Musculoskeletal: Range of motion: intact in all extremities. 18:13 Reassessment: Patient is alert, oriented x 3, equal unlabored respirations, skin aa5 warm/dry/pink. Cardiovascular: Rhythm is sinus rhythm. 18:40 Reassessment: Patient is alert, oriented x 3, equal unlabored respirations, skin aa5 warm/dry/pink. Pt requesting pain medication prior to d/c home, was notified. . 19:02 Reassessment: Patient is alert, oriented x 3, equal unlabored respirations, skin aa5 warm/dry/pink. Vital Signs: 13:47 BP 129 / 89; Pulse 85; Resp 16; Temp 99.1; Pulse Ox 97% ; Weight 83.91 kg; Height 5 ft. ll1 1 in. (154.94 cm); Pain 3/10; 17:28 BP 136 / 82; Pulse 82; Resp 22; Pulse Ox 100% on R/A; mh5 18:30 BP 121 / 85; Pulse 84; Resp 16 S; Pulse Ox 97% on R/A; Pain 3/10; aa5 13:47 Body Mass Index 34.96 (83.91 kg, 154.94 cm) ll1 ED Course: 13:40 Patient arrived in ED. kz 13:50 Triage completed. ll1 13:51 Arm band placed on. ll1 13:52 EKG completed in triage. Results shown to MD. ll1 17:26 Nelson Manuel MD is Attending Physician. ma2 17:27 Patient placed in an exam room, on a stretcher. ll1 17:28 Patient has correct armband on for positive identification. Bed in low position. Call [facility] light in reach. Side rails up X 1. Warm blanket given. awake overnight monitor on. Pulse ox on. NIBP on. 17:28 EKG done, by ED staff, reviewed by Nelson Manuel MD. 5 17:35 Frannie Fajardo, RN is Primary Nurse. aa5 19:02 No provider procedures requiring assistance completed. Patient did not have IV access aa5 during this emergency room visit. Patient maintains SpO2 saturation greater than 95% on room air. Administered Medications: 18:13 Drug: Ativan (LORazepam) 2 mg Route: PO; aa5 18:40 Follow up: Response: No adverse reaction aa5 18:52 Drug: Ketorolac 60 mg Route: IM; Site: right gluteus; aa5 19:02 Follow up: Response: No adverse reaction aa5 Outcome: 18:06 Discharge ordered by . ma2 19:02 Discharged to home ambulatory, with family. aa5 19:02 Condition: stable 19:02 Discharge instructions given to patient, Instructed on discharge instructions, follow up and referral plans. medication usage, Demonstrated understanding of instructions, follow-up care, medications, Prescriptions given X 2. 19:03 Patient left the ED. aa5 Signatures: Frannie Fajardo, RN RN Keesha Mackey [facility] Nelson Manuel MD MD ma2 Lewis, Lynsay, RN RN 1 Pearl Carlos
--- NOTE | 2021-10-23 18:07 | EDPHYS ---
Physician Documentation [facility] Name: Rita Garcia Age: 21 yrs Sex: Female : 2000 Arrival Date: 10/23/2021 Time: 13:40 Bed 12 Private MD: ED Physician Nelson Manuel HPI: 10/23 18:00 This 21 yrs old Female presents to ER via Ambulatory with complaints of Patient has ma2 anxiety, here with palpitation and panic attack. 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 No chest pain at this time. 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 Flu vaccine status is unknown. - Social history:: Smoking status: Patient reports the use of cigarette tobacco products, smokes one-half pack cigarettes per day. - Family history:: not pertinent. ROS: 18:00 Constitutional: Negative for fever, chills, and weight loss. ma2 18:00 All other systems are negative. Exam: 18:00 Constitutional: This is a well developed, well nourished patient who is awake, alert, ma2 and in no acute distress. Head/Face: Normocephalic, atraumatic. Eyes: Pupils equal round and reactive to light, extra-ocular motions intact. Lids and lashes normal. Conjunctiva and sclera are non-icteric and not injected. Cornea within normal limits. Periorbital areas with no swelling, redness, or edema. ENT: Nares patent. No nasal discharge, no septal abnormalities noted. Tympanic membranes are normal and external auditory canals are clear. Oropharynx with no redness, swelling, or masses, exudates, or evidence of obstruction, uvula midline. Mucous membranes moist. Neck: Trachea midline, no thyromegaly or masses palpated, and no cervical lymphadenopathy. Supple, full range of motion without nuchal rigidity, or vertebral point tenderness. No Meningismus. Chest/axilla: Normal chest wall appearance and motion. Nontender with no deformity. No lesions are appreciated. Cardiovascular: Regular rate and rhythm with a normal S1 and S2. No gallops, murmurs, or rubs. Normal PMI, no JVD. No pulse deficits. Respiratory: Lungs have equal breath sounds bilaterally, clear to auscultation and percussion. No rales, rhonchi or wheezes noted. No increased work of breathing, no retractions or nasal flaring. Abdomen/GI: Soft, non-tender, with normal bowel sounds. No distension or tympany. No guarding or rebound. No evidence of tenderness throughout. Back: No spinal tenderness. No costovertebral tenderness. Full range of motion. Skin: Warm, dry with normal turgor. Normal color with no rashes, no lesions, and no evidence of cellulitis. MS/ Extremity: Pulses equal, no cyanosis. Neurovascular intact. Full, normal range of motion. Neuro: Awake and alert, GCS 15, oriented to person, place, time, and situation. Cranial nerves II-XII grossly intact. Motor strength 5/5 in all extremities. Sensory grossly intact. Cerebellar exam normal. Normal gait. Psych: Patient is anxious, otherwise she is awake, alert, with orientation to person, place and time. Behavior, mood, and affect are within normal limits. Vital Signs: 13:47 BP 129 / 89; Pulse 85; Resp 16; Temp 99.1; Pulse Ox 97% ; Weight 83.91 kg; Height 5 ft. ll1 1 in. (154.94 cm); Pain 3/10; 17:28 BP 136 / 82; Pulse 82; Resp 22; Pulse Ox 100% on R/A; mh5 18:30 BP 121 / 85; Pulse 84; Resp 16 S; Pulse Ox 97% on R/A; Pain 3/10; aa5 13:47 Body Mass Index 34.96 (83.91 kg, 154.94 cm) ll1 MDM: 18:04 Differential diagnosis: gastritis, Differential diagnoses include anxiety, versus lupus ma2 versus bipolar. Likely panic attack. Data reviewed: vital signs, nurses notes, EMS record. Counseling: I had a detailed discussion with the patient and/or guardian regarding: the historical points, exam findings, and any diagnostic results supporting the discharge/admit diagnosis, the presence of at least one elevated blood pressure reading (>120/80) during this emergency department visit, the need for outpatient follow up. 18:06 Patient medically screened. ma2 10/23 17:47 Order name: Urine Dipstick-Ancillary; Complete Time: 18:00 EDMS 10/23 17:51 Order name: Urine --Ancillary (enter results) eb 10/23 13:51 Order name: EKG; Complete Time: 13:51 ll1 10/23 13:51 Order name: EKG - Nurse/Tech; Complete Time: 13:51 ll1 10/23 17:34 Order name: Urine Dipstick-Ancillary (obtain specimen); Complete Time: 17:48 ma2 10/23 17:34 Order name: Urine Test (obtain specimen); Complete Time: 17:48 ma2 Administered Medications: 18:13 Drug: Ativan (LORazepam) 2 mg Route: PO; aa5 18:40 Follow up: Response: No adverse reaction aa5 18:52 Drug: Ketorolac 60 mg Route: IM; Site: right gluteus; aa5 19:02 Follow up: Response: No adverse reaction aa5 Disposition Summary: 10/23/21 18:06 Discharge Ordered Location: Home ma2 Condition: Stable ma2 Diagnosis - Other specified anxiety disorders ma2 Followup: ma2 - With: Private Physician - When: Tomorrow - Reason: If symptoms return, Recheck today's complaints, Continuance of care Discharge Instructions: - Discharge Summary Sheet ma2 - Managing Anxiety, Adult ma2 Forms: - Medication Reconciliation Form ma2 - Thank You Letter ma2 - Antibiotic Education ma2 - Prescription Opioid Use ma2 Prescriptions: - ketorolac 10 mg Oral tablet - take 1 tablet by ORAL route every 6 hours not to exceed 40 mg in 24hrs; 30 ma2 tablet; Refills: 0, Product Selection Permitted - Medrol (Adal) 4 mg Oral Tablets, Dose Pack - take 1 tablet by ORAL route as directed - follow package instructions; 1 ma2 packet; Refills: 0, Product Selection Permitted Signatures: Dispatcher [employer] [facility] Frannie Fajardo RN RN aa5 Nelson Manuel MD MD ma2 Monique Shukla RN RN ll1
[2021-10-23] MEDS ORDERED: LORAZEPAM 1 MG TABLET ONE (18:10)
[2021-10-23] MEDS ORDERED: KETOROLAC 30 MG/ML INJ ONE (18:53)
[2021-10-23 19:11] VITALS: TEMP 99.1
[2021-10-23 19:13] VITALS: BP 136/82; O2SAT 100
--- NOTE | 2021-10-26 08:26 | EKG ---
Test Date: 2021-10-23 Test Time: 12:51:18 Marine Biologist: YSABEL MEASUREMENT RESULTS: Intervals: Rate: 81 WA: 142 QRSD: 78 QT: 344 QTc: 399 [place]: P: 62 WA: 142 QRS: 87 T: 40 INTERPRETIVE STATEMENTS: Sinus rhythm with marked sinus arrhythmia Otherwise normal ECG No previous ECG available for comparison Electronically Signed On 10-26-21 08:21:45 CDT by Arvind Apodaca
== END 2021-10-23 19:03 | disposition home or self-care (01) ==
LOC: ER 13:21
DX: F41.8 Other specified anxiety disorders (principal); F17.210 Nicotine dependence, cigarettes, uncomplicated; Z91.040 Latex allergy status; Z91.041 Radiographic dye allergy status; Z91.048 Other nonmedicinal substance allergy status
CPT/HCPCS: 81003; 81025; 93005; 96372; 99285

== ENCOUNTER 2021-11-22 21:54 | Emergency (ER) | payer OTHER ==
--- OUTSIDE RECORDS SUMMARY | 2021-11-22 22:08 | XMS REPORT | Continuity of Care Document ---
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 ity of capsule 20:17: (two) [place] 25 times Medical daily. Branch buspirone 2020-0 Yes Take 10 mg [facility] HCl (BUSPAR 6-29 base by ity o f ORAL) 20:17: mouth. [address] FLUoxetine 2020-0 Yes 20mg Take 20 mg U nivers 40 mg 6-29 by mouth 2 ity of capsule 20:17: (two) [place] 25 times Medical daily. Branch buspirone 2020-0 Yes Take 10 mg [facility] HCl (BUSPAR 6-29 base by ity o f ORAL) 20:17: mouth. [address] FLUoxetine 2020-0 Yes 20mg Take 20 mg U nivers 40 mg 6-29 by mouth 2 ity of capsule 20:17: (two) [place] 25 times Medical daily. Branch buspirone 2020-0 Yes Take 10 mg [facility] HCl (BUSPAR 6-29 base by ity o f ORAL) 20:17: mouth. [address] FLUoxetine 2020-0 Yes 20mg Take 20 mg U nivers 40 mg 6-29 by mouth 2 ity of capsule 20:17: (two) [place] 25 times Medical daily. Branch buspirone 2020-0 Yes Take 10 mg [facility] HCl (BUSPAR 6-29 base by ity o f ORAL) 20:17: mouth. [address] FLUoxetine 2020-0 Yes 20mg Take 20 mg U nivers 40 mg 6-29 by mouth 2 ity of capsule 20:17: (two) [place] 25 times Medical daily. Branch buspirone 2020-0 Yes Take 10 mg [facility] HCl (BUSPAR 6-29 base by ity o f ORAL) 20:17: mouth. [place] [address] Medical Branch FLUoxetine 2020-0 Yes 20mg Take 20 mg U nivers 40 mg 6-29 by mouth 2 ity of capsule 20:17: (two) [place] 25 times Medical daily. Branch buspirone 2020-0 Yes Take 10 mg [facility] HCl (BUSPAR 6-29 base by ity o f ORAL) 20:17: mouth. [place] [address] Medical Branch FLUoxetine 2020-0 Yes 20mg Take 20 mg U nivers 40 mg 6-29 by mouth 2 ity of capsule 20:17: (two) [place] 25 times Medical daily. Branch buspirone 2020-0 Yes Take 10 mg [facility] HCl (BUSPAR 6-29 base by ity o f ORAL) 20:17: mouth. [place] [address] Medical Branch FLUoxetine 2020-0 Yes 20mg Take 20 mg U nivers 40 mg 6-29 by mouth 2 ity of capsule 20:17: (two) [place] 25 times Medical daily. Branch buspirone 2020-0 Yes Take 10 mg [facility] HCl (BUSPAR 6-29 base by ity o f ORAL) 20:17: mouth. [place] [address] Medical Branch FLUoxetine 2020-0 Yes 20mg Take 20 mg U nivers 40 mg 6-29 by mouth 2 ity of capsule 20:17: (two) [place] 25 times Medical daily. Branch buspirone 2020-0 Yes Take 10 mg [facility] HCl (BUSPAR 6-29 base by ity o f ORAL) 20:17: mouth. [place] [address] Medical Branch FLUoxetine 2020-0 Yes 20mg Take 20 mg U nivers 40 mg 6-29 by mouth 2 ity of capsule 20:17: (two) [place] 25 times Medical daily. Branch buspirone 2020-0 Yes Take 10 mg [facility] HCl (BUSPAR 6-29 base by ity o f ORAL) 20:17: mouth. [place] [address] Medical Branch FLUoxetine 2020-0 Yes 20mg Take 20 mg U nivers 40 mg 6-29 by mouth 2 ity of capsule 20:17: (two) [place] 25 times Medical daily. Branch buspirone 2020-0 Yes Take 10 mg [facility] HCl (BUSPAR 6-29 base by ity o f ORAL) 20:17: mouth. [place] 25 Medical Branch LITHIUM 2019-0 Yes Take by Univer s ASPARTATE 6-29 mouth. ity of ORAL 20:17: [address] Branch trazodone 2020-0 Yes Take by Univ ers HCl 6-29 mouth. ity of (TRAZODONE 20:17: [place] ORAL) 24 Medical Branch LITHIUM 2019-0 Yes Take by Univer s ASPARTATE 6-29 mouth. ity of ORAL 20:17: [address] Branch trazodone 2019-0 Yes Take by Univ ers HCl 6-29 mouth. ity of (TRAZODONE 20:17: [place] ORAL) Medical Branch LITHIUM 0 Yes Take by Univer s ASPARTATE 6-29 mouth. ity of ORAL 20:17: [address] Branch trazodone 0 Yes Take by Univ ers HCl 6-29 mouth. ity of (TRAZODONE 20:17: [place] ORAL) Medical Branch LITHIUM 2019-0 Yes Take by Univer s ASPARTATE 6-29 mouth. ity of ORAL 20:17: [address] Branch trazodone 0 Yes Take by Univ ers HCl 6-29 mouth. ity of (TRAZODONE 20:17: [place] ORAL) Medical Branch LITHIUM 0 Yes Take by Univer s ASPARTATE 6-29 mouth. ity of ORAL 20:17: [address] trazodone 0 Yes Take by Univ ers HCl 6-29 mouth. ity of (TRAZODONE 20:17: [place] ORAL) Medical Branch LITHIUM 2019-0 Yes Take by Univer s ASPARTATE 6-29 mouth. ity of ORAL 20:17: [address] Branch trazodone 2019-0 Yes Take by Univ ers HCl 6-29 mouth. ity of (TRAZODONE 20:17: [place] ORAL) Medical Branch LITHIUM 2019-0 Yes Take by Univer s ASPARTATE 6-29 mouth. ity of ORAL 20:17: [address] Branch trazodone 2019-0 Yes Take by Univ ers HCl 6-29 mouth. ity of (TRAZODONE 20:17: [place] ORAL) Medical Branch LITHIUM 2020-0 Yes Take by Univer s ASPARTATE 6-29 mouth. ity of ORAL 20:17: [address] trazodone 2020-0 Yes Take by Univ ers HCl 6-29 mouth. ity of (TRAZODONE 20:17: [place] ORAL) 24 [facility] LITHIUM 0 Yes Take by Univer s ASPARTATE 6-29 mouth. ity of ORAL 20:17: [address] trazodone 0 Yes Take by Univ ers HCl 6-29 mouth. ity of (TRAZODONE 20:17: [place] ORAL) 24 [facility] LITHIUM 0 Yes Take by Univer s ASPARTATE 6-29 mouth. ity of ORAL 20:17: [address] trazodone Yes Take by Univ ers HCl 6-29 mouth. ity of (TRAZODONE 20:17: [place] ORAL) [address] [place] [address] LITHIUM Yes Take by Univer s ASPARTATE 6-29 mouth. ity of ORAL 20:17: [address] trazodone Yes Take by Univ ers HCl 6-29 mouth. ity of (TRAZODONE 20:17: [place] ORAL) [address] [place] [address] LITHIUM Yes Take by Univer s ASPARTATE 6-29 mouth. ity of ORAL 20:17: [address] trazodone Yes Take by Univ ers HCl 6-29 mouth. ity of (TRAZODONE 20:17: [place] ORAL) 24 [facility] etonogestre 2020- No 68mg Unive rs l 09-12- ity of (NEXPLANON) 17:30: 17:53 [place] implant 68 00 :00 Medical mg Branch etonogestre 2020- No 68mg 68 mg, Uni vers l 09-12- Subdermal, ity of (NEXPLANON) 17:30: 17:53 ONCE NOW, [place] implant 68 00 :00 1 dose, Medica l mg 09/12/19 Branch at 1130, Routine
Use approved by: DIGESTER etonogestre 2020- No 68mg Unive rs l 09-12- ity of (NEXPLANON) 17:30: 17:53 [place] implant 68 00 :00 Medical mg Branch etonogestre 2020- No 68mg 68 mg, Uni vers l 09-12- Subdermal, ity of (NEXPLANON) 17:30: 17:53 ONCE NOW, [place] implant 68 00 :00 1 dose, Medica l mg 09/12/19 Branch at 1130, Routine
Use approved by: DIGESTER FLUoxetine 2020-0 Yes 20mg Take 20 mg U nivers 40 mg 1-06 by mouth 2 ity of capsule 23:52: (two) [place] 35 times Medical daily. Branch lurasidone 2020-0 Yes 40mg Take 40 mg U nivers (LATUDA) 40 1-06 by mouth. ity of mg tablet 23:52: [address] FLUoxetine 2020-0 Yes 20mg Take 20 mg U nivers 40 mg 1-06 by mouth 2 ity of capsule 23:52: (two) [place] 35 times Medical daily. Branch lurasidone 2020-0 Yes 40mg Take 40 mg U nivers (LATUDA) 40 1-06 by mouth. ity of mg tablet 23:52: [address] FLUoxetine 2020-0 Yes 20mg Take 20 mg U nivers 40 mg 1-06 by mouth 2 ity of capsule 23:52: (two) [place] 35 times Medical daily. Branch lurasidone 2020-0 Yes 40mg Take 40 mg U nivers (LATUDA) 40 1-06 by mouth. ity of mg tablet 23:52: [address] FLUoxetine 2020-0 Yes 20mg Take 20 mg U nivers 40 mg 1-06 by mouth 2 ity of capsule 23:52: (two) [place] 35 times Medical daily. Branch lurasidone 2020-0 Yes 40mg Take 40 mg U nivers (LATUDA) 40 1-06 by mouth. ity of mg tablet 23:52: [address] FLUoxetine 2020-0 Yes 20mg Take 20 mg U nivers 40 mg 1-06 by mouth 2 ity of capsule 23:52: (two) [place] 35 times Medical daily. Branch lurasidone 2020-0 Yes 40mg Take 40 mg U nivers (LATUDA) 40 1-06 by mouth. ity of mg tablet 23:52: [address] FLUoxetine 2020-0 Yes 20mg Take 20 [...] mouth 2 ity of capsule 23:52: (two) [place] 35 times Medical daily. Branch lurasidone 2020-0 Yes 40mg Take 40 mg U nivers (LATUDA) 40 1-06 by mouth. ity of mg tablet 23:52: [address] FLUoxetine 2020-0 Yes 20mg Take 20 mg U nivers 40 mg 1-06 by mouth 2 ity of capsule 23:52: (two) [place] 35 times Medical daily. Branch lurasidone 2020-0 Yes 40mg Take 40 mg U nivers (LATUDA) 40 1-06 by mouth. ity of mg tablet 23:52: [address] FLUoxetine 2020-0 Yes 20mg Take 20 mg U nivers 40 mg 1-06 by mouth 2 ity of capsule 23:52: (two) [place] 35 times Medical daily. Branch lurasidone 2020-0 Yes 40mg Take 40 mg U nivers (LATUDA) 40 1-06 by mouth. ity of mg tablet 23:52: [address] FLUoxetine 2020-0 Yes 20mg Take 20 mg U nivers 40 mg 1-06 by mouth 2 ity of capsule 23:52: (two) [place] 35 times Medical daily. Branch lurasidone 2020-0 Yes 40mg Take 40 mg U nivers (LATUDA) 40 1-06 by mouth. ity of mg tablet 23:52: [address] FLUoxetine 2020-0 Yes 20mg Take 20 mg U nivers 40 mg 1-06 by mouth 2 ity of capsule 23:52: (two) [place] 35 times Medical daily. Branch lurasidone 2020-0 Yes 40mg Take 40 mg U nivers (LATUDA) 40 1-06 by mouth. ity of mg tablet 23:52: [address] FLUoxetine 2020-0 Yes 20mg Take 20 mg U nivers 40 mg 1-06 by mouth 2 ity of capsule 23:52: (two) [place] 35 times Medical daily. Branch lurasidone 2020-0 Yes 40mg Take 40 mg U nivers (LATUDA) 40 1-06 by mouth. ity of mg tablet 23:52: [address] FLUoxetine 2020-0 Yes 20mg Take 20 mg U nivers 40 mg 1-06 by mouth 2 ity of capsule 23:52: (two) [place] 35 times Medical daily. Branch lurasidone 2020-0 Yes 40mg Take 40 mg U nivers (LATUDA) 40 1-06 by mouth. ity of mg tablet 23:52: [address] FLUoxetine 2020-0 Yes 20mg Take 20 mg U nivers 40 mg 1-06 by mouth 2 ity of capsule 23:52: (two) [place] [address] times Medical daily. Branch lurasidone 2020-0 Yes 40mg Take 40 mg U nivers (LATUDA) 40 1-06 by mouth. ity of mg tablet 23:52: [address] lurasidone 2020-0 Yes 40mg Take 40 mg U nivers (LATUDA) 40 1-06 by mouth. ity of mg tablet 23:52: [address] lurasidone 2020-0 Yes 40mg Take 40 mg U nivers (LATUDA) 40 1-06 by mouth. ity of mg tablet 23:52: [address] lurasidone 2020-0 Yes 40mg Take 40 mg U nivers (LATUDA) 40 1-06 by mouth. ity of mg tablet 23:52: [address] lurasidone 2020-0 Yes 40mg Take 40 mg U nivers (LATUDA) 40 1-06 by mouth. ity of mg tablet 23:52: [address] lurasidone 2020-0 Yes 40mg Take 40 mg U nivers (LATUDA) 40 1-06 by mouth. ity of mg tablet 23:52: [address] lurasidone 2020-0 Yes 40mg Take 40 mg U nivers (LATUDA) 40 1-06 by mouth. ity of mg tablet 23:52: [address] lurasidone 2020-0 Yes 40mg Take 40 mg U nivers (LATUDA) 40 1-06 by mouth. ity of mg tablet 23:52: [address] lurasidone 2020-0 Yes 40mg Take 40 mg U nivers (LATUDA) 40 1-06 by mouth. ity of mg tablet 23:52: [address] lurasidone 2020-0 Yes 40mg Take 40 mg U nivers (LATUDA) 40 1-06 by mouth. ity of mg tablet 23:52: [address] lurasidone 2020-0 Yes 40mg Take 40 mg U nivers (LATUDA) 40 1-06 by mouth. ity of mg tablet 23:52: [address] lurasidone 2020-0 Yes 40mg Take 40 mg U nivers (LATUDA) 40 1-06 by mouth. ity of mg tablet 23:52: [address] lurasidone 2020-0 Yes 40mg Take 40 mg U nivers (LATUDA) 40 1-06 by mouth. ity of mg tablet 23:52: [address] levoFLOXaci 2018-08 Yes [id number] 500mg Take 1 Univers n 2-14 tablet by ity of (LEVAQUIN) 00:00: mouth [place] 500 mg 00 every 24 Medical tablet ([facility] ur) hours. codeine-gua 2018-08 Yes [id number] 5mL Take 5 mL Univers ifenesin 2-14 by mouth ity of (CHERATUSSI 00:00: every 6 [place] as N AC) 00 (six) Medical 10-100 mg/5 hours as Bran ch mL solution needed for Cough. levoFLOXaci 2018-08 Yes [id number] 500mg Take 1 Univers n 2-14 tablet by ity of (LEVAQUIN) 00:00: mouth [place] 500 mg 00 every 24 Medical tablet ([facility] ur) hours. codeine-gua 2018-08 Yes [id number] 5mL Take 5 mL [facility] ifenesin 2-14 by mouth ity of (CHERATUSSI 00:00: every 6 [place] N AC) 00 (six) Medical 10-100 mg/5 hours as Bran ch mL solution needed for Cough. levoFLOXaci 2018-08 Yes [id number] 500mg Take 1 Univers n 2-14 tablet by ity of (LEVAQUIN) 00:00: mouth [place] 500 mg 00 every 24 Medical tablet ([facility] ur) hours. codeine-gua 2018-08 Yes [id number] 5mL Take 5 mL Univers ifenesin 2-14 by mouth ity of (CHERATUSSI 00:00: every 6 [place] as N AC) 00 (six) Medical 10-100 mg/5 hours as Bran ch mL solution needed for Cough. levoFLOXaci 2018-08 Yes [id number] 500mg Take 1 [facility] n 2-14 tablet by ity of (LEVAQUIN) 00:00: mouth [place] 500 mg 00 every 24 Medical tablet ([facility] ur) hours. codeine-gua 2018-08 Yes [id number] 5mL Take 5 mL [facility] ifenesin 2-14 by mouth ity of (CHERATUSSI 00:00: every 6 [place] as N AC) 00 (six) Medical 10-100 mg/5 hours as Bran ch mL solution needed for Cough. levoFLOXaci 2018-08 Yes [id number] 500mg Take 1 [facility] n 2-14 tablet by ity of (LEVAQUIN) 00:00: mouth [place] 500 mg 00 every 24 Medical tablet ([facility] ur) hours. codeine-gua 2018-08 Yes [id number] 5mL Take 5 mL Univers ifenesin 2-14 by mouth ity of (CHERATUSSI 00:00: every 6 [place] as N AC) 00 (six) Medical 10-100 mg/5 hours as Bran ch mL solution needed for Cough. levoFLOXaci 2018-08 Yes [id number] 500mg Take 1 Univers n 2-14 tablet by ity of (LEVAQUIN) 00:00: mouth [place] 500 mg 00 every 24 Medical tablet ([facility] ur) hours. codeine-gua 2018-08 Yes [id number] 5mL Take 5 mL Univers ifenesin 2-14 by mouth ity of (CHERATUSSI 00:00: every 6 [place] as N AC) 00 (six) Medical 10-100 mg/5 hours as Bran ch mL solution needed for Cough. levoFLOXaci 2018-08 Yes [id number] 500mg Take 1 Univers n 2-14 tablet by ity of (LEVAQUIN) 00:00: mouth [place] 500 mg 00 every 24 Medical tablet ([facility] ur) hours. codeine-gua 2018-08 Yes [id number] 5mL Take 5 mL Univers ifenesin 2-14 by mouth ity of (CHERATUSSI 00:00: every 6 [place] as N AC) 00 (six) Medical 10-100 mg/5 hours as Bran ch mL solution needed for Cough. levoFLOXaci 2018-08 Yes [id number] 500mg Take 1 Univers n 2-14 tablet by ity of (LEVAQUIN) 00:00: mouth [place] 500 mg 00 every 24 Medical tablet ([facility] ur) hours. codeine-gua 2018-08 Yes [id number] 5mL Take 5 mL Univers ifenesin 2-14 by mouth ity of (CHERATUSSI 00:00: every 6 [place] as N AC) 00 (six) Medical 10-100 mg/5 hours as Bran ch mL solution needed for Cough. levoFLOXaci 2018-08 Yes [id number] 500mg Take 1 Univers n 2-14 tablet by ity of (LEVAQUIN) 00:00: mouth [place] 500 mg 00 every 24 Medical tablet ([facility] Branch ur) hours. codeine-gua 2018-08 Yes [id number] 5mL Take 5 mL Univers ifenesin 2-14 by mouth ity of (CHERATUSSI 00:00: every 6 [place] as N AC) 00 (six) Medical 10-100 mg/5 hours as Bran ch mL solution needed for Cough. levoFLOXaci 2018-08 Yes [id number] 500mg Take 1 Univers n 2-14 tablet by ity of (LEVAQUIN) 00:00: mouth [place] 500 mg 00 every 24 Medical tablet ([facility] Branch ur) hours. codeine-gua 2018-08 Yes [id number] 5mL Take 5 mL [facility] ifenesin 2-14 by mouth ity of (CHERATUSSI 00:00: every 6 [place] N AC) 00 (six) Medical 10-100 mg/5 hours as Bran ch mL solution needed for Cough. levoFLOXaci 2018-08 Yes [id number] 500mg Take 1 [facility] n 2-14 tablet by ity of (LEVAQUIN) 00:00: mouth [place] 500 mg 00 every 24 Medical tablet ([facility] Branch ur) hours. codeine-gua 2018-08 Yes [id number] 5mL Take 5 mL [facility] ifenesin 2-14 by mouth ity of (CHERATUSSI 00:00: every 6 [place] N AC) 00 (six) Medical 10-100 mg/5 hours as Bran ch mL solution needed for Cough. levoFLOXaci 2018-08 Yes [id number] 500mg Take 1 [facility] n 2-14 tablet by ity of (LEVAQUIN) 00:00: mouth [place] 500 mg 00 every 24 Medical tablet ([facility] Branch ur) hours. codeine-gua 2018-08 Yes [id number] 5mL Take 5 mL [facility] ifenesin 2-14 by mouth ity of (CHERATUSSI 00:00: every 6 [place] N AC) 00 (six) Medical 10-100 mg/5 hours as Bran ch mL solution needed for Cough. levoFLOXaci 2018-08 Yes [id number] 500mg Take 1 Univers n 2-14 tablet by ity of (LEVAQUIN) 00:00: mouth [place] 500 mg 00 every 24 Medical tablet ([facility] ur) hours. codeine-gua 2018-08 Yes [id number] 5mL Take 5 mL [facility] ifenesin 2-14 by mouth ity of (CHERATUSSI 00:00: every 6 [place] N AC) 00 (six) Medical 10-100 mg/5 hours as Bran ch mL solution needed for Cough. levoFLOXaci 2018-08 Yes [id number] 500mg Take 1 Univers n 2-14 tablet by ity of (LEVAQUIN) 00:00: mouth [place] 500 mg 00 every 24 Medical tablet ([facility] ur) hours. codeine-gua 2018-08 Yes [id number] 5mL Take 5 mL Univers ifenesin 2-14 by mouth ity of (CHERATUSSI 00:00: every 6 [place] as N AC) 00 (six) Medical 10-100 mg/5 hours as Bran ch mL solution needed for Cough. levoFLOXaci 2018-08 Yes [id number] 500mg Take 1 Univers n 2-14 tablet by ity of (LEVAQUIN) 00:00: mouth [place] 500 mg 00 every 24 Medical tablet ([facility] ur) hours. codeine-gua 2018-08 Yes [id number] 5mL Take 5 mL [facility] ifenesin 2-14 by mouth ity of (CHERATUSSI 00:00: every 6 [place] as N AC) 00 (six) Medical 10-100 mg/5 hours as Bran ch mL solution needed for Cough. levoFLOXaci 2018-08 Yes [id number] 500mg Take 1 [facility] n 2-14 tablet by ity of (LEVAQUIN) 00:00: mouth [place] 500 mg 00 every 24 Medical tablet ([facility] Branch ur) hours. codeine-gua 2018-08 Yes [id number] 5mL Take 5 mL [facility] ifenesin 2-14 by mouth ity of (CHERATUSSI 00:00: every 6 [place] as N AC) 00 (six) Medical 10-100 mg/5 hours as Bran ch mL solution needed for Cough. levoFLOXaci 2018-08 Yes [id number] 500mg Take 1 Univers n 2-14 tablet by ity of (LEVAQUIN) 00:00: mouth [place] 500 mg 00 every 24 Medical tablet ([facility] ur) hours. codeine-gua 2018-08 Yes [id number] 5mL Take 5 mL Univers ifenesin 2-14 by mouth ity of (CHERATUSSI 00:00: every 6 [place] as N AC) 00 (six) Medical 10-100 mg/5 hours as Bran ch mL solution needed for Cough. levoFLOXaci 2018-08 Yes [id number] 500mg Take 1 Univers n 2-14 tablet by ity of (LEVAQUIN) 00:00: mouth [place] 500 mg 00 every 24 Medical tablet ([facility] Branch ur) hours. codeine-gua 2018-08 Yes [id number] 5mL Take 5 mL Univers ifenesin 2-14 by mouth ity of (CHERATUSSI 00:00: every 6 [place] as N AC) 00 (six) Medical 10-100 mg/5 hours as Bran ch mL solution needed for Cough. levoFLOXaci 2018-08 Yes [id number] 500mg Take 1 Univers n 2-14 tablet by ity of (LEVAQUIN) 00:00: mouth [place] 500 mg 00 every 24 Medical tablet ([facility] Branch ur) hours. codeine-gua 2018-08 Yes [id number] 5mL Take 5 mL Univers ifenesin 2-14 by mouth ity of (CHERATUSSI 00:00: every 6 [place] as N AC) 00 (six) Medical 10-100 mg/5 hours as Bran ch mL solution needed for Cough. levoFLOXaci 2018-08 Yes [id number] 500mg Take 1 Univers n 2-14 tablet by ity of (LEVAQUIN) 00:00: mouth [place] 500 mg 00 every 24 Medical tablet ([facility] Branch ur) hours. codeine-gua 2018-08 Yes [id number] 5mL Take 5 mL Univers ifenesin 2-14 by mouth ity of (CHERATUSSI 00:00: every 6 [place] as N AC) 00 (six) Medical 10-100 mg/5 hours as Bran ch mL solution needed for Cough. levoFLOXaci 2018-08 Yes [id number] 500mg Take 1 Univers n 2-14 tablet by ity of (LEVAQUIN) 00:00: mouth [place] 500 mg 00 every 24 Medical tablet ([facility] ur) hours. codeine-gua 2018-08 Yes [id number] 5mL Take 5 mL Univers ifenesin 2-14 by mouth ity of (CHERATUSSI 00:00: every 6 [place] as N AC) 00 (six) Medical 10-100 mg/5 hours as Bran ch mL solution needed for Cough. levoFLOXaci 2018-08 Yes [id number] 500mg Take 1 Univers n 2-14 tablet by ity of (LEVAQUIN) 00:00: mouth [place] 500 mg 00 every 24 Medical tablet ( [place] ur) hours. codeine-gua 2018-08 Yes [id number] 5mL Take 5 mL Univers ifenesin 2-14 by mouth ity of (CHERATUSSI 00:00: every 6 [place] as N AC) 00 (six) Medical 10-100 mg/5 hours as Bran ch mL solution needed for Cough. levoFLOXaci 2018-08 Yes [id number] 500mg Take 1 Univers n 2-14 tablet by ity of (LEVAQUIN) 00:00: mouth [place] 500 mg 00 every 24 Medical tablet ( [place] ur) hours. codeine-gua 2018-08 Yes [id number] 5mL Take 5 mL Univers ifenesin 2-14 by mouth ity of (CHERATUSSI 00:00: every 6 [place] as N AC) 00 (six) Medical 10-100 mg/5 hours as Bran ch mL solution needed for Cough. levoFLOXaci 2018-08 Yes [id number] 500mg Take 1 Univers n 2-14 tablet by ity of (LEVAQUIN) 00:00: mouth [place] 500 mg 00 every 24 Medical tablet ( [place] ur) hours. codeine-gua 2018-08 Yes [id number] 5mL Take 5 mL Univers ifenesin 2-14 by mouth ity of (CHERATUSSI 00:00: every 6 [place] as N AC) 00 (six) Medical 10-100 mg/5 hours as Bran ch mL solution needed for Cough. levoFLOXaci 2018-08 Yes [id number] 500mg Take 1 Univers n 2-14 tablet by ity of (LEVAQUIN) 00:00: mouth [place] 500 mg 00 every 24 Medical tablet ( Branch ur) hours. codeine-gua 2018-08 Yes [id number] 5mL Take 5 mL Univers ifenesin 2-14 by mouth ity of (CHERATUSSI 00:00: every 6 [place] as N AC) 00 (six) Medical 10-100 mg/5 hours as Bran ch mL solution needed for Cough. levoFLOXaci 2018-08 Yes [id number] 500mg Take 1 Univers n 2-14 tablet by ity of (LEVAQUIN) 00:00: mouth [place] 500 mg 00 every 24 Medical tablet ([facility] ur) hours. codeine-gua 2018-08 Yes [id number] 5mL Take 5 mL Univers ifenesin 2-14 by mouth ity of (CHERATUSSI 00:00: every 6 [place] as N AC) 00 (six) Medical 10-100 mg/5 hours as Bran ch mL solution needed for Cough. levoFLOXaci 2018-08 Yes [id number] 500mg Take 1 Univers n 2-14 tablet by ity of (LEVAQUIN) 00:00: mouth [place] 500 mg 00 every 24 Medical tablet ([facility] Branch ur) hours. codeine-gua 2018-08 Yes [id number] 5mL Take 5 mL Univers ifenesin 2-14 by mouth ity of (CHERATUSSI 00:00: every 6 [place] as N AC) 00 (six) Medical 10-100 mg/5 hours as Bran ch mL solution needed for Cough. levoFLOXaci 2018-08 Yes [id number] 500mg Take 1 Univers n 2-14 tablet by ity of (LEVAQUIN) 00:00: mouth [place] 500 mg 00 every 24 Medical tablet ([facility] Branch ur) hours. codeine-gua 2018-08 Yes [id number] 5mL Take 5 mL Univers ifenesin 2-14 by mouth ity of (CHERATUSSI 00:00: every 6 [place] as N AC) 00 (six) Medical 10-100 mg/5 hours as Bran ch mL solution needed for Cough. levoFLOXaci 2018-08 Yes [id number] 500mg Take 1 Univers n 2-14 tablet by ity of (LEVAQUIN) 00:00: mouth [place] 500 mg 00 every 24 Medical tablet ([facility] Branch ur) hours. codeine-gua 2018-08 Yes [id number] 5mL Take 5 mL Univers ifenesin 2-14 by mouth ity of (CHERATUSSI 00:00: every 6 [place] as N AC) 00 (six) Medical 10-100 mg/5 hours as Bran ch mL solution needed for Cough. levoFLOXaci 2018-08 Yes [id number] 500mg Take 1 Univers n 2-14 tablet by ity of (LEVAQUIN) 00:00: mouth [place] 500 mg 00 every 24 Medical tablet ([facility] ur) hours. codeine-gua 2018-08 Yes [id number] 5mL Take 5 mL Univers ifenesin 2-14 by mouth ity of (CHERATUSSI 00:00: every 6 [place] as N AC) 00 (six) Medical 10-100 mg/5 hours as Bran ch mL solution needed for Cough. levoFLOXaci 2018-08 Yes [id number] 500mg Take 1 Univers n 2-14 tablet by ity of (LEVAQUIN) 00:00: mouth [place] 500 mg 00 every 24 Medical tablet ([facility]) hours. codeine-gua 2018-08 Yes [id number] 5mL Take 5 mL Univers ifenesin 2-14 by mouth ity of (CHERATUSSI 00:00: every 6 [place] as N AC) 00 (six) Medical 10-100 mg/5 hours as Bran ch mL solution needed for Cough. levoFLOXaci 2018-08 Yes [id number] 500mg Take 1 Univers n 2-14 tablet by ity of (LEVAQUIN) 00:00: mouth [place] 500 mg 00 every 24 Medical tablet ([facility] [facility] ur) hours. codeine-gua 2018-08 Yes [id number] 5mL Take 5 mL [facility] ifenesin 2-14 by mouth ity of (CHERATUSSI 00:00: every 6 [place] as N AC) 00 (six) Medical 10-100 mg/5 hours as Bran ch mL solution needed for Cough. levoFLOXaci 2018-08 Yes [id number] 500mg Take 1 Univers n 2-14 tablet by ity of (LEVAQUIN) 00:00: mouth [place] 500 mg 00 every 24 Medical tablet ([facility] ur) hours. codeine-gua 2018-08 Yes [id number] 5mL Take 5 mL [facility] ifenesin 2-14 by mouth ity of (CHERATUSSI 00:00: every 6 [place] N AC) 00 (six) Medical 10-100 mg/5 hours as Bran ch mL solution needed for Cough. levoFLOXaci 2018-08 Yes [id number] 500mg Take 1 Univers n 2-14 tablet by ity of (LEVAQUIN) 00:00: mouth [place] 500 mg 00 every 24 Medical tablet (twenty-fo Branch ur) hours. codeine-gua 2018-08 Yes [id number] 5mL Take 5 mL [facility] ifenesin 2-14 by mouth ity of (CHERATUSSI 00:00: every 6 [place] N AC) 00 (six) Medical 10-100 mg/5 hours as Bran ch mL solution needed for Cough. levoFLOXaci 2018-08 Yes [id number] 500mg Take 1 Univers n 2-14 tablet by ity of (LEVAQUIN) 00:00: mouth [place] 500 mg 00 every 24 Medical tablet (-fo Branch ur) hours. codeine-gua 2018-08 Yes [id number] 5mL Take 5 mL [facility] ifenesin 2-14 by mouth ity of (CHERATUSSI 00:00: every 6 [place] N AC) 00 (six) Medical 10-100 mg/5 hours as Bran ch mL solution needed for Cough. levoFLOXaci 2018-08 Yes [id number] 500mg Take 1 Univers n 2-14 tablet by ity of (LEVAQUIN) 00:00: mouth [place] 500 mg 00 every 24 Medical tablet (fo Branch ur) hours. codeine-gua 2018-08 Yes [id number] 5mL Take 5 mL [facility] ifenesin 2-14 by mouth ity of (CHERATUSSI 00:00: every 6 [place] N AC) 00 (six) Medical 10-100 mg/5 hours as Bran ch mL solution needed for Cough. levoFLOXaci 2018-08 Yes [id number] 500mg Take 1 Univers n 2-14 tablet by ity of (LEVAQUIN) 00:00: mouth [place] 500 mg 00 every 24 Medical tablet (-fo Branch ur) hours. codeine-gua 2018-08 Yes [id number] 5mL Take 5 mL [facility] ifenesin 2-14 by mouth ity of (CHERATUSSI 00:00: every 6 [place] N AC) 00 (six) Medical 10-100 mg/5 hours as Bran ch mL solution needed for Cough. levoFLOXaci 2018-08 Yes [id number] 500mg Take 1 [facility] n 2-14 tablet by ity of (LEVAQUIN) 00:00: mouth [place] 500 mg 00 every 24 Medical tablet (twenty-[facility] Branch ur) hours. codeine-gua 2018-08 Yes [id number] 5mL Take 5 mL [facility] ifenesin 2-14 by mouth ity of (CHERATUSSI 00:00: every 6 [place] N AC) 00 (six) Medical 10-100 mg/5 hours as Bran ch mL solution needed for Cough. levoFLOXaci 2018-08 Yes [id number] 500mg Take 1 Univers n 2-14 tablet by ity of (LEVAQUIN) 00:00: mouth [place] 500 mg 00 every 24 Medical tablet ([facility] ur) hours. codeine-gua 2018-08 Yes [id number] 5mL Take 5 mL [facility] ifenesin 2-14 by mouth ity of (CHERATUSSI 00:00: every 6 [place] as N AC) 00 (six) Medical 10-100 mg/5 hours as Bran ch mL solution needed for Cough. levoFLOXaci 2018-08- No [id number] 500mg Take 1 Univers n 2-14 05-24 tablet by ity of (LEVAQUIN) 00:00: 00:00 mouth [place] 500 mg 00 :00 every 24 Medical tablet ([facility] ur) hours. codeine-gua 2018-08- No [id number] 5mL Take 5 mL [facility] ifenesin 2-14 05-24 by mouth ity of (CHERATUSSI 00:00: 00:00 every 6 [place] N AC) 00 :00 (six) Medical 10-100 mg/5 hours as Bran ch mL solution needed for Cough. buPROPion 2018-08 Yes [id number] 150mg Take 1 U nivers SR 0-16 tablet by ity of (WELLBUTRIN 00:00: mouth [place] SR) 150 mg 00 daily. Medical SR tablet Branch buPROPion 2018-08 Yes [id number] 150mg Take 1 U nivers SR 0-16 tablet by ity of (WELLBUTRIN 00:00: mouth [place] SR) 150 mg 00 daily. Medical SR tablet Branch buPROPion 2018-08 Yes [id number] 150mg Take 1 U nivers SR 0-16 tablet by ity of (WELLBUTRIN 00:00: mouth [place] SR) 150 mg 00 daily. Medical SR tablet Branch buPROPion 2018-08 Yes [id number] 150mg Take 1 U nivers SR 0-16 tablet by ity of (WELLBUTRIN 00:00: mouth [place] SR) 150 mg 00 daily. Medical SR tablet Branch buPROPion 2018-08 Yes [id number] 150mg Take 1 U nivers SR 0-16 tablet by ity of (WELLBUTRIN 00:00: mouth [place] SR) 150 mg 00 daily. Medical SR tablet Branch buPROPion 2018-08 Yes [id number] 150mg Take 1 U nivers SR 0-16 tablet by ity of (WELLBUTRIN 00:00: mouth [place] SR) 150 mg 00 daily. Medical SR tablet Branch buPROPion 2018-08 Yes [id number] 150mg Take 1 U nivers SR 0-16 tablet by ity of (WELLBUTRIN 00:00: mouth [place] SR) 150 mg 00 daily. Medical SR tablet Branch buPROPion 2018-08 Yes [id number] 150mg Take 1 U nivers SR 0-16 tablet by ity of (WELLBUTRIN 00:00: mouth [place] SR) 150 mg 00 daily. Medical SR tablet Branch buPROPion 2018-08 Yes [id number] 150mg Take 1 U nivers SR 0-16 tablet by ity of (WELLBUTRIN 00:00: mouth [place] SR) 150 mg 00 daily. Medical SR tablet Branch buPROPion 2018-08 Yes [id number] 150mg Take 1 U nivers SR 0-16 tablet by ity of (WELLBUTRIN 00:00: mouth [place] SR) 150 mg 00 daily. Medical SR tablet Branch buPROPion 2018-08 Yes [id number] 150mg Take 1 U nivers SR 0-16 tablet by ity of (WELLBUTRIN 00:00: mouth [place] SR) 150 mg 00 daily. Medical SR tablet Branch buPROPion 2018-08 Yes [id number] 150mg Take 1 U nivers SR 0-16 tablet by ity of (WELLBUTRIN 00:00: mouth [place] SR) 150 mg 00 daily. Medical SR tablet Branch buPROPion 2018-08 Yes [id number] 150mg Take 1 U nivers SR 0-16 tablet by ity of (WELLBUTRIN 00:00: mouth [place] SR) 150 mg 00 daily. Medical SR tablet Branch buPROPion 2018-08 Yes [id number] 150mg Take 1 U nivers SR 0-16 tablet by ity of (WELLBUTRIN 00:00: mouth [place] SR) 150 mg 00 daily. Medical SR tablet Branch buPROPion 2018-08 Yes [id number] 150mg Take 1 U nivers SR 0-16 tablet by ity of (WELLBUTRIN 00:00: mouth [place] SR) 150 mg 00 daily. Medical SR tablet Branch buPROPion 2018-08 Yes [id number] 150mg Take 1 U nivers SR 0-16 tablet by ity of (WELLBUTRIN 00:00: mouth [place] SR) 150 mg 00 daily. Medical SR tablet Branch buPROPion 2018-08 Yes [id number] 150mg Take 1 U nivers SR 0-16 tablet by ity of (WELLBUTRIN 00:00: mouth [place] SR) 150 mg 00 daily. Medical SR tablet Branch buPROPion 2018-08 Yes [id number] 150mg Take 1 U nivers SR 0-16 tablet by ity of (WELLBUTRIN 00:00: mouth [place] SR) 150 mg 00 daily. Medical SR tablet Branch buPROPion 2018-08 Yes [id number] 150mg Take 1 U nivers SR 0-16 tablet by ity of (WELLBUTRIN 00:00: mouth [place] SR) 150 mg 00 daily. Medical SR tablet Branch buPROPion 2018-08 Yes [id number] 150mg Take 1 U nivers SR 0-16 tablet by ity of (WELLBUTRIN 00:00: mouth [place] SR) 150 mg 00 daily. Medical SR tablet Branch buPROPion 2018-08 Yes [id number] 150mg Take 1 U nivers SR 0-16 tablet by ity of (WELLBUTRIN 00:00: mouth [place] SR) 150 mg 00 daily. Medical SR tablet Branch buPROPion 2018-08 Yes [id number] 150mg Take 1 U nivers SR 0-16 tablet by ity of (WELLBUTRIN 00:00: mouth [place] SR) 150 mg 00 daily. Medical SR tablet Branch buPROPion 2018-08 Yes [id number] 150mg Take 1 U nivers SR 0-16 tablet by ity of (WELLBUTRIN 00:00: mouth [place] SR) 150 mg 00 daily. Medical SR tablet Branch buPROPion 2018-08 Yes [id number] 150mg Take 1 U nivers SR 0-16 tablet by ity of (WELLBUTRIN 00:00: mouth [place] SR) 150 mg 00 daily. Medical SR tablet Branch buPROPion 2018-08 Yes [id number] 150mg Take 1 U nivers SR 0-16 tablet by ity of (WELLBUTRIN 00:00: mouth [place] SR) 150 mg 00 daily. Medical SR tablet Branch buPROPion 2018-08 Yes [id number] 150mg Take 1 U nivers SR 0-16 tablet by ity of (WELLBUTRIN 00:00: mouth [place] SR) 150 mg 00 daily. Medical SR tablet Branch buPROPion 2018-08 Yes [id number] 150mg Take 1 U nivers SR 0-16 tablet by ity of (WELLBUTRIN 00:00: mouth [place] SR) 150 mg 00 daily. Medical SR tablet Branch buPROPion 2018-08 Yes [id number] 150mg Take 1 U nivers SR 0-16 tablet by ity of (WELLBUTRIN 00:00: mouth [place] SR) 150 mg 00 daily. Medical SR tablet Branch buPROPion 2018-08 Yes [id number] 150mg Take 1 U nivers SR 0-16 tablet by ity of (WELLBUTRIN 00:00: mouth [place] SR) 150 mg 00 daily. Medical SR tablet Branch buPROPion 2018-08 Yes [id number] 150mg Take 1 U nivers SR 0-16 tablet by ity of (WELLBUTRIN 00:00: mouth [place] SR) 150 mg 00 daily. Medical SR tablet Branch buPROPion 2018-08 Yes [id number] 150mg Take 1 U nivers SR 0-16 tablet by ity of (WELLBUTRIN 00:00: mouth [place] SR) 150 mg 00 daily. Medical SR tablet Branch buPROPion 2018-08 Yes [id number] 150mg Take 1 U nivers SR 0-16 tablet by ity of (WELLBUTRIN 00:00: mouth [place] SR) 150 mg 00 daily. Medical SR tablet Branch buPROPion 2018-08 Yes [id number] 150mg Take 1 U nivers SR 0-16 tablet by ity of (WELLBUTRIN 00:00: mouth [place] SR) 150 mg 00 daily. Medical SR tablet Branch buPROPion 2018-08 Yes [id number] 150mg Take 1 U nivers SR 0-16 tablet by ity of (WELLBUTRIN 00:00: mouth [place] SR) 150 mg 00 daily. Medical SR tablet Branch buPROPion 2018-08 Yes [id number] 150mg Take 1 U nivers SR 0-16 tablet by ity of (WELLBUTRIN 00:00: mouth [place] SR) 150 mg 00 daily. Medical SR tablet Branch buPROPion 2018-08 Yes [id number] 150mg Take 1 U nivers SR 0-16 tablet by ity of (WELLBUTRIN 00:00: mouth [place] SR) 150 mg 00 daily. Medical SR tablet Branch buPROPion 2018-08 Yes [id number] 150mg Take 1 U nivers SR 0-16 tablet by ity of (WELLBUTRIN 00:00: mouth [place] SR) 150 mg 00 daily. Medical SR tablet Branch buPROPion 2018-08 Yes [id number] 150mg Take 1 U nivers SR 0-16 tablet by ity of (WELLBUTRIN 00:00: mouth [place] SR) 150 mg 00 daily. Medical SR tablet Branch buPROPion 2018-08 Yes [id number] 150mg Take 1 U nivers SR 0-16 tablet by ity of (WELLBUTRIN 00:00: mouth [place] SR) 150 mg 00 daily. Medical SR tablet Branch buPROPion 2018-08- No [id number] 150mg Take 1 Univers SR 0-16 05-24 tablet by ity of (WELLBUTRIN 00:00: 00:[place] SR[place] 150 mg 00 :00 daily. Medical SR tablet Branch loratadine 2018-08 Yes [id number] 10mg Take 1 Univers (CLARITIN) 0-11 tablet by ity of 10 mg 00:00: mouth [place] tablet 00 daily. Medical Branch loratadine 2018-08 Yes [id number] 10mg Take 1 Univers (CLARITIN) 0-11 tablet by ity of 10 mg 00:00: mouth [place] tablet 00 daily. Medical Branch loratadine 2018-08 Yes [id number] 10mg Take 1 Univers (CLARITIN) 0-11 tablet by ity of 10 mg 00:00: mouth [place] tablet 00 daily. Medical Branch loratadine 2018-08 Yes [id number] 10mg Take 1 Univers (CLARITIN) 0-11 tablet by ity of 10 mg 00:00: mouth [place] tablet 00 daily. Medical Branch loratadine 2018-08 Yes [id number] 10mg Take 1 Univers (CLARITIN) 0-11 tablet by ity of 10 mg 00:00: mouth [place] tablet 00 daily. Medical Branch loratadine 2018-08 Yes [id number] 10mg Take 1 Univers (CLARITIN) 0-11 tablet by ity of 10 mg 00:00: mouth [place] tablet 00 daily. Medical Branch loratadine 2018-08 Yes [id number] 10mg Take 1 Univers (CLARITIN) 0-11 tablet by ity of 10 mg 00:00: mouth [place] tablet 00 daily. Medical Branch loratadine 2018-08 Yes [id number] 10mg Take 1 Univers (CLARITIN) 0-11 tablet by ity of 10 mg 00:00: mouth [place] tablet 00 daily. Medical Branch loratadine 2018-08 Yes [id number] 10mg Take 1 Univers (CLARITIN) 0-11 tablet by ity of 10 mg 00:00: mouth [place] tablet 00 daily. Medical Branch loratadine 2018-08 Yes [id number] 10mg Take 1 Univers (CLARITIN) 0-11 tablet by ity of 10 mg 00:00: mouth [place] tablet 00 daily. Medical Branch loratadine 2018-08 Yes [id number] 10mg Take 1 Univers (CLARITIN) 0-11 tablet by ity of 10 mg 00:00: mouth [place] tablet 00 daily. Medical Branch loratadine 2018-08 Yes [id number] 10mg Take 1 Univers (CLARITIN) 0-11 tablet by ity of 10 mg 00:00: mouth [place] tablet 00 daily. Medical Branch loratadine 2018-08 Yes [id number] 10mg Take 1 Univers (CLARITIN) 0-11 tablet by ity of 10 mg 00:00: mouth [place] tablet 00 daily. Medical Branch loratadine 2018-08 Yes [id number] 10mg Take 1 Univers (CLARITIN) 0-11 tablet by ity of 10 mg 00:00: mouth [place] tablet 00 daily. Medical Branch loratadine 2018-08 Yes [id number] 10mg Take 1 Univers (CLARITIN) 0-11 tablet by ity of 10 mg 00:00: mouth [place] tablet 00 daily. Medical Branch loratadine 2018-08 Yes [id number] 10mg Take 1 Univers (CLARITIN) 0-11 tablet by ity of 10 mg 00:00: mouth [place] tablet 00 daily. Medical Branch loratadine 2018-08 Yes [id number] 10mg Take 1 Univers (CLARITIN) 0-11 tablet by ity of 10 mg 00:00: mouth [place] tablet 00 daily. Medical Branch loratadine 2018-08 Yes [id number] 10mg Take 1 Univers (CLARITIN) 0-11 tablet by ity of 10 mg 00:00: mouth [place] tablet 00 daily. Medical Branch loratadine 2018-08 Yes [id number] 10mg Take 1 Univers (CLARITIN) 0-11 tablet by ity of 10 mg 00:00: mouth [place] tablet 00 daily. Medical Branch loratadine 2018-08 Yes [id number] 10mg Take 1 Univers (CLARITIN) 0-11 tablet by ity of 10 mg 00:00: mouth [place] tablet 00 daily. Medical Branch loratadine 2018-08 Yes [id number] 10mg Take 1 Univers (CLARITIN) 0-11 tablet by ity of 10 mg 00:00: mouth [place] tablet 00 daily. Medical Branch loratadine 2018-08 Yes [id number] 10mg Take 1 Univers (CLARITIN) 0-11 tablet by ity of 10 mg 00:00: mouth [place] tablet 00 daily. Medical Branch loratadine 2018-08 Yes [id number] 10mg Take 1 Univers (CLARITIN) 0-11 tablet by ity of 10 mg 00:00: mouth [place] tablet 00 daily. Medical Branch loratadine 2018-08 Yes [id number] 10mg Take 1 Univers (CLARITIN) 0-11 tablet by ity of 10 mg 00:00: mouth [place] tablet 00 daily. Medical Branch loratadine 2018-08 Yes [id number] 10mg Take 1 Univers (CLARITIN) 0-11 tablet by ity of 10 mg 00:00: mouth [place] tablet 00 daily. Medical Branch loratadine 2018-08 Yes [id number] 10mg Take 1 Univers (CLARITIN) 0-11 tablet by ity of 10 mg 00:00: mouth [place] tablet 00 daily. Medical Branch loratadine 2018-08 Yes [id number] 10mg Take 1 Univers (CLARITIN) 0-11 tablet by ity of 10 mg 00:00: mouth [place] tablet 00 daily. Medical Branch loratadine 2018-08 Yes [id number] 10mg Take 1 Univers (CLARITIN) 0-11 tablet by ity of 10 mg 00:00: mouth [place] tablet 00 daily. Medical Branch loratadine 2018-08 Yes [id number] 10mg Take 1 Univers (CLARITIN) 0-11 tablet by ity of 10 mg 00:00: mouth [place] tablet 00 daily. Medical Branch loratadine 2018-08 Yes [id number] 10mg Take 1 Univers (CLARITIN) 0-11 tablet by ity of 10 mg 00:00: mouth [place] tablet 00 daily. Medical Branch loratadine 2018-08 Yes [id number] 10mg Take 1 Univers (CLARITIN) 0-11 tablet by ity of 10 mg 00:00: mouth [place] tablet 00 daily. Medical Branch loratadine 2018-08 Yes [id number] 10mg Take 1 Univers (CLARITIN) 0-11 tablet by ity of 10 mg 00:00: mouth [place] tablet 00 daily. Medical Branch loratadine 2018-08 Yes [id number] 10mg Take 1 Univers (CLARITIN) 0-11 tablet by ity of 10 mg 00:00: mouth [place] tablet 00 daily. Medical Branch loratadine 2018-08 Yes [id number] 10mg Take 1 Univers (CLARITIN) 0-11 tablet by ity of 10 mg 00:00: mouth [place] tablet 00 daily. Medical Branch loratadine 2018-08 Yes [id number] 10mg Take 1 Univers (CLARITIN) 0-11 tablet by ity of 10 mg 00:00: mouth [place] tablet 00 daily. Medical Branch loratadine 2018-08 Yes [id number] 10mg Take 1 Univers (CLARITIN) 0-11 tablet by ity of 10 mg 00:00: mouth [place] tablet 00 daily. Medical Branch loratadine 2018-08 Yes [id number] 10mg Take 1 Univers (CLARITIN) 0-11 tablet by ity of 10 mg 00:00: mouth [place] tablet 00 daily. Medical Branch loratadine 2018-08 Yes [id number] 10mg Take 1 Univers (CLARITIN) 0-11 tablet by ity of 10 mg 00:00: mouth [place] tablet 00 daily. Medical Branch loratadine 2018-08 Yes [id number] 10mg Take 1 Univers (CLARITIN) 0-11 tablet by ity of 10 mg 00:00: mouth [place] tablet 00 daily. Medical Branch loratadine 2018-08- No [id number] 10mg Take 1 Univers (CLARITIN) 0-11 05-24 tablet by ity of 10 mg 00:00: 00:00 mouth [place] tablet 00 :00 daily. [facility] Branch Immunizations Ordered Filled Immunization Date Status Comments [facility] e Immunization Name Name TD 2018-04-07 Completed [facility] of 00:00:00 [facility] TDAP 2018-04-07 Completed University of 00:00:00 [facility] TDAP 2018-04-07 Completed University of 00:00:00 [place] [facility] TDAP 2018-04-07 Completed University of 00:00:00 [place] [facility] TDAP 2018-04-07 Completed University of 00:00:00 [place] [facility] TDAP 2018-04-07 Completed University of 00:00:00 [place] [facility] TDAP 2018-04-07 Completed University of 00:00:00 [place] [facility] TDAP 2018-04-07 Completed University of 00:00:00 [place] [facility] Tdap 2018-04-07 Completed University of 00:00:00 [place] [facility] Tdap 2018-04-07 Completed University of 00:00:00 [place] [facility] Tdap 2018-04-07 Completed University of 00:00:00 [place] [facility] Tdap 2018-04-07 Completed University of 00:00:00 [place] [facility] Tdap 2018-04-07 Completed University of 00:00:00 [place] [facility] Tdap 2018-04-07 Completed University of 00:00:00 [place] [facility] Tdap 2018-04-07 Completed University of 00:00:00 [place] [facility] Tdap 2018-04-07 Completed University of 00:00:00 [place] [facility] Tdap 2018-04-07 Completed University of 00:00:00 [place] [facility] Tdap 2018-04-07 Completed University of 00:00:00 [place] [facility] Tdap 2018-04-07 Completed University of 00:00:00 [place] [facility] Tdap 2018-04-07 Completed University of 00:00:00 [facility] TDAP 2018-04-07 Completed University of 00:00:00 [place] [facility] TDAP 2018-04-07 Completed University of 00:00:00 [place] [facility] TDAP 2018-04-07 Completed University of 00:00:00 [place] [facility] TDAP 2018-04-07 Completed University of 00:00:00 [place] [facility] TDAP 2018-04-07 Completed University of 00:00:00 [place] [facility] TDAP 2018-04-07 Completed University of 00:00:00 [place] [facility] TDAP 2018-04-07 Completed University of 00:00:00 [place] [facility] TDAP 2018-04-07 Completed University of 00:00:00 [place] [facility] TDAP 2018-04-07 Completed University of 00:00:00 [place] [facility] TDAP 2018-04-07 Completed University of 00:00:00 [facility] Branch TDAP 2018-04-07 Completed University of 00:00:00 [place] [facility] TDAP 2018-04-07 Completed University of 00:00:00 [place] [facility] TDAP 2018-04-07 Completed University of 00:00:00 [place] [facility] TDAP 2018-04-07 Completed University of 00:00:00 [facility] Branch TDAP 2018-04-07 Completed University of 00:00:00 [facility] Branch TDAP 2018-04-07 Completed University of 00:00:00 [place] [facility] TDAP 2018-04-07 Completed University of 00:00:00 [place] [facility] TDAP 2018-04-07 Completed University of 00:00:00 [facility] Branch TDAP 2018-04-07 Completed University of 00:00:00 [place] [facility] TDAP 2018-04-07 Completed University of 00:00:00 [facility] Branch TDAP 2018-04-07 Completed University of 00:00:00 [facility] Branch TDAP 2018-04-07 Completed University of 00:00:00 [facility] Branch TDAP 2018-04-07 Completed University of 00:00:00 [facility] Branch TDAP 2018-04-07 Completed University of 00:00:00 [facility] Branch TDAP 2018-04-07 Completed University of 00:00:00 [facility] Branch TDAP 2018-04-07 Completed University of 00:00:00 [facility] Branch TDAP 2018-04-07 Completed University of 00:00:00 [facility] Branch TDAP 2018-04-07 Completed University of 00:00:00 [facility] Branch TDAP 2018-04-07 Completed University of 00:00:00 [facility] Branch TDAP 2018-04-07 Completed University of 00:00:00 [facility] Branch TDAP 2018-04-07 Completed University of 00:00:00 [facility] Branch TDAP (ADACEL) 2012-02-09 Completed University of VACCINE 00:00:00 [facility] Branch TDAP (ADACEL) 2012-02-09 Completed University of VACCINE 00:00:00 [facility] Branch TDAP (ADACEL) 2012-02-09 Completed University of VACCINE 00:00:00 [facility] Branch TDAP (ADACEL) 2012-02-09 Completed University of VACCINE 00:00:00 [facility] Branch TDAP (ADACEL) 2012-02-09 Completed University of VACCINE 00:00:00 [place] [facility] TDAP (ADACEL) 2012-02-09 Completed University of VACCINE 00:00:00 [place] [facility] TDAP (ADACEL) 2012-02-09 Completed University of VACCINE 00:00:00 [place] [facility] TDAP (ADACEL) 2012-02-09 Completed University of VACCINE 00:00:00 [place] [facility] TDAP (ADACEL) 2012-02-09 Completed University of VACCINE 00:00:00 [place] [facility] TDAP (ADACEL) 2012-02-09 Completed University of VACCINE 00:00:00 [place] [facility] TDAP (ADACEL) 2012-02-09 Completed University of VACCINE 00:00:00 [facility] Branch TDAP (ADACEL) 2012-02-09 Completed University of VACCINE 00:00:00 [facility] Branch TDAP (ADACEL) 2012-02-09 Completed University of VACCINE 00:00:00 [facility] Branch TDAP (ADACEL) 2012-02-09 Completed University of VACCINE 00:00:00 [facility] Branch TDAP (ADACEL) 2012-02-09 Completed University of VACCINE 00:00:00 [facility] Branch TDAP (ADACEL) 2012-02-09 Completed University of VACCINE 00:00:00 [facility] Branch TDAP (ADACEL) 2012-02-09 Completed University of VACCINE 00:00:00 [facility] Branch TDAP (ADACEL) 2012-02-09 Completed University of VACCINE 00:00:00 [facility] Branch TDAP (ADACEL) 2012-02-09 Completed University of VACCINE 00:00:00 [facility] Branch TDAP (ADACEL) 2012-02-09 Completed University of VACCINE 00:00:00 [facility] Branch TDAP (ADACEL) 2012-02-09 Completed University of VACCINE 00:00:00 [facility] Branch TDAP (ADACEL) 2012-02-09 Completed University of VACCINE 00:00:00 [facility] Branch TDAP (ADACEL) 2012-02-09 Completed University of VACCINE 00:00:00 [facility] Branch TDAP (ADACEL) 2012-02-09 Completed University of VACCINE 00:00:00 [facility] Branch TDAP (ADACEL) 2012-02-09 Completed University of VACCINE 00:00:00 [facility] Branch TDAP (ADACEL) 2012-02-09 Completed University of VACCINE 00:00:00 [facility] Branch TDAP (ADACEL) 2012-02-09 Completed University of VACCINE 00:00:00 [facility] Branch TDAP (ADACEL) 2012-02-09 Completed University of VACCINE 00:00:00 [place] [facility] TDAP (ADACEL) 2012-02-09 Completed University of VACCINE 00:00:00 [place] [facility] TDAP (ADACEL) 2012-02-09 Completed University of VACCINE 00:00:00 [facility] Branch TDAP (ADACEL) 2012-02-09 Completed University of VACCINE 00:00:00 [facility] Branch TDAP (ADACEL) 2012-02-09 Completed University of VACCINE 00:00:00 [facility] Branch TDAP (ADACEL) 2012-02-09 Completed University of VACCINE 00:00:00 [facility] Branch TDAP (ADACEL) 2012-02-09 Completed University of VACCINE 00:00:00 [facility] Branch TDAP (ADACEL) 2012-02-09 Completed University of VACCINE 00:00:00 [facility] Branch TDAP (ADACEL) 2012-02-09 Completed University of VACCINE 00:00:00 [facility] Branch TDAP (ADACEL) 2012-02-09 Completed University of VACCINE 00:00:00 [facility] Branch TDAP (ADACEL) 2012-02-09 Completed University of VACCINE 00:00:00 [facility] Branch TDAP (ADACEL) 2012-02-09 Completed University of VACCINE 00:00:00 [facility] Branch TDAP (ADACEL) 2012-02-09 Completed University of VACCINE 00:00:00 [facility] Branch TDAP (ADACEL) 2012-02-09 Completed University of VACCINE 00:00:00 [facility] Branch TDAP (ADACEL) 2012-02-09 Completed University of VACCINE 00:00:00 [facility] Branch TDAP (ADACEL) 2012-02-09 Completed University of VACCINE 00:00:00 [facility] Branch TDAP (ADACEL) 2012-02-09 Completed University of VACCINE 00:00:00 [facility] Branch TDAP (ADACEL) 2012-02-09 Completed University of VACCINE 00:00:00 [facility] Branch TDAP (ADACEL) 2012-02-09 Completed University of VACCINE 00:00:00 [facility] Branch TDAP (ADACEL) 2012-02-09 Completed University of VACCINE 00:00:00 [facility] TDAP (ADACEL) 2012-02-09 Completed University of VACCINE 00:00:00 [facility] TDAP (ADACEL) 2012-02-09 Completed [facility] of VACCINE 00:00:00 [facility] TDAP (ADACEL) 2012-02-09 Completed University of VACCINE 00:00:00 [facility] TDAP (ADACEL) 2012-02-09 Completed University of VACCINE 00:00:00 [facility] Vital Signs Vital Name Observation Time Observation Value Comments Source Systolic blood 2021-04-30 20:05:00 136 mm[Hg] Univer sity of pressure [facility] Diastolic blood 2021-04-30 20:05:00 88 mm[Hg] Unive rsity of pressure [facility] Heart rate 2021-04-30 20:05:00 102 /min Universi ty of [facility] Body temperature 2021-04-30 20:05:00 37.67 Vielka Univ ersity of [facility] Respiratory rate 2021-04-30 20:05:00 16 /min Univ [facility] [place] [facility] Body height 2021-04-30 20:05:00 152.4 cm [facility] [place] [facility] [place] Body weight 2021-04-30 20:05:00 79.379 kg [facility] [place] [facility] BMI 2021-04-30 20:05:00 34.18 kg/m2 [facility] [place] [facility] Oxygen saturation in 2021-04-30 20:05:00 97 /min University of Arterial blood by [place] [employer] [facility] Systolic blood 2021-01-07 02:00:00 140 mm[Hg] Univer sity of pressure [facility] Diastolic blood 2021-01-07 02:00:00 96 mm[Hg] Unive rsity of pressure [place] [facility] [place] Heart rate 2021-01-07 02:00:00 63 /min [facility] [place] [facility] Respiratory rate 2021-01-07 02:00:00 17 /min Univ ersity of [facility] Oxygen saturation in 2021-01-07 02:00:00 98 /min University of Arterial blood by [place] [employer] [facility] Body temperature 2021-01-06 23:55:00 37.22 Vielka [facility] [place] [facility] Body weight 2021-01-06 23:55:00 92.08 kg [facility] [place] [facility] BMI 2021-01-06 23:55:00 38.36 kg/m2 Universi ty of [facility] Systolic blood 2021-01-06 15:01:00 139 mm[Hg] Univer sity of pressure [facility] Diastolic blood 2021-01-06 15:01:00 90 mm[Hg] Unive rsity of pressure [facility] Heart rate 2021-01-06 15:01:00 90 /min [facility] [place] [facility] Body temperature 2021-01-06 15:01:00 36.78 Vielka Univ ersity of [facility] Respiratory rate 2021-01-06 15:01:00 16 /min Univ [facility] [place] [facility] Body height 2021-01-06 15:01:00 154.9 cm [facility] [place] [facility] Body weight 2021-01-06 15:01:00 92.352 kg [facility] [place] [facility] BMI 2021-01-06 15:01:00 38.47 kg/m2 [facility] [place] [facility] Systolic blood 2021-01-02 03:15:50 129 mm[Hg] Univer sity of pressure [facility] Diastolic blood 2021-01-02 03:15:50 83 mm[Hg] Unive rsity of pressure [facility] Heart rate 2021-01-02 03:15:50 68 /min [facility] [place] [facility] Respiratory rate 2021-01-02 03:15:50 18 /min Univ ersity of [facility] Oxygen saturation in 2021-01-02 03:15:50 100 /min University of Arterial blood by [facility] Pulse oximetry Branch Body temperature 2021-01-02 01:14:00 37.06 Vielka Univ ersity [facility] [place] [facility] Body height 2021-01-02 01:14:00 154.9 cm [facility] Body weight 2021-01-02 01:14:00 92.987 kg [facility] [place] [facility] BMI 2021-01-02 01:14:00 38.73 kg/m2 [facility] [place] [facility] Systolic blood 2020-12-29 18:23:00 127 mm[Hg] Univer sity of pressure [facility] Diastolic blood 2020-12-29 18:23:00 88 mm[Hg] Unive rsity of pressure [facility] Heart rate 2020-12-29 18:23:00 87 /min [facility] Body temperature 2020-12-29 18:23:00 36.83 Vielka Univ [facility] [place] [facility] Respiratory rate 2020-12-29 18:23:00 16 /min Univ [facility]ity [facility] [place] [facility] Body height 2020-12-29 18:23:00 154.9 cm [facility] [place] [facility] Body weight 2020-12-29 18:23:00 93.243 kg [facility] [place] [facility] BMI 2020-12-29 18:23:00 38.84 kg/m2 [facility] [place] [facility] Systolic blood 2020-10-13 19:32:00 135 mm[Hg] Univer sity of pressure [facility] Diastolic blood 2020-10-13 19:32:00 90 mm[Hg] Unive rsity of pressure [facility] Heart rate 2020-10-13 19:26:00 101 /min [facility] [place] [facility] Body temperature 2020-10-13 19:26:00 36.67 Vielka [facility] [place] [facility] Respiratory rate 2020-10-13 19:26:00 16 /min Univ ersity [facility] [place] [facility] Body height 2020-10-13 19:26:00 154.9 cm [facility] Body weight 2020-10-13 19:26:00 93.639 kg [facility] [place] [facility] BMI 2020-10-13 19:26:00 39.01 kg/m2 [facility] [place] [facility] Systolic blood 2020-10-01 19:51:00 127 mm[Hg] Univer sity of pressure [facility] Diastolic blood 2020-10-01 19:51:00 92 [...] 2020-10-01 19:49:00 39.40 kg/m2 [facility] [place] [facility] Systolic blood 2020-09-27 12:30:00 140 mm[Hg] Univer sity of pressure [facility] Diastolic blood 2020-09-27 12:30:00 102 mm[Hg] Unive rsity of pressure [facility] Heart rate 2020-09-27 12:30:00 84 /min [facility] [place] [facility] Respiratory rate 2020-09-27 12:30:00 16 /min Univ ersity [facility] [place] [facility] Oxygen saturation in 2020-09-27 12:30:00 100 /min University of Arterial blood by [place] [employer] rosa elena P[facility] Body temperature 2020-09-27 10:52:00 36.5 Vielka Univ [facility] [place] [facility] Body height 2020-09-27 10:52:00 154.9 cm [facility] [place] [facility] Body weight 2020-09-27 10:52:00 83.915 kg [facility] [place] [facility] BMI 2020-09-27 10:52:00 34.96 kg/m2 [facility] [place] [facility] Systolic blood 2020-07-28 22:10:00 132 mm[Hg] Univer sity of pressure [facility] Diastolic blood 2020-07-28 22:10:00 92 mm[Hg] Unive rsity of pressure [facility] Heart rate 2020-07-28 22:10:00 96 /min [facility] Body temperature 2020-07-28 22:10:00 37.17 Vielka [facility] [place] [facility] Respiratory rate 2020-07-28 22:10:00 18 /min Univ [facility] [place] [facility] Body height 2020-07-28 22:10:00 154.9 cm [facility] Body weight 2020-07-28 22:10:00 92.534 kg [facility] [place] [facility] BMI 2020-07-28 22:10:00 38.55 kg/m2 [facility] [place] [facility] Oxygen saturation in 2020-07-28 22:10:00 99 /min University of Arterial blood by [employer] rosa elena P[facility] Branch Systolic blood 2020-06-09 18:36:00 140 mm[Hg] Univer sity of pressure [facility] Diastolic blood 2020-06-09 18:36:00 99 mm[Hg] Unive rsity of pressure [facility] Heart rate 2020-06-09 18:34:00 86 /min [facility] [place] [facility] Body temperature 2020-06-09 18:34:00 37.17 Vielka [facility] [place] [facility] Respiratory rate 2020-06-09 18:34:00 18 /min Univ [facility] [place] [facility] Body height 2020-06-09 18:34:00 154.9 cm [facility] Body weight 2020-06-09 18:34:00 92.534 kg [facility] [place] [facility] BMI 2020-06-09 18:34:00 38.55 kg/m2 [facility] [place] [facility] Oxygen saturation in 2020-06-09 18:34:00 98 /min University of Arterial blood by [facility] Pulse oximetry Branch Systolic blood 2020-03-17 13:46:00 118 mm[Hg] Univer sity of pressure [facility] Diastolic blood 2020-03-17 13:46:00 78 mm[Hg] Unive rsity of pressure [facility] Heart rate 2020-03-17 13:46:00 104 /min [facility] Body temperature 2020-03-17 13:46:00 37.33 Vielka [facility] [place] [facility] Respiratory rate 2020-03-17 13:46:00 16 /min Univ ersity [facility] [place] [facility] Body height 2020-03-17 13:46:00 154.9 cm [facility] Body weight 2020-03-17 13:46:00 92.987 kg [facility] [place] [facility] BMI 2020-03-17 13:46:00 38.73 kg/m2 [facility] [place] [facility] Systolic blood 2020-02-19 23:40:00 130 mm[Hg] Univer sity of pressure [facility] Diastolic blood 2020-02-19 23:40:00 88 mm[Hg] Unive rsity of pressure [facility] Heart rate 2020-02-19 23:40:00 74 /min [facility] [place] [facility] Respiratory rate 2020-02-19 23:40:00 19 /min Univ ersity [facility] [place] [facility] Oxygen saturation in 2020-02-19 23:40:00 99 /min University of Arterial blood by [facility] Pulse oxim[facility] Branch Body weight 2020-02-19 22:32:00 90.719 kg [facility] BMI 2020-02-19 22:32:00 37.79 kg/m2 [facility] Body temperature 2020-02-19 22:31:00 37.44 Vielka Univ [facility] [place] [facility] Systolic blood 2020-02-14 13:19:00 127 mm[Hg] Univer sity of pressure [facility] Diastolic blood 2020-02-14 13:19:00 85 mm[Hg] Unive rsity of pressure [facility] Heart rate 2020-02-14 13:19:00 109 /min Universi ty of [facility] Body temperature 2020-02-14 13:19:00 36.5 Vielka Univ ersity of [facility] Respiratory rate 2020-02-14 13:19:00 16 /min Univ ersity of [facility] Body height 2020-02-14 13:19:00 154.[address] [facility] Body weight 2020-02-14 13:19:00 89.415 kg [facility] ty [facility] BMI 2020-02-14 13:19:00 37.25 kg/m2 [facility] [place] [facility] Systolic blood 2020-02-04 20:17:00 118 mm[Hg] Univer sity of pressure [facility] Diastolic blood 2020-02-04 20:17:00 80 mm[Hg] Unive rsity of pressure [facility] Heart rate 2020-02-04 20:17:00 99 /min [facility] ty [facility] Body temperature 2020-02-04 20:17:00 36.89 Vielka Univ ersity of [facility] Respiratory rate 2020-02-04 20:17:00 18 /min Univ ersity of [facility] Body height 2020-02-04 20:17:00 154.9 cm [facility] Body weight 2020-02-04 20:17:00 89.903 kg [facility] BMI 2020-02-04 20:17:00 37.45 kg/m2 Universi ty of [facility] Oxygen saturation in 2020-02-04 20:17:00 99 /min [facility] Arterial blood by [facility] Pulse oximetry Branch Systolic blood 2020-01-28 21:51:00 128 mm[Hg] Univer sity of pressure [facility] Diastolic blood 2020-01-28 21:51:00 84 mm[Hg] Unive rsity of pressure [facility] Heart rate 2020-01-28 21:51:00 90 /min [facility] ty [facility] Body temperature 2020-01-28 21:51:00 36.61 Vielka [facility] Respiratory rate 2020-01-28 21:51:00 16 /min Univ [facility] Body height 2020-01-28 21:51:00 154.9 cm [facility] Body weight 2020-01-28 21:51:00 90.719 kg [facility] BMI 2020-01-28 21:51:00 37.79 kg/m2 [facility] Oxygen saturation in 2020-01-28 21:51:00 100 /min University of Arterial blood by [facility] Pulse oximetry Branch Systolic blood 2019-11-17 05:00:00 123 mm[Hg] Univer sity of pressure [facility] Diastolic blood 2019-11-17 05:00:00 95 mm[Hg] Unive rsity of pressure [facility] Heart rate 2019-11-17 05:00:00 77 /min [facility] ty [facility] Respiratory rate 2019-11-17 05:00:00 16 /min Univ ersity [facility] Oxygen saturation in 2019-11-17 05:00:00 99 /min University of Arterial blood by [facility] Pulse oximetry Branch Body temperature 2019-11-17 03:38:00 36.44 Vielka Univ [facility] Body height 2019-11-17 03:38:00 154.9 cm [facility] Body weight 2019-11-17 03:38:00 81.647 kg [facility] BMI 2019-11-17 03:38:00 34.01 kg/m2 [facility] Systolic blood 2019-10-29 22:32:00 136 mm[Hg] Univer sity of pressure [facility] Diastolic blood 2019-10-29 22:32:00 84 mm[Hg] Unive rsity of pressure [facility] Heart rate 2019-10-29 22:32:00 92 /min [facility] Body temperature 2019-10-29 22:32:00 37.33 Vielka Univ [facility]ity [facility] [place] [facility] Respiratory rate 2019-10-29 22:32:00 18 /min Univ ersity of [facility] Body height 2019-10-29 22:32:00 154.9 cm [facility]i ty [facility] [place] [facility] [place] Body weight 2019-10-29 22:32:00 81.647 kg [facility] BMI 2019-10-29 22:32:00 34.01 kg/m2 Universi ty of [facility] Oxygen saturation in 2019-10-29 22:32:00 99 /min University of Arterial blood by [facility] Pulse oximetry Branch Systolic blood 2019-10-11 19:19:00 116 mm[Hg] Univer sity of pressure [facility] Diastolic blood 2019-10-11 19:19:00 80 mm[Hg] Unive rsity of pressure [facility] Heart rate 2019-10-11 19:19:00 79 /min Universi ty of [facility] Body temperature 2019-10-11 19:19:00 36.89 Vielka [address] [address] of [facility] Respiratory rate 2019-10-11 19:19:00 16 /min Univ ersity of [facility] Body height 2019-10-11 19:19:00 154.9 cm [facility] ty [facility] [place] [facility] [place] Body weight 2019-10-11 19:19:00 83.462 kg Universi ty of [facility] BMI 2019-10-11 19:19:00 34.77 kg/m2 [facility] Systolic blood 2019-09-12 15:58:00 124 mm[Hg] Univer sity of pressure [facility] Diastolic blood 2019-09-12 15:58:00 82 mm[Hg] Unive rsity of pressure [facility] Heart rate 2019-09-12 15:58:00 75 /min Universi ty of [facility] Body temperature 2019-09-12 15:58:00 36.17 Vielka [facility] ersity of [facility] Respiratory rate 2019-09-12 15:58:00 16 /min Univ ersity of [facility] Body height 2019-09-12 15:58:00 154.[address] [facility] Body weight 2019-09-12 15:58:[address] [facility] BMI 2019-09-12 15:58:00 34.97 kg/m2 Universi ty of [facility] Systolic blood 2019-08-28 19:13:00 134 mm[Hg] Univer sity of pressure [facility] Diastolic blood 2019-08-28 19:13:00 82 mm[Hg] Unive rsity of pressure [facility] Heart rate 2019-08-28 19:13:00 86 /min [facility] Body temperature 2019-08-28 19:13:00 36.28 Vielka [facility] Respiratory rate 2019-08-28 19:13:00 16 /min [facility] Body weight 2019-08-28 19:13:00 81.874 kg [facility] Procedures Procedure Date / Time Performing Clinician Source Performed XR ANKLE 3+ VW LEFT 2021-04-30 20:34:56 Zeynep [facility] XR FOOT 3+ VW LEFT 2021-04-30 20:22:52 Zeynep [facility] NOTICE OF PRIVACY 2021-04-30 19:49:46 Doctor Unassigned, No [facility] PRACTICES Name Eliza Coffee [facility] CONSENT/REFUSAL FOR 2021-04-30 19:49:35 Doctor Unassigned, No [facility] [place] DIAGNOSIS AND TREATMENT Name [facility] BASIC METABOLIC PANEL 2021-01-07 02:02:00 Maribel Fink [facility] (NA, K, CL, CO2, Medical Branch GLUCOSE, BUN, CREATININE, CA) TOTAL BETA HCG ASSAY 2021-01-07 02:02:00 Marilee Balderas [facility] US PELVIS COMPLETE WITH 2021-01-07 01:47:45 Marilee Balderas [facility] TRANSVAGINAL [facility] CBC WITH DIFF 2021-01-07 00:30:00 Maribel Fink [facility] CONSENT/REFUSAL FOR 2021-01-06 23:48:32 Doctor Unassigned, No [facility] Name [facility] POCT URINALYSIS 2021-01-06 15:05:00 Dewey Boyer [facility] POCT TEST 2021-01-02 01:43:00 [facility] BASIC METABOLIC PANEL 2021-01-02 01:39:00 Virginia Lee [facility] (NA, K, CL, CO2, Medical [facility] GLUCOSE, BUN, CREATININE, CA) TOTAL BETA HCG ASSAY 2021-01-02 01:39:00 [facility] CBC WITH DIFF 2021-01-02 01:39:00 Jesus [facility] o f [facility] URINALYSIS 2021-01-02 01:39:00 Jesus [facility] ASSIGNMENT OF BENEFITS 2021-01-02 00:58:52 Doctor Unassigned, No [facility] CONSENT/REFUSAL FOR 2021-01-02 00:58:20 [facility] EXTERNAL PROVIDER 2020-12-31 05:01:00 Doctor Unassigned, No [facility] RECORDS [facility] POCT TEST 2020-12-29 18:17:00 Dewey Boyer [facility] POCT URINALYSIS W/O 2020-12-29 18:17:00 Dewey Boyer [facility] SPECIFIC GRAVITY [facility] ASSIGNMENT OF BENEFITS 2020-12-29 17:59:17 Doctor Unassigned, No [facility] PAP SMEAR-LIQUID 2020-10-13 20:28:00 Suzie Dubois [facility] BASED-[facility] POCT TEST 2020-10-13 20:24:00 Suzie Dubois [facility] POCT TEST 2020-10-01 20:24:00 Suzie Dubois Uni [facility] GC & CHLAMYDIA AMPLIFIED 2020-10-01 20:18:00 Suzie Dubois [facility] ASSAY [facility] CT ABDOMEN PELVIS WO 2020-09-27 11:31:02 Maribel Fink [facility] POCT TEST 2020-09-27 11:00:00 [facility] BASIC METABOLIC PANEL 2020-09-27 10:59:00 Maribel Fink [facility] (NA, K, CL, CO2, [facility] GLUCOSE, BUN, CREATININE, CA) CBC WITH DIFF 2020-09-27 10:59:00 Maribel Fink [facility] URINALYSIS 2020-09-27 10:59:00 Maribel Fink [facility] CONSENT/REFUSAL FOR 2020-07-28 21:51:28 Doctor Unassigned, No [facility] [place] DI[facility]NOSIS AND TREATMENT Name [facility] POCT TEST 2020-06-09 19:36:00 [facility]FF 2020-06-09 19:16:00 Maribel Fink [facility] BASIC METABOLIC PANEL 2020-06-09 19:04:00 Maribel Fink [facility] [place] (NA, K, CL, CO2, [facility] GLUCOSE, BUN, CREATININE, CA) NOTICE OF PRIVACY 2020-06-09 18:26:59 Doctor Unassigned, No Univ ersity [facility] PRACTICES [facility] CONSENT/REFUSAL FOR 2020-06-09 18:24:01 Doctor Unassigned, No [facility] [place] DIAGNOSIS AND TREATMENT Name [facility] DISCLOSURE AND CONSENT, 2020-03-17 05:01:00 Doctor Unassigned, N o [facility] MEDICAL AND SURGICAL Name Medical Bra nc PROCEDURES US OVARY TORSION 2020-02-20 01:09:07 Angélica Pratt [facility] URINALYSIS 2020-02-19 23:35:00 Angélica Pratt [facility] POCT TEST 2020-02-19 23:33:00 Angélica Pratt [facility] NOTICE OF PRIVACY 2020-02-19 22:13:44 Doctor Unassigned, No [facility] [place] PRACTICES Name [facility] CONSENT/REFUSAL FOR 2020-02-19 22:13:34 Doctor Unassigned, No [facility] [place] DIAGNOSIS AND TREATMENT Name [facility] CONSENT/REFUSAL FOR 2020-01-28 21:24:41 Doctor Unassigned, No [facility] [place] DIAGNOSIS AND TREATMENT Name [facility] BASIC METABOLIC PANEL 2019-11-17 04:26:00 Micheal Frazier [facility] [place] (NA, K, CL, CO2, [facility] GLUCOSE, BUN, CREATININE, CA) TOTAL BETA HCG ASSAY 2019-11-17 04:26:00 [facility]al [facility] WITH DIFFERENTIAL 2019-11-17 04:26:00 Micheal Fraz[facility] URINALYSIS 2019-11-17 04:26:00 [facility] POCT TEST 2019-11-17 04:25:00 Micheal Frazier [facility] ASSIGN[facility] OF BENEFITS 2019-11-17 03:27:42 Doctor Unassigned, No [facility] CONSENT/REFUSAL FOR 2019-11-17 03:27:27 Doctor Unassigned, No [facility] [place] DIAGNOSIS AND TREATMENT [facility] RAPID STREP SCREEN FOR 2019-10-29 23:02:00 Marilee Balderas [facility] CONSENT/REFUSAL FOR 2019-10-29 22:17:24 Doctor Unassigned, No [facility] [place] DIAGNOSIS AND TREATMENT [facility] NOTICE OF PRIVACY 2019-10-29 22:17:13 Doctor Unassigned, No [facility] POCT TEST 2019-09-12 15:59:00 Suzie Dubois [facility] CONSENT FOR 2019-09-12 06:01:00 Doctor Unassigned, No [facility] POCT TEST 2019-08-28 19:16:00 Suzie Dubois [facility] Encounters Start End Encounter Admission Attending Care Care Encounter Source Date/Time Date/Time Type Type Clinicians Facility Department ID 2021-06-09 Emergency [facility] [id number] Univers 00:57:[address] [facility] 2021-06-07 Emergency [facility] [id number] Univers 22:32:[address] [facility] 2021-06-07 Emergency [facility] [id number] Univers 21:51:[address] [facility] 2021-06-07 Emergency [facility] [id number] Univers 00:13:[address] [facility] 2021-06-06 Emergency [facility] [id number] Univers 12:33:[address] [facility] 2021-06-06 Emergency [facility] [id number] Univers 02:28:[address] [facility] 2021-06-05 Emergency [facility] [id number] Univers 06:45:[address] [facility] 2021-06-05 Emergency [facility] [id number] Univers 02:15:[address] [facility] 2021-06-04 Emergency [facility] [id number] Univers 17:43:[address] [facility] 2021-06-04 Emergency [facility] [id number] Univers 15:37:[address] [facility] 2021-04-30 2021-04-30 Emergency Zeynep Leonard [facility] [id number] Univers 15:06:00 16:44:00 Gretel Greenfield [id number] i ty [facility] [id number] [place] [facility] [id number] [facility] [address] [place] 2021-04-30 2021-04-30 Orders Doctor SHANELLE [id number] Univers 00:00:00 00:00:00 Only Unassigned, ANTONIO [id number] ity of [place] [facility] [id number] [place] as [id number] [facility] [address] [place] 2021-03-02 2021-03-02 Outpatient CHAVA [facility] [id number] Univers 10:40:00 10:40:00 DIXON [id number] ity [facility] 2021-03-02 2021-03-02 Outpatient R CHAVA [facility] [id number] Univers 10:40:00 10:40:00 DIXON ity [facility] 2021-02-17 2021-02-17 Telephone Merlin [facility] [id number] Univers 00:00:00 00:00:00 Dewey Arnold DIGESTER [id number] ity of [facility] [id number] [place] as MATERNAL [id number] Med ical & CHILD [address] [place] [address] 2021-02-09 2021-02-09 Outpatient R MERLIN [facility] [id number] Univers 17:30:00 17:30:00 JUSNDJude [id number] ity o [facility] 2021-02-09 2021-02-09 Outpatient Clayton BOYER [facility] [id number] Univers 17:30:00 17:30:00 TODDJude alex o [facility] 2021-01-26 2021-01-26 Outpatient R MERLIN [facility] [id number] -[id number] Univers 13:45:00 13:45:00 DEWEY [id number] ity o [facility] 2021-01-26 2021-01-26 Outpatient Clayton BOYER [facility] [id number] Univers 13:45:00 13:45:00 TODDA itomega o [facility] 2021-01-22 2021-01-22 Outpatient Clayton BOYER [facility] [id number] -20 Univers 09:45:00 09:45:00 DEWEY [id number] ity o [facility] 2021-01-22 2021-01-22 Outpatient R MERLIN [facility] [id number] Univers 09:45:00 09:45:00 DEWEY omega o [facility] 2021-01-13 2021-01-13 Outpatient R [facility] [id number] -20 Univers 15:00:00 15:00:00 [id number] [facility] 2021-01-13 2021-01-13 Outpatient R [facility] [id number] Univers 15:00:00 15:00:00 [facility] 2021-01-08 2021-01-08 Outpatient [facility] [id number] -[id number] Univers 13:30:00 13:30:00 [id number] [facility] 2021-01-08 2021-01-08 Outpatient R [facility] [id number] Univers 13:30:00 13:30:00 [facility] 2021-01-06 2021-01-06 Emergency [facility] 1.2.551.468 [id number] Univers 18:57:00 21:58:00 Marilee Montes 350.1.13.10 i ty of [place] 4.2.7.2.686 [facility] [id number] [place] [id number] [place] 2021-01-06 2021-01-06 Office Sherly [facility] 1.2.133.929 [id number] Univers 09:46:53 10:01:53 Visit Suzie Whittington DIGESTER 350.1.13.10 ity of [facility] 4.2.7.2.686 [place] as MATERNAL [id number] [facility] & CHILD [address] [place] [address] 2021-01-06 2021-01-06 Outpatient R SHERLY [facility] [id number] 9Q-20 Univers 09:45:00 09:45:00 SUZIE [id number] alex [facility]gin[facility] 2021-01-06 2021-01-06 Outpatient R SHERLY [facility] [id number] Univers 09:45:00 09:45:00 SUZIE alberto [facility] 2021-01-01 2021-01-01 Emergency Virginia Lee [facility] 1.2.840. 114 [id number] Univers 20:11:00 22:16:00 [facility] [facility] 350.1.13.10 ity of [facility] 4.2.7.2.686 [facility] [phone] [address] ([facility]) 2021-01-01 2021-01-01 Telephone DESTINEE Boyer 1.2.253.521 [id number] Univers 00:00:00 00:00:00 Dewey Arnold DIGESTER 350.1.13.10 ity of [facility] 4.2.7.2.686 [place] as MATERNAL [id number] [facility] & CHILD [address] [place] [address] 2020-12-31 2020-12-31 Orders Doctor TIMMONS 1.2.840.114 [id number] Univers 00:00:00 00:00:00 Only Unassigned, ANTONIO 350.1.13.10 ity of [place] [facility] 4.2.7.2.686 Arnulfo as [phone] [address] 2020-12-31 2020-12-31 Abstract Merlin [facility] 1.2.840.114 [id number] Univers 00:00:00 00:00:00 Roshunda R DIGESTER 350.1.13.10 ity of [facility] 4.2.7.2.686 [place] as MATERNAL [phone] [facility] & [address] 2020-12-29 2020-12-29 Initial Merlin [facility] 1.2.840.114 [id number] Univers 13:13:26 14:21:50 Roshunda R DIGESTER 350.1.13.10 ity of Visit [facility] 4.2.7.2.686 [place] as MATERNAL [phone] [facility] & [address] 2020-12-29 2020-12-29 Outpatient R [facility] [id number] -20 Univers 13:15:00 13:15:00 [id number] ity [facility] 2020-12-29 2020-12-29 Outpatient R [facility] [id number] Univers 13:15:00 13:15:[address] [facility] 2020-12-29 2020-12-29 Orders Doctor SHANELLE 1.2.840.114 [id number] Univers 00:00:00 00:00:00 Only Unassigned, ANTONIO 350.1.13.10 ity of [place] [facility] 4.2.7.2.686 [place]fo as [phone] [address] 2020-12-24 2020-12-24 Outpatient R [facility] [id number] -[id number] Univers 12:45:00 12:45:00 [id number] ity [facility] 2020-10-28 2020-10-28 Patient Chava [facility] 1.2.840.114 [id number] 00:00:00 00:00:00 Outreach [place] PRIMARY 350.1.13.10 Sai CARE 4.2.7.2.686 PAVILLION [id number] 388 2020-10-28 2020-10-28 Patient Chava [facility] 1.2.840.114 [id number] Univers 00:00:00 00:00:00 Outreach [place] PRIMARY 350.1.13.10 i ty of [facility]ARE 4.2.7.2.686 Veronica YANG [phone] [address] 2020-10-24 2020-10-24 [facility] 1.2.840.114 [id number] 00:00:00 00:00:00 Suzie C DIGESTER 350.1.13.10 REGIONAL 4.2.7.2.686 MATERNAL [phone] & [address] 2020-10-24 2020-10-24 [facility]phone [facility] 1.2.840.114 [id number] Univers 00:00:00 00:00:00 Suzie C DIGESTER 350.1.13.10 ity [facility] 4.2.7.2.686 [place] as MATERNAL [phone] [address] 2020-10-22 2020-10-22 Outpatient R [facility] [id number] -20 Univers 13:30:00 13:30:00 [id number] ity [facility] 2020-10-22 2020-10-22 Outpatient R [facility] [id number] Univers 13:30:00 13:30:00 ity [facility] 2020-10-13 2020-10-[address] [id number] 9Q-20 Univers 14:15:00 14:15:00 SUZIE [id number] ity o [facility] 2020-10-13 2020-10-13 [facility] [id number] Univers 14:15:00 14:15:00 SUZIE ity o [facility] 2020-10-13 2020-10-13 Office [facility] 1.2.461.320 [id number] Univers 13:15:53 14:08:32 Visit Suzie Whittington DIGESTER 350.1.13.10 [facility] 4.2.7.2.686 [place] as MATERNAL [phone] [facility] & CHILD [address] [place] [address] 2020-10-13 2020-10-13 Letter MYRANDA Shukla 1.2.255.618 [id number] Univers 00:00:00 00:00:00 (Out) [facility] 350.1.13.10 i ty [facility] 4.2.7.2.[place] [phone] [facility] [address] 2020-10-10 2020-10-10 Outpatient R [facility] [id number] -20 Univers 15:00:00 15:00:00 [id number] ity [facility] 2020-10-10 2020-10-10 Outpatient R [facility] [id number] Univers 15:00:00 [facility] 2020-10-01 2020-10-01 Office [facility] 1.2.838.087 [id number] Univers 13:17:23 14:22:51 Visit Suzie Whittington DIGESTER 350.1.13.10 ity [facility] 4.2.7.2.686 [place] as MATERNAL [phone] [facility] ical & CHILD [address] [place] [address] 2020-10-01 2020-10-01 [facility] [id number] 9Q-20 Univers 13:30:00 13:30:00 [facility] [id number] [facility] 2020-10-01 2020-10-01 [facility] [id number] Univers 13:30:00 13:30:00 SUZIE menardy o [facility] 2020-09-27 2020-09-27 Emergency [facility] 1.2.840.114 [id number] Univers 04:41:00 06:40:00 Maribel Montes 350.1.13.10 ity [facility] 4.2.7.2.686 [place] [phone] [facility] [address] 2020-08-18 2020-08-18 Outpatient R SHERLY, [facility] [id number] 9Q-20 Univers 09:00:00 09:00:00 SUZIE [id number] ity o [facility] 2020-08-18 2020-08-18 Outpatient R AKINJOAN, [facility] [id number] Univers 09:00:00 09:00:00 SUZIE ity o [facility] 2020-08-182020-08-18 Outpatient R SHERLY, [facility] [id number] Univers 09:00:00 09:00:[address] [facility] 2020-07-28 2020-07-28 [facility] 1.2.444.032 [id number] Univers 16:18:00 17:19:00 Ilya Montes 350.1.13.10 i ty of [place] 4.2.7.2.686 [facility] [id number] [address] 2020-06-09 2020-06-09 Emergency [facility] 1.2.840.114 [id number] Univers 12:37:00 14:13:00 Maribel Montes 350.1.13.10 ity of [place] 4.2.7.2.686 [facility] [id number] [address] 2020-05-10 2020-05-10 [facility]ill [facility] 1.2.794.291 [id number] Univers 00:00:00 00:00:00 Suzie Whittington DIGESTER 350.1.13.10 ity of [facility] 4.2.7.2.686 [place] as MATERNAL [phone] [facility] & CHILD [address] [place] [address] 2020-03-17 2020-03-17 Office [facility] 1.2.790.769 [id number] Univers 08:15:18 08:45:18 Visit Suzie Whittington DIGESTER 350.1.13.10 ity [facility] 4.2.7.2.686 [place] as MATERNAL [phone] [facility] & [address] 2020-03-17 2020-03-17 Outpatient R AAYUSHSIPE, [facility] [id number] 9Q-20 Univers 08:00:00 08:00:00 SUZIE [id number] alberto f [facility] 2020-03-17 2020-03-17 Outpatient R AKINSIPE, [facility] [id number] Univers 08:00:00 08:00:[address] [facility] 2020-03-17 2020-03-17 Telephone [facility] 1.2.840.114 [id number] Univers 00:00:00 00:00:00 Suzie C DIGESTER 350.1.13.10 ity of [facility] 4.2.7.2.686 [place] as MATERNAL [phone] [facility] ical & CHILD [address] [place] [address] 2020-03-17 2020-03-17 Orders Doctor SHANELLE 1.2.840.114 [id number] Univers 00:00:00 00:00:00 Only Unassigned, ANTONIO 350.1.13.10 ity of [place] [facility] 4.2.7.2.686 [place] as [phone] [address] 2020-03-14 2020-03-14 Telephone [facility], [facility] 1.2.840.114 [id number] Univers 00:00:00 00:00:00 Suzie C DIGESTER 350.1.13.10 ity of [facility] 4.2.7.2.686 [place] as MATERNAL [phone] [facility] & CHILD [address] [place] [address] 2020-02-21 2020-02-21 Telephone [facility], [facility] 1.2.840.114 [id number] [facility] 00:00:00 00:00:00 Suzie C DIGESTER 350.1.13.10 ity of [facility] 4.2.7.2.686 [place] as MATERNAL [id number] [facility] & [address] 2020-02-19 2020-02-19 Emergency [facility] 1.2.168.606 [id number] [facility] 17:34:18 21:02:00 Angélica Montes 350.1.13.10 ity of [place] 4.2.7.2.686 [facility] [id number] [address] 2020-02-19 2020-02-19 Orders Doctor SHANELLE 1.2.840.114 [id number] Univers 00:00:00 00:00:00 Only Unassigned, ANTONIO 350.1.13.10 ity of [place] [facility] 4.2.7.2.686 [place] as [phone] [address] 2020-02-14 2020-02-14 Office [facility], [facility] 1.2.702.560 [id number] Univers 07:57:47 08:46:34 Visit Suzie Whittington DIGESTER 350.1.13.10 ity of [facility] 4.2.7.2.686 [place] as MATERNAL [id number] [facility] & [address] 2020-02-14 2020-02-14 Outpatient R AKINSIPE, [facility] [id number] 9Q-20 Univers 08:00:00 08:00:00 SUZIE ity o [facility] 2020-02-14 2020-02-14 Outpatient R AKINSIPE, [facility] [id number] Univers 08:00:00 08:00:00 SUZIE ity o [facility] 2020-02-12 2020-02-12 Telephone [facility] 1.2.840.114 [id number] Univers 00:00:00 00:00:00 Suzie Whittington DIGESTER 350.1.13.10 ity of [facility] 4.2.7.2.686 [place] as MATERNAL [phone] [facility] & [address] 2020-02-05 2020-02-05 Outpatient R AKINSIPE, [facility] [id number] 9Q-20 Univers 13:15:00 13:15:00 SUZIE [id number] ity o [facility] 2020-02-05 2020-02-05 Outpatient R AKINSIPE, [facility] [id number] Univers 13:15:00 13:15:00 SUZIE ity o [facility] 2020-02-04 2020-02-04 Urgent Pob1, Acute Care Clinic [facility] 1. 2.840.114 [id number] Univers 15:02:47 15:22:47 [facility] 4.2.7.2.686 [place] as Professio [id number] [address] Office [address] 2020-02-04 2020-02-04 Outpatient R [facility] [id number] -[id number] Univers 15:00:00 15:00:00 [id number] ity [facility] 2020-02-04 2020-02-04 Outpatient R [facility] [id number] Univers 15:00:00 15:00:00 ity [facility] 2020-01-28 2020-01-28 Emergency [place], [facility] 1.2.853.051 [id number] Univers 17:20:40 18:23:00 Virginia Jyoti 350.1.13.10 i ty of [place] 4.2.7.2.686 [place] [phone] [address] 2020-01-24 2020-01-24 Telephone [facility] 1.2.840.114 [id number] Univers 00:00:00 00:00:00 Suzie C DIGESTER 350.1.13.10 ity of [facility] 4.2.7.2.686 [place] as MATERNAL [id number] [facility] ical & CHILD [address] [place] [address] 2020-01-01 2020-01-01 Telephone [facility] 1.2.840.114 [id number] Univers 00:00:00 00:00:00 Suzie C DIGESTER 350.1.13.10 ity of [facility] 4.2.7.2.686 [place] as MATERNAL [phone] [facility] ical & CHILD [address] [place] [address] 2019-11-16 2019-11-17 Emergency [facility], [facility] 1.2.840.114 [id number] Univers 22:30:02 00:50:00 Micheal Montes 350.1.13.10 ity of [place] 4.2.7.2.686 [facility] s [place] [phone] [address] 2019-10-29 2019-10-29 Emergency [facility] 1.2.308.858 [id number] Univers 17:33:55 18:57:00 Marilee Montes 350.1.13.10 i ty of [place] 4.2.7.2.686 [facility] [id number] [address] 2019-10-11 2019-10-11 Office [facility] 1.2.464.942 [id number] Univers 13:10:45 15:47:42 Visit Suzie C DIGESTER 350.1.13.10 ity of [facility] 4.2.7.2.686 [place] as MATERNAL [id number] [facility] ical & CHILD [address] [place] [address] 2019-10-11 2019-10-11 Outpatient R KEYSHAWNCHITO [facility] [id number] 9Q-20 Univers 13:15:00 13:15:00 SUZIE [id number] ity o f [facility] 2019-10-11 2019-10-11 Outpatient R SHERLY, [facility] [id number] Univers 13:15:00 13:15:00 SUZIE ity o f [facility] 2019-09-18 2019-09-18 Telephone [facility] 1.2.840.114 [id number] Univers 00:00:00 00:00:00 Suzie C DIGESTER 350.1.13.10 ity of [facility] 4.2.7.2.686 [place] as MATERNAL [phone] Med ical & CHILD [address] [place] [address] 2019-09-12 2019-09-12 Office [facility] 1.2.846.862 [id number] Univers 09:48:40 10:40:56 Visit Suzie C DIGESTER 350.1.13.10 ity of [facility] 4.2.7.2.686 [place] as MATERNAL [phone] Med ical & CHILD [address] [place] [address] 2019-09-12 2019-09-12 Orders Doctor SHANELLE 1.2.840.114 [id number] Univers 00:00:00 00:00:00 Only Unassigned, ANTONIO 350.1.13.10 ity of [place] [facility] 4.2.7.2.686 Arunlfo as [phone] [address] 2019-08-28 2019-08-28 Office [facility] 1.2.541.824 [id number] Univers 12:52:04 13:33:28 Visit [facility] C DIGESTER 350.1.13.10 ity of [facility] 4.2.7.2.686 [place] as MATERNAL [id number] [facility] ical & CHILD [address] [place] [address] 2019-07-21 2019-07-21 Emergency X MIAN NCMAGDALENA ERT [id number] Univers 11:57:10 14:58:00 PATRICK [facility] Results Test Description Test Time Test Comments Results Result Comments Source [facility]ANT[facility] 2021-01-07 02:46:53 Test Item Value Reference Range Interpretation Comme nts BETA HCG (test code = <2.39 See_Comment [Auto mated message] The 1612044781) system which ge nerated this result transmit jorge reference range : Non- fe male and male patients: <5 mIU/mL. The reference r deneen was not used to interpr et this result as axel l/abnormal. EFE (test code = EFE) Gestational Age ?Range (mIU/mL) 1-10 ?Weeks ?98-82429755-37 Weeks ?93071-87421421-85 Weeks ?5099-61615357-16 Weeks ?5814-033309 Biotin has been reported to cause a negative bias, interpret results relative to patient's use of biotin. [facility] Metabolic Panel (NA, K, CL, CO2, GLUCOSE, BUN, CREATININE, CA)2021-01-07 02:26:05 Test Item Value Reference Range Interpretation Comments NA (test code = 138 mmol/L 135-145 4708147497) K (test code = 4.1 mmol/L 3.5-5.0 7496211938) CL (test code = 106 mmol/L 98-108 5492431439) CO2 TOTAL (test code = 26 mmol/L 23-31 9866514480) AGAP (test code = 2-16 0256088169) BUN (test code = 6 mg/dL 7-23 L 1522230693) GLUCOSE (test code = 88 mg/dL 70-110 4857300971) CREATININE (test code = 0.74 mg/dL 0.50-1.04 6146301352) CALCIUM (test code = 9.3 mg/dL 8.6-10.6 9154664447) eGFR (test code = mL/min/1.73m2 3665645418) EFE (test code = EFE) Association of [...] tests). Lab Interpretation Abnormal (test code = 20233-7) [facility] with [id number] 00:43:53 Test Item Value Reference Range Interpretation Comments WBC (test code = See_Comment [Automated 1720-2) message] The sy stem which generated this result transmitted reference range : 4.30 - 11.10 10*3/?L. The reference range was not used to interpret this result as normal/abnormal . RBC (test code = See_Comment H [Automated 938-8) message] The sy stem which generated this [...] RDW-SD (test code = 42.2 fL 39.0-49.9 24386-1) RDW-CV (test code = 13.0 % 12.0-15.5 788-0) PLT (test code = See_Comment [Automated 777-3) message] The sy stem which generated this result transmitted reference range : 166 - 358 10*3/ ?L. The reference r deneen was not used to interpret this result as normal/abnormal . MPV (test code = 10.5 fL 9.5-12.9 93907-2) NRBC/100 WBC (test See_Comment [Automat ed code = 7800349406) message] The system which generated this result transmitted reference range : 0.0 - 10.0 /100 WBCs. The refer ence range was not u sed to interpret th is result as normal/abnormal . NRBC x10^3 (test code <0.01 See_Comment [Auto mated = 7864976232) message] The s ystem which generated this result transmitted reference range : 10*3/?L. The reference range was not used to interpret this result as normal/abnormal . GRAN MAT (NEUT) % 55.8 % (test code = 770-8) IMM GRAN % (test code 0.40 % = 8228522469) LYMPH % (test code = 29.9 % 736-9) MONO % (test code = 8.6 % 5905-5) EOS % (test code = 4.6 % 713-8) BASO % (test code = 0.7 % 706-2) GRAN MAT x10^3(ANC) 4.48 10*3/uL 1.88-7.09 (test code = 5552235909) IMM GRAN x10^3 (test 0.03 10*3/uL 0.00-0.06 code = 5486295256) LYMPH x10^3 (test code 2.40 10*3/uL 1.32-3.29 = 731-0) MONO x10^3 (test code 0.69 10*3/uL 0.33-0.92 = 742-7) EOS x10^3 (test code = 0.37 10*3/uL 0.03-0.39 711-2) BASO x10^3 (test code 0.06 10*3/uL 0.01-0.07 = 704-7) Lab Interpretation Abnormal (test code = 81199-0) [facility] URINALYSIS W SPECIFIC [id number] 15:05:00 Test Item Value Reference Range Interpretation [...] POCT U APPEAR (test code = 3267) [facility] URINALYSIS W SPECIFIC [id number] 15:05:00 Test Item Value Reference Range Interpretation [...] POCT U APPEAR (test code = 3267) [facility] (QUANTITATIVE)2021-01-02 02:14:37 Test Item Value Reference Range Interpretation Comments BETA HCG (test See_Comment [Automated m essage] code = The system eSight h 4162045159) generated this result transmit jorge reference range : Non- fe male and male patien ts: <5 mIU/mL. The reference range was not used to interpret this result as normal/abnormal . EFE (test code Gestational Age ? ? = EFE) ?Range (mIU/mL) 1-10 ?Weeks ?45-65604143-32 Weeks ?68006-86275729-73 Weeks ?3253-22426174-45 Weeks ?3736-094676 Biotin has been reported to cause a negative bias, interpret results relative to patient's use of biotin. [facility] (NA, K, CL, CO2, GLUCOSE, BUN, CREATININE, CA)2021-01-02 01:56:37 Test Item Value Reference Range Interpretation Comments NA (test code = 137 mmol/L 135-145 0364976269) K (test code = 4.3 mmol/L 3.5-5.0 1135507597) CL (test code = 106 mmol/L 98-108 9004302647) CO2 TOTAL (test code 23 mmol/L 23-31 = 5584940461) AGAP (test code = 2-16 5359974250) BUN (test code = 7 mg/dL 7-23 2712282421) GLUCOSE (test code = 94 mg/dL 70-110 2459657741) CREATININE (test code 0.61 mg/dL 0.50-1.04 = 3104665005) CALCIUM (test code = 8.8 mg/dL 8.6-10.6 4930979674) eGFR (test code = mL/min/1.73m2 3010215113) EFE (test code = EFE) Association of [...] or urine or abnormalities in imaging tests). [facility] 01:52[facility]48 Test Item Value Reference Range Interpretation Comments APPEARANCE (test code = Hazy Clear A 0559483838) COLOR (test code = Yellow Yellow 7629831004) PH (test code = 4.8-8.0 0990770234) SP GRAVITY (test code = 1.003-1.030 7600025150) GLU U QUAL (test code = Normal Normal 5378948421) BLOOD (test code = 3+ Negative A 1115224414) KETONES (test code = Negative Negative 9217279144) PROTEIN (test code = Negative Negative 2887-8) UROBILIN (test code = Normal Normal 4335878160) BILIRUBIN (test code = Negative Negative 1655948308) NITRITE (test code = Negative Negative 1531676647) LEUK MADELYN (test code = 25/uL Negative A 4665938010) RBC/HPF (test code = >182 See_Comment H [Autom ated message] 3627411796) The system Vocab generated this result transmitted ref erence range: 0 - 3 HP F. The reference range was not used to int erpret this result as normal/abnormal . WBC/HPF (test code = See_Comment H [Autom ated message] 5836168833) The system Vocab generated this result transmitted ref erence range: 0 - 5 HP F. The reference range was not used to int erpret this result as normal/abnormal . BACTERIA (test code = Negative Negative 5801152371) MUCOUS (test code = Slight Negative LPF A 1405843453) SQ EPITH (test code = See_Comment [Auto mated message] 0482448203) The system Vocab generated this result transmitted ref erence range: <=2 HPF. The reference range was not used to int erpret this result as normal/abnormal . Lab Interpretation (test Abnormal code = 26247-0) [facility] with [id number] 01:47:58 Test Item Value Reference Range Interpretation Comments WBC (test code = See_Comment [Automated message] 6690-2) The system Vocab generated this result transmitted ref erence range: 4.30 - 1 1.10 10*3/?L. The re ference range was not u sed to interpret this result as normal/abnor mal. RBC (test code = See_Comment [Automated message] 789-8) The system Vocab generated this result transmitted ref erence range: [...] RDW-SD (test code 42.8 fL 39.0-49.9 = 22618-8) RDW-CV (test code 13.1 % 12.0-15.5 = 788-0) PLT (test code = See_Comment [Automated message] 387-3) The system Voc[employer] generated this result transmitted ref erence range: 166 - 35 8 10*3/?L. The re ference range was not u sed to interpret this result as normal/abnor mal. MPV (test code = 10.2 fL 9.5-12.9 27941-5) NRBC/100 WBC (test See_Comment [Automat ed message] code = [id number]) The syste m which generated this result transmitted ref erence range: 0.0 - 10 .0 /100 WBCs. The refer ence range was not u sed to interpret this result as normal/abnor mal. NRBC x10^3 (test <0.01 See_Comment [Automated message] code = [id number]) The syste m which generated this result transmitted ref erence range: 10*3/?L. The reference range was not used to interpr et this result as normal/abnormal . GRAN MAT (NEUT) % 69.1 % (test code = 770-8) IMM GRAN % (test 0.50 % code = [id number]) LYMPH % (test code 18.6 % = 736-9) MONO % (test code 8.3 % = 5905-5) EOS % (test code = 3.1 % 713-8) BASO % (test code 0.4 % = 706-2) GRAN MAT 6.78 10*3/uL 1.88-7.09 x10^3(ANC) (test code = [id number]) IMM GRAN x10^3 0.05 10*3/uL 0.00-0.06 (test code = 7821050085) LYMPH x10^3 (test 1.82 10*3/uL 1.32-3.29 code = 731-0) MONO x10^3 (test 0.81 10*3/uL 0.33-0.92 code = 742-7) EOS x10^3 (test 0.30 10*3/uL 0.03-0.39 code = 711-2) BASO x10^3 (test 0.04 10*3/uL 0.01-0.07 code = 704-7) [id number] 01:43:00 Test Item Value Reference Range Interpretation Comments POCT PREG (test code = 1605) negative On board controls acceptable with C present Line (test code = 3574) Lab Interpretation (test code = Normal 42699-8) [facility] [id number] 18:17:00 Test Item Value Reference Range Interpretation Comments POCT PREG (test code = 1605) Positive On board controls acceptable with C Yes Line (test code = 3574) POCT PREG LOT # (test code = 3575) POCT PREG TEST DATE (test code = 3576) [facility]/O SPECIFIC [id number] 18:17:00 Test Item Value Reference Range Interpretation [...] code = 3257) Trace Negative - Negative [facility] [id number] 20:24:00 Test Item Value Reference Range Interpretation Comments POCT PREG (test code = 1605) Negative On board controls acceptable with C Yes Line (test code = 3574) POCT PREG LOT # (test code = 3575) POCT PREG TEST DATE (test code = 3576) [facility] [id number] 20:24:00 Test Item Value Reference Range Interpretation Comments POCT PREG (test code = 1605) Negative On board controls acceptable with C Yes Line (test code = 3574) POCT PREG LOT # (test code = 3575) POCT PREG TEST DATE (test code = 3576) [facility] CHLAMYDIA AMPLIFIED [id number] 18:19:00 Test Item Value Reference Range Interpretation Comments C. trachomatis Nucleic Negative Negative Acid (test code = 62153-4) N. gonorrhoeae Nucleic Negative Negative Acid (test code = 30666-8) EFE (test code = EFE) Reliable results [...] NAAT. Lab Interpretation Normal (test code = 72876-1) [facility]AM[facility]PLIFIED [id number] 18:19:00 Test Item Value Reference Range Interpretation Comments C. trachomatis Nucleic Negative Negative Acid (test code = 49175-9) N. gonorrhoeae Nucleic Negative Negative Acid (test code = 89428-8) EFE (test code = EFE) Reliable results [...] NAAT. Lab Interpretation Normal (test code = 83772-7) [facility] [id number] 20:24:00 Test Item Value Reference Range Interpretation Comments POCT PREG (test code = 1605) Negative On board controls acceptable with C Yes Line (test code = 3574) POCT PREG LOT # (test code = 3575) POCT PREG TEST DATE (test code = 3576) [facility] [id number] 20:24:00 Test Item Value Reference Range Interpretation Comments POCT PREG (test code = 1605) Negative On board controls acceptable with C Yes Line (test code = 3574) POCT PREG LOT # (test code = 3575) POCT PREG TEST DATE (test code = 3576) [facility] Metabolic Panel (NA, K, CL, CO2, GLUCOSE, BUN, CREATININE, CA)2020-09-27 11:59:00 Test Item Value Reference Range Interpretation Comments NA (test code = 139 mmol/L 135-145 8701638389) K (test code = 4.5 mmol/L 3.5-5 4131759279) CL (test code = 107 mmol/L 98-108 9182567597) CO2 TOTAL (test code = 26 mmol/L 23-31 2510252178) AGAP (test code = 2-16 5824801791) BUN (test code = 10 mg/dL 7-23 4342737630) GLUCOSE (test code = 131 mg/dL 70-110 H 8045955014) CREATININE (test code = 0.68 mg/dL 0.5-1.04 7407371943) CALCIUM (test code = 9.0 mg/dL 8.6-10.6 5208137398) eGFR Calculation mL/min/1.73m2 (Non-) (test code = 7350611312) eGFR Calculation mL/min/1.73m2 () (test code = 9683607065) EFE (test code = EFE) Association of [...] tests). Lab Interpretation Abnormal (test code = 83579-9) [facility] with [id number] 11:35:00 Test Item Value Reference Range Interpretation Comments WBC (test code = See_Comment [Automated 0584-2) message] The sy stem which generated this result transmitted reference range : 4.30 - 11.10 10*3/?L. The reference range was not used to interpret this result as normal/abnormal . RBC (test code = See_Comment [Automated 501-8) message] The sy stem which generated this [...] RDW-SD (test code = 42.0 fL 39-49.9 04455-4) RDW-CV (test code = 12.6 % 12-15.5 788-0) PLT (test code = See_Comment H [Automated 777-3) message] The sy stem which generated this result transmitted reference range : 166 - 358 10*3/ ?L. The reference r deneen was not used to interpret this result as normal/abnormal . MPV (test code = 10.3 fL 9.5-12.9 02805-2) NRBC/100 WBC (test See_Comment [Automat ed code = 9707044573) message] The system which generated this result transmitted reference range : 0.0 - 10.0 /100 WBCs. The refer ence range was not u sed to interpret th is result as normal/abnormal . NRBC x10^3 (test code <0.01 See_Comment [Auto mated = 2631870417) message] The s ystem which generated this result transmitted reference range : 10*3/?L. The reference range was not used to interpret this result as normal/abnormal . GRAN MAT (NEUT) % 45.9 % (test code = 770-8) IMM GRAN % (test code 1.00 % = 7194130971) LYMPH % (test code = 37.6 % 736-9) MONO % (test code = 8.1 % 5905-5) EOS % (test code = 6.8 % 713-8) BASO % (test code = 0.6 % 706-2) GRAN MAT x10^3(ANC) 3.85 10*3/uL 1.88-7.09 (test code = 8364461323) IMM GRAN x10^3 (test 0.08 10*3/uL 0-0.06 H code = 7754906749) LYMPH x10^3 (test code 3.15 10*3/uL 1.32-3.29 = 731-0) MONO x10^3 (test code 0.68 10*3/uL 0.33-0.92 = 742-7) EOS x10^3 (test code = 0.57 10*3/uL 0.03-0.39 H 711-2) BASO x10^3 (test code 0.05 10*3/uL 0.01-0.07 = 704-7) Lab Interpretation Abnormal (test code = 11373-8) [facility] CenterUrinalysis2021-[facility] 11:24:00 Test Item Value Reference Range Interpretation Comments APPEARANCE (test code = Hazy Clear A 9911902623) COLOR (test code = Yellow Yellow 0097661863) PH (test code = 4.8-8.0 2271555869) SP GRAVITY (test code = 1.003-1.030 2479787696) GLU U QUAL (test code = Normal Normal 7406965067) BLOOD (test code = Negative Negative 5216174001) KETONES (test code = Negative Negative 6512809870) PROTEIN (test code = Negative Negative 2887-8) UROBILIN (test code = 2.0 mg/dL Normal A 3579541592) BILIRUBIN (test code = Negative Negative 4579083216) NITRITE (test code = Negative Negative 6182162088) LEUK MADELYN (test code = Negative Negative 9951656496) RBC/HPF (test code = See_Comment [Autom ated message] 3576962356) The system Vocab generated this result transmit jorge reference range : 0 - 3 HPF. The refe rence range was not u sed to interpret th is result as normal/abnormal . WBC/HPF (test code = See_Comment [Autom ated message] 1096031704) The system Vocab generated this result transmit jorge reference range : 0 - 5 HPF. The refe rence range was not u sed to interpret th is result as normal/abnormal . BACTERIA (test code = Few Negative A 8790992393) MUCOUS (test code = Slight Negative LPF A 2527321742) SQ EPITH (test code = HPF 0397493566) Lab Interpretation (test Abnormal code = 82090-0) [facility] [id number] 11:00:00 Test Item Value Reference Range Interpretation Comments POCT PREG (test code = 1605) negative On board controls acceptable with positive C Line (test code = 3574) POCT PREG LOT # (test code = 3575) [id number] POCT PREG TEST DATE (test 05/07/2022 code = 3576) Lab Interpretation (test code = Normal 20979-9) [facility] Metabolic Panel (NA, K, CL, CO2, GLUCOSE, BUN, CREATININE, CA)2020-06-09 19:47:00 Test Item Value Reference Range Interpretation Comments NA (test code = 137 mmol/L 135-145 1077011664) K (test code = 3.7 mmol/L 3.5-5 8537079593) CL (test code = 108 mmol/L 98-108 5614720052) CO2 TOTAL (test code = 23 mmol/L 23-31 5271009396) AGAP (test code = 2-16 8764373193) BUN (test code = 8 mg/dL 7-23 8759208063) GLUCOSE (test code = 110 mg/dL 70-110 9693133214) CREATININE (test code 0.67 mg/dL 0.5-1.04 = 3536410109) CALCIUM (test code = 9.5 mg/dL 8.6-10.6 3000326422) eGFR Calculation mL/min/1.73m2 (Non-) (test code = 9746288269) eGFR Calculation mL/min/1.73m2 () (test code = 3372945003) EFE (test code = EFE) Association of [...] or urine or abnormalities in imaging tests). [facility] [id number] 19:36:00 Test Item Value Reference Range Interpretation Comments POCT PREG (test code = 1605) negative On board controls acceptable with C present Line (test code = 3574) Lab Interpretation (test code = Normal 86806-3) [facility] with [id number] 19:28:00 Test Item Value Reference Range Interpretation [...] RDW-SD (test code = 41.3 fL 39-49.9 84575-1) RDW-CV (test code = 12.6 % 12-15.5 788-0) PLT (test code = See_Comment [Automated 777-3) message] The sy stem which generated this result transmitted reference range : 166 - 358 10*3/ ?L. The reference r deneen was not used to interpret this result as normal/abnormal . MPV (test code = 10.4 fL 9.5-12.9 20162-5) NRBC/100 WBC (test See_Comment [Automat ed code = 8508104161) message] The system which generated this result transmitted reference range : 0.0 - 10.0 /100 WBCs. The refer ence range was not u sed to interpret th is result as normal/abnormal . NRBC x10^3 (test code <0.01 See_Comment [Auto mated = 5430819211) message] The s ystem which generated this result transmitted reference range : 10*3/?L. The reference range was not used to interpret this result as normal/abnormal . GRAN MAT (NEUT) % 51.6 % (test code = 770-8) IMM GRAN % (test code 0.50 % = 2181175775) LYMPH % (test code = 34.0 % 736-9) MONO % (test code = 6.3 % 5905-5) EOS % (test code = 6.8 % 713-8) BASO % (test code = 0.8 % 706-2) GRAN MAT x10^3(ANC) 3.12 10*3/uL 1.88-7.09 (test code = 3184394366) IMM GRAN x10^3 (test 0.03 10*3/uL 0-0.06 code = 3192926286) LYMPH x10^3 (test code 2.06 10*3/uL 1.32-3.29 = 731-0) MONO x10^3 (test code 0.38 10*3/uL 0.33-0.92 = 742-7) EOS x10^3 (test code = 0.41 10*3/uL 0.03-0.39 H 711-2) BASO x10^3 (test code 0.05 10*3/uL 0.01-0.07 = 704-7) Lab Interpretation Abnormal (test code = 72198-6) [facility] 23:57:00 Test Item Value Reference Range Interpretation Comments APPEARANCE (test code = Clear Clear 3143428447) COLOR (test code = Straw Yellow A 3823374375) PH (test code = 4.8-8.0 5630000976) SP GRAVITY (test code = 1.003-1.030 3649122550) GLU U QUAL (test code = Normal Normal 1120631190) BLOOD (test code = 1+ Negative A 1904387532) KETONES (test code = Negative Negative 3004766936) PROTEIN (test code = Negative Negative 2887-8) UROBILIN (test code = Normal Normal 1489180926) BILIRUBIN (test code = Negative Negative 2540252696) NITRITE (test code = Negative Negative 1185633122) LEUK MADELYN (test code = 75/uL Negative A 1875454931) RBC/HPF (test code = See_Comment [Autom ated message] 0131469193) The system Vocab generated this result transmitted ref erence range: 0 - 3 HP F. The reference range was not used to int erpret this result as normal/abnormal . WBC/HPF (test code = See_Comment [Autom ated message] 5601640979) The system Vocab generated this result transmitted ref erence range: 0 - 5 HP F. The reference range was not used to int erpret this result as normal/abnormal . BACTERIA (test code = Few Negative A 7851265336) SQ EPITH (test code = HPF 8980935350) Lab Interpretation (test Abnormal code = 79900-8) [facility] [id number] 23:33:00 Test Item Value Reference Range Interpretation Comments POCT PREG (test code = 1605) negative On board controls acceptable with positive C Line (test code = 3574) POCT PREG LOT # (test code = 3575) [id number] POCT PREG TEST DATE (test 03-07-2021 code = 3576) Lab Interpretation (test code = Normal 47166-5) [facility] BHCG (QUANTITATIVE)2019-11-17 05:21:00 Test Item Value Reference Range Interpretation Comments BETA HCG (test <2.39 See_Comment [Automated m essage] code = The system Vocab 3051058177) generated this result transmit jorge reference range : Non- fe male and male patien ts: <5 mIU/mL. The reference range was not used to interpret this result as normal/abnormal . EFE (test code Gestational Age ? ? = EFE) ?Range (mIU/mL) 1-10 ?Weeks ?16-61088504-30 Weeks ?95577-16872654-31 Weeks ?8576-90773122-11 Weeks ?4238-910014 Biotin has been reported to cause a negative bias, interpret results relative to patient's use of biotin. [facility] 04:54:00 Test Item Value Reference Range Interpretation Comments APPEARANCE (test code = Clear Clear 0922205099) COLOR (test code = Yellow Yellow 0795303978) PH (test code = 4.8-8.0 1941941244) SP GRAVITY (test code = 1.003-1.030 3458912735) GLU U QUAL (test code = Normal Normal 4110842059) BLOOD (test code = 2+ Negative A 4136249924) KETONES (test code = Negative Negative 3877612152) PROTEIN (test code = Negative Negative 2887-8) UROBILIN (test code = Normal Normal 8265252277) BILIRUBIN (test code = Negative Negative 4114971794) NITRITE (test code = Negative Negative 5395231105) LEUK MADELYN (test code = Negative Negative 0287120754) RBC/HPF (test code = See_Comment [Autom ated message] 0394502641) The system Vocab generated this result transmitted ref erence range: 0 - 3 HP F. The reference range was not used to int erpret this result as normal/abnormal . WBC/HPF (test code = See_Comment [Autom ated message] 1474688686) The system Vocab generated this result transmitted ref erence range: 0 - 5 HP F. The reference range was not used to int erpret this result as normal/abnormal . BACTERIA (test code = Negative Negative 4618014796) SQ EPITH (test code = HPF 2363270590) Lab Interpretation (test Abnormal code = 78516-2) [facility] (NA, K, CL, CO2, GLUCOSE, BUN, CREATININE, CA)2019-11-17 04:53:00 Test Item Value Reference Range Interpretation Comments NA (test code = 137 mmol/L 135-145 2358164848) K (test code = 3.9 mmol/L 3.5-5 9625932765) CL (test code = 104 mmol/L 98-108 4517614074) CO2 TOTAL (test code = 23 mmol/L 23-31 2862255824) AGAP (test code = 2-16 5001290994) BUN (test code = 13 mg/dL 7-23 7341113465) GLUCOSE (test code = 92 mg/dL 70-110 2286827388) CREATININE (test code 0.66 mg/dL 0.5-1.04 = 1395020502) CALCIUM (test code = 9.1 mg/dL 8.6-10.6 6348670871) eGFR Calculation mL/min/1.73m2 (Non-) (test code = 6301587206) eGFR Calculation mL/min/1.73m2 () (test code = 3394300325) EFE (test code = EFE) Association of [...] or urine or abnormalities in imaging tests). [facility] WITH [id number] 04:36:00 Test Item Value Reference Range Interpretation [...] RDW-SD (test code = 43.9 fL 39-49.9 84953-7) RDW-CV (test code = 13.9 % 12-15.5 788-0) PLT (test code = See_Comment H [Automated 777-3) message] The sy stem which generated this result transmitted reference range : 166 - 358 10*3/ ?L. The reference r deneen was not used to interpret this result as normal/abnormal . MPV (test code = 10.1 fL 9.5-12.9 97847-8) NRBC/100 WBC (test See_Comment [Automat ed code = 9286147673) message] The system which generated this result transmitted reference range : 0.0 - 10.0 /100 WBCs. The refer ence range was not u sed to interpret th is result as normal/abnormal . NRBC x10^3 (test code <0.01 See_Comment [Auto mated = 2584123379) message] The s ystem which generated this result transmitted reference range : 10*3/?L. The reference range was not used to interpret this result as normal/abnormal . GRAN MAT (NEUT) % 50.2 % (test code = 770-8) IMM GRAN % (test code 0.70 % = 0635654562) LYMPH % (test code = 37.0 % 736-9) MONO % (test code = 7.9 % 5905-5) EOS % (test code = 3.7 % 713-8) BASO % (test code = 0.5 % 706-2) GRAN MAT x10^3(ANC) 5.37 10*3/uL 1.88-7.09 (test code = 5878116093) IMM GRAN x10^3 (test 0.08 10*3/uL 0-0.06 H code = 5311387613) LYMPH x10^3 (test code 3.95 10*3/uL 1.32-3.29 H = 731-0) MONO x10^3 (test code 0.84 10*3/uL 0.33-0.92 = 742-7) EOS x10^3 (test code = 0.40 10*3/uL 0.03-0.39 H 711-2) BASO x10^3 (test code 0.05 10*3/uL 0.01-0.07 = 704-7) Lab Interpretation Abnormal (test code = 27949-4) [facility] [id number] 04:25:00 Test Item Value Reference Range Interpretation Comments POCT PREG (test code = 1605) Negative On board controls acceptable with Present C Line (test code = 3574) POCT PREG LOT # (test code = 3575) [id number] POCT PREG TEST DATE (test 02/04/2021 code = 3576) Lab Interpretation (test code = Normal 93414-2) [facility] STREP SCREEN FOR GROUP [id number] 23:35:00 Test Item Value Reference Range Interpretation Comments Streptococcus pyogenes (group A) Negative Negative antigen (test code = 24129-1) Lab Interpretation (test code = Normal 82531-4) [facility] [id number] 15:59:00 Test Item Value Reference Range Interpretation Comments POCT PREG (test code = 1605) Negative On board controls acceptable with C Yes Line (test code = 3574) POCT PREG LOT # (test code = 3575) POCT PREG TEST DATE (test code = 3576) [facility] [id number] 15:59:00 Test Item Value Reference Range Interpretation Comments POCT PREG (test code = 1605) Negative On board controls acceptable with C Yes Line (test code = 3574) POCT PREG LOT # (test code = 3575) POCT PREG TEST DATE (test code = 3576) [facility] [id number] 19:16:00 Test Item Value Reference Range Interpretation Comments POCT PREG (test code = 1605) Negative On board controls acceptable with C Yes Line (test code = 3574) POCT PREG LOT # (test code = 3575) POCT PREG TEST DATE (test code = 3576) [facility] [id number] 19:16:00 Test Item Value Reference Range Interpretation Comments POCT PREG (test code = 1605) Negative On board controls acceptable with C Yes Line (test code = 3574) POCT PREG LOT # (test code = 3575) POCT PREG TEST DATE (test code = 3576) [facility] [id number] 09:59:00 Test Item Value Reference Range Interpretation Comments RAPID PLASMA REAGIN (test code = NEGATIVE NEGATIVE RPR) CBC W/AUTO [id number] 04:35:00 Test Item Value Reference Range Interpretation [...] 0.0 x10 3/uL 0.0-0.1 N AB RUBELLA [id number] 14:36:00 Test Item Value Reference Range Interpretation Comments AB RUBELLA IGG (test code = RUBGAB) EQUIVOCAL NEGATIVE AG HEPATITIS B [id number] 13:50:00 Test Item Value Reference Range Interpretation Comments AG HEPATITIS B SURFACE (test code = NEGATIVE NEGATIVE HBSAG) AB HIV 1 13:50:00 Test Item Value Reference Range Interpretation Comments AB HIV 1 2 (test code = OCZ54CC) NEGATIVE NEGATIVE CBC W/AUTO [id number] 12:38:00 Test Item Value Reference Range Interpretation [...] 0.1 x10 3/uL 0.0-0.1 N RAPID PLASMA [id number] 09:46:00 Test Item Value Reference Range Interpretation Comments RAPID PLASMA REAGIN (test code = NEGATIVE NEGATIVE RPR) AG HEPATITIS B [id number] 21:10:00 Test Item Value Reference Range Interpretation Comments AG HEPATITIS B SURFACE (test code = NEGATIVE NEGATIVE HBSAG) AB HIV 1 21:10:00 Test Item Value Reference Range Interpretation Comments AB HIV 1 2 (test code = FSQ19JY) NEGATIVE NEGATIVE CBC W/AUTO [id number] 20:11:00 Test Item Value Reference Range Interpretation [...]
[2021-11-22 23:44] LABS: Urine Blood 2+ (Negative); Urine Glucose Negative (Negative); Urine Protein Negative (Negative); Urine Specific Gravity 1.025 (1.005-1.030)
[2021-11-22 23:52] LABS: Urine Specific Gravity/Preg 1.025 (1.005-1.030)
[2021-11-23 00:10] LABS: Absolute Lymphocytes (CBC) 2.4 K/uL (0.7-4.9); Hematocrit 41.9 % (36.0-45.0); Lymphocytes % 28.7 % (15.3-44.8); MPV 8.9 fL (7.6-11.3); RBC Red Blood Cell Count 4.71 M/uL (3.86-4.86)
[2021-11-23 00:20] LABS: BUN Blood Urea Nitrogen 11 mg/dL (7-18); Bicarbonate 24 mmol/L (21-32); Glucose Level 107 mg/dL (74-106); Potassium 3.9 mmol/L (3.5-5.1); Sodium Level 140 mmol/L (136-145)
[2021-11-23 00:24] LABS: HCG, Quantitative < 1 mIU/mL (1-3)
[2021-11-23 00:25] LABS: Urine Bacteria >50 /HPF (<20); Urine RBC 20-50 /HPF (NONE SEEN)
--- NOTE | 2021-11-23 00:48 | EDPHYS ---
Physician Documentation [facility] Name: Rita Garcia Age: 21 yrs Sex: Female : 2000 Arrival Date: 11/22/2021 Time: 21:59 Bed 9 Private MD: ED Physician Francisco Pierce HPI: 11/22 23:19 This 21 yrs old Female presents to ER via Unassigned with complaints of Vaginal rn Bleeding, + Preg <12wks. 23:19 The patient presents to the emergency department with vaginal bleeding, described as rn spotting. The estimated gestational age is 5 weeks. course: care: none, Leakage of Fluid: none appreciated, Ultrasound: the patient has not had an ultrasound. Previous pregnancies: in previous pregnancies patient has had. Associated signs and symptoms: Pertinent positives: abdominal pain, Pertinent negatives: dysuria, fever, frequency, vaginal discharge. The patient has experienced similar episodes in the past. The patient has not recently seen a physician. Pt reports LMP 5 weeks ago, this AM woke up with vaginal bleeding/spotting, no clots, not enough to "even get on pad". No trauma or sex recently. States . Reports mild left abd cramping. No hx of ectopic. . 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 - Social history:: Smoking status: Patient reports the use of cigarette tobacco products, smokes one-half pack cigarettes per day. - Family history:: not pertinent. - Hospitalizations: : No recent hospitalization is reported. ROS: 23:19 Constitutional: Negative for fever, chills, and weight loss, Eyes: Negative for injury, rn pain, redness, and discharge, Neck: Negative for injury, pain, and swelling, Cardiovascular: Negative for chest pain, palpitations, and edema, Respiratory: Negative for shortness of breath, cough, wheezing, and pleuritic chest pain, Abdomen/GI: + left sided abd pain Back: Negative for injury and pain, : + vaginal bleeding/spotting MS/Extremity: Negative for injury and deformity, Skin: Negative for injury, rash, and discoloration, Neuro: Negative for headache, weakness, numbness, tingling, and seizure. Exam: 23:19 Constitutional: This is a well developed, well nourished patient who is awake, alert, rn and in no acute distress. Head/Face: Normocephalic, atraumatic. Eyes: Periorbital areas with no swelling, redness, or edema. Cardiovascular: Regular rate and rhythm. No pulse deficits. Respiratory: No increased work of breathing, no retractions or nasal flaring. Abdomen/GI: Soft, mild left lateral abd tenderness, no rebound or peritoneal signs. Skin: Warm, dry MS/ Extremity: Pulses equal, no cyanosis. Neuro: Awake and alert, GCS 15 Vital Signs: 23:14 BP 138 / 97; Pulse 87; Resp 18 S; Temp 98.3(O); Pulse Ox 98% on R/A; Weight 79.38 kg as6 (R); Height 5 ft. (152.40 cm) (R); Pain 8/10; 23:14 Body Mass Index 34.18 (79.38 kg, 152.40 cm) as6 MDM: 22:50 Patient medically screened. rn 11/23 00:46 Differential diagnosis: ectopic , not , ovarian cyst. Data reviewed: rn vital signs, nurses notes, lab test result(s), radiologic studies, ultrasound, and as a result, I will discharge patient. Counseling: I had a detailed discussion with the patient and/or guardian regarding: the historical points, exam findings, and any diagnostic results supporting the discharge/admit diagnosis, lab results, radiology results, the need for outpatient follow up, to return to the emergency department if symptoms worsen or persist or if there are any questions or concerns that arise at home. Special discussion: I discussed with the patient/guardian in detail that at this point there is no indication for admission to the hospital. It is understood, however, that if the symptoms persist or worsen the patient needs to return immediately for re-evaluation. ED course: NO acute findings in ultrasound per u/s tech, states no mass or definitive signs of ectopic. UPT neg here and beta < 1, patient does not appear to be . Will dc home with return precautions and f/u as needed. . 11/22 22:43 Order name: Abo/rh Typing; Complete Time: 00:45 rn 11/22 22:43 Order name: Basic Metabolic Panel; Complete Time: 00:45 rn 11/22 22:43 Order name: CBC with Diff; Complete Time: 00:45 rn 11/22 22:43 Order name: Quantitative Hcg; Complete Time: 00:45 rn 11/22 23:19 Order name: Urine Microscopic Only; Complete Time: 00:45 rn 11/22 23:45 Order name: Urine Dipstick-Ancillary; Complete Time: 00:45 EDMS 11/22 22:42 Order name: Transvaginal OB EDNC 11/22 22:43 Order name: IV Saline Lock; Complete Time: 23:36 rn 11/22 22:43 Order name: Labs collected and sent; Complete Time: 23:36 rn 11/22 22:43 Order name: NPO; Complete Time: 23:24 rn 11/22 22:43 Order name: Urine Dipstick-Ancillary (obtain specimen); Complete Time: 23:43 rn 11/22 23:45 Order name: Urine --Ancillary (enter results); Complete Time: 00:45 ds4 11/23 00:31 Order name: Urine Culture [facility] 11/22 22:43 Order name: Urine Test (obtain specimen); Complete Time: 23:43 rn Administered Medications: No medications were administered Disposition Summary: 11/23/21 00:47 Discharge Ordered Location: Home rn Problem: new rn Symptoms: have improved rn Condition: Stable rn Diagnosis - Abnormal uterine and vaginal bleeding, unspecified rn Followup: rn - With: Private Physician - When: As needed - Reason: Recheck today's complaints, Re-evaluation by your physician Discharge Instructions: - Discharge Summary Sheet rn - Abnormal Uterine Bleeding rn Forms: - Medication Reconciliation Form rn - Thank You Letter rn - Antibiotic rn bone marrow transplant - Prescription Opioid Use rn Signatures: Dispatcher [employer] EDFrancisco Newell MD MD rn Slawson, Ashby RN RN as6 Corrections: (The following items were deleted from the chart) 11/22 22:42 22:05 1st Trimest Single 1st Fetus+US.RAD.BRZ ordered. EDMS EDMS
--- NOTE | 2021-11-23 00:48 | ER ---
Nurse's Notes [facility] Name: Rita Garcia Age: 21 yrs Sex: Female : 2000 Arrival Date: 11/22/2021 Time: 21:59 Bed 9 Private MD: Diagnosis: Abnormal uterine and vaginal bleeding, unspecified Presentation: 11/22 23:14 Chief complaint: Patient states: "I woke up this morning and I was bleeding" pt reports as6 being one week late on her period. Coronavirus screen: At this time, the client does not indicate any symptoms associated with coronavirus-19. Ebola Screen: No symptoms or risks identified at this time. Initial Sepsis Screen: Does the patient meet any 2 criteria? No. Patient's initial sepsis screen is negative. Does the patient have a suspected source of infection? No. Patient's initial sepsis screen is negative. Risk Assessment: Do you want to hurt yourself or someone else? Patient reports no desire to harm self or others. Onset of symptoms was November 22, 2021. 23:14 Method Of Arrival: Ambulatory as6 23:14 Acuity: CLINT 3 as6 Triage Assessment: 23:23 General: Appears in no apparent distress. Behavior is calm, cooperative. Pain: as6 Complains of pain in abdomen. : Reports cramping, vaginal bleeding that is. 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 - Social history:: Smoking status: Patient reports the use of cigarette tobacco products, smokes one-half pack cigarettes per day. - Family history:: not pertinent. - Hospitalizations: : No recent hospitalization is reported. Screenin/18 00:58 Abuse screen: Denies threats or abuse. Denies injuries from another. Nutritional tw5 screening: No deficits noted. Tuberculosis screening: No symptoms or risk factors identified. Fall Risk None identified. Assessment: 00:58 Obstetrical Assessment: General assessment: awake and alert, skin warm and dry. tw5 Vital Signs: 11/22 23:14 BP 138 / 97; Pulse 87; Resp 18 S; Temp 98.3(O); Pulse Ox 98% on R/A; Weight 79.38 kg as6 (R); Height 5 ft. (152.40 cm) (R); Pain 8/10; 23:14 Body Mass Index 34.18 (79.38 kg, 152.40 cm) as6 ED Course: 21:59 Patient arrived in ED. bp1 22:35 Inserted saline lock: 22 gauge in right antecubital area, using aseptic technique. as6 Blood collected. 22:46 Transvaginal OB In Process Unspecified. EDMS 22:50 Francisco Pierce MD is Attending Physician. rn 23:21 Triage completed. as6 23:23 Arm band placed on. as6 23:43 Urine Microscopic Only Sent. as6 23:43 Quantitative Hcg Sent. as6 23:43 CBC with Diff Sent. as6 23:43 Abo/rh Typing Sent. as6 0418 00:58 Patient has correct armband on for positive identification. tw5 00:58 No provider procedures requiring assistance completed. IV discontinued, intact, tw5 bleeding controlled, No redness/swelling at site. Pressure dressing applied. Administered Medications: No medications were administered Outcome: 00:47 Discharge ordered by . rn 00:58 Discharged to home ambulatory. tw5 00:58 Condition: good 00:58 Discharge instructions given to patient, Instructed on discharge instructions, follow up and referral plans. Demonstrated understanding of instructions, follow-up care. 00:58 Patient left the ED. tw5 Signatures: Dispatcher [employer] EDSD Francisco Pierce MD MD rn [place], Brittany bp1 Mckenna Morocho tw5 Fredo Ayoub RN RN as6
[2021-11-23 02:54] VITALS: BP 138/97; TEMP 98.3; O2SAT 98
--- NOTE | 2021-11-23 08:02 | RAD REPORT ---
EXAM DESCRIPTION: US - Transvaginal OB - 11/22/2021 10:44 pm CLINICAL HISTORY: with vaginal bleeding/pelvic pain COMPARISON: None. FINDINGS: The uterus measures 8 x 4 x 6 centimeters .The endometrial stripe measures 5 millimeters. A gestational sac is not seen. Ovaries are normal in size and echotexture.. The right and left adnexa unremarkable No significant free fluid IMPRESSION: Nonvisualization of a gestational sac within the endometrium. These findings could represent an early intrauterine in which the gestational sac is not se en. and even an ectopic can also result in this appearance. This all should be cor related clinically and with serial beta HCG levels. Followup endovaginal sonogram in 1 week recommend ed
== END 2021-11-23 00:58 | disposition home or self-care (01) ==
LOC: ER 21:54
DX: N93.9 Abnormal uterine and vaginal bleeding, unspecified (principal); F31.9 Bipolar disorder, unspecified; F17.210 Nicotine dependence, cigarettes, uncomplicated; Z91.040 Latex allergy status; Z91.041 Radiographic dye allergy status; Z91.048 Other nonmedicinal substance allergy status
CPT/HCPCS: 36415; 76817; 80048; 81003; 81015; 81025; 84702; 85025; 86900; 86901; 87086; 87088; 99283

== ENCOUNTER 2022-02-25 22:44 | Emergency (ER) | payer OTHER ==
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
[2022-02-26 00:16] LABS: Absolute Lymphocytes (CBC) 1.9 K/uL (0.7-4.9); Hematocrit 41.7 % (36.0-45.0); Lymphocytes % 26.5 % (15.3-44.8); MCV 89.7 fL (80-100); MPV 8.5 fL (7.6-11.3); RBC Red Blood Cell Count 4.64 M/uL (3.86-4.86)
[2022-02-26 00:28] LABS: Urine Blood Negative (Negative); Urine Glucose Negative (Negative); Urine Protein Negative (Negative); Urine Specific Gravity 1.015 (1.005-1.030)
[2022-02-26 00:37] LABS: Bicarbonate 23 mmol/L (21-32); Glomerular Filtration Rate 129 ml/min (=/>90); Glucose Level 89 mg/dL (74-106); Potassium 3.6 mmol/L (3.5-5.1); Sodium Level 138 mmol/L (136-145)
[2022-02-26] MEDS ORDERED: NA CHLORIDE 0.9% 1,000 ML ONE (00:37)
[2022-02-26 00:47] LABS: BUN Blood Urea Nitrogen < 3 mg/dL (7-18)
[2022-02-26 00:47] LABS: Urine Specific Gravity/Preg 1.015 (1.005-1.030)
[2022-02-26 00:49] LABS: HCG, Quantitative 36854 mIU/mL (1-3)
--- NOTE | 2022-02-26 01:27 | EDPHYS ---
Physician Documentation [facility] Name: Rita Garcia Age: 21 yrs Sex: Female : 2000 Arrival Date: 02/25/2022 Time: 22:49 Bed 16 Private MD: ED Physician Alvaro Nelson HPI: 02/25 23:16 This 21 yrs old Female presents to ER via Ambulatory with complaints of Abdominal kb Cramping, Flank Pain. 23:16 The patient presents to the emergency department with abdominal pain, described as kb crampy, nausea and vomiting. The estimated gestational age is 9 weeks. course: care: at a clinic, Leakage of Fluid: none appreciated, Ultrasound: the patient has not had an ultrasound, Risk/complications: no obvious risks or complications are appreciated. Previous pregnancies: in previous pregnancies patient has had. Associated signs and symptoms: Pertinent positives: abdominal pain, nausea, vomiting, Pertinent negatives: chest pain, diarrhea, dysuria, fever, frequency, ruptured membranes, seizure, shortness of breath, vaginal bleeding, vaginal discharge. The patient has not experienced similar symptoms in the past. The patient has not recently seen a physician. 23:17 Patient reports abdominal cramping, nausea, vomiting, dizziness upon changing kb positions. States she is approximately 9 weeks . Denies vaginal bleeding.. 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 - Social history:: Smoking status: Patient reports the use of cigarette tobacco products, smokes one-half pack cigarettes per day. ROS: 23:15 Constitutional: Negative for fever, chills, and weight loss. kb 23:15 Abdomen/GI: Positive for nausea and vomiting, abdominal cramps. 23:15 Neuro: Positive for dizziness. 23:15 All other systems are negative. Exam: 23:15 Constitutional: This is a well developed, well nourished patient who is awake, alert, kb and in no acute distress. Head/Face: Normocephalic, atraumatic. ENT: Moist Mucous membranes Cardiovascular: Regular rate and rhythm with a normal S1 and S2. No gallops, murmurs, or rubs. No pulse deficits. Respiratory: Respirations even and unlabored. No increased work of breathing. Talking in full sentences Abdomen/GI: Soft, non-tender. No distention Skin: Warm, dry with normal turgor. Normal color. MS/ Extremity: Pulses equal, no cyanosis. Neurovascular intact. Full, normal range of motion. Neuro: Awake and alert, GCS 15, oriented to person, place, time, and situation. Moves all extremities. Normal gait. Psych: Awake, alert, with orientation to person, place and time. Behavior, mood, and affect are within normal limits. Vital Signs: 22:56 BP 125 / 84; Pulse 107; Resp 20; Temp 98.2(TE); Pulse Ox 100% on R/A; Weight 99.79 kg; 1 Height 5 ft. 6 in. (167.64 cm); Pain 0/10; 02/26 00:00 BP 125 / 88 Supine; Pulse 70; Resp 17; Pulse Ox 99% on R/A; ke1 00:03 BP 121 / 82 Sitting; Pulse 65; Resp 18; Pulse Ox 100% on R/A; ke1 00:06 BP 116 / 78 Standing; Pulse 89; Resp 17; Pulse Ox 99% on R/A; ke1 01:29 BP 128 / 71; Pulse 78; Resp 17; Pulse Ox 100% on R/A; ke1 02/25 22:56 Body Mass Index 35.51 (99.79 kg, 167.64 cm) [facility] MDM: 02/25 22:56 Patient medically screened. kb 23:16 Data reviewed: vital signs, nurses notes. Data interpreted: Pulse oximetry: on room air kb is 100 %. Interpretation: normal. 02/26 01:25 Counseling: I had a detailed discussion with the patient and/or guardian regarding: the ms3 historical points, exam findings, and any diagnostic results supporting the discharge/admit diagnosis, lab results, radiology results, the need for outpatient follow up, to return to the emergency department if symptoms worsen or persist or if there are any questions or concerns that arise at home, smoking cessation. ED course: On reevaluation patient is alert and oriented x4, in no apparent distress, nontoxic-appearing, speaking full sentences, ambulatory in emergency department. . 02/25 22:59 Order name: Abo/rh Typing; Complete Time: 00:45 kb 02/25 22:59 Order name: Basic Metabolic Panel; Complete Time: 00:51 kb 02/25 22:59 Order name: CBC with Diff; Complete Time: 00:17 kb 02/25 22:59 Order name: Quantitative Hcg; Complete Time: 00:51 kb 02/26 00:28 Order name: Urine Dipstick-Ancillary; Complete Time: 00:36 EDMS 02/26 00:29 Order name: Urine --Ancillary (enter results); Complete Time: 00:48 mw2 02/25 22:59 Order name: IV Saline Lock; Complete Time: 00:02 kb 02/25 22:59 Order name: Labs collected and sent; Complete Time: 00:02 kb 02/25 22:59 Order name: NPO; Complete Time: 00:02 kb 02/25 22:59 Order name: Urine Dipstick-Ancillary (obtain specimen); Complete Time: 00:28 kb 02/25 22:59 Order name: US Transvaginal Ob kb 02/26 00:36 Order name: Strep; Complete Time: 01:21 kb 02/26 01:28 Order name: Throat Culture EDAZ 02/25 22:59 Order name: Urine Test (obtain specimen); Complete Time: 00:28 kb 02/25 22:59 Order name: Orthostatics; Complete Time: 00:11 kb Administered Medications: 00:36 Drug: NS 0.9% 1000 ml Route: IV; Rate: 1000 ml; Site: left antecubital; ke1 Disposition: 02:39 Co-signature as Attending Physician, Alvaro Nelson DO. ms3 Disposition Summary: 02/26/22 01:26 Discharge Ordered Location: Home ms3 Condition: Stable ms3 Diagnosis - Lower abdominal pain, unspecified - cramping ms3 - Volume depletion, unspecified ms3 Followup: kb - With: Emergency Department - When: As needed - Reason: Worsening of condition Followup: kb - With: Private Physician - When: 2 - 3 days - Reason: Recheck today's complaints, Continuance of care, Re-evaluation by your physician Discharge Instructions: - Discharge Summary Sheet kb - Abdominal Pain During , Kbey-ef-Oxeq kb Forms: - Medication Reconciliation Form ms3 - Thank You Letter ms3 - Antibiotic Education ms3 - Prescription Opioid Use ms3 Signatures: Dispatcher [employer] EDLurdes Rivas, SPENCERC ROULETTE DEALER-Alvaro Silveira DO DO ms3 Pavel Engle RN RN [facility] Erin Ferrara RN RN [facility] Corrections: (The following items were deleted from the chart) 02/25 23:01 22:59 Home Meds: Buspirone Oral; [place] [address] 23:01 22:59 Home Meds: Latuda Oral; [place] [address] 23:01 22:59 Home Meds: [place] Carbonate Oral; [place] [address]
--- NOTE | 2022-02-26 01:27 | ER ---
Nurse's Notes [facility] Name: Rita Garcia Age: 21 yrs Sex: Female : 2000 Arrival Date: 02/25/2022 Time: 22:49 Bed 16 Private MD: Diagnosis: Lower abdominal pain, unspecified-cramping;Volume depletion, unspecified Presentation: 02/25 22:56 Chief complaint: Patient states: PATIENT STATED SHE IS 9 WEEKS AND IS FEELING bh1 DIZZY AND WEAK WHEN SHE CHANGES POSITION WITH NAUSEA AND VOMITING AND SHE IS HAVING CRAMPS IN HER LEFT SIDE. Coronavirus screen: Vaccine status: Patient reports being unvaccinated. At this time, the client does not indicate any symptoms associated with coronavirus-19. Ebola Screen: Patient negative for fever greater than or equal to 101.5 degrees Fahrenheit, and additional compatible Ebola Virus Disease symptoms. Initial Sepsis Screen: Does the patient meet any 2 criteria? No. Patient's initial sepsis screen is negative. Does the patient have a suspected source of infection? No. Patient's initial sepsis screen is negative. Risk Assessment: Do you want to hurt yourself or someone else? Patient reports no desire to harm self or others. Onset of symptoms was February 25, 2022. 22:56 Method Of Arrival: Ambulatory formerly [facility] 22:56 Acuity: CLINT 3 1 Triage Assessment: 23:01 General: Appears in no apparent distress. Behavior is calm, cooperative, appropriate bh1 for age. Pain: Complains of pain in abdomen. SECTION GANG: 23:01 LMP 12/22/2021, Verified, EDC 09/28/2022, Gestational age from LMP: 9 weeks 3 1 days 23:16 3, 0, Living 2, LMP 12/22/2021 kb Historical: - Allergies: 22:59 CONTRAST DYE; bh1 22:59 Latex, Natural Rubber; 1 - PMHx: 22:59 Anxiety; Bipolar disorder; Depression; Lupus; 1 - PSHx: 22:59 Cholecystectomy; formerly [facility] - Immunization history:: Adult Immunizations up to date. - Social history:: Smoking status: Patient reports the use of cigarette tobacco products, smokes one-half pack cigarettes per day. Screenin/22 00:14 Abuse screen: Denies threats or abuse. Nutritional screening: No deficits noted. ke1 Tuberculosis screening: No symptoms or risk factors identified. Fall Risk None identified. Assessment: 00:14 GI: Bowel sounds present X 4 quads. [facility] Vital Signs: 02/25 22:56 BP 125 / 84; Pulse 107; Resp 20; Temp 98.2(TE); Pulse Ox 100% on R/A; Weight 99.79 kg; formerly [facility] Height 5 ft. 6 in. (167.64 cm); Pain 0/10; 02/26 00:00 BP 125 / 88 Supine; Pulse 70; Resp 17; Pulse Ox 99% on R/A; ke1 00:03 BP 121 / 82 Sitting; Pulse 65; Resp 18; Pulse Ox 100% on R/A; ke1 00:06 BP 116 / 78 Standing; Pulse 89; Resp 17; Pulse Ox 99% on R/A; ke1 01:29 BP 128 / 71; Pulse 78; Resp 17; Pulse Ox 100% on R/A; ke1 02/25 22:56 Body Mass Index 35.51 (99.79 kg, 167.64 cm) [facility] ED Course: 02/25 22:49 Patient arrived in ED. ja2 22:54 Lurdes Cerna FNP-C is [facility]. kb 22:54 Alvaro Nelson DO is Attending Physician. kb 22:59 Triage completed. formerly [facility] 23:01 Arm band placed on left wrist. formerly [facility] 23:28 Pavel Engle, RN is Primary Nurse. [facility] 02/26 00:01 Inserted saline lock: 24 gauge in left forearm, using aseptic technique. [facility] 00:14 US Transvaginal Ob In Process Unspecified. EDKY 00:14 Bed in low position. Call light in reach. ke1 01:29 No provider procedures requiring assistance completed. IV discontinued. ke1 Administered Medications: 00:36 Drug: NS 0.9% 1000 ml Route: IV; Rate: 1000 ml; Site: left antecubital; ke1 Medication: 01:30 VIS not applicable for this client. ke1 Outcome: 01:26 Discharge ordered by . ms3 01:29 Discharged to home ambulatory. ke1 01:29 Condition: good 01:29 Discharge instructions given to patient. 01:41 Patient left the ED. ke1 Signatures: Dispatcher [employer] EDMS Lurdes Cerna FNP-C THERMAL SURFACING MACHINE OPERATOR-Ckb Alvaro Nelson DO DO ms3 Mari Larsen ja2 Pavel Engle RN RN 1 Erin Ferrara RN RN formerly [facility] Corrections: (The following items were deleted from the chart) 02/25 23:01 22:59 Home Meds: Buspirone Oral; [place] [id number] 23: 22:59 Home Meds: Latuda Oral; [place] [address] 23: 22:59 Home Meds: [place] Carbonate Oral; [place] [address] 02/26 00:13 00:00 BP 125 / 88 Supine; Pulse 70bpm; Resp 17bpm; ke1 ke1
[2022-02-26 03:07] VITALS: TEMP 98.2
[2022-02-26 03:13] VITALS: BP 128/71; O2SAT 100
--- NOTE | 2022-02-26 10:45 | RAD REPORT ---
EXAM DESCRIPTION: US - Transvaginal OB - 02/26/2022 1:17 am CLINICAL HISTORY: 21 years Female ABD CRAMPING, COMPARISON: None. TECHNIQUE: Real-time, hendricks scale and Doppler transvaginal sonographic imaging was performed to evalu ate the gravid uterus. FINDINGS: There is a gestational sac implanted in the endometrium of the fundus of the uterus. The c rown rump length measures 0.7 cm, corresponding to an estimated gestational age of 6 weeks 5 days. Un clear if computer lab assistant assessed for cardiac activity. There is a healthy appearing yolk sac and d ecidual reaction. There is no sub-chorionic collection. Both ovaries appear normal There is no free fluid in the cul-de-sac. IMPRESSION: Intrauterine gestation of approximately 6 weeks 5 days. Unclear if computer lab assistant assessed for cardiac activity. Consider additional imaging Electronically signed by: Kaylin Serrano MD 02/26/2022 12:30 AM CDT Due to temporary technical issues with the PACS/Fluency reporting system, reports are being signed by the in house radiologists without review as a courtesy to insure prompt reporting. The interpreting radiologist is fully responsible for the content of the report.
== END 2022-02-26 01:41 | disposition home or self-care (01) ==
LOC: ER 22:44
DX: O99.281 Endocrine, nutritional and metabolic diseases complicating pregnancy, first trimester (principal); E86.9 Volume depletion, unspecified; O26.891 Other specified pregnancy related conditions, first trimester; Z3A.09 9 weeks gestation of pregnancy; O99.331 Smoking (tobacco) complicating pregnancy, first trimester; F17.210 Nicotine dependence, cigarettes, uncomplicated; Z91.041 Radiographic dye allergy status; Z91.040 Latex allergy status; Z91.048 Other nonmedicinal substance allergy status
CPT/HCPCS: 87070; 85025; 80048; 36415; 86900; 81025; 86901; 87081; 84702; 81003; 76817; 99284; J7030

== ENCOUNTER 2024-01-27 15:53 | Emergency (ER) | payer OTHER ==
--- NOTE | 2024-01-27 17:02 | RAD REPORT ---
EXAM DESCRIPTION: US - Transvaginal OB - 01/27/2024 4:50 pm CLINICAL HISTORY: ABD CRAMPING, COMPARISON: <Comparisons> FINDINGS: Uterus is normal size. There is an endometrium, largest measuring 4-5 mm. The maternal adnexa and ovaries are within normal limits. Normal Doppler blood flow was demonstrated to both ovaries. IMPRESSION: Small cystic structures in the endometrium are nonspecific but could be quite early gest ational sacs. Recommend serial HCG level follow-up as well as follow-up pelvic sonogram in 10-12 days .
[2024-01-27 17:10] LABS: Absolute Eosinophils 0.5 K/uL (0-0.5); Absolute Lymphocytes (CBC) 2.2 K/uL (0.7-4.9); Absolute Monocytes 0.6 K/uL (0.1-1.3); Absolute Neutrophil 5.2 K/uL (1.8-8.0); Basophils % 0.6 % (0-1.3); Eosinophils % 6.3 % (0-4.4); Hemoglobin 12.5 g/dL (12.0-15.0); Lymphocytes % 25.4 % (15.3-44.8); MCHC 32.9 g/dL (32.0-36.0); MCV 85.2 fL (80-100); MPV 8.4 fL (7.6-11.3); Monocytes % 7.1 % (3.3-12.3); Neutrophils % 60.6 % (41.7-73.7); Nucleated Red Blood Cells % 0.1 % (0-0); Platelets 337 thou/uL (152-406); RBC Red Blood Cell Count 4.46 M/uL (3.86-4.86); Red Cell Distribution Width 14.5 % (12.1-15.2)
[2024-01-27 17:23] LABS: Specific Gravity > 1.030 (1.005-1.030)
[2024-01-27 17:24] LABS: Specific Gravity > 1.030 (1.005-1.030); Sqamous Epithelial <5 /HPF (None Seen); Urine Bacteria None Seen /HPF (<20); Urine Bilirubin NEGATIVE (Negative); Urine Blood 3+ (OVER) (Negative); Urine Clarity Turbid (Clear); Urine Color Yellow (Yellow); Urine Culture Reflex Order NOT NEEDED; Urine Glucose NEGATIVE (Negative); Urine Ketones NEGATIVE (Negative); Urine Microscopic Reflex YN ORDER UMIC; Urine Mucus Slight /HPF (None Seen); Urine Nitrite NEGATIVE (Negative); Urine Protein TRACE (Negative); Urine RBC >50 /HPF (None Seen); Urine Urobilinogen Normal (Normal); Urine WBC <5 /HPF (<5); Urine pH 5.5 (5.0-7.0)
[2024-01-27 17:28] LABS: Anion Gap 8.7 mEq/L (5.0-15.0); BUN Blood Urea Nitrogen 9 mg/dL (7-18); Bicarbonate 24 mEq/L (21-32); Glomerular Filtration Rate 124 ml/min (=/>90); Glucose Level 110 mg/dL (74-106); HCG, Quantitative < 1 mIU/mL (1-3); Potassium 3.7 mEq/L (3.5-5.1); Sodium Level 140 mEq/L (136-145)
--- NOTE | 2024-01-27 17:42 | EDPHYS ---
Physician Documentation [facility] Name: Rita Garcia Age: 23 yrs Sex: Female : 2000 Arrival Date: 01/27/2024 Time: 15:53 Bed 14 Private MD: ED Physician Bhanu Espinal HPI: 01/26 16:10 This 23 yrs old Female presents to ER via Ambulatory with complaints of ec2 Vaginal Bleeding, + Preg <12wks, Abdominal Cramping. 16:10 Patient arrives today for evaluation of vaginal bleeding in the setting of positive ec2 test. States that she tested positive for several days ago. States her LMP was approximately 5 weeks ago. Patient reports some lower abdominal discomfort. Patient reports she has had a miscarriage in the past. States that her blood type is AB+.. 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 - Infectious Disease History:: Denies. - Social history:: Smoking status: Patient reports the use of cigarette tobacco products, smokes one-half pack cigarettes per day. ROS: 16:10 Constitutional: as per hpi ec2 Exam: 16:10 Constitutional: GEN: NAD Head: atraumatic Eyes: EOMI Ears: External ears are ec2 normal. CV: regular rate LUNGS: no respiratory distress ABD: non-distended SKIN: no evidence of rashes MSK: no evidence of trauma NEURO: moves all extremities equally Vital Signs: 16:03 BP 140 / 90; Pulse 108; Resp 18; Temp 98; Pulse Ox 100% ; Weight 90.72 kg; Height 5 ft. ap3 1 in. ; Pain 7/10; 17:56 BP 135 / 89; Pulse 100; Resp 18 S; Pulse Ox 99% on R/A; kc6 16:03 Body Mass Index 37.79 (90.72 kg, 154.94 cm) ap3 16:03 Pain Scale: Adult ap3 MDM: 15:57 Patient medically screened. ec2 16:10 Data reviewed: vital signs. ED course: Patient arrives today for evaluation of vaginal ec2 bleeding in setting of positive test. Examination work well-appearing nontoxic and appears otherwise in no acute distress with reassuring examination. Will obtain lab work, confirm patient's ABO status and obtain ultrasound. Differential diagnosis includes normal , ectopic , patient's menstrual cycle. . 17:29 ED course: CBC is reassuring without evidence of anemia. Urine is noninfectious ec2 appearing, no bacteria present. Ultrasound shows cystic structure in the endometrium, possible early gestational sac, hcg quant negative, urine negative, will d/c to home, instructed on return precautions, will have return for repeat testing. . 01/26 15:58 Order name: CBC with Diff; Complete Time: 17:28 ec2 01/26 15:58 Order name: BMP; Complete Time: 17:39 ec2 01/26 15:58 Order name: Abo/rh Typing; Complete Time: 17:39 ec2 01/26 15:58 Order name: HCG-Quantitative; Complete Time: 17:39 ec2 01/26 17:08 Order name: Urinalysis w/ reflexes; Complete Time: 17:28 6 01/26 17:08 Order name: Test, Urine; Complete Time: 17:39 [facility] 01/26 15:58 Order name: Transvaginal OB US; Complete Time: 17:28 ec2 Administered Medications: No medications were administered Disposition Summary: 01/27/24 17:42 Discharge Ordered Notes: Location: Home ec2 Condition: Stable ec2 Diagnosis - Abnormal uterine and vaginal bleeding, unspecified ec2 - Negative Testing ec2 Followup: ec2 - With: Private Physician - When: - Reason: Re-evaluation by your physician Discharge Instructions: - Discharge Summary Sheet ec2 - Abnormal Uterine Bleeding ec2 Forms: - Medication Reconciliation Form ec2 - Antibiotic Education ec2 - Prescription Opioid Use ec2 - Patient Portal Instructions ec2 - Leadership Thank You Letter ec2 Signatures: Dispatcher [employer] Luna Hancock RN RN ap3 Bhanu Espinal MD MD ec2 Corrections: (The following items were deleted from the chart) 16:00 16:00 Transvaginal Ob+US.RAD.BRZ ordered. SAMIRSC SAMIRSC 17:40 17:29 ED course: CBC is reassuring without evidence of anemia. Urine is noninfectious ec2 appearing, no bacteria present. Ultrasound shows cystic structure in the endometrium, possible early gestational sac. . ec2
--- NOTE | 2024-01-27 17:42 | ER ---
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 Coronavirus screen: At this time, the client does not indicate any symptoms associated with coronavirus-19. Ebola Screen: No symptoms or risks identified at this time. Initial Sepsis Screen: Does the patient meet any 2 criteria? HR > 90 bpm. Does the patient have a suspected source of infection? No. Patient's initial sepsis screen is negative. Risk Assessment: Do you want to hurt yourself or someone else? Patient reports no desire to harm self or others. Onset of symptoms was January 27, 2024. 16:03 Method Of Arrival: Ambulatory ap3 16:03 Acuity: CLINT 3 ap3 Triage Assessment: 16:04 General: Appears in no apparent distress. Behavior is calm, cooperative, appropriate ap3 for age. Pain: Complains of pain in suprapubic area. Neuro: Level of Consciousness is awake, alert, obeys commands, Oriented to person, place, time, situation. Cardiovascular: Patient's skin is warm and dry. Respiratory: Airway is patent Respiratory effort is even, unlabored, Respiratory pattern is regular, symmetrical. : Reports vaginal bleeding that is bright red. 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 - Infectious Disease History:: Denies. - Social history:: Smoking status: Patient reports the use of cigarette tobacco products, smokes one-half pack cigarettes per day. Screenin:05 Abuse screen: Denies threats or abuse. Nutritional screening: No deficits noted. ap3 Tuberculosis screening: No symptoms or risk factors identified. 16:06 [facility] ED Fall Risk Assessment (Adult) History of falling in the last 3 months, ap3 including since admission No falls in past 3 months (0 pts) Confusion or Disorientation No (0 pts) Intoxicated or Sedated No (0 pts) Impaired Gait No (0 pts) Mobility Assist Device Used No (0 pt) Altered Elimination No (0 pt) Score/Fall Risk Level 0 - 2 = Low Risk Oriented to surroundings, Maintained a safe environment, Educated pt \T\ family on fall prevention, incl call for assistance when getting out of bed, Assessed \T\ reinforced patient's understanding of fall precautions, Provided non-skid footwear, Hourly rounding (assess needs \T\ fall precautionary measures) done, Used ambulatory aids as needed (educated on \T\ assisted with), Used gait belt as appropriate. Assessment: 17:06 Obstetrical Assessment: General assessment: awake and alert, skin warm and dry, kc6 respirations even and unlabored. General: Appears in no apparent distress. comfortable, well groomed, well developed, Behavior is calm, cooperative, appropriate for age. Pain: Complains of pain in suprapubic area Quality of pain is described as crampy. Neuro: Oriented to person, place, time, situation, Appropriate for age. Cardiovascular: Capillary refill < 3 seconds. Respiratory: Airway is patent Trachea midline Respiratory pattern is regular, symmetrical. GI: No signs and/or symptoms were reported involving the gastrointestinal system. : Urine is clear, Reports vaginal bleeding that is bright red, light flow. EENT: No signs and/or symptoms were reported regarding the EENT system. Derm: No signs and/or symptoms reported regarding the dermatologic system. Skin is intact, is healthy with good turgor, Skin is pink, warm \T\ dry. Musculoskeletal: No signs and/or symptoms reported regarding the musculoskeletal system. Circulation, motion, and sensation intact. Capillary refill < 3 seconds, Range of motion: intact in all extremities. 17:55 Reassessment: Patient appears in no apparent distress at this time. No changes from kc6 previously documented assessment. Patient and/or family updated on plan of care and expected duration. Pain level reassessed. Patient is alert, oriented x 3, equal unlabored respirations, skin warm/dry/pink. Vital Signs: 16:03 BP 140 / 90; Pulse 108; Resp 18; Temp 98; Pulse Ox 100% ; Weight 90.72 kg; Height 5 ft. ap3 1 in. ; Pain 7/10; 17:56 BP 135 / 89; Pulse 100; Resp 18 S; Pulse Ox 99% on R/A; kc6 16:03 Body Mass Index 37.79 (90.72 kg, 154.94 cm) ap3 16:03 Pain Scale: Adult ap3 ED Course: 15:57 Patient arrived in ED. im 15:57 Bhanu Espinal MD is Attending Physician. ec2 16:01 Radiology exam delayed due to test not completed at this time. aa4 16:04 Triage completed. ap3 16:05 Arm band placed on right wrist. ap3 16:33 Cathy Neal RN is Primary Nurse. kc6 16:36 Patient has correct armband on for positive identification. Bed in low position. Call kc6 light in reach. Side rails up X 1. Pulse ox on. NIBP on. Pillow given. 16:38 Missed attempt(s): 22 gauge in left antecubital area. Bleeding controlled, band aid aw1 applied, catheter tip intact. 16:52 Transvaginal OB US In Process Unspecified. EDMS 17:06 Missed attempt(s): 22 gauge in right forearm. Inserted saline lock: 24 gauge in right kc6 hand, using aseptic technique. Blood collected. 17:15 Test, Urine Sent. kc6 17:15 Urinalysis w/ reflexes Sent. kc6 17:56 No provider procedures requiring assistance completed. IV discontinued, intact, kc6 bleeding controlled, No redness/swelling at site. Pressure dressing applied. Administered Medications: No medications were administered Medication: 17:56 VIS not applicable for this client. kc6 Outcome: 17:42 Discharge ordered by . ec2 17:56 Discharged to home ambulatory, kc6 17:56 Condition: good 17:56 Discharge instructions given to patient, Instructed on discharge instructions, follow up and referral plans. Demonstrated understanding of instructions, follow-up care, 17:57 Patient left the ED. kc6 Signatures: Dispatcher [employer] EDSC Luna Nixon aa4 Luna Heart RN RN ap3 Cathy Neal, TURNER RN kc6 Allison Hare Alyssa aw1 Bhanu Espinal MD MD ec2
[2024-01-27 18:29] VITALS: BP 135/89; TEMP 98; O2SAT 99
== END 2024-01-27 17:57 | disposition home or self-care (01) ==
LOC: ER 15:53
DX: N93.9 Abnormal uterine and vaginal bleeding, unspecified (principal); Z32.02 Encounter for pregnancy test, result negative
CPT/HCPCS: 36415; 76817; 80048; 81001; 81025; 84702; 85025; 86900; 86901; 99284

== ENCOUNTER 2024-01-30 13:12 | Emergency (ER) | payer OTHER ==
[2024-01-30 14:33] LABS: Absolute Eosinophils 0.5 K/uL (0-0.5); Absolute Lymphocytes (CBC) 2.1 K/uL (0.7-4.9); Absolute Monocytes 0.5 K/uL (0.1-1.3); Absolute Neutrophil 4.1 K/uL (1.8-8.0); Basophils % 0.4 % (0-1.3); Eosinophils % 7.2 % (0-4.4); Hematocrit 39.1 % (36.0-45.0); Hemoglobin 12.7 g/dL (12.0-15.0); Lymphocytes % 28.5 % (15.3-44.8); MCH 27.8 pg (27.0-35.0); MCHC 32.4 g/dL (32.0-36.0); MCV 85.7 fL (80-100); MPV 8.7 fL (7.6-11.3); Monocytes % 7.2 % (3.3-12.3); Neutrophils % 56.7 % (41.7-73.7); Platelets 389 thou/uL (152-406); RBC Red Blood Cell Count 4.56 M/uL (3.86-4.86); Red Cell Distribution Width 14.1 % (12.1-15.2)
[2024-01-30] MEDS ORDERED: NA CHLORIDE 0.9% 1,000 ML ONE (14:37)
[2024-01-30] MEDS ORDERED: ONDANSETRON 4 MG/2 ML VIAL ONE (14:37)
[2024-01-30 14:45] LABS: Specific Gravity 1.017 (1.005-1.030); Urine Bacteria <20 /HPF (<20); Urine Bilirubin NEGATIVE (Negative); Urine Blood 3+ (OVER) (Negative); Urine Clarity Extremely Turbid (Clear); Urine Color Light-Yellow (Yellow); Urine Crystals Unidentified Few /HPF (None Seen); Urine Culture Reflex Order NOT NEEDED; Urine Glucose NEGATIVE (Negative); Urine Ketones NEGATIVE (Negative); Urine Microscopic Reflex YN ORDER UMIC; Urine Mucus Slight /HPF (None Seen); Urine Nitrite NEGATIVE (Negative); Urine Protein NEGATIVE (Negative); Urine RBC >50 /HPF (None Seen); Urine Urobilinogen Normal (Normal); Urine pH 5.5 (5.0-7.0)
[2024-01-30 14:50] LABS: Anion Gap 6.7 mEq/L (5.0-15.0); BUN Blood Urea Nitrogen 9 mg/dL (7-18); Bicarbonate 27 mEq/L (21-32); Glomerular Filtration Rate 109 ml/min (=/>90); Glucose Level 109 mg/dL (74-106); Potassium 3.7 mEq/L (3.5-5.1); Sodium Level 140 mEq/L (136-145)
[2024-01-30 14:57] LABS: HCG, Quantitative < 1 mIU/mL (1-3)
[2024-01-30] MEDS ORDERED: KETOROLAC 30 MG/ML INJ ONE (15:08)
--- NOTE | 2024-01-30 15:35 | RAD REPORT ---
EXAM DESCRIPTION: CT - Pelvis Wo Cont - 01/30/2024 3:18 pm CLINICAL HISTORY: Pelvic pain with vaginal bleeding . TECHNIQUE: Computed axial tomography of the pelvis was obtained. Coronal and sagittal reconstruction performed All CT scans are performed using dose optimization technique as appropriate and may include automated exposure control or mA/KV adjustment according to patient size. FINDINGS: No adnexal mass. No ascites. No evidence of diverticulitis. Normal appendix. 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
--- NOTE | 2024-01-30 16:15 | EDPHYS ---
Physician Documentation [facility] Name: Rita Garcia Age: 23 yrs Sex: Female : 2000 Arrival Date: 01/30/2024 Time: 13:12 Bed 11 Private MD: ED Physician Francisco Pierce HPI: 01/29 14:09 This 23 yrs old Female presents to ER via Ambulatory with complaints of Abdominal Pain, sb4 vaginal bleeding. 14:10 Patient states that she had a positive home test about 5 days ago. She came sb4 to the ED the next day with vaginal bleeding, had a full workup. Her serum hCG was negative and her ultrasound was inconclusive, she was told to follow-up. She is here today for further evaluation. She reports continued pain and bleeding on her lower abdomen. . 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 - Infectious Disease History:: Denies. - Social history:: Smoking status: unknown. ROS: 14:10 Constitutional: Negative for fever, chills, and weight loss, sb4 14:10 Abdomen/GI: Positive for nausea and vomiting, 14:10 : Positive for pelvic pain, vaginal bleeding, menstrual abnormality, Exam: 14:10 Constitutional: This is a well developed, well nourished patient who is awake, alert, sb4 and in no acute distress. Head/Face: Normocephalic, atraumatic. Eyes: Extra-ocular motions intact. Periorbital areas with no swelling, redness, or edema. ENT: Mucous membranes moist. Skin: Warm, dry with normal turgor. Normal color with no rashes, no lesions, and no evidence of cellulitis. MS/ Extremity: Pulses equal, no cyanosis. Neurovascular intact. Full, normal range of motion. Neuro: Awake and alert, GCS 15, oriented to person, place, time, and situation. Motor strength 5/5 in all extremities. Sensory grossly intact. Vital Signs: 14:05 BP 156 / 94; Pulse 91; Resp 18; Temp 97.5; Pulse Ox 98% on R/A; ph 14:09 Weight 90.72 kg; Height 5 ft. 1 in. ; ph 14:09 Body Mass Index 37.79 (90.72 kg, 154.94 cm) ph MDM: 13:35 Patient medically screened. sb4 14:15 External Records Reviewed: Outpatient radiology: Transvaginal ultrasound from 621 sb4 showed "small cystic structures in the endometrium are nonspecific but could be quite early gestational sacs. Recommend serial hCG level follow-up as well as a follow-up pelvic sonogram in 10 to 12 days.". 16:13 Data reviewed: vital signs, nurses notes, lab test result(s), radiologic studies, and sb4 as a result, I will discharge patient. Counseling: I had a detailed discussion with the patient and/or guardian regarding the historical points, exam findings, and any diagnostic results supporting the discharge/admit diagnosis, lab results, radiology results, the need for outpatient follow up, an OB/Gyne specialist, to return to the emergency department if symptoms worsen or persist or if there are any questions or concerns that arise at home. 01/29 13:56 Order name: Basic Metabolic Panel; Complete Time: 14:58 sb4 01/29 13:56 Order name: CBC with Diff; Complete Time: 14:44 sb4 01/29 13:56 Order name: Test, Urine; Complete Time: 14:45 sb4 01/29 13:56 Order name: Quantitative Hcg; Complete Time: 14:58 sb4 01/29 13:56 Order name: Urinalysis w/ reflexes; Complete Time: 14:45 sb4 01/29 14:59 Order name: CT Pelvis wo Cont; Complete Time: 15:36 sb4 01/29 13:56 Order name: IV Saline Lock; Complete Time: 14:22 sb4 01/29 13:56 Order name: Labs collected and sent; Complete Time: 14:22 sb4 Administered Medications: 14:43 Drug: NS 0.9% IV 1000 ml IV at 1 bolus Per protocol; 1000 mL bolus Route: IV; Rate: 1 jl7 bolus; Site: left antecubital; 16:26 Follow up: IV Status: Completed infusion ph 14:43 Drug: Ondansetron IVP 4 mg IVP once; over 2 minutes Route: IVP; Site: left antecubital; jl7 16:26 Follow up: Response: No adverse reaction ph 15:12 Drug: Ketorolac IVP 30 mg IVP once Route: IVP; Site: left antecubital; cm10 16:26 Follow up: Response: No adverse reaction ph Disposition: 20:43 Co-signature as Attending Physician, Francisco Pierce MD I reviewed the patient's care rn provided by the Advanced Practice Provider and agree with the diagnosis and treatment plan. Disposition Summary: 01/30/24 16:14 Discharge Ordered Notes: Location: Home sb4 Problem: new sb4 Symptoms: have improved sb4 Condition: Stable sb4 Diagnosis - Dysmenorrhea, unspecified sb4 Followup: sb4 - With: Nita Casillas MD - When: As needed - Reason: Recheck today's complaints, Re-evaluation by your physician Discharge Instructions: - Discharge Summary Sheet sb4 - Dysmenorrhea sb4 Forms: - Patient Portal Instructions sb4 - Leadership Thank You Letter sb4 Prescriptions: - Sprintec (28) 0.25-35 mg-mcg Oral tablet - take 1 tablet ORAL route daily; 30 tablet; Refills: 0, Product Selection sb4 Permitted - ketorolac 10 mg Oral tablet - take 1 tablet ORAL route 4 times per day for 3 days as needed for pain; 12 sb4 tablet; Refills: 0, Product Selection Permitted - Zofran 4 mg Oral Tablet - take 1 tablet ORAL route every 12 hours As needed; 20 tablet; Refills: 0, sb4 Product Selection Permitted Signatures: Dispatcher [employer] EDMS Francisco Pierce MD MD rn Hall, Patricia, RN RN ph Leal, Jahala, RN RN jl7 Abbie Leach PA-C PAAlma sb4 Michell Chinchilla, RN RN cm10 Corrections: (The following items were deleted from the chart) 13:57 13:57 BASIC METABOLIC PANEL+C.LAB.BRZ ordered. EDMS EDMS 13:57 13:57 CBC+H.LAB.BRZ ordered. EDMS EDMS 13:57 13:57 Test, Urine+UC.LAB.BRZ ordered. EDMS EDMS 13:57 13:57 QUANTITATIVE HCG+C.LAB.BRZ ordered. EDMS EDMS 13:57 13:57 Urinalysis+U.LAB.BRZ ordered. EDMS EDMS 14:59 14:59 Pelvis Wo Cont+CT.RAD.BRZ ordered. EDMS EDMS
--- NOTE | 2024-01-30 16:15 | ER ---
Nurse's Notes [facility] Name: Rita Garcia Age: 23 yrs Sex: Female : 2000 Arrival Date: 01/30/2024 Time: 13:12 Bed 11 Private MD: Diagnosis: Dysmenorrhea, unspecified Presentation: 01/29 14:05 Chief complaint: Patient states: Seen Tuesday for abdominal pain, dx w/ cyst, states ph that the pain has not improved, also reports N/V and vaginal bleeding, had + UPT last Tuesday. Coronavirus screen: Vaccine status: Patient reports being unvaccinated. Ebola Screen: No symptoms or risks identified at this time. Initial Sepsis Screen: Does the patient meet any 2 criteria? No. Patient's initial sepsis screen is negative. Does the patient have a suspected source of infection? No. Patient's initial sepsis screen is negative. Risk Assessment: Do you want to hurt yourself or someone else? Patient reports no desire to harm self or others. Onset of symptoms was January 30, 2024. 14:05 Method Of Arrival: Ambulatory ph 14:05 Acuity: CLINT 3 ph Triage Assessment: 14:07 General: Appears in no apparent distress. Behavior is calm, cooperative. Pain: ph Complains of pain in abdomen. GI: Reports lower abdominal pain, nausea, vomiting. 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 - Infectious Disease History:: Denies. - Social history:: Smoking status: unknown. Screenin:24 [facility] ED Fall Risk Assessment (Adult) History of falling in the last 3 months, ph including since admission No falls in past 3 months (0 pts) Confusion or Disorientation No (0 pts) Intoxicated or Sedated No (0 pts) Impaired Gait No (0 pts) Mobility Assist Device Used No (0 pt) Altered Elimination No (0 pt) Score/Fall Risk Level 0 - 2 = Low Risk Oriented to surroundings, Maintained a safe environment, Educated pt \T\ family on fall prevention, incl call for assistance when getting out of bed, Assessed \T\ reinforced patient's understanding of fall precautions, Provided non-skid footwear, Hourly rounding (assess needs \T\ fall precautionary measures) done, Used ambulatory aids as needed (educated on \T\ assisted with), Used gait belt as appropriate. Abuse screen: Denies threats or abuse. Nutritional screening: No deficits noted. Tuberculosis screening: No symptoms or risk factors identified. Vital Signs: 14:05 BP 156 / 94; Pulse 91; Resp 18; Temp 97.5; Pulse Ox 98% on R/A; ph 14:09 Weight 90.72 kg; Height 5 ft. 1 in. ; ph 14:09 Body Mass Index 37.79 (90.72 kg, 154.94 cm) ph ED Course: 13:14 Patient arrived in ED. mr 13:21 Abbie Leach PA-C is PHCP. sb4 13:21 Francisco Pierce MD is Attending Physician. sb4 14:07 Triage completed. ph 14:07 Arm band placed on Patient placed in waiting room, Patient notified of wait time. ph 14:22 Basic Metabolic Panel Sent. bc6 14:22 CBC with Diff Sent. bc6 14:22 Quantitative Hcg Sent. bc6 14:22 Initial lab(s) drawn, by ny, sent to lab. Inserted saline lock: 24 gauge in left bc6 forearm, using aseptic technique. Blood collected. 14:36 Urinalysis w/ reflexes Sent. bc6 14:36 Urine collected: clean catch specimen, cloudy. bc6 15:20 CT Pelvis wo Cont In Process Unspecified. EDMS 16:14 Nita Casillas MD is Referral Physician. sb4 16:25 Patient has correct armband on for positive identification. Allergy band placed. Fall ph risk band placed. Provided Education on: discharge instructions. 16:25 No provider procedures requiring assistance completed. IV discontinued, intact, ph bleeding controlled, No redness/swelling at site. Pressure dressing applied. Administered Medications: 14:43 Drug: NS 0.9% IV 1000 ml IV at 1 bolus Per protocol; 1000 mL bolus Route: IV; Rate: 1 jl7 bolus; Site: left antecubital; 16:26 Follow up: IV Status: Completed infusion ph 14:43 Drug: Ondansetron IVP 4 mg IVP once; over 2 minutes Route: IVP; Site: left antecubital; jl7 16:26 Follow up: Response: No adverse reaction ph 15:12 Drug: Ketorolac IVP 30 mg IVP once Route: IVP; Site: left antecubital; cm10 16:26 Follow up: Response: No adverse reaction ph Medication: 16:26 VIS not applicable for this client. ph Outcome: 16:14 Discharge ordered by . sb4 16:25 Discharged to home ambulatory, ph 16:25 Condition: good 16:25 Discharge instructions given to patient, Instructed on discharge instructions, follow up and referral plans. medication usage, Demonstrated understanding of instructions, follow-up care, medications, Prescriptions given X 3, 16:26 Patient left the ED. ph Signatures: Dispatcher [employer] EDCA Kamille Sandoval, Ilya Reg mr Lori Hopper, RN RN ph Gisselle Delong RN RN jl7 Abbie Leach, PAAlma PAKandy Neumann Clarissa, RN RN cm10
[2024-01-30 22:51] VITALS: BP 156/94; TEMP 97.5; O2SAT 98
== END 2024-01-30 16:26 | disposition home or self-care (01) ==
LOC: ER 13:12
DX: N94.6 Dysmenorrhea, unspecified (principal)
CPT/HCPCS: 85025; 81001; 80048; 36415; 81025; 84702; 72192; J2405; J7030

== ENCOUNTER 2025-03-17 20:05 | Emergency (ER) | payer OTHER ==
--- OUTSIDE RECORDS SUMMARY | 2025-03-17 20:15 | XMS REPORT | Continuity of Care Document ---
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 (ADACEL) VACCINE 2012-02-09 00:00:00 Completed [facility] TDAP (ADACEL) VACCINE 2012-02-09 00:00:00 Completed [facility] TDAP (ADACEL) VACCINE 2012-02-09 00:00:00 Completed [facility] TDAP (ADACEL) VACCINE 2012-02-09 00:00:00 Completed [facility] TDAP (ADACEL) VACCINE 2012-02-09 00:00:00 Completed [facility] TDAP (ADACEL) VACCINE 2012-02-09 00:00:00 Completed [facility] TDAP (ADACEL) VACCINE 2012-02-09 00:00:00 Completed [facility] TDAP (ADACEL) VACCINE 2012-02-09 00:00:00 Completed [facility] TDAP (ADACEL) VACCINE 2012-02-09 00:00:00 Completed [facility] TDAP (ADACEL) VACCINE 2012-02-09 00:00:00 Completed [facility] TDAP (ADACEL) VACCINE 2012-02-09 00:00:00 Completed [facility] TDAP (ADACEL) VACCINE 2012-02-09 00:00:00 Completed [facility] TDAP (ADACEL) VACCINE 2012-02-09 00:00:00 Completed [facility] TDAP (ADACEL) VACCINE 2012-02-09 00:00:00 Completed [facility] TDAP (ADACEL) VACCINE 2012-02-09 00:00:00 Completed [facility] TDAP (ADACEL) VACCINE 2012-02-09 00:00:00 Completed [facility] TDAP (ADACEL) VACCINE 2012-02-09 00:00:00 Completed [facility] TDAP (ADACEL) VACCINE 2012-02-09 00:00:00 Completed [facility] TDAP (ADACEL) VACCINE 2012-02-09 00:00:00 Completed [facility] TDAP (ADACEL) VACCINE 2012-02-09 00:00:00 Completed [facility] TDAP (ADACEL) VACCINE 2012-02-09 00:00:00 Completed [facility] TDAP (ADACEL) VACCINE 2012-02-09 00:00:00 Completed [facility] TDAP (ADACEL) VACCINE 2012-02-09 00:00:00 Completed [facility] TDAP (ADACEL) VACCINE 2012-02-09 00:00:00 Completed [facility] TDAP (ADACEL) VACCINE 2012-02-09 00:00:00 Completed [facility] Vital Signs Vital Name Observation Time Observation Value Comments S ource Systolic blood pressure 2024-06-26 17:14:00 122 mm[Hg] [place] [facility] Diastolic blood pressure 2024-06-26 17:14:00 93 mm[Hg] [place] [facility] Heart rate 2024-06-26 17:14:00 82 /min [facility] Body temperature 2024-06-26 17:14:00 36.5 Vielka [facility] Respiratory rate 2024-06-26 17:14:00 19 /min [facility] Oxygen saturation in Arterial blood by Pulse oximetry 2024-06-26 17:14:00 98 /min [facility] Body height 2024-06-26 12:49:00 157.5 cm [facility] Body weight 2024-06-26 12:49:00 96.163 kg [facility] BMI 2024-06-26 12:49:00 38.78 kg/m2 [facility] Systolic blood pressure 2024-06-21 20:14:00 114 mm[Hg] [facility] Diastolic blood pressure 2024-06-21 20:14:00 54 mm[Hg] [facility] Heart rate 2024-06-21 20:14:00 75 /min [facility] Body temperature 2024-06-21 20:14:00 36.78 Vielka [facility] Respiratory rate 2024-06-21 20:14:00 14 /min [facility] Oxygen saturation in Arterial blood by Pulse oximetry 2024-06-21 20:14:00 100 /min [facility] Body height 2024-06-21 18:10:00 154.9 cm [facility] Body weight 2024-06-21 18:10:00 96.163 kg [facility] BMI 2024-06-21 18:10:00 40.06 kg/m2 [facility] Systolic blood pressure 2024-06-20 04:14:00 117 mm[Hg] [facility] Diastolic blood pressure 2024-06-20 04:14:00 90 mm[Hg] [facility] Heart rate 2024-06-20 04:14:00 86 /min [facility] Body temperature 2024-06-20 04:14:00 37.17 Vielka [facility] Respiratory rate 2024-06-20 04:14:00 16 /min [facility] Oxygen saturation in Arterial blood by Pulse oximetry 2024-06-20 04:14:00 98 /min [facility] Body height 2024-06-20 00:12:00 154.9 cm [facility] Body weight 2024-06-20 00:12:00 96.163 kg [facility] BMI 2024-06-20 00:12:00 40.06 kg/m2 [facility] Systolic blood pressure 2024-06-16 00:51:00 145 mm[Hg] [facility] Diastolic blood pressure 2024-06-16 00:51:00 94 mm[Hg] [facility] Heart rate 2024-06-16 00:51:00 105 /min [facility] Body temperature 2024-06-16 00:51:00 36.78 Vielka [facility] Respiratory rate 2024-06-16 00:51:00 20 /min [facility] Body height 2024-06-16 00:51:00 157.5 cm [facility] Body weight 2024-06-16 00:51:00 96.163 kg [facility] BMI 2024-06-16 00:51:00 38.78 kg/m2 [facility] Oxygen saturation in Arterial blood by Pulse oximetry 2024-06-16 00:51:00 99 /min [facility] Systolic blood pressure 2024-06-14 02:52:00 148 mm[Hg] [facility] Diastolic blood pressure 2024-06-14 02:52:00 102 mm[Hg] [facility] Heart rate 2024-06-14 02:52:00 100 /min [facility] Body temperature 2024-06-14 02:52:00 37 Vielka [facility] Respiratory rate 2024-06-14 02:52:00 16 /min [facility] Body height 2024-06-14 02:52:00 154.9 cm [facility] 2024-06-14 02:52:00 96.934 kg [facility] BMI 2024-06-14 02:52:00 40.38 kg/m2 [facility] Oxygen saturation in Arterial blood by Pulse oximetry 2024-06-14 02:52:00 100 /min [facility] Systolic blood pressure 2024-05-12 04:51:00 136 mm[Hg] [facility] Diastolic blood pressure 2024-05-12 04:51:00 101 mm[Hg] [facility] Heart rate 2024-05-12 04:51:00 82 /min [facility] Body temperature 2024-05-12 04:51:00 37.11 Vielka [facility] Respiratory rate 2024-05-12 04:51:00 16 /min [facility] Oxygen saturation in Arterial blood by Pulse oximetry 2024-05-12 04:51:00 99 /min [facility] Body height 2024-05-12 02:04:00 154.9 cm [facility] Body weight 2024-05-12 02:04:00 99.791 kg [facility] BMI 2024-05-12 02:04:00 41.57 kg/m2 [facility] Systolic blood pressure 2024-04-04 19:05:00 124 mm[Hg] [facility] Diastolic blood pressure 2024-04-04 19:05:00 89 mm[Hg] [facility] Heart rate 2024-04-04 19:04:00 90 /min [facility] Body temperature 2024-04-04 19:04:00 36.78 Vielka [facility] Respiratory rate 2024-04-04 19:04:00 17 /min [facility] Body weight 2024-04-04 19:04:00 100.608 kg [facility] BMI 2024-04-04 19:04:00 41.91 kg/m2 [facility] Oxygen saturation in Arterial blood by Pulse oximetry 2024-04-04 19:04:00 98 /min [facility] Systolic blood pressure 2024-03-13 14:23:00 123 mm[Hg] [facility] Diastolic blood pressure 2024-03-13 14:23:00 87 mm[Hg] [facility] Heart rate 2024-03-13 14:23:00 74 /min [facility] Body height 2024-03-13 14:23:00 154.9 cm [facility] Body weight 2024-03-13 14:23:00 100.835 kg [facility] BMI 2024-03-13 14:23:00 42.00 kg/m2 [facility] Oxygen saturation in Arterial blood by Pulse oximetry 2024-03-13 14:23:00 99 /min [facility] Systolic blood pressure 2024-02-29 20:02:00 134 mm[Hg] [facility] Diastolic blood pressure 2024-02-29 20:02:00 90 mm[Hg] [facility] Heart rate 2024-02-29 20:02:00 100 /min [facility] Body temperature 2024-02-29 20:02:00 36.67 Vielka [facility] Respiratory rate 2024-02-29 20:02:00 18 /min [facility] Body height 2024-02-29 20:02:00 154.9 cm [facility] Body weight 2024-02-29 20:02:00 101.107 kg [facility] BMI 2024-02-29 20:02:00 42.12 kg/m2 [facility] Oxygen saturation in Arterial blood by Pulse oximetry 2024-02-29 20:02:00 97 /min [facility] Systolic blood pressure 2024-02-20 07:00:00 107 mm[Hg] [facility] Diastolic blood pressure 2024-02-20 07:00:00 67 mm[Hg] [facility] Heart rate 2024-02-20 07:00:00 84 /min [facility] Body temperature 2024-02-20 07:00:00 37.06 Vielka [facility] Respiratory rate 2024-02-20 07:00:00 26 /min [facility] Oxygen saturation in Arterial blood by Pulse oximetry 2024-02-20 07:00:00 97 /min [facility] Body height 2024-02-20 03:37:00 154.9 cm [facility] Body weight 2024-02-20 03:37:00 101.152 kg [facility] BMI 2024-02-20 03:37:00 42.14 kg/m2 [facility] Systolic blood pressure 2023-12-15 14:30:00 148 mm[Hg] [facility] Diastolic blood pressure 2023-12-15 14:30:00 109 mm[Hg] [facility] Heart rate 2023-12-15 14:30:00 100 /min [facility] Body temperature 2023-12-15 14:30:00 36.61 Vielka [facility] Respiratory rate 2023-12-15 14:30:00 18 /min [facility] Body height 2023-12-15 14:30:00 154.9 cm [facility] Body weight 2023-12-15 14:30:00 96.616 kg [facility] BMI 2023-12-15 14:30:00 40.25 kg/m2 [facility] Oxygen saturation in Arterial blood by Pulse oximetry 2023-12-15 14:30:00 100 /min [facility] Systolic blood pressure 2023-04-14 19:01:00 125 mm[Hg] [facility] Diastolic blood pressure 2023-04-14 19:01:00 81 mm[Hg] [facility] Heart rate 2023-04-14 19:01:00 89 /min [facility] Body temperature 2023-04-14 19:01:00 36.67 Vielka [facility] Respiratory rate 2023-04-14 19:01:00 18 /min [facility] Body height 2023-04-14 19:01:00 154.9 cm [facility] Body weight 2023-04-14 19:01:00 95.437 kg [facility] BMI 2023-04-14 19:01:00 39.75 kg/m2 [facility] Oxygen saturation in Arterial blood by Pulse oximetry 2023-04-14 19:01:00 99 /min [facility] Systolic blood pressure 2023-04-11 12:52:00 126 mm[Hg] [facility] Diastolic blood pressure 2023-04-11 12:52:00 85 mm[Hg] [facility] Heart rate 2023-04-11 12:52:00 72 /min [facility] Body temperature 2023-04-11 12:52:00 36.5 Vielka [facility] Respiratory rate 2023-04-11 12:52:00 16 /min [facility] Oxygen saturation in Arterial blood by Pulse oximetry 2023-04-11 12:52:00 97 /min [facility] Body height 2023-04-09 01:17:00 154.9 cm [facility] Body weight 2023-04-09 01:17:00 94.348 kg [facility] BMI 2023-04-09 01:17:00 39.30 kg/m2 [facility] Systolic blood pressure 2023-03-10 03:21:05 139 mm[Hg] [facility] Diastolic blood pressure 2023-03-10 03:21:05 85 mm[Hg] [facility] Heart rate 2023-03-10 03:21:05 86 /min [facility] Body temperature 2023-03-10 03:21:05 37.06 Vielka [facility] Respiratory rate 2023-03-10 03:21:05 18 /min [facility] Oxygen saturation in Arterial blood by Pulse oximetry 2023-03-10 03:21:05 99 /min [facility] Body height 2023-03-10 01:28:00 154.9 cm [facility] Body weight 2023-03-10 01:28:00 93.895 kg [facility] BMI 2023-03-10 01:28:00 39.11 kg/m2 [facility] Heart rate 2022-06-10 08:00:00 104 /min [facility] Respiratory rate 2022-06-10 08:00:00 20 /min [facility] Oxygen saturation in Arterial blood by Pulse oximetry 2022-06-10 08:00:00 99 /min [facility] Systolic blood pressure 2022-06-10 07:24:00 132 mm[Hg] [facility] Diastolic blood pressure 2022-06-10 07:24:00 88 mm[Hg] [facility] Body temperature 2022-06-10 07:24:00 36.89 Vielka [facility] Body height 2022-06-10 07:24:00 154.9 cm [facility] Body weight 2022-06-10 07:24:00 92.08 kg [facility] BMI 2022-06-10 07:24:00 38.36 kg/m2 [facility] Systolic blood pressure 2022 19:34:00 132 mm[Hg] [facility] Diastolic blood pressure 2022 19:34:00 81 mm[Hg] [facility] Heart rate 2022 19:34:00 104 /min [facility] Body temperature 2022 19:34:00 36.67 Vielka [facility] Respiratory rate 2022 19:34:00 18 /min [facility] Body height 2022 19:34:00 154.9 cm [facility] Body weight 2022 19:34:00 93.033 kg [facility] BMI 2022 19:34:00 38.75 kg/m2 [facility] Systolic blood pressure 2022-05-03 20:57:00 130 mm[Hg] [facility] Diastolic blood pressure 2022-05-03 20:57:00 90 mm[Hg] [facility] Heart rate 2022-05-03 20:57:00 102 /min [facility] Body temperature 2022-05-03 20:57:00 36.72 Vielka [facility] Respiratory rate 2022-05-03 20:57:00 18 /min [facility] Body height 2022-05-03 20:57:00 154.9 cm [facility] Body weight 2022-05-03 20:57:00 92.279 kg [facility] BMI 2022-05-03 20:57:00 38.44 kg/m2 [facility] Systolic blood pressure 2022-04-26 12:52:00 121 mm[Hg] [facility] Diastolic blood pressure 2022-04-26 12:52:00 65 mm[Hg] [facility] Heart rate 2022-04-26 12:52:00 84 /min [facility] Body temperature 2022-04-26 12:52:00 36.72 Vielka [facility] Respiratory rate 2022-04-26 12:52:00 18 /min [facility] Oxygen saturation in Arterial blood by Pulse oximetry 2022-04-26 12:52:00 99 /min [facility] Body height 2022-04-26 03:53:00 152.4 cm [facility] Body weight 2022-04-26 03:53:00 92.534 kg [facility] BMI 2022-04-26 03:53:00 39.84 kg/m2 [facility] Systolic blood pressure 2022-04-12 01:59:00 131 mm[Hg] [facility] Diastolic blood pressure 2022-04-12 01:59:00 90 mm[Hg] [facility] Heart rate 2022-04-12 01:59:00 104 /min [facility] Body temperature 2022-04-12 01:59:00 36.94 Vielka [facility] Respiratory rate 2022-04-12 01:59:00 16 /min [facility] Body height 2022-04-12 01:59:00 154.9 cm [facility] Body weight 2022-04-12 01:59:00 92.08 kg [facility] BMI 2022-04-12 01:59:00 38.36 kg/m2 [facility] Oxygen saturation in Arterial blood by Pulse oximetry 2022-04-12 01:59:00 98 /min [facility] Systolic blood pressure 2022-03-29 19:20:00 126 mm[Hg] [facility] Diastolic blood pressure 2022-03-29 19:20:00 86 mm[Hg] [facility] Heart rate 2022-03-29 19:20:00 117 /min [facility] Body temperature 2022-03-29 19:19:00 36.78 Vielka [facility] Respiratory rate 2022-03-29 19:19:00 18 /min [facility] Body height 2022-03-29 19:19:00 152.4 cm [facility] Body weight 2022-03-29 19:19:00 92.279 kg [facility] BMI 2022-03-29 19:19:00 39.73 kg/m2 [facility] Systolic blood pressure 2022-03-15 20:38:00 125 mm[Hg] [facility] Diastolic blood pressure 2022-03-15 20:38:00 82 mm[Hg] [facility] Heart rate 2022-03-15 20:38:00 107 /min [facility] Body temperature 2022-03-15 20:38:00 36.83 Vielka [facility] Respiratory rate 2022-03-15 20:38:00 18 /min [facility] Body height 2022-03-15 20:38:00 152.4 cm [facility] Body weight 2022-03-15 20:38:00 94.008 kg [facility] BMI 2022-03-15 20:38:00 40.48 kg/m2 [facility] Procedures Procedure Date / Time Performed Performing Clinician Source CT ABDOMEN PELVIS W CONTRAST 2024-06-26 15:46:07 Shaista Roy [facility] POCT TEST 2024-06-26 14:15:00 Jamel Roy [facility] LIPASE 2024-06-26 13:34:00 [facility] COMP. METABOLIC PANEL ([id number]) 2024-06-26 13:34:00 Shaista Roy [facility] CBC WITH DIFF 2024-06-26 13:34:00 Shaista Roy [facility] URINALYSIS 2024-06-26 13:34:00 Shaista Roy [facility] INFLUENZA A/B RSV COVID NAAT 2024-06-26 13:34:00 Shaista Roy [facility] BASIC METABOLIC PANEL (NA, K, CL, CO2, GLUCOSE, BUN, CREATININE, CA) 2024-06-21 19:05:00 Shamika Figueredo [facility] CBC WITH DIFF 2024-06-21 19:05:00 Shamika Figueredo [facility] COMP. METABOLIC PANEL ([id number]) 2024-06-20 02:32:00 Héctor Hall [facility] TOTAL BETA HCG ASSAY 2024-06-20 02:32:00 Tito Hall [facility] CBC WITH DIFF 2024-06-20 02:32:00 Héctor Hall [facility] US FIRST TRIMESTER LESS THAN 14 WEEKS WITH TRANSVAGINAL 2024-06-20 02:21:34 Héctor Hall [facility] POCT TEST 2024-06-16 01:42:00 Nazia Figueredo [facility] INFLUENZA A/B RSV COVID NAAT 2024-06-16 01:24:00 Shamika Figueredo [facility] POCT TEST 2024-06-14 03:10:00 Zahira Rebolledo ra [facility] POCT TEST 2024-05-12 03:27:00 Azra Mckinley [facility] POCT SARS-COV-2 ANTIGEN (BINAX NOW) 2024-04-04 19:15:00 Hilda Robles [facility] COMP. METABOLIC PANEL ([id number]) 2024-02-20 05:38:00 Azra Mckinley [facility] URINE DRUG (IMMUNOASSAY) - COMPREHENSIVE DRUG SCREEN 2024-02-20 04:43:00 Azra Mckinley [facility] CBC WITH DIFF 2024-02-20 04:43:00 Azra Mckinley [facility] URINALYSIS 2024-02-20 04:43:00 Azra Mckinley [facility] XR NECK SOFT TISSUE 2023-12-15 15:50:52 Awa Rivera [facility] POCT TEST 2023-12-15 15:13:00 Awa Rivera [facility] AUTHORIZATION FOR RELEASE OF PHI 2023-05-09 05:01:00 Doctor Unassigned, Shubert [facility] PAP SMEAR-LIQUID BASED-CP 2023-04-14 19:30:00 Rafael [facility] URINE DRUG (IMMUNOASSAY) - COMPREHENSIVE DRUG SCREEN 2023-04-14 19:12:00 Hall [facility] GC & CHLAMYDIA AMPLIFIED ASSAY 2023-04-14 19:12:00 [facility] TRICHOMONAS AMPLIFIED ASSAY 2023-04-14 19:12:00 Hall [facility] POCT TEST 2023-04-14 00:00:00 Hall [facility] POCT URINALYSIS W/O SPECIFIC GRAVITY 2023-04-14 00:00:00 Rafael [facility] PHOSPHORUS 2023-04-11 10:30:00 Sheila Bueno Un [facility] MAGNESIUM 2023-04-11 10:30:00 Sheila Bueno Un [facility] BASIC METABOLIC PANEL (NA, K, CL, CO2, GLUCOSE, BUN, CREATININE, CA) 2023-04-11 10:30:00 Sheila Bueno [facility] CBC WITH DIFF 2023-04-11 10:30:00 Sheila Bueno U [facility] PHOSPHORUS 2023-04-10 09:16:00 Sheila Bueno Un [facility] MAGNESIUM 2023-04-10 09:16:00 Sheila Bueno Un [facility] BASIC METABOLIC PANEL (NA, K, CL, CO2, GLUCOSE, BUN, CREATININE, CA) 2023-04-10 09:16:00 Sheila Bueno [facility] CBC WITH DIFF 2023-04-10 09:16:00 Sheila Bueno U [facility] BASIC METABOLIC PANEL (NA, K, CL, CO2, GLUCOSE, BUN, CREATININE, CA) 2023-04-09 10:38:00 [facility] 2023-04-09 10:38:00 Chapin potter, [facility] MR ABDOMEN WO CONTRAST 2023-04-09 05:02:57 Janey Montemayor [facility] MRSA / MSSA SCREEN BY PCR, BERENICE 2023-04-09 03:17:00 Chapin Adkins [facility] FIRST TRIMESTER LESS THAN 14 WEEKS WITH TRANSVAGINAL 2023-04-08 20:25:25 Hayden [facility] LIPASE 2023-04-08 18:20:00 Hayden [facility] COMP. METABOLIC PANEL ([id number]) 2023-04-08 18:20:00 Hayden [facility] TOTAL BETA HCG ASSAY 2023-04-08 18:20:00 Beto Blake [facility] [facility] CBC WITH DIFF 2023-04-08 18:20:00 [facility] URINALYSIS 2023-04-08 18:20:00 [facility] ASSIGNMENT OF BENEFITS 2023-04-08 17:32:15 Docto r Unassigned, Shubert [facility] CONSENT/REFUSAL FOR DIAGNOSIS AND TREATMENT 2023-04-08 17:04:18 Doctor Unassigned, Shubert [facility] BASIC METABOLIC PANEL (NA, K, CL, CO2, GLUCOSE, BUN, CREATININE, CA) 2023-03-10 02:02:00 Maribel Rebolledo [facility] CBC WITH DIFF 2023-03-10 02:02:00 [facility] 2023-03-10 02:02:00 [facility] HB ABO GROUPING 2023-03-10 02:02:00 Maribel Rebolledo [facility] POCT TEST 2023-03-10 01:45:00 Zahira Rebolledo ra [facility] NOTICE OF PRIVACY PRACTICES 2023-03-10 01:22:47 Doctor Unassigned, Shubert [facility] CONSENT/REFUSAL FOR DIAGNOSIS AND TREATMENT 2023-03-10 01:22:15 Doctor Unassigned, Shubert [facility] RAPID INFLUENZA A/B 2022-06-10 07:45:00 Briana Byrd [facility] GC & CHLAMYDIA AMPLIFIED ASSAY 2022 20:03:00 Kari Dubois [facility] HIV 1/2 AG-AB WITH REFLEX 2022 20:03:00 Kari Dubois [facility] TRICHOMONAS AMPLIFIED ASSAY 2022 20:03:00 Kari Dubois [facility] GALV ONLY - SYPHILIS IGG/IGM 2022 20:03:00 Kari Dubois [facility] POCT URINALYSIS 2022 00:00:00 Kari Dubois [facility] POCT URINALYSIS 2022-05-03 20:58:00 Kari Dubois [facility] BASIC METABOLIC PANEL (NA, K, CL, CO2, GLUCOSE, BUN, CREATININE, CA) 2022-04-26 04:28:00 Adum, Nataly Stephenson [facility] CBC WITH DIFF 2022-04-26 04:28:00 Adum, Nataly Boles [facility] XR ANKLE 3+ VW LEFT 2022-04-12 03:02:03 Jamel Roy [facility] XR FOOT 3+ VW LEFT 2022-04-12 03:02:03 Shaista Roy [facility] NOTICE OF PRIVACY PRACTICES 2022-04-12 01:41:23 Doctor Unassigned, Shubert [facility] CONSENT/REFUSAL FOR DIAGNOSIS AND TREATMENT 2022-04-12 01:41:09 Doctor Unassigned, Shubert [facility] POCT URINALYSIS 2022-03-29 19:20:00 Kari Dubois [facility] POCT URINALYSIS 2022-03-15 20:42:00 Kari Dubois [facility] Encounters Start Date/Time End Date/Time Encounter Type Admission Type Attending Clinicians Care Facility Care Department Encounter ID Source 2023-04-08 17:39:28 Emergency X JANEY MONTEMAYOR [facility] ROSALIE [id number] Univer s ity [facility] 2022-04-26 10:21:54 Outpatient P [facility] WILMER [id number] [facility] ity [facility] 2021-06-09 00:57:31 Emergency [facility] [id number] [facility] ity [facility] 2021-06-07 22:32:16 Emergency [facility] [id number] [facility] ity [facility] 2021-06-07 21:51:33 Emergency [facility] [id number] [facility] ity [facility] 2021-06-07 00:13:35 Emergency [facility] [id number] [facility] ity [facility] 2021-06-06 12:33:58 Emergency [facility] [id number] [facility] ity [facility] 2021-06-06 02:28:06 Emergency [facility] [id number] [facility] ity [facility] 2021-06-05 06:45:59 Emergency [facility] [id number] [facility] ity [facility] 2021-06-05 02:15:47 Emergency [facility] [id number] [facility] ity [facility] 2021-06-04 17:43:49 Emergency [facility] [id number] [facility] 2021-06-04 15:37:47 Emergency [facility] [id number] [facility] 2025-03-07 00:00:00 2025-03-07 15:33:12 Telephone Cornelius Hall [facility] 1.2.840.114 350.1.13.10 4.2.7.2.686 [id number] [facility] ity [facility] 2024-06-26 06:53:00 2024-06-26 11:19:00 Emergency X SHAISTA ROY DONNELL [facility] ERT [id number] [facility] ity [facility] 2024-06-26 06:53:00 2024-06-26 11:19:00 Emergency Shaista Roy [facility] 1.2.840.114 350.1.13.10 4.2.7.2.686 [id number] [facility] 2024-06-25 14:30:00 2024-06-25 14:30:00 Outpatient R RAFAEL, CORNELIUS BELTRE [facility] [id number] [facility] 2024-06-21 12:17:00 2024-06-21 14:20:00 Emergency X SHAMIKA FIGUEREDO [facility] ERT [id number] [facility] 2024-06-21 12:17:00 2024-06-21 14:20:00 Emergency Shamika Figueredo [facility] 1.2.840.114 350.1.13.10 4.2.7.2.686 [id number] [facility] 2024-06-19 18:13:00 2024-06-19 22:20:00 Emergency X HÉCTOR HALL JOSEPH [facility] ERT [id number] [facility] 2024-06-19 18:13:00 2024-06-19 22:20:00 Emergency Héctor Hall [facility] 1.2.840.114 350.1.13.10 4.2.7.2.686 [id number] [facility] 2024-06-15 18:51:00 2024-06-15 21:35:00 Emergency X SHAMIKA FIGUEREDO [facility] ERT [id number] [facility] 2024-06-15 18:51:00 2024-06-15 21:35:00 Emergency Shamika Figueredo [facility] 1.2.840.114 350.1.13.10 4.2.7.2.686 [id number] [facility] 2024-06-13 20:54:00 2024-06-13 21:33:00 Emergency X AMAURY MARIBELMARIBEL CUADRA [facility] ERT [id number] [facility] 2024-06-13 20:54:00 2024-06-13 21:33:00 Emergency Maribel Rebolledo [facility] 1..114 350.1.13.10 4.2.7.2.686 [id number] [facility] 2024-06-11 00:00:00 2024-06-11 14:15:39 Telephone Cornelius Hall [facility]ILD[facility] 1..114 350.1.13.10 4.2.7.2.686 [id number] [facility] 2024-05-01 00:00:00 2024-06-02 18:22:30 Patient Secure Msg Doctor Unassigned, Shubert Doctor Unassigned, Shubert [facility] 1..114 350.1.13.10 4.2.7.2.686 [id number] [facility] 2024-05-21 08:30:00 2024-05-21 08:30:00 Outpatient IVAN KEENAN [facility] [id number] [facility] 2024-05-11 21:08:00 2024-05-12 00:10:00 Emergency X AZRA MCKINLEY WAKILI [facility] ERT [id number] [facility] 2024-05-11 21:08:00 2024-05-12 00:10:00 Emergency Azra Mckinley [facility] 1..114 350.1.13.10 4.2.7.2.686 [id number] [facility] 2024-05-09 10:00:00 2024-05-09 10:00:00 Outpatient THOMAS TAPIA HOWARD [facility] [id number] [facility] 2024-05-08 09:00:00 2024-05-08 09:00:00 Outpatient THOMAS TAPIA HOWARD [facility] [id number] [facility] 2024-03-13 00:00:00 2024-04-14 18:19:57 Patient Secure Msg Doctor Unassigned, Shubert Doctor Unassigned, Shubert [facility] 1.2.840.114 350.1.13.10 4.2.7.2.686 [id number] [facility] 2024-04-04 13:40:00 2024-04-04 14:00:00 Urgent Care ToriMarleny gates Unknown, Attending [facility]?MANDYJude [facility] 1.2.840.114 350.1.13.10 4.2.7.2.686 [id number] [facility] 2024-04-04 13:40:00 2024-04-04 13:40:00 Outpatient R MARLENY VALLEJO [facility] [id number] [facility] 2024-03-27 16:30:00 2024-03-27 16:30:00 Outpatient R KYLE LEGGETT [facility] [id number] [facility] 2024-03-13 09:40:00 2024-03-13 10:46:34 Outpatient THOMAS TAPIA HOWARD [facility] [id number] [facility] 2024-03-13 09:40:00 2024-03-13 10:46:34 Office Visit Thomas Waller [facility] MED[facility] OFF[facility] BUILDING 1.2.840.114 350.1.13.10 4.2.7.2.686 [id number] [facility] 2024-02-29 15:00:00 2024-02-29 15:31:20 Outpatient R DEA HALLMAN [facility] [id number] [facility] 2024-02-29 15:00:00 2024-02-29 15:31:20 Office Visit Dea Hallman [facility]?KAYLIE [facility] OFF[facility] BUILD[facility] 1.2.840.114 350.1.13.10 4.2.7.2.686 [id number] [facility] 2024-02-19 22:36:00 2024-02-20 04:25:00 Emergency X AZRA MCKINLEY WAIRINEO [facility] ERT [id number] [facility] 2024-02-19 22:36:00 2024-02-20 04:25:00 Emergency Azra Mckinley [facility] 1.2.840.114 350.1.13.10 4.2.7.2.686 [id number] [facility] 2023-12-15 09:33:00 2023-12-15 11:55:00 Emergency X AWA RIVERA [facility] ERT [id number] [facility] 2023-12-15 09:33:00 2023-12-15 11:55:00 Emergency Awa Rivera Gaurang [facility] 1.2.840.114 350.1.13.10 4.2.7.2.686 [id number] [facility] 2023-12-14 00:00:00 2023-12-14 16:31:04 Nurse Triage Maicol Ivan [facility] 1.2.840.114 350.1.13.10 4.2.7.2.686 [id number] [facility] 2023-12-14 13:00:00 2023-12-14 13:00:00 Outpatient R IVAN GARCIA [facility] [id number] [facility] 2023-09-13 08:00:00 2023-09-13 08:00:00 Outpatient R KARI DUBOIS [facility] [id number] [facility] 2023-05-19 00:00:00 2023-05-19 00:00:00 Telephone Cornelius Hall [facility] BUILDING 1.2.840.114 350.1.13.10 4.2.7.2.686 [id number] [facility] 2023-05-12 15:30:00 2023-05-12 15:30:00 Outpatient R CORNELIUS HALL [facility] [id number] [facility] 2023-05-09 00:00:00 2023-05-09 00:00:00 Orders Only Doctor Unassigned, Shubert [facility] 1.2840.114 350.1.13.10 4.2.7.2.686 [id number] [facility] 2023-04-26 00:00:00 2023-04-26 00:00:00 Telephone Cornelius Hall [facility] BUILDING 1.2840.114 350.1.13.10 4.2.7.2.686 [id number] [facility] 2023-04-25 00:00:00 2023-04-25 00:00:00 Telephone Cornelius Hall [facility] BUILDING 1.2840.114 350.1.13.10 4.2.7.2.686 [id number] [facility] 2023-04-15 10:30:00 2023-04-15 11:46:06 Outpatient R CORNELIUS HALL [facility] [id number] [facility] 2023-04-15 10:30:00 2023-04-15 11:46:06 Thermal Spray Operator Visit 2, Adc Lab Cornelius Hall [facility] BUILDING 1.2840.114 350.1.13.10 4.2.7.2.686 [id number] [facility] 2023-04-15 00:00:00 2023-04-15 00:00:00 Case Management Cornelius Hall [facility] 1.840.114 350.1.13.10 4.2.7.2.686 [id number] [facility] 2023-04-14 14:00:00 2023-04-14 14:49:01 Outpatient R CORNELIUS HALL [facility] [id number] [facility] 2023-04-14 14:00:00 2023-04-14 14:49:01 Initial Visit Cornelisu Hall [facility] 1.0.114 350.1.13.10 4.2.7.2.686 [id number] [facility] 2023-04-12 00:00:00 2023-04-12 00:00:00 Telephone [facility] 1.0.114 350.1.13.10 4.2.7.2.686 [id number] [facility] 2023-04-08 12:09:00 2023-04-11 15:20:00 Outpatient X JANEY MONTEMAYOR [facility] ROSALIE [id number] [facility] 2023-04-08 12:09:00 2023-04-11 15:20:00 Emergency Destiny Blkae [facility] 1.0.114 350.1.13.10 4.2.7.2.686 [id number] [facility] 2023-03-10 00:00:00 2023-03-10 00:00:00 Patient Secure Msg Doctor Unassigned, Shubert [facility] 1.0.114 350.1.13.10 4.2.7.2.686 [id number] [facility] 2023-03-09 20:39:00 2023-03-09 22:22:00 Emergency X AMAURY MARIBEL [facility] ERT [id number] [facility] 2023-03-09 20:39:00 2023-03-09 22:22:00 Emergency AmauryZahirara Baldwin [facility] 1..114 350.1.13.10 4.2.7.2.686 [id number] [facility] 2023-02-23 00:00:00 2023-02-23 00:00:00 Telephone Caridad Queen [facility] 1.114 350.1.13.10 4.2.7.2.686 [id number] [facility] 2022-08-03 14:45:00 2022-08-03 14:45:00 Outpatient R MADELYN STALEY [facility] [id number] [facility] 2022-06-21 14:00:00 2022-06-21 14:00:00 Outpatient R KARI DUBOIS [facility] [id number] [facility] 2022-06-10 02:29:00 2022-06-10 04:20:00 Emergency X BRIANA BYRD [facility] ERT [id number] [facility] 2022-06-10 02:29:00 2022-06-10 04:20:00 Emergency Briana Byrd E [facility] 1..114 350.1.13.10 4.2.7.2.686 [id number] [facility] 2022-05-28 00:00:00 2022-05-28 00:00:00 Abstract Kari Dubois [facility] CIRCULAR KNIFE MACHINE [facility] MATERNAL & CHILD [facility] 1..114 350.1.13.10 4.2.7.2.686 [id number] [facility] 2022-05-27 10:45:00 2022-05-27 12:00:00 Thermal Spray Operator Visit Ultrasound, Patrick Lacy [facility] CIRCULAR KNIFE MACHINE [facility] & CHILD [facility] 1..840.114 350.1.13.10 4.2.7.2.686 [id number] [facility] 2022-05-27 10:45:00 2022-05-27 10:45:00 Outpatient PATRICK GARCIA SHANNON [facility] [id number] [facility] 2022-05-27 00:00:00 2022-05-27 00:00:00 Telephone Kari Dubois [facility] CIRCULAR KNIFE MACHINE [facility] & CHILD [facility] 1..840.114 350.1.13.10 4.2.7.2.686 [id number] 107 [id number] [facility] 2022-05-25 00:00:00 2022-05-25 00:00:00 Telephone Kari Dubois [facility] CIRCULAR KNIFE MACHINE [facility] & CHILD [facility] .840.114 350.1.13.10 4.2.7.2.686 [id number] [facility] 2022 14:30:00 2022 15:05:00 Outpatient DEWEY BUENO [facility] [id number] [facility] 2022 14:30:00 2022 15:05:00 Routine Visit Kari Dubois Roshunda R [facility] CIRCULAR KNIFE MACHINE [facility] & CHILD [facility] .840.114 350.1.13.10 4.2.7.2.686 [id number] 107 [id number] [facility] 2022-05-03 15:30:00 2022-05-03 16:20:31 Outpatient DEWEY BUENO [facility] [id number] [facility] 2022-05-03 15:30:00 2022-05-03 16:20:31 Routine Visit Kari Dubois Roshunda R [facility] CIRCULAR KNIFE MACHINE [facility] MATERNAL & CHILD [facility] 1.2.840.114 350.1.13.10 4.2.7.2.686 [id number] [facility] 2022-04-29 00:00:00 2022-04-29 00:00:00 Telephone Dewey Boyer [facility] CIRCULAR KNIFE MACHINE [facility] & CHILD [facility] 1.2840.114 350.1.13.10 4.2.7.2.686 [id number] [facility] 2022-04-26 15:15:00 2022-04-26 15:15:00 Outpatient R DEWEY BOYER [facility] [id number] [facility] 2022-04-25 22:48:00 2022-04-26 10:20:00 Outpatient P NATALY JC [facility] [id number] [facility] 2022-04-25 22:48:00 2022-04-26 10:20:00 Hospital Encounter Nataly Jc [facility] 1.2.840.114 350.1.13.10 4.2.7.2.686 [id number] [facility] 2022-04-11 21:02:00 2022-04-11 23:18:00 Emergency X SHAISTA ROY [facility] ERT [id number] [facility] 2022-04-11 21:02:00 2022-04-11 23:18:00 Emergency Shaista Roy [facility] 1.2.840.114 350.1.13.10 4.2.7.2.686 [id number] [facility] 2022-04-08 00:00:00 2022-04-08 00:00:00 Telephone Dewey Boyer R [facility] CIRCULAR KNIFE MACHINE [facility] MATERNAL & CHILD [facility] 1.2.840.114 350.1.13.10 4.2.7.2.686 [id number] [facility] 2022-04-06 00:00:00 2022-04-06 00:00:00 Abstract Kari Dubois [facility] CIRCULAR KNIFE MACHINE [facility] CHILD [facility] 1.2.840.114 350.1.13.10 4.2.7.2.686 [id number] 107 [id number] [facility] 2022-04-05 15:00:00 2022-04-05 15:30:36 Outpatient P RAISA TONG [facility] [id number] [facility] 2022-04-05 15:00:00 2022-04-05 15:30:00 Thermal Spray Operator Visit Ultrasound, [facility] Raisa Tong [facility] CIRCULAR KNIFE MACHINE [facility] & CHILD [facility] 1..840.114 350.1.13.10 4.2.7.2.686 [id number] [facility] 2022-03-29 14:00:00 2022-03-29 14:37:53 Outpatient R KARI DUBOIS [facility] [id number] [facility] 2022-03-29 14:00:00 2022-03-29 14:37:53 Routine Visit Kari Dubois [facility] CIRCULAR KNIFE MACHINE [facility] & CHILD [facility] 1..840.114 350.1.13.10 4.2.7.2.686 [id number] [facility] 2022-03-25 15:45:00 2022-03-25 15:45:00 Outpatient P YOLANDA GONZALEZ [facility] [id number] [facility] 2022-03-22 13:00:00 2022-03-22 13:00:00 Outpatient P [facility] [id number] [facility] 2022-03-22 13:00:00 2022-03-22 13:00:00 Outpatient Riri MARY REBOLLEDO [facility] [id number] [facility] 2022-03-15 15:30:00 2022-03-15 16:10:39 Outpatient R KARI DUBOIS [facility] [id number] [facility] 2022-03-15 15:30:00 2022-03-15 16:10:39 Routine Visit Kari Dubois [facility] CIRCULAR KNIFE MACHINE [facility] & CHILD [facility] 1..840.114 350.1.13.10 4.2.7.2.686 [id number] [facility] 2022-03-10 12:45:00 2022-03-10 12:45:00 Outpatient R KARI DUBOIS [facility] [id number] [facility] 2022-02-15 00:00:00 2022-02-15 00:00:00 Telephone Kari Dubois [facility] CIRCULAR KNIFE MACHINE [facility] & CHILD [facility] 1..840.114 350.1.13.10 4.2.7.2.686 [id number] 107 [id number] [facility] 2022-02-12 08:15:00 2022-02-12 09:04:41 Thermal Spray Operator Visit Lab, [facility] Dewey Boyer [facility] CIRCULAR KNIFE MACHINE [facility] & CHILD [facility] 1..840.114 350.1.13.10 4.2.7.2.686 [id number] 107 [id number] [facility] 2022-02-12 08:15:00 2022-02-12 09:04:41 Outpatient DEWEY BUENO [facility] [id number] [facility] 2022-02-12 08:15:00 2022-02-12 08:15:00 Outpatient DEWEY BUENO [facility] [id number] [facility] 2022-02-10 15:00:00 2022-02-10 16:23:00 Outpatient R KARI DUBOIS [facility] [id number] [facility] 2022-02-10 15:00:00 2022-02-10 16:23:00 Initial Visit Kari Dbuois [facility] CIRCULAR KNIFE MACHINE [facility] MATERNAL & CHILD [facility] 1..114 350.1.13.10 4.2.7.2.686 [id number] 107 [id number] [facility] 2022-02-10 00:00:00 2022-02-10 00:00:00 Orders Only Doctor Unassigned, Shubert [facility] 1.114 350.1.13.10 4.2.7.2.686 [id number] [facility] 2022-01-08 08:45:00 2022-01-08 08:45:00 Outpatient R CORNELIUS HALL [facility] [id number] [facility] 2022-01-08 08:45:00 2022-01-08 08:45:00 Outpatient R CORNELIUS HALL [facility] [id number] [facility] 2022-01-06 14:00:00 2022-01-06 15:11:28 Outpatient R CORNELIUS HALL [facility] [id number] [facility] 2022-01-06 14:00:00 2022-01-06 15:11:28 Initial Visit [facility]elius [facility] 1..114 350.1.13.10 4.2.7.2.686 [id number] [facility] 2021-11-26 00:00:00 2021-11-26 00:00:00 Telephone Dewey Boyer [facility] CIRCULAR KNIFE MACHINE [facility]NAL [facility] CHILD [facility] 1..114 350.1.13.10 4.2.7.2.686 [id number] [facility] 2021-11-26 00:00:00 2021-11-26 00:00:00 Orders Only Doctor Unassigned, Shubert [facility] 1.2840.114 350.1.13.10 4.2.7.2.686 [id number] [facility] 2021-11-25 15:00:00 2021-11-25 16:09:04 Outpatient DEWEY BUENO [facility] [id number] [facility] 2021-11-25 15:00:00 2021-11-25 15:15:00 Office Visit Dewey Boyer [facility] CIRCULAR KNIFE MACHINE [facility] 1.840.114 350.1.13.10 4.2.7.2.686 [id number] [facility] 2021-11-25 15:00:00 2021-11-25 15:00:00 Outpatient DEWEY BUENO [facility] [id number] [facility] 2021-04-30 15:06:00 2021-04-30 16:44:00 Emergency Zeynep Leonard [facility] 1.840.114 350.1.13.10 4.2.7.2.686 [id number] [facility] 2021-04-30 00:00:00 2021-04-30 00:00:00 Orders Only Doctor Unassigned, Shubert [facility] 1.84.114 350.1.13.10 4.2.7.2.686 [id number] [facility] 2021-03-02 10:40:00 2021-03-02 10:40:00 Outpatient DIXON BOATENG [facility] [id number] [facility] 2021-02-17 00:00:00 2021-02-17 00:00:00 Telephone Dewey Boyer [facility] CIRCULAR KNIFE MACHINE [facility] 1..840.114 350.1.13.10 4.2.7.2.686 [id number] [facility] 2021-02-09 17:30:00 2021-02-09 17:30:00 Outpatient R EDIN BOYEREARLEREN [facility] [id number] [facility] 2021-01-26 13:45:00 2021-01-26 13:45:00 Outpatient R EDIN BOYEREARLEREN [facility] [id number] [facility] 2021-01-22 09:45:00 2021-01-22 09:45:00 Outpatient R EDIN BOYEREARLEREN [facility] [id number] [facility] 2021-01-13 15:00:00 2021-01-13 15:00:00 Outpatient R [facility] [id number] [facility] 2021-01-08 13:30:00 2021-01-08 13:30:00 Outpatient R [facility] [id number] [facility] 2021-01-06 18:57:00 2021-01-06 21:58:00 Emergency Balderas Marilee R [facility] 1..840.114 350.1.13.10 4.2.7.2.686 [id number] [facility] 2021-01-06 09:46:53 2021-01-06 10:01:53 Office Visit Kari Dubois [facility] CIRCULAR KNIFE MACHINE [facility] CHILD [facility] 1..840.114 350.1.13.10 4.2.7.2.686 [id number] 107 [id number] [facility] 2021-01-06 09:45:00 2021-01-06 09:45:00 Outpatient R KARI DUBOIS [facility] [id number] [facility] 2021-01-01 20:11:00 2021-01-01 22:16:00 Emergency Jesus, [place] Wick [facility] ([facility]) 1.2.840.114 350.1.13.10 4.2.7.2.686 [id number] [facility] 2021-01-01 00:00:00 2021-01-01 00:00:00 Telephone Dewey Boyer [facility] CIRCULAR KNIFE MACHINE [facility] CHILD [facility] 1.2.840.114 350.1.13.10 4.2.7.2.686 [id number] 107 [id number] [facility] 2020-12-31 00:00:00 2020-12-31 00:00:00 Orders Only Doctor Unassigned, Shubert [facility] 1.2.840.114 350.1.13.10 4.2.7.2.686 [id number] [id number] [facility] 2020-12-31 00:00:00 2020-12-31 00:00:00 Abstract Dewey Boyer [facility] CIRCULAR KNIFE MACHINE [facility] CHILD [facility] 1.2.840.114 350.1.13.10 4.2.7.2.686 [id number] 107 [id number] [facility] 2020-12-29 13:13:26 2020-12-29 14:21:50 Initial Visit Dewey Boyer [facility] CIRCULAR KNIFE MACHINE [facility] CHILD [facility] 1.2.840.114 350.1.13.10 4.2.7.2.686 [id number] [facility] 2020-12-29 13:15:00 2020-12-29 13:15:00 Outpatient R [facility] [id number] [facility] 2020-12-29 00:00:00 2020-12-29 00:00:00 Orders Only Doctor Unassigned, Shubert [facility] 1.2.840.114 350.1.13.10 4.2.7.2.686 [id number] [facility] 2020-10-28 00:00:00 2020-10-28 00:00:00 Patient Outreach Dixon Jaramillo [facility] 1.2.840.114 350.1.13.10 4.2.7.2.686 [id number] 2020-10-28 00:00:00 2020-10-28 00:00:00 Patient Outreach Dixon Jaramillo [facility] 1.2.840.114 350.1.13.10 4.2.7.2.686 [id number] [facility] 2020-10-24 00:00:00 2020-10-24 00:00:00 Telephone Kari Dubois [facility] CIRCULAR KNIFE MACHINE [facility] CHILD [facility] 1.2.840.114 350.1.13.10 4.2.7.2.686 [id number] 107 [id number] 2020-10-24 00:00:00 2020-10-24 00:00:00 Telephone Kari Dubois [facility] CIRCULAR KNIFE MACHINE [facility] CHILD [facility] 1.2.840.114 350.1.13.10 4.2.7.2.686 [id number] 107 [id number] [facility] 2020-10-22 13:30:00 2020-10-22 13:30:00 Outpatient R [facility] [id number] [facility] 2020-10-13 14:15:00 2020-10-13 14:15:00 Outpatient R KARI DUBOIS [facility] [id number] [facility] 2020-10-13 13:15:53 2020-10-13 14:08:32 Office Visit Kari Dubois [facility] CIRCULAR KNIFE MACHINE [facility] CHILD [facility] 1.2.840.114 350.1.13.10 4.2.7.2.686 [id number] 107 [id number] [facility] 2020-10-13 00:00:00 2020-10-13 00:00:00 Letter (Out) Dorota Shukla [facility] 1.840.114 350.1.13.10 4.2.7.2.686 [id number] [facility] 2020-10-10 15:00:00 2020-10-10 15:00:00 Outpatient R [facility] [id number] [facility] 2020-10-01 13:17:23 2020-10-01 14:22:51 Office Visit Kari Dubois [facility] CIRCULAR KNIFE MACHINE [facility] 1.840.114 350.1.13.10 4.2.7.2.686 [id number] 107 [id number] [facility] 2020-10-01 13:30:00 2020-10-01 13:30:00 Outpatient R KARI DUBOIS [facility] [id number] [facility] 2020-09-27 04:41:00 2020-09-27 06:40:00 Emergency Maribel Rebolledo [facility] 1.840.114 350.1.13.10 4.2.7.2.686 [id number] [facility] 2020-08-18 09:00:00 2020-08-18 09:00:00 Outpatient R KARI DUBOIS [facility] [id number] [facility] 2020-08-18 09:00:00 2020-08-18 09:00:00 Outpatient R KARI DUBOIS [facility] [id number] [facility] 2020-07-28 16:18:00 2020-07-28 17:19:00 Emergency Ilya Pinto [facility] 1.840.114 350.1.13.10 4.2.7.2.686 [id number] 084 [id number] [facility] 2020-06-09 12:37:00 2020-06-09 14:13:00 Emergency Maribel Rebolledo [facility] 1..114 350.1.13.10 4.2.7.2.686 [id number] 084 [id number] [facility] 2020-05-10 00:00:00 2020-05-10 00:00:00 Refill Kari Dubois [facility] CIRCULAR KNIFE MACHINE [facility] 1..114 350.1.13.10 4.2.7.2.686 [id number] 107 [id number] [facility] 2020-03-17 08:15:18 2020-03-17 08:45:18 Office Visit Kari Dubois [facility] CIRCULAR KNIFE MACHINE [facility] CH[facility] 1..114 350.1.13.10 4.2.7.2.686 [id number] 107 [id number] [facility] 2020-03-17 08:00:00 2020-03-17 08:00:00 Outpatient R KARI DUBOIS [facility] [id number] [facility] 2020-03-17 00:00:00 2020-03-17 00:00:00 Telephone Kari Dubois [facility] CIRCULAR KNIFE MACHINE [facility] CHILD [facility] 1..114 350.1.13.10 4.2.7.2.686 [id number] 107 [id number] [facility] 2020-03-17 00:00:00 2020-03-17 00:00:00 Orders Only Doctor Unassigned, Shubert [facility] 1..114 350.1.13.10 4.2.7.2.686 [id number] [facility] 2020-03-14 00:00:00 2020-03-14 00:00:00 Telephone Kari Dubois [facility] CIRCULAR KNIFE MACHINE [facility] CHILD [facility] 1.2.840.114 350.1.13.10 4.2.7.2.686 [id number] 107 [id number] [facility] 2020-02-21 00:00:00 2020-02-21 00:00:00 Telephone Kari Dubois [facility] CIRCULAR KNIFE MACHINE [facility] CHILD [facility] 1.2.840.114 350.1.13.10 4.2.7.2.686 [id number] 107 [id number] [facility] 2020-02-19 17:34:18 2020-02-19 21:02:00 Emergency Angélica Pratt [facility] 1.2.840.114 350.1.13.10 4.2.7.2.686 [id number] [id number] [facility] 2020-02-19 00:00:00 2020-02-19 00:00:00 Orders Only Doctor Unassigned, Shubert [facility] 1.2.840.114 350.1.13.10 4.2.7.2.686 [id number] [id number] [facility] 2020-02-14 07:57:47 2020-02-14 08:46:34 Office Visit Kari Dubois [facility] CIRCULAR KNIFE MACHINE [facility] CHILD [facility] 1.2.840.114 350.1.13.10 4.2.7.2.686 [id number] 107 [id number] [facility] 2020-02-14 08:00:00 2020-02-14 08:00:00 Outpatient R KARI DUBOIS [facility] [id number] [facility] 2020-02-12 00:00:00 2020-02-12 00:00:00 Telephone Kari Dubois [facility] CIRCULAR KNIFE MACHINE [facility] 1.2.840.114 350.1.13.10 4.2.7.2.686 [id number] 107 [id number] [facility] 2020-02-06 00:00:00 2020-02-06 00:00:00 Patient Secure Msg Doctor Unassigned, Shubert [facility] 1.840.114 350.1.13.10 4.2.7.2.686 [id number] [facility] 2020-02-05 13:15:00 2020-02-05 13:15:00 Outpatient R KARI DUBOIS [facility] [id number] [facility] 2020-02-04 15:02:47 2020-02-04 15:22:47 Urgent Care Pob[facility], [facility] 1.840.114 350.1.13.10 4.2.7.2.686 [id number] [facility] 2020-02-04 15:00:00 2020-02-04 15:00:00 Outpatient R [facility] [id number] [facility] 2020-01-28 17:20:40 2020-01-28 18:23:00 Emergency Jesus [facility] 1.84.114 350.1.13.10 4.2.7.2.686 [id number] [facility] 2020-01-24 00:00:00 2020-01-24 00:00:00 Telephone Kari Dbuois [facility] CIRCULAR KNIFE MACHINE [facility] CHILD [facility] 1.2.114 350.1.13.10 4.2.7.2.686 [id number] [facility] 2020-01-01 00:00:00 2020-01-01 00:00:00 Telephone Kari Dubois [facility] CIRCULAR KNIFE MACHINE [facility] 1.2840.114 350.1.13.10 4.2.7.2.686 [id number] 107 [id number] [facility] 2019-11-16 22:30:02 2019-11-17 00:50:00 Emergency Micheal Frazier [facility] 1.840.114 350.1.13.10 4.2.7.2.686 [id number] [id number] [facility] 2019-10-29 17:33:55 2019-10-29 18:57:00 Emergency Marilee Balderas [facility] 1.2840.114 350.1.13.10 4.2.7.2.686 [id number] 084 [id number] [facility] 2019-10-11 13:10:45 2019-10-11 15:47:42 Office Visit Kari Dubois [facility] CIRCULAR KNIFE MACHINE [facility] 1.0.114 350.1.13.10 4.2.7.2.686 [id number] 107 [id number] [facility] 2019-10-11 13:15:00 2019-10-11 13:15:00 Outpatient R KARI DUBOIS [facility] [id number] [facility] 2019-09-18 00:00:00 2019-09-18 00:00:00 Telephone Kari Dubois [facility] CIRCULAR KNIFE MACHINE [facility] CH[facility] 1.840.114 350.1.13.10 4.2.7.2.686 [id number] 107 [id number] [facility] 2019-09-12 09:48:40 2019-09-12 10:40:56 Office Visit Krai Dubois [facility] CIRCULAR KNIFE MACHINE [facility] CHILD [facility] 1.840.114 350.1.13.10 4.2.7.2.686 [id number] 107 [id number] [facility] 2019-09-12 00:00:00 2019-09-12 00:00:00 Orders Only Doctor Unassigned, Shubert [facility] 1.840.114 350.1.13.10 4.2.7.2.686 [id number] [facility] 2019-08-28 12:52:04 2019-08-28 13:33:28 Office Visit Kari Dubois [facility] CIRCULAR KNIFE MACHINE [facility] 1.2.840.114 350.1.13.10 4.2.7.2.686 [id number] 107 [id number] [facility] 2019-07-21 11:57:10 2019-07-21 14:58:00 Emergency X PATRICK MCKINLEY [facility] ERT [id number] [facility] Results Test Description Test Time Test Comments Results Result Comments Source CT ABDOMEN PELVIS W CONTRAST 16:31:33 CT ABDOMEN PELVIS W CONTRAST 06/26/2024 9:34 AM HISTORY: Abdominal abscess/infection suspected Nausea/vomiting COMPARISON: CT abdomen and pelvis dated 09/27/2020 and MR abdomen dated04/08/2023. TECHNIQUE: Axial images of the abdomen and pelvis were acquired afteradministration of intravenous contrast. Coronal and sagittalreconstructions were also created. FINDINGS: LOWER CHEST: The lungs bases are clear. ? HEPATOBILIARY: The liver is normal in size.No focal hepatic lesion.No biliary ductal dilatation. The gallbladder is ?surgically removed. SPLEEN: Within normal limits. PANCREAS: The parenchyma is unremarkable.No ductal dilatation. No masses. ADRENAL GLANDS: No adrenal nodules. KIDNEYS: No hydronephrosis or stone. No solid mass. GI TRACT: Duodenal wall thickening with edema is noted.The appendix isunremarkable. Fluid-filled colon, nonspecific but can be seen withdiarrheal disease. PERITONEUM AND RETROPERITONEUM: No free air or free fluid. LYMPH NODES: No lymphadenopathy is seen. PELVIS/BLADDER: The urinary bladder is decompressed. The reproductiveorgans are within normal limits. VESSELS: Within normal limits. BONES AND SOFT TISSUES: No aggressive osseous lesion or acute osseousabnormality. No concerning soft tissue abnormality. [facility] (NA, K, CL, CO2, GLUCOSE, BUN, CREATININE, CA)2024-06-21 19:44:06* Test Item Value Reference Range Interpretation Comme nts NA (test code = 6592042445) 136 mmol/L 135-145 K (test code = 4290472853) 4.2 mmol/L 3.5-5.0 CL (test code = 7871256925) 105 mmol/L 98-108 CO2 TOTAL (test code = 1342386345) 22 mmol/L 23-31 L AGAP (test code = 7183757278) 9 2-16 BUN (test code = 4720767266) 6 mg/dL 7-23 L GLUCOSE (test code = 4032659956) 102 mg/dL 70-110 CREATININE (test code = 2160-0) 0.52 mg/dL 0.50-1.04 CALCIUM (test code = 1769887914) 9.0 mg/dL 8.6-10.6 eGFR (test code = 07612-1) 132.4 mL/min/1.73m2 CKD-EPI eGFR (2020). Assuming creatinine has been stable day-to-day for at least three months, the eGFR indicates Category G1 (>= 90 mL/min/1.73 m2) Lab Interpretation (test code = 30283-6) [id number] 19:30:41* Test Item Value Reference Range Interpretation Comme nts WBC (test code = 6690-2) 8.94 4.30-11.10 RBC (test code = 789-8) 5.13 3.93-5.25 HGB (test code = 718-7) 14.7 g/dL 11.6-15.0 HCT (test code = 4544-3) 44.2 % 35.7-45.2 MCV (test code = 787-2) 86.2 fL 80.6-95.5 MCH (test code = 785-6) 28.7 pg 25.9-32.8 MCHC (test code = 786-4) 33.3 g/dL 31.6-35.1 RDW-SD (test code = 52188-2) 43.0 fL 39.0-49.9 RDW-CV (test code = 788-0) 13.6 % 12.0-15.5 PLT (test code = 777-3) 353 166-358 MPV (test code = 15942-9) 10.5 fL 9.5-12.9 NRBC/100 WBC (test code = 8749531267) 0.0 0.0-10.0 NRBC x10^3 (test code = 1287124507) See_Comment [Automated me ssage] The system which generated this result transmitted reference range: 10*3/?L. The reference range was not used to interpret this result as normal/abnormal. GRAN MAT (NEUT) % (test code = 770-8) 60.5 % IMM GRAN % (test code = 6626810664) 0.60 % LYMPH % (test code = 736-9) 27.4 % MONO % (test code = 5905-5) 8.2 % EOS % (test code = 713-8) 2.9 % BASO % (test code = 706-2) 0.4 % GRAN MAT x10^3(ANC) (test code = 5554787235) 5.41 10*3/uL 1.88-7.09 IMM GRAN x10^3 (test code = 0455709800) 0.05 10*3/uL 0.00-0.06 LYMPH x10^3 (test code = 731-0) 2.45 10*3/uL 1.32-3.29 MONO x10^3 (test code = 742-7) 0.73 10*3/uL 0.33-0.92 EOS x10^3 (test code = 711-2) 0.26 10*3/uL 0.03-0.39 BASO x10^3 (test code = 704-7) 0.04 10*3/uL 0.01-0.07 [facility] (QUANTITATIVE)2024-06-20 03:48:59* Test Item Value Reference Range Interpretation Comme nts BETA HCG (test code = 9242748556) 24.38 See_Comment [Automated messa ge] The system which generated this result transmitted reference range: Non- female and male patients: <5 mIU/mL. The reference range was not used to interpret this result as normal/abnormal. EFE (test code = EFE) Gestational Age ?Range (mIU/mL) 1-10 ?Weeks ?23-00845429-76 Weeks ?98843-55803005-29 Weeks ?2109-31336627-42 Weeks ?8922-735515 Biotin has been reported to cause a negative bias, interpret results relative to patient's use of biotin. [facility] TRIME[facility] LESS THAN 14 WEEKS WITH [id number] 03:13:35Ordering physician: HÉCTOR HALL Clinical indication: Rule out ectopic Comparison:April 08, 2023 Technique: First trimester obstetrical ultrasound, with transabdominal andtransvaginal technique Technical quality: Adequate Findings: The uterus measures 9.0 x 5.2 x 7.3 cm. Myometrial and endometrialechogenicity is within normal limits. Bilaminar endometrial thickness is0.9 cm. No sonographically visible intrauterine gestational sac is apparentat this time. A small amount of fluid is seen within the cervical canal.The right ovary measures 3.8 x 1.8 x 1.9 cm and the left ovary 2.4 x 1.7 x1.4 cm. Both ovaries are morphologically normal, with a small corpus luteumof the left ovary. Doppler demonstrates blood flow within both ovaries. Noadnexal masses are evident. No free fluid is evident.[facility]. Metabolic Panel (39631) 2024-06-20 03:11:04* Test Item Value Reference Range Interpretation Comme nts NA (test code = 2163025440) 135 mmol/L 135-145 K (test code = 3965230683) 4.0 mmol/L 3.5-5.0 CL (test code = 7296639671) 102 mmol/L 98-108 CO2 TOTAL (test code = 8566409578) 23 mmol/L 23-31 AGAP (test code = 1961681958) 10 2-16 BUN (test code = 5219919769) 6 mg/dL 7-23 L GLUCOSE (test code = 7487123357) 115 mg/dL 70-110 H CREATININE (test code = 2160-0) 0.58 mg/dL 0.50-1.04 TOTAL BILI (test code = 5054387256) 0.2 mg/dL 0.1-1.1 CALCIUM (test code = 6959230959) 8.7 mg/dL 8.6-10.6 T PROTEIN (test code = 5825319706) 7.4 g/dL 6.3-8.2 ALBUMIN (test code = 0531210833) 4.3 g/dL 3.5-5.0 ALK PHOS (test code = 0927832953) 73 U/L 34-122 ALTv (test code = 1742-6) 41 U/L 5-35 H AST(SGOT) (test code = 5817652095) 28 U/L 13-40 eGFR (test code = 89882-5) 129.0 mL/min/1.73m2 CKD-EPI eGFR (2020). Assuming creatinine has been stable day-to-day for at least three months, the eGFR indicates Category G1 (>= 90 mL/min/1.73 m2) Lab Interpretation (test code = 73722-6) Abnormal [facility] with [id number] 02:59:00* Test Item Value Reference Range Interpretation Comme nts WBC (test code = 6690-2) 7.91 4.30-11.10 RBC (test code = 789-8)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 Effective communication Outcome: Progressing as expected Problem: Infection Risk Goal: Absence of infection Outcome: Progressing as expected Elenita Hernandez RN [facility] 2023-04-10 19:30:01 Formatting of this n ote might be different from the original. Problem: Pain Goal: Control of pain at or below patient's documented comfort goal Outcome: Progressing as expected Goal: Reduction in pain sensation Outcome: Progressing as expected Problem: Discharge Planning Goal: Adequate for discharge Outcome: Progressing as expected Goal: Effective communication Outcome: Progressing as expected Problem: Infection Risk Goal: Absence of infection Outcome: Progressing as expected Stacie Johnson RN [facility] 2023-04-10 19:01:16 Formatting of this n ote might be different from the original. Problem: Pain Goal: Control of pain at or below patient's documented comfort goal Outcome: Progressing as expected Goal: Reduction in pain sensation Outcome: Progressing as expected Cristina Feliciano RN [facility] 2023-04-09 19:01:47 Formatting of this n ote might be different from the original. Problem: Pain Goal: Control of pain at or below patient's documented comfort goal Outcome: Progressing as expected Goal: Reduction in pain sensation Outcome: Progressing as expected Problem: Discharge Planning Goal: Adequate for discharge Outcome: Progressing as expected Goal: Effective communication Outcome: Progressing as expected Problem: Infection Risk Goal: Absence of infection Outcome: Progressing as expected [facility] 2023-04-09 13:29:22 Formatting of this n ote might be different from the original. Problem: Pain Goal: Control of pain at or below patient's documented comfort goal Outcome: Progressing as expected Goal: Reduction in pain sensation Outcome: Progressing as expected Problem: Discharge Planning Goal: Adequate for discharge Outcome: Progressing as expected Goal: Effective communication Outcome: Progressing as expected Problem: Infection Risk Goal: Absence of infection Outcome: Progressing as expected Yamile Daniels RN [facility] 2023-04-08 18:31:49 Formatting of this n ote might be different from the original. Report called to Lito on [address] at this time. Updated on patient's medical history, history of present condition and plan of care. Magdalena Callahan RN [facility] 2023-04-08 18:10:52 Formatting of this n ote might be different from the original. Contacted [facility] for patient transport to [facility]. ETA 30 minutes [facility] 2023-04-08 12:07:44 Formatting of this n ote might be different from the original. Patient states "I am 11 weeks and I started having some pains a couple of days ago and it hasn't got any better." Willie Romeo RN [facility] 2023-04-08 12:02:00 Formatting of this n ote is different from the original. Images from the original note were not included. [facility] Emergency Department Note Patient Name: Trell De La Paz Date of : 2000 22 year old female Treatment Room: [place] [address] Primary Care Physician: PATIENT DOES NOT HAVE A PCP Patient Escorted by: Self [9] Mode of Arrival: Personal means [1] EMS Treatment Prior to ED Arrival: [facility] treatment: None Travel and Exposure Screening: Symptoms Does patient have any of these symptoms?: (not recorded) Exposure Screening Has patient had contact with someone with a communicable disease in the last month?: (not recorded) Diseases exposed to:: (not recorded) Is Patient ?: (not recorded) Exposure Date: (not recorded) Chief Complaint: Chief Complaint Patient presents with Abdominal Pain History of Present Illness: 22 years old female patient presents to the ER for evaluation of right lower quadrant and suprapubic abdominal pain x3 days. Patient reports that she noted vaginal spotting 2-3 episodes in the past few days. She reports she noted blood when wiping. Denies heavy bleeding or passing clots. Patient reports some nausea, but attributes that to " morning sickness". Patient denies pain with urination or frequency or urgency of urination. Patient denies diarrhea or constipation had normal bowel movement today. Patient reports pain is worse with palpation, movement and ambulation. Patient reports she is currently approximately 11 weeks . A 6 denies history of ectopic Abdominal surgical history includes cholecystectomy. Patient reports she still has her appendix. Denies history of ovarian cyst Patient has not had her first OB appointment yet she is scheduled to see Dr. Hall next week. History provided by: Patient History limited by: none. diplomatic interpreter used: No Past Medical History/Immunizations: Past Medical History: Diagnosis Date Anemia during Anxiety 2009 ongoing, not currently taking medication Asthma as a child Autoimmune disorder was dx with lupus 2015 Bipolar disease during , antepartum 01/19/2018 ongoing, controlled by pt Mental disorder Substance abuse marijuana use Tobacco use in , antepartum 12/02/2017 Trauma 07/2020 Pt declines to answer, but states abuse Trichomonal vaginitis in 05/25/2022 Tetanus received in last 5 years: Yes Allergies: Allergies Allergen Reactions Gap Swelling Pop corn Iodine Anaphylaxis and Rash Latex Hives Nuts [Tree Nuts] Rash Peanut Rash [place] Swelling Past Social History: Tobacco Use Every Day; Cigarettes: Started 2010; 0.50 packs/day for 7.00 years Smokeless Tobacco: Never used smokeless tobacco. Vaping Use Never used Alcohol Use No. Drug Use Not Currently. Comments: 10/20/2017 Sexual Activity Sexually active; Partners: Male; Control/Protection: None. Comments: last intercourse 02/10/2022 Past Surgical History: Past Surgical History: Procedure Laterality Date 25-28WKS ZACHARY CHOLECYSTECTOMY 2020 MYRINGOTOMY OTHER 2017 left knee ME ANES NERVE MUSC TENDON FASCIA&BURSA KNEE&/POPLT L Review of Systems: Review of Systems Constitutional: Negative for activity change, appetite change, chills, fatigue and fever. HENT: Negative. Eyes: Negative. Respiratory: Negative. Gastrointestinal: Positive for abdominal pain and nausea. Negative for blood in stool, constipation, diarrhea, rectal pain and vomiting. Genitourinary: Positive for vaginal bleeding (Noted small amount of blood when she wipes). Negative for dysuria, urgency, frequency, flank pain, vaginal discharge, vaginal pain and pelvic pain. Musculoskeletal: Negative. Negative for neck pain and neck stiffness. Skin: Negative. Neurological: Negative. Physical Exam: ED Triage Vitals [04/08/23 1208] Weight 94.3 kg (208 lb) Actual or estimated Height 1.549 m (5' 1") BP (!) 137/93 Pulse 98 Resp 18 Temp 37.1 ?C (98.8 ?F) Temp source Oral SpO2 99 % Measured on Room air Physical Exam Vitals and nursing note reviewed. Constitutional: General: She is not in acute distress. Appearance: Normal appearance. She is obese. HENT: Head: Normocephalic and atraumatic. Right Ear: External ear normal. Left Ear: External ear normal. Nose: No congestion. Mouth/Throat: Mouth: Mucous membranes are moist. Pharynx: Oropharynx is clear. Eyes: General: No scleral icterus. Conjunctiva/sclera: Conjunctivae normal. Cardiovascular: Rate and Rhythm: Regular rhythm. Pulmonary: Effort: Pulmonary effort is normal. Breath sounds: Normal breath sounds. Abdominal: General: Bowel sounds are normal. There is no distension. Palpations: Abdomen is soft. Tenderness: There is abdominal tenderness in the right lower quadrant and suprapubic area. There is no right CVA tenderness, left CVA tenderness, guarding or rebound. Negative signs include Marquis's sign and Rovsing's sign. Musculoskeletal: Cervical back: Neck supple. No rigidity. Right lower leg: No edema. Left lower leg: No edema. Skin: General: Skin is warm and dry. Capillary Refill: Capillary refill takes less than 2 seconds. Neurological: Mental Status: She is alert and oriented to person, place, and time. Psychiatric: Mood and Affect: Mood normal. Behavior: Behavior normal. Radiology: US ABDOMEN LIMITED Preliminary Result EXAM: US ABDOMEN LIMITED HISTORY: 22 years-old Female; RLQ pain, approx 11 weeks , please evaluate for acute appendicitis TECHNIQUE: Limited abdominal ultrasound of the [all 4 quadrants of the abdomen was performed. Landscape Painter images were obtained for the record. COMPARISON: None FINDINGS: Right lower quadrant: Appendix is not visualized. 2 hypoechoic structures measuring up to 0.7 cm in the right lower quadrant may represent reactive lymph nodes. IMPRESSION 1. Limited study due to patient's body habitus. 2. Appendix not visualized. Prominent lymph nodes in the right lower quadrant measuring up to 0.7 cm represent reactive lymph nodes. Recommend MRI for further workup. Preliminary Report Dictated by Resident: Mert Leach US FIRST TRIMESTER LESS THAN 14 WEEKS WITH TRANSVAGINAL Final Result HISTORY: 22 years-old Female; pelvic pain, RLQ pain, vaginal spotting . US FIRST TRIMESTER LESS THAN 14 WEEKS WITH TRANSVAGINAL HISTORY: 22 years -old Female; pelvic pain, RLQ pain, vaginal spotting . G/P: . TECHNIQUE: Survey transabdominal and transvaginal ultrasound imaging and color Doppler evaluation of the pelvis was performed. M-mode was used to evaluate the heart. Landscape Painter images were obtained. COMPARISON: None FINDINGS: Uterus: The uterus measures 13.8 x 10.9 x 10.2 cm. An intrauterine gestational sac is present. The mean sac diameter measures 5. 8 cm. The pole is visualized, with the crown-rump length measuring 6.3 cm. heart tones are present measuring 160 bpm. Placenta is anterior. Two subchorionic focal anechoic areas measuring 0.8 and 0.6 cm respectively likely represent subchorionic hemorrhages. Right Adnexa: Ovary: The right ovary not visualized Normal blood flow demonstrated. Left Adnexa: Ovary: The left ovary measures 2.2 x 2.7 x 1.3 cm. The left ovary is unremarkable. Normal blood flow demonstrated. Cul-de-sac: No free fluid is present. IMPRESSION Limited study due to body habitus. 1. Single live intrauterine gestation with crown-rump length consistent with gestational age 12 weeks 5 days. heart tones are present measuring 160 bpm. Continued obstetrics follow up is recommended. 3. Two subcentimeter subchorionic focal anechoic areas may represent small subchorionic hemorrhages. Preliminary Report Dictated by Resident: Karthikeyan Goldman I, Heraclio Davis MD., have reviewed this study and agree with the above report. Lab Results: Lab Results URINALYSIS - Abnormal Result Value Ref Range APPEARANCE Hazy (*) Clear COLOR Yellow Yellow PH 5.0 4.8 - 8.0 SP GRAVITY 1.023 1.003 - 1.030 GLU U QUAL Normal Normal BLOOD Negative Negative KETONES Negative Negative PROTEIN Negative Negative UROBILIN Normal Normal BILIRUBIN Negative Negative NITRITE Negative Negative LEUK JOSE 25/uL (*) Negative RBC/HPF 2 0 - 3 HPF WBC/HPF 3 0 - 5 HPF BACTERIA Few (*) Negative MUCOUS Slight (*) Negative LPF SQ EPITH 10 HPF CBC WITH DIFF - Abnormal WBC 10.04 4.30 - 11.10 10*3/?L RBC 4.84 3.93 - 5.25 10*6/?L HGB 14.3 11.6 - 15.0 g/dL HCT 42.0 35.7 - 45.2 % MCV 86.8 80.6 - 95.5 fL MCH 29.5 25.9 - 32.8 pg MCHC 34.0 31.6 - 35.1 g/dL RDW-SD 41.9 39.0 - 49.9 fL RDW-CV 13.5 12.0 - 15.5 % PLT 251 166 - 358 10*3/?L MPV 10.7 9.5 - 12.9 fL NRBC/100 WBC 0.0 0.0 - 10.0 /100 WBCs NRBC x10^3 <0.01 10*3/?L GRAN MAT (NEUT) % 67.9 % IMM GRAN % 2.10 % LYMPH % 20.0 % MONO % 6.8 % EOS % 2.7 % BASO % 0.5 % GRAN MAT x10^3(ANC) 6.82 1.88 - 7.09 10*3/uL IMM GRAN x10^3 0.21 (*) 0.00 - 0.06 10*3/uL LYMPH x10^3 2.01 1.32 - 3.29 10*3/uL MONO x10^3 0.68 0.33 - 0.92 10*3/uL EOS x10^3 0.27 0.03 - 0.39 10*3/uL BASO x10^3 0.05 0.01 - 0.07 10*3/uL HYPERSEG NEUTS Present (*) (none) REACT LYMPHS Rare COMP. METABOLIC PANEL (12895) - Abnormal NA 132 (*) 135 - 145 mmol/L K 4.4 3.5 - 5.0 mmol/L CL 106 98 - 108 mmol/L CO2 TOTAL 25 23 - 31 mmol/L AGAP 1 (*) 2 - 16 BUN 5 (*) 7 - 23 mg/dL GLUCOSE 85 70 - 110 mg/dL CREATININE 0.38 (*) 0.50 - 1.04 mg/dL TOTAL BILI 0.3 0.1 - 1.1 mg/dL CALCIUM 9.1 8.6 - 10.6 mg/dL T PROTEIN 6.8 6.3 - 8.2 g/dL ALBUMIN 3.7 3.5 - 5.0 g/dL ALK PHOS 45 34 - 122 U/L ALTv 16 5 - 35 U/L AST(SGOT) 30 13 - 40 U/L eGFR 209.9 mL/min/1.73m2 LIPASE - Normal LIPASE 63 0 - 220 U/L TOTAL BETA HCG ASSAY BETA HCG 45,315.00 Non- female and male patients: <5 mIU/mL EKG: If EKG completed, see Procedure Note. Orders and Treatments: Orders Placed This Encounter Procedures US FIRST TRIMESTER LESS THAN 14 WEEKS WITH TRANSVAGINAL US ABDOMEN LIMITED URINALYSIS CBC WITH DIFF COMP. METABOLIC PANEL (13339) LIPASE TOTAL BHCG (QUANTITATIVE) No orders of the defined types were placed in this encounter. First Provider Eval: ED Events Date/Time Event User Comments 04/08/23 1212 Medical Screening Begins DESTINY PADILLA -- 04/08/23 121 First Provider Evaluation DESTINY PADILLA -- No notes of EC Admission Criteria type on file. ED COURSE 22 years old female patient presents to the ER for evaluation of lower abdominal pain and vaginal spotting x3 days. Patient reports that she has suprapubic and right lower quadrant abdominal pain, worse with palpation/ambulation/and urination. Patient denies fever or chills. Patient reports she has normal appetite. Patient reports noticing small amount of blood when she wipes. Patient denies heavy vaginal bleeding or passing clots or tissues. On initial evaluation patient patient has right lower quadrant and suprapubic tenderness. No distention or rigidity, (+) voluntary guarding CBC, CMP, lipase, UA, beta-hCG ordered. Will do pelvic ultrasound and abdominal ultrasound limited. CBC, CMP and lipase within normal limits UA shows bacteria, no other indications of UTI. Beta-hCG level 45,315 today. [place] [address] on 03/09/2023 Pelvic ultrasound shows live IUP with a heart tone of 160(documented with the ultrasound images). IMPRESSION Limited study due to body habitus. 1. Single live intrauterine gestation with crown-rump length consistent with gestational age 12 weeks 5 days. heart tones are present measuring 160 bpm. Continued obstetrics follow up is recommended. 3. Two subcentimeter subchorionic focal anechoic areas may represent small subchorionic hemorrhages. Preliminary Report Dictated by Resident: Karthikeyan Goldman I, Heraclio Davis MD., have reviewed this study and agree with the above report. Abdominal ultrasound limited could not clearly see appendix. Per ultrasound report she has few enlarged lymph nodes concerning for reactive lymphadenopathy All results discussed with the patient. Patient reexamined. Patient reports she is has a lot of pain when she walks, during ultrasound and with palpation. Although patient does not have fever, change in appetite or leukocytosis, appendicitis is considered as a differential due to right lower quad abdominal pain. Discussed with Dr. Sandoval with general surgery nutrition representative [facility]. Recommended MRI pelvis if there is high suspicion of acute appendicitis. [facility] does not have MRI service available at this time. Discussed with the general surgery faculty at [facility] in [place] Dr. Montemayor. Dr. Montemayor recommended consulting [facility]'s service possible admission and [facility] with a general surgery consult. I discussed it with Dr. Rees-[facility] faculty who recommended admission under general surgery as primary concern is to rule out acute appendicitis. Dr. Montemayor , Dr. Rees and I had a conference call regarding this patient and discussed the clinicals. Dr. Montemayor accepted patient for admission under general surgery [facility] for further evaluation of right lower quad abdominal pain. Patient is agreeable for transfer to [facility] for admission and further evaluation. Diagnosis/Impression as of 04/08/23 1833 Pelvic pain affecting in first trimester, antepartum RLQ abdominal pain Threatened miscarriage in early Procedures: Procedures MDM: Medical Decision Making DDX considered includes but not limited to threatened miscarriage, UTI, renal stone, acute appendicitis, colitis, viral gastroenteritis, mesenteric adenitis, PID, ectopic Problems Addressed: Pelvic pain affecting in first trimester, antepartum: acute illness or injury RLQ abdominal pain: acute illness or injury Threatened miscarriage in early : acute illness or injury Details: Vaginal spotting, live IUP with a heart rate of 160 Amount and/or Complexity of Data Reviewed External Data Reviewed: labs and notes. Details: ED visit note and lab on 03/09/2023 Labs: ordered. Decision-making details documented in ED Course. Radiology: ordered. Flowsheet Documentation: Scoring Tools: No data recorded Disposition/Condition: ED Disposition ED Disposition Transfer - [facility] to IP/Obs Condition -- Comment [facility] surgery accepted the patient for evaluation of right lower quadrant pain Discharge Medications: Patient's Medications START taking these medications No medications on file CONTINUE taking these medications which have NOT CHANGED AMOXICILLIN-POT CLAVULANATE 500 MG (AUGMENTIN) 500-125 MG TABLET Take 1 tablet by mouth in the morning and 1 tablet at noon and 1 tablet in the evening. BUPROPION XL (WELLBUTRIN XL) 150 MG 24 HR TABLET Take 1 tablet by mouth in the morning. NYSTATIN-TRIAMCINOLONE CREAM Apply to area(s) 3 (three) times daily. PNV NO.95/FERROUS FUM/FOLIC AC ( ORAL) Take by mouth. VIT 65-AWUI-SHSLM-DHA (SELECT-OB + DHA) 29 MG IRON-1 MG -250 MG COMBO PACK Take 1 Packet by mouth in the morning. START taking Modified Medications as Prescribed No medications on file STOP taking these medications No medications on file Follow-up: Electronically signed by: Destiny Blake FNP 04/08/23 0494 Associated attestation - Isha Box MD - 04/08/2023 6:39 PM CDT Addendum I was personally available for consultation in the Emergency Department during this encounter and patient evaluation by Hayden. [facility] [employer] 2023-03-09 22:22:01 Formatting of this n ote might be different from the original. Pt given printed and verbal discharge instructions regarding vaginal bleeding and intrauterine , encouraged hydration, 0 Prescriptions provided Pt verbalized understanding of instructions, pt awake alert oriented, resp reg unlabored, skin w/d, color appropriate for race, moves all ext well,pt encouraged to follow up with pcp. Advised to seek medical attention for new/prolonged/worsening of symptoms, Symptoms improved. PIV d'cd, dressing to site, catheter in tact. Awake, alert oriented, resp reg unlabored, skin w/d, pt leaving amb with steady gait, in no apparent distress, Hilda Hale RN [facility] 2023-03-09 21:19:05 Formatting of this n ote might be different from the original. Procedures Limited Transabdominal Ultrasound Indications: , abdominal pain and/or bleeding Findings: SIUP with EGA 7 weeks 1 days and FHT 174 bpm. No free fluid. Adnexa not visualized. Interpretation: SIUP [facility] 2023-03-09 20:29:55 Formatting of this n ote might be different from the original. Pt arrives ambulatory to ED reporting that on February 17 she took a test and it was positive, she began having cramping pain around the 16 and went to [facility] where they told her her HCG was 11,000 +, and completed an ultrasound where they were unable to find a heartbeat. She was told that she would likely pass the fetus by the end of week, however she has not had any bleeding or any signs or passing the fetus, only cramping, so she came in to be evaluated. LMP: December 10, 2022 Luna Rebolledo RN [facility] 2023-03-09 20:22:00 Formatting of this n ote is different from the original. [facility] Emergency Department Note Patient Name: Trell Dee Date of : 2000 22 year old female Treatment Room: Room/bed info not found Primary Care Physician: Dewey Boyer Patient Escorted by: Family [5] Mode of Arrival: Personal means [1] EMS Treatment Prior to ED Arrival: [facility] treatment: None Travel and Exposure Screening: Symptoms Does patient have any of these symptoms?: (not recorded) Exposure Screening Has patient had contact with someone with a communicable disease in the last month?: (not recorded) Diseases exposed to:: (not recorded) Is Patient ?: (not recorded) Exposure Date: (not recorded) Chief Complaint: Chief Complaint Patient presents with Abdominal Pain + test History of Present Illness: The patient presents from home for evaluation for pelvic cramping she had for proxy 1 week. She reports she is currently with her last menstrual period being December 10. She is ten 4053. she has not seen [facility] for this yet. She reports she went to [facility] last week and was told she is having a miscarriage. As she has not started any vaginal bleeding she presents to the ER for evaluation. No nausea or vomiting. She is not lightheaded or dizzy. No dysuria hematuria. Here for evaluation. Past Medical History/Immunizations: Past Medical History: Diagnosis Date Anemia during Anxiety 2009 ongoing, not currently taking medication Asthma as a child Autoimmune disorder was dx with lupus 2015 Bipolar disease during , antepartum 01/19/2018 ongoing, controlled by pt Mental disorder Substance abuse marijuana use Tobacco use in , antepartum 12/02/2017 Trauma 07/2020 Pt declines to answer, but states abuse Trichomonal vaginitis in 05/25/2022 Tetanus received in last 5 years: Yes Allergies: Allergies Allergen Reactions Gap Swelling Pop corn Iodine Anaphylaxis and Rash Latex Hives Nuts [Tree Nuts] Rash Peanut Rash [place] Swelling Past Social History: Tobacco Use Every Day; Cigarettes: Started 2010; 0.50 packs/day for 7.00 years Smokeless Tobacco: Never used smokeless tobacco. Vaping Use Never used Alcohol Use No. Drug Use Not Currently. Comments: 10/20/2017 Sexual Activity Sexually active; Partners: Male; Control/Protection: None. Comments: last intercourse 02/10/2022 Past Surgical History: Past Surgical History: Procedure Laterality Date 25-28WKS ZACHARY CHOLECYSTECTOMY 2020 MYRINGOTOMY OTHER 2018 left knee ME ANES NERVE MUSC TENDON FASCIA&BURSA KNEE&/POPLT L Review of Systems: Review of Systems Constitutional: Negative for chills and fever. Respiratory: Negative for cough and shortness of breath. Gastrointestinal: Negative for abdominal pain, rectal pain and vomiting. Genitourinary: Positive for pelvic pain. Negative for dysuria and vaginal bleeding. Musculoskeletal: Negative for back pain, neck pain and neck stiffness. Skin: Negative for wound. Neurological: Negative for dizziness. Psychiatric/Behavioral: Negative for agitation. Endocrine: Negative for goiter. Physical Exam: ED Triage Vitals [03/09/232027] Weight 93.9 kg (207 lb) Actual or estimated Estimated by patient/family report Height 1.549 m (5' 1") BP (!) 148/90 Pulse 116 Resp 16 Temp 37.2 ?C (98.9 ?F) Temp source Oral SpO2 98 % Measured on Room air Physical Exam Vitals and nursing note reviewed. Constitutional: Appearance: Normal appearance. She is obese. HENT: Head: Normocephalic and atraumatic. Cardiovascular: Rate and Rhythm: Normal rate. Pulses: Normal pulses. Pulmonary: Effort: Pulmonary effort is normal. No respiratory distress. Abdominal: General: There is no distension. Palpations: Abdomen is soft. There is no mass. Tenderness: There is no abdominal tenderness. Hernia: No hernia is present. Musculoskeletal: General: Normal range of motion. Cervical back: Normal range of motion and neck supple. Skin: General: Skin is warm and dry. Neurological: General: No focal deficit present. Mental Status: She is alert and oriented to person, place, and time. Radiology: No orders to display Lab Results: Lab Results CBC WITH DIFF - Abnormal Result Value Ref Range WBC 9.52 4.30 - 11.10 10*3/?L RBC 4.48 3.93 - 5.25 10*6/?L HGB 13.3 11.6 - 15.0 g/dL HCT 39.3 35.7 - 45.2 % MCV 87.7 80.6 - 95.5 fL MCH 29.7 25.9 - 32.8 pg MCHC 33.8 31.6 - 35.1 g/dL RDW-SD 41.1 39.0 - 49.9 fL RDW-CV 12.9 12.0 - 15.5 % PLT 300 166 - 358 10*3/?L MPV 10.2 9.5 - 12.9 fL NRBC/100 WBC 0.0 0.0 - 10.0 /100 WBCs NRBC x10^3 <0.01 10*3/?L GRAN MAT (NEUT) % 63.0 % IMM GRAN % 1.40 % LYMPH % 24.6 % MONO % 8.3 % EOS % 2.5 % BASO % 0.2 % GRAN MAT x10^3(ANC) 6.00 1.88 - 7.09 10*3/uL IMM GRAN x10^3 0.13 (*) 0.00 - 0.06 10*3/uL LYMPH x10^3 2.34 1.32 - 3.29 10*3/uL MONO x10^3 0.79 0.33 - 0.92 10*3/uL EOS x10^3 0.24 0.03 - 0.39 10*3/uL BASO x10^3 <0.03 0.01 - 0.07 10*3/uL BASIC METABOLIC PANEL (NA, K, CL, CO2, GLUCOSE, BUN, CREATININE, CA) - Abnormal NA 138 135 - 145 mmol/L K 3.6 3.5 - 5.0 mmol/L CL 105 98 - 108 mmol/L CO2 TOTAL 26 23 - 31 mmol/L AGAP 7 2 - 16 BUN 5 (*) 7 - 23 mg/dL GLUCOSE 98 70 - 110 mg/dL CREATININE 0.49 (*) 0.50 - 1.04 mg/dL CALCIUM 8.9 8.6 - 10.6 mg/dL eGFR 156.5 mL/min/1.73m2 URINALYSIS - Abnormal APPEARANCE Hazy (*) Clear COLOR Yellow Yellow PH 5.0 4.8 - 8.0 SP GRAVITY 1.021 1.003 - 1.030 GLU U QUAL Normal Normal BLOOD Negative Negative KETONES Negative Negative PROTEIN Negative Negative UROBILIN Normal Normal BILIRUBIN Negative Negative NITRITE Negative Negative LEUK JOSE 25/uL (*) Negative RBC/HPF 5 (*) 0 - 3 HPF WBC/HPF 4 0 - 5 HPF BACTERIA Few (*) Negative MUCOUS Slight (*) Negative LPF SQ EPITH 10 HPF POCT TEST - Normal POCT PREG Positive On board controls acceptable with C Line Yes POCT PREG LOT # [id number] POCT PREG TEST DATE 2024-07-20 TYPE AND SCREEN ABO & RH AB Positive TOTAL BETA HCG ASSAY EKG: If EKG completed, see Procedure Note. Orders and Treatments: Orders Placed This Encounter Procedures Type and Screen - ONCE Routine TOTAL BHCG (QUANTITATIVE) CBC WITH DIFF BASIC METABOLIC PANEL (NA, K, CL, CO2, GLUCOSE, BUN, CREATININE, CA) POCT TEST URINALYSIS No orders of the defined types were placed in this encounter. First Provider Eval: ED Events Date/Time Event User Comments 03/09/232033 Medical Screening Begins MARIBEL REBOLLEDO DO -- 03/09/232033 First Provider Evaluation MARIBEL REBOLLEDO DO -- No notes of EC Admission Criteria type on file. ED COURSE Diagnosis/Impression as of 03/09/232210 Vaginal bleeding Intrauterine Procedures: Procedures MDM: Medical Decision Making The patient presents from home for evaluation for pelvic cramping while . She reports her last menstrual period was December 10 and she is 10 para 4-0-5-3. No vaginal bleeding or discharge. She was seen [facility] last week and reports she was told she is having a miscarriage. As she had no vaginal bleeding she returns to the ER today. She has not seen [facility] with this yet. Vital signs are stable in ER. Her abdomen is soft and nontender. Her POCT here in the ER is positive. A limited bedside ultrasound shows an SIUP with positive heart tones. We will check a urinalysis as well as laboratory studies. Anticipate discharge home later. 2208 -the patient is doing well here in the ER. Her ABO Rh is AB+. Recommend she take daily vitamins and follow-up with [facility]. She remained stable here in the ER and is okay for discharge home with outpatient follow-up. Problems Addressed: Intrauterine : acute illness or injury Vaginal bleeding: acute illness or injury Amount and/or Complexity of Data Reviewed Labs: ordered. Decision-making details documented in ED Course. Risk OTC drugs. Flowsheet Documentation: Scoring Tools: No data recorded Disposition/Condition: ED Disposition ED Disposition Disch - Home Condition Stable Comment -- Discharge Medications: Patient's Medications START taking these medications No medications on file CONTINUE taking these medications which have NOT CHANGED AMOXICILLIN-POT CLAVULANATE 500 MG (AUGMENTIN) 500-125 MG TABLET Take 1 tablet by mouth in the morning and 1 tablet at noon and 1 tablet in the evening. BUPROPION XL (WELLBUTRIN XL) 150 MG 24 HR TABLET Take 1 tablet by mouth in the morning. NYSTATIN-TRIAMCINOLONE CREAM Apply to area(s) 3 (three) times daily. PNV NO.95/FERROUS FUM/FOLIC AC ( ORAL) Take by mouth. VIT 24-PFKV-HYSYM-DHA (SELECT-OB + DHA) 29 MG IRON-1 MG -250 MG COMBO PACK Take 1 Packet by mouth in the morning. START taking Modified Medications as Prescribed No medications on file STOP taking these medications No medications on file Follow-up: Contact information for follow-up Dewey Boyer FNP Specialty: PSYCH THERAPIST-FAMILY Relationship: PCP - General [facility] [address] [facility] [address] [address] Specialty: DEN-LOAN CONSULTANT Relationship: PCP - Insurance HMO [address] [facility] [id number] Electronically signed by: Maribel Rebolledo DO 03/09/232210 [facility] 2023-03-09 14:09:21 Formatting of this n ote might be different from the original. Called pt, "the number dialed is not able to receive calls" unable to contact pt. Carlee Kaiser 03/09/2023 2:10 PM Carlee Kaiser [facility] 2023-03-09 08:51:11 Formatting of this n ote might be different from the original. Please review and assist Maricruz Saab [facility] 2023-03-01 13:52:45 Formatting of this n ote might be different from the original. Patient called back for appt. Tennille Rey [facility] 2023-02-28 07:54:52 Formatting of this n ote might be different from the original. Please review and assist [facility] 2023-02-23 11:20:58 Formatting of this n ote might be different from the original. Trell Dee is a 22 year old female Pt requesting call back and an appt. States she was seen in ED on 02/20 and was told sac is there no fetus found, would need D&C and that hcg levels were at 11,000. Please call pt [phone] (home) [facility] 2019-04-06 09:45:00 [id number] [place] [address] PATIENT NAME: TRELL DEE ADMIT DATE: 04/02/19 ACCOUNT NO: [id number] ROOM NO: [id number] AGE: 18 REPORT TYPE: HISTORY AND PHYSICAL SEX: F ADMITTING PHYSICIAN:Víctor Cervantes Jr, MD ATTENDING PHYSICIAN:Víctor Cervantes Jr, MD ADMISSION DATE: 04/02/2019 The patient was in for an observation status from 04/02/2019 to 04/03/2019. HISTORY: Ms. Dee is a 18-year-old woman, 4, para 1, 2, estimated date of delivery of 05/07/2019, making her 35 weeks' gestation. She came in complaining of mild lower abdominal pain, thinking it was contractions, but had gone on for several days. She has had no bleeding. The course of her had been uncomplicated to that point. Monitoring had revealed uterine irritability, no heart tone issues. Physical examination was limited to abdomen and pelvis. Abdomen was consistent with a 3.5-week . Pelvic exam revealed this patient to be 3 cm. Intact membranes that were high, suggestion of a breech presentation which was confirmed by ultrasound. She was observed overnight, made no pelvic changes with obviously not in labor, both physically and clinically and was discharged to be seen in the office on 04/04/2019. Dictated By: Víctor Cervantes Jr, MD WT: HP:NIR/ANGELITO/PATTI Conf#: [id number]/DID#: [id number] Authenticated by Víctor Cervantes Jr, MD On 04/07/2019 01:00:56 AM at 0101 PATIENT NAME [facility]EE [facility]
[2025-03-17] MEDS ORDERED: METOCLOPRAMIDE 10 MG/2mL INJ ONE (20:43)
[2025-03-17] MEDS ORDERED: DIPHENHYDRAMINE 50 MG/ML VIAL ONE (20:44)
[2025-03-17] MEDS ORDERED: NA CHLORIDE 0.9% 1,000 ML ONE (20:44)
--- NOTE | 2025-03-17 22:15 | EDPHYS ---
Physician Documentation [facility] Name: Rita Ayala Age: 24 yrs Sex: Female : 2000 Arrival Date: 03/17/2025 Time: 20:05 Bed 14 Private MD: ED Physician Alvaro Nelson HPI: 03/17 21:09 This 24 yrs old Female presents to ER via Ambulatory with complaints of Headache, High ms3 Blood Pressure, 23 weeks preg. 21:09 24-year-old female with past medical history of anxiety, bipolar, depression, epilepsy, ms3 lupus presents to the emergency department for headache. Patient describes a headache going from the front to the back. Patient states light makes the pain worse. Patient states the pain is an 8/10. Her headache began at 9 AM it became maximum intensity at 430 to 5 PM. Patient states this headache is similar to previous headaches. Patient has [facility] in [place] and will be setting up OB care with [facility]. Patient states she is a .. 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 - Infectious Disease History:: Denies. - Social history:: Smoking status: Patient denies any tobacco usage or history of. ROS: 21:09 Constitutional: Negative for fever, and chills. Cardiovascular: Negative for chest ms3 pain, and palpitations. Respiratory: Negative for shortness of breath, cough, wheezing, and pleuritic chest pain, Abdomen/GI: Negative for abdominal pain, nausea, vomiting, diarrhea, and constipation, MS/Extremity: Negative for injury and deformity, Skin: Negative for injury, rash, and discoloration, 21:09 Neuro: Positive for headache, Exam: 21:09 Constitutional: This is a well developed, well nourished patient who is awake, alert, ms3 and in no acute distress. Cardiovascular: Regular rate and rhythm with a normal S1 and S2. No gallops, murmurs, or rubs. Normal PMI, no JVD. No pulse deficits. Respiratory: Lungs have equal breath sounds bilaterally, clear to auscultation and percussion. No rales, rhonchi or wheezes noted. No increased work of breathing, no retractions or nasal flaring. Abdomen/GI: Soft, non-tender, with normal bowel sounds. No distension or tympany. No guarding or rebound. No evidence of tenderness throughout. 21:09 Neuro: Orientation: is normal, to person, place, time \T\ situation. Mentation: is normal, lucid, able to follow commands, Memory: is normal, Cranial nerves: CN I not tested, CN II- XII are normal as tested, visual guzmán are intact. extraocular movements are intact, Facial palsy and sensory deficits are absent. Nystagmus is absent. Speech is clear and appropriate. Cerebellar function: is grossly normal, Motor: is normal, Sensation: is normal, no obvious gross deficits, Gait: is steady, at a normal pace, seizure activity, is not displayed by the patient, Abnormal movements: there are no abnormal movements, Vital Signs: 20:13 BP 117 / 76; Pulse 110; Resp 16; Temp 97.5(TE); Pulse Ox 96% ; Weight 96.62 kg; Height jb4 5 ft. 0 in. ; Pain 8/10; 20:46 BP 117 / 69; Pulse 104; Resp 18; Temp 98.5; Pulse Ox 97% on R/A; Weight 96.62 kg; tb4 Height 5 ft. 0 in. ; Pain 8/10; 21:50 BP 100 / 51; Pulse 69; Resp 18; Pulse Ox 97% on R/A; Pain 0/10; tb4 20:46 Body Mass Index 41.60 (96.62 kg, 152.4 cm) tb4 20:13 Pain Scale: Adult jb4 20:46 Pain Scale: Adult tb4 21:50 Pain Scale: Adult tb4 MDM: 20:25 Medical Screening Exam initiated ms3 21:09 Differential diagnosis: hypertensive headache, migraine, tension headache, vasomotor ms3 headache. ED course: Discussed obtaining CT scan for headache with patient. Given normal neurologic exam and shared decision making patient's decision was made to not obtain CT of head.. 03/18 00:12 Data reviewed: vital signs, nurses notes, and as a result, I will discharge patient. I ms3 considered the following discharge prescriptions or medication management in the emergency department Medications were administered in the Emergency Department. See MAR. Counseling: I had a detailed discussion with the patient and/or guardian regarding the historical points, exam findings, and any diagnostic results supporting the discharge/admit diagnosis, the need for outpatient follow up, to return to the emergency department if symptoms worsen or persist or if there are any questions or concerns that arise at home. Response to treatment: the patient's symptoms have resolved after treatment, and as a result, I will discharge patient. Special discussion: I discussed with the patient/guardian in detail that at this point there is no indication for admission to the hospital. It is understood, however, that if the symptoms persist or worsen the patient needs to return immediately for re-evaluation. ED course: On reevaluation patient symptoms are improved, patient is alert and orient x 4, neurologically intact, speaking full sentences, ambulatory in the emergency department. Patient to follow-up with OB in 2 to 3 days. Patient understands and agrees with plan. All questions were answered. Return precautions discussed include numbness, weakness, vomiting, worsening headache, altered mental status, worsening symptoms, or any other concerns.. Administered Medications: 03/17 20:45 Drug: metoCLOPramide IVP 10 mg IVP once; over 1 to 2 minutes Route: IVP; Site: right ss12 antecubital; 22:34 Follow up: Response: No adverse reaction tb4 20:45 Drug: diphenhydrAMINE IVP 25 mg IVP once Route: IVP; Site: right antecubital; ss12 22:35 Follow up: Response: No adverse reaction tb4 20:45 Drug: NS 0.9% IV 1000 ml IV at 1 bolus Per protocol; to be given as a bolus over 60 ss12 minutes Route: IV; Rate: 1 bolus; Site: right antecubital; 22:35 Follow up: Response: No adverse reaction; IV Status: Completed infusion tb4 Disposition Summary: 03/17/25 22:14 Discharge Ordered Notes: Location: Home ms3 Condition: Stable ms3 Diagnosis - Headache ms3 Followup: ms3 - With: Private Physician - When: 2 - 3 days - Reason: Recheck today's complaints Discharge Instructions: - Discharge Summary Sheet ms3 - General Headache Without Cause ms3 Forms: - Medication Reconciliation Form ms3 - Antibiotic Education ms3 - Prescription Opioid Use ms3 - Patient Portal Instructions ms3 - Leadership Thank You Letter ms3 Signatures: Karthikeyan Carlin, RN RN jb4 Alvaro Nelson DO DO ms3 Josephine Leach, RN RN tb4 Miles Aquino RN RN ss12
--- NOTE | 2025-03-17 22:15 | ER ---
Nurse's Notes [facility] Name: Rita Ayala Age: 24 yrs Sex: Female : 2000 Arrival Date: 03/17/2025 Time: 20:05 Bed 14 Private MD: Diagnosis: Headache Presentation: 03/17 20:13 Chief complaint: Patient states: I am having a bad headache and my blood pressure was jb4 138/89. I feel pressure from the front to the back. Coronavirus screen: At this time, the client does not indicate any symptoms associated with coronavirus-19. Ebola Screen: No symptoms or risks identified at this time. Initial Sepsis Screen: Does the patient meet any 2 criteria? HR > 90 bpm. Yes Does the patient have a suspected source of infection? No. Patient's initial sepsis screen is negative. Risk Assessment: Do you want to hurt yourself or someone else? Patient reports no desire to harm self or others. Onset of symptoms was March 17, 2025. Transition of care: patient was not received from another setting of care. 20:13 Method Of Arrival: Ambulatory jb4 20:13 Acuity: CLINT 3 jb4 Triage Assessment: 22:58 Headache History: The patient has had previous headaches and this one is similar to tb4 previous episodes. General: Appears in no apparent distress. Behavior is calm, cooperative. Pain: Complains of pain in forehead Also complains of no other associated symptoms. 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 - Infectious Disease History:: Denies. - Social history:: Smoking status: Patient denies any tobacco usage or history of. Screenin:46 [facility] ED Fall Risk Assessment (Adult) History of falling in the last 3 months, tb4 including since admission No falls in past 3 months (0 pts) Confusion or Disorientation No (0 pts) Intoxicated or Sedated No (0 pts) Impaired Gait No (0 pts) Mobility Assist Device Used No (0 pt) Altered Elimination No (0 pt) Score/Fall Risk Level 0 - 2 = Low Risk Oriented to surroundings, Maintained a safe environment, Educated pt \T\ family on fall prevention, incl call for assistance when getting out of bed. Abuse screen: Denies threats or abuse. Nutritional screening: No deficits noted. Tuberculosis screening: No symptoms or risk factors identified. Assessment: 20:46 Reassessment: See triage note. General: Appears in no apparent distress. Behavior is tb4 calm, cooperative. Pain: Complains of pain in forehead Pain does not radiate. Pain currently is 8 out of 10 on a pain scale. Quality of pain is described as pressure, Pain began gradually, 1 day ago. Neuro: Level of Consciousness is awake, alert, obeys commands, Oriented to person, place, time, situation, Machinist Helper are equal bilaterally Moves all extremities. Full function Gait is steady, Speech is normal, Respiratory: No deficits noted. Airway is patent Trachea midline Respiratory effort is even, unlabored, Respiratory pattern is regular, symmetrical. GI: No deficits noted. No signs and/or symptoms were reported involving the gastrointestinal system. : No deficits noted. No signs and/or symptoms were reported regarding the genitourinary system. Vital Signs: 20:13 BP 117 / 76; Pulse 110; Resp 16; Temp 97.5(TE); Pulse Ox 96% ; Weight 96.62 kg; Height jb4 5 ft. 0 in. ; Pain 8/10; 20:46 BP 117 / 69; Pulse 104; Resp 18; Temp 98.5; Pulse Ox 97% on R/A; Weight 96.62 kg; tb4 Height 5 ft. 0 in. ; Pain 8/10; 21:50 BP 100 / 51; Pulse 69; Resp 18; Pulse Ox 97% on R/A; Pain 0/10; tb4 20:46 Body Mass Index 41.60 (96.62 kg, 152.4 cm) tb4 20:13 Pain Scale: Adult jb4 20:46 Pain Scale: Adult tb4 21:50 Pain Scale: Adult tb4 ED Course: 20:08 Patient arrived in ED. gm2 20:10 Alvaro Nelson DO is Attending Physician. ms3 20:15 Triage completed. jb4 20:15 Arm band placed on right wrist. jb4 20:46 Patient has correct armband on for positive identification. Bed in low position. Call tb4 light in reach. Side rails up X 1. Adult w/ patient. Door closed. Lights dimmed. Warm blanket given. 20:47 Inserted saline lock: 20 gauge in right antecubital area, using aseptic technique. rk3 Blood collected. Flushed with 10 mL NS Accessed. 22:58 No provider procedures requiring assistance completed. IV discontinued, intact, tb4 bleeding controlled, No redness/swelling at site. Pressure dressing applied. 23:00 Provided Education on: Follow up with OB provider. tb4 Administered Medications: 20:45 Drug: metoCLOPramide IVP 10 mg IVP once; over 1 to 2 minutes Route: IVP; Site: right ss12 antecubital; 22:34 Follow up: Response: No adverse reaction tb4 20:45 Drug: diphenhydrAMINE IVP 25 mg IVP once Route: IVP; Site: right antecubital; ss12 22:35 Follow up: Response: No adverse reaction tb4 20:45 Drug: NS 0.9% IV 1000 ml IV at 1 bolus Per protocol; to be given as a bolus over 60 ss12 minutes Route: IV; Rate: 1 bolus; Site: right antecubital; 22:35 Follow up: Response: No adverse reaction; IV Status: Completed infusion tb4 Medication: 20:46 VIS not applicable for this client. tb4 Outcome: 22:14 Discharge ordered by . ms3 22:35 Discharged to home ambulatory, with family, tb4 22:35 Condition: stable 22:35 Discharge instructions given to patient, family, Instructed on discharge instructions, follow up and referral plans. Demonstrated understanding of instructions, follow-up care, 23:11 Patient left the ED. tb4 Signatures: Karthikeyan Carlin, RN RN jb4 Alvaro Nelson DO DO ms3 Soraya Loza gm2 Mathieu Gautam rk3 Josephine Leach RN RN tb4 Miles Aquino RN RN ss12 Corrections: (The following items were deleted from the chart) 20:48 20:47 Inserted saline lock: 20 gauge in right antecubital area, using aseptic rk3 technique. Blood collected. Flushed with 10 mL NS rk3 20:48 20:47 Initial lab(s) drawn, by ED staff, sent to lab. rk3 rk3
[2025-03-17 23:44] VITALS: TEMP 98.5; O2SAT 97
[2025-03-17 23:46] VITALS: BP 100/51
== END 2025-03-17 23:11 | disposition home or self-care (01) ==
LOC: ER 20:05
DX: O26.892 Other specified pregnancy related conditions, second trimester (principal); R51.9 Headache, unspecified; Z3A.23 23 weeks gestation of pregnancy
CPT/HCPCS: 96361; 96375; 96374; 99285; J2765; J1200; J7030

== ENCOUNTER 2025-06-06 17:19 | Emergency (ER) | payer OTHER ==
[2025-06-06] MEDS ORDERED: ACETAMINOPHEN 500 MG TAB ONE (17:52)
--- NOTE | 2025-06-06 18:20 | RAD REPORT ---
EXAM: XR FACIAL BONES HISTORY: PAIN COMPARISON: None TECHNIQUE: Multiple views of thefacial bones.. FINDINGS: No displaced facial bone fractures are seen. The visualized paranasal sinuses are well aerated. IMPRESSION: No facial fractures identified.
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
[2025-06-06 18:50] VITALS: TEMP 98.6
[2025-06-06 18:51] VITALS: BP 131/82; O2SAT 97
== END 2025-06-06 18:46 | disposition home or self-care (01) ==
LOC: ER 17:19
DX: O9A.213 Injury, poisoning and certain other consequences of external causes complicating pregnancy, third trimester (principal); S09.92XA Unspecified injury of nose, initial encounter; Z3A.35 35 weeks gestation of pregnancy
CPT/HCPCS: 70160; 99283